=== PATIENT | female | born 1955 | race American Indian/Alaskan Native ===

== ENCOUNTER 2017-07-25 02:46 | Inpatient (IN) | payer MEDICAID, OTHER ==
[2017-07-25] MEDS ORDERED: Albuterol-Ipratrop 3 mg / 0.5 (3 ml) UD IH STA ×2 (03:04→03:20)
--- NOTE | 2017-07-25 03:04 | ED PDOC ---
Arrival/HPI - General Chief Complaint: Shortness Of Breath Time Seen by Provider: 07/25/17 02:49 Historian: Patient - History of Present Illness Narrative History of Present Illness (Text): 07/25/17 03:04 Loren Bruno is a 62 year old female, whose past medical history includes COPD , CHF, and hypertension, who presents to the Emergency department brought in by EMS complaining of shortness of breath for the past couple of days, which has worsened today. Patient states she had nebulizer treatments at home and used her inhaler with no significant relief. Patient denies any fever, chills, chest pain, nausea, vomiting, diarrhea, urinary symptoms, back pain, neck pain, headache, dizziness, or any other complaints. Time/Duration: < week Symptom Onset: Gradual Symptom Course: Unchanged Activities at Onset: Light Context: Home Past Medical History - Provider Review Nursing Documentation Reviewed: Yes - Infectious Disease Hx of Infectious Diseases: None - Tetanus Immunization Tetanus Immunization: Unknown - Cardiac Hx Cardiac Disorders: Yes Hx Congestive Heart Failure: Yes Hx Hypertension: Yes (stopped taking meds insurance problem) - Pulmonary Hx Respiratory Disorders: Yes Hx Asthma: Yes Hx Bronchitis: Yes (1 yr ago) - Neurological Hx Neurological Disorder: No - HEENT Hx HEENT Disorder: No - Renal Hx Renal Disorder: No - Endocrine/Metabolic Hx Endocrine Disorders: No - Hematological/Oncological Hx Blood Disorders: No - Integumentary Hx Dermatological Disorder: No - Musculoskeletal/Rheumatological Hx Musculoskeletal Disorders: No - Gastrointestinal Hx Gastrointestinal Disorders: Yes Hx Pancreatitis: Yes (age 55) - Genitourinary/Gynecological Hx Genitourinary Disorders: No - Psychiatric Hx Psychophysiologic Disorder: No Hx Substance Use: No Family/Social History - Physician Review Nursing Documentation Reviewed: Yes Family/Social History: Unknown Family HX Smoking Status: Light Smoker < 10 Cigarettes Daily Hx Alcohol Use: Yes (social) Hx Substance Use: No Allergies/Home Meds Allergies/Adverse Reactions: Allergies No Known Allergies Allergy (Verified 07/25/17 02:50) Review of Systems - Physician Review All systems were reviewed & negative as marked: Yes - Review of Systems Constitutional: Normal. absent: Fevers Eyes: Normal ENT: Normal Respiratory: SOB. absent: Cough Cardiovascular: Normal. absent: Chest Pain Gastrointestinal: Normal. absent: Abdominal Pain, Diarrhea, Nausea, Vomiting Genitourinary Female: Normal. absent: Dysuria, Frequency, Hematuria, Urine Output Changes Musculoskeletal: Normal. absent: Back Pain, Neck Pain Skin: Normal. absent: Rash Neurological: Normal. absent: Headache, Dizziness Endocrine: Normal Hemo/Lymphatic: Normal Psychiatric: Normal Physical Exam Vital Signs Reviewed: Yes Vital Signs Pulse Resp BP Pulse Ox 07/25/17 06:00 159/91 H 07/25/17 03:10 177/113 H 07/25/17 02:46 119 H 20 177/113 H 96 Temperature: Afebrile Blood Pressure: Normal Pulse: Regular Respiratory Rate: Normal Appearance: Positive for: Well-Appearing, Non-Toxic, Comfortable Pain Distress: None Mental Status: Positive for: Alert and Oriented X 3 - Systems Exam Head: Present: Atraumatic, Normocephalic Pupils: Present: PERRL Extroacular Muscles: Present: EOMI Conjunctiva: Present: Normal Mouth: Present: Moist Mucous Membranes Neck: Present: Normal Range of Motion Respiratory/Chest: Present: Wheezes (Wheezing bilaterally), Rales (Rales at the bases). No: Respiratory Distress, Accessory Muscle Use Cardiovascular: Present: Regular Rate and Rhythm, Normal S1, S2. No: Murmurs Abdomen: No: Tenderness, Distention, Peritoneal Signs Back: Present: Normal Inspection Upper Extremity: Present: Normal Inspection. No: Cyanosis, Edema Lower Extremity: Present: Normal Inspection. No: Edema Neurological: Present: GCS=15, CN II-XII Intact, Speech Normal Skin: Present: Warm, Dry, Normal Color. No: Rashes Psychiatric: Present: Alert, Oriented x 3, Normal Insight, Normal Concentration Medical Decision Making ED Course and Treatment: 07/25/17 03:04 Impression: 62 year old female complaining of worsening shortness of breath. Plan: -- EKG -- Chest X-ray -- Labs, cardiac enzymes, BNP -- Duoneb -- Lasix -- Reassess and disposition Prior Visits: Notes and results from previous visits were reviewed. On 04/05/2016, pt was seen in the Emergency department for shortness of breath, dyspnea on exertion, and wheezing. Pt was admitted to the hospital for further evaluation. Progress Notes: Reviewed EKG, sinus tachycardia at 110 bpm. Non-specific ST/T wave changes. 07/25/17 04:35 Case discussed with medical referral coordinator compo conveyor operator, who is aware and agrees with plan. 07/25/17 04:[address] Fraser, who is aware and agrees with plan. Accepts pt to hospitalist service. Pt will be admitted to Telemetry for COPD exacerbation and CHF. 07/25/17 04:55 Chest X-ray shows: Lungs: There is diffuse pulmonary vascular congestion with perihilar and mid to lower lung zone patchy parenchymal infiltrates representing pulmonary edema. Correlation with patient's hydration status and/or cardiac function versus pneumonia is recommended if clinically suspected. Pleural space: Unremarkable. No pneumothorax. Heart: There is stable enlargement of cardiac silhouette. Mediastinum: Unremarkable. Bones/joints: Unremarkable. Vasculature: Atherosclerotic aorta. IMPRESSION: There is diffuse pulmonary vascular congestion with perihilar and mid to lower lung zone patchy parenchymal infiltrates representing pulmonary edema. Correlation with patient' s hydration status and/or cardiac function versus pneumonia is recommended if clinically suspected. Correlation with internal medicine evaluation and further workup or followup as recommended by patient's clinical data. - Lab Interpretations Lab Results: 07/25/17 03:20 07/25/17 03:20 Lab Results 07/25/17 04:30: Hemoglobin A1c 4.7 07/25/17 03:20: Transferrin 226.65, TSH 3rd Generation 3.92 07/25/17 03:20: Iron 87, TIBC 253 L, % Saturation 34 07/25/17 03:20: Phosphorus 3.2, Magnesium 1.1 L, Ferritin 148.0, Triglycerides 102, Cholesterol 259 H, LDL Cholesterol Direct 110, HDL Cholesterol 141 H, Vitamin B12 275, Folate 10.8 07/25/17 03:20: WBC 9.5 D, RBC 3.50, Hgb 11.2 L, Hct 32.9 L, MCV 94.0, MCH 32.0 , MCHC 34.0, RDW 15.7 H, Plt Count 218, MPV 10.5 07/25/17 03:20: Sodium 143, Potassium 3.0 L, Chloride 104, Carbon Dioxide 25, Anion Gap 16, BUN 8, Creatinine 0.8, Est GFR ( Amer) > 60, Est GFR (Non- Af Amer) > 60, Random Glucose 109, Calcium 8.4, Total Bilirubin 0.7, AST 42 H, ALT 21, Alkaline Phosphatase 85, Lactate Dehydrogenase 653, Total Creatine Kinase 150, Troponin I 0.01 D, NT-Pro-B Natriuret Pep 3590 H, Total Protein 7.7 , Albumin 4.4, Globulin 3.3, Albumin/Globulin Ratio 1.3 07/25/17 03:20: PT 11.0, INR 0.97, APTT 27.1 I have reviewed the lab results: Yes - RAD Interpretation Radiology Orders: 07/25/17 03:05 CHEST PORTABLE [RAD] Stat Booster Pump Oiler: Radiologist - EKG Interpretation Interpreted by ED Physician: Yes Type: 12 lead EKG - Medication Orders Current Medication Orders: Albuterol/Ipratropium (Duoneb 3 Mg/0.5 Mg (3 Ml) Ud) 3 ml IH Q2H PRN PRN Reason: Shortness of Breath Artificial Tears (Refresh Opth Soln) 0.3 ml OU Q4H PRN PRN Reason: Dry eyes Aspirin (Ecotrin) 81 mg PO DAILY [facility] Last Admin: 07/25/17 11:52 Dose: 81 mg Atorvastatin Calcium (Lipitor) 20 mg PO DIN [facility] Last Admin: 07/25/17 18:17 Dose: 20 mg Carvedilol (Coreg) 3.125 mg PO BID [facility] Last Admin: 07/25/17 18:12 Dose: Not Given Non-Admin Reason: BP Parameters Not Met Clonidine HCl (Catapres) 0.2 mg PO TID [facility] Last Admin: 07/25/17 13:03 Dose: 0.2 mg MAR Pulse and Blood Pressure Document 07/25/17 13:03 KE (Rec: 07/25/17 13:03 [id number]) Pulse Pulse Rate (60-90) 97 Blood Pressure Blood Pressure (100/60-150/90) 159/91 Enoxaparin Sodium (Lovenox) 40 mg SC DAILY [facility] PRN Reason: Protocol Last Admin: 07/25/17 09:42 Dose: 40 mg Subcutaneous Administrations Document 07/25/17 09:42 KE (Rec: 07/25/17 09:42 KE [id number]) Charges for Administration # of Subcutaneous Administrations 1 Furosemide (Lasix) 40 mg IVP Q12 [facility] Last Admin: 07/25/17 09:42 Dose: 40 mg MAR Blood Pressure Document 07/25/17 09:42 KE (Rec: 07/25/17 09:42 KE [id number]) Blood Pressure Blood Pressure (100/60-150/90) 159/91 IVP Administration Document 07/25/17 09:42 KE (Rec: 07/25/17 09:42 KE [id number]) Charges for Administration # of IVP Administrations 1 Potassium Chloride/Dextrose (Potassium Chl 20 Meq In D5w) 1,000 mls @ 20 mls/ hr IV .Q24H [facility] Last Admin: 07/25/17 16:57 Dose: 20 mls/hr Comments: given during code eMAR Start Stop Document 07/25/17 16:57 KE (Rec: 07/25/17 16:57 KE [id number]) Intravenous Solution Start Date 07/25/17 Start Time 16:57 Milrinone Lactate/Dextrose (Primacor 20mg/100ml D5w) 100 mls @ 6.185 mls/hr IV .[id number] PRN; Protocol; 0.375 MCG/KG/MIN PRN Reason: TITRATE PER MD ORDER Last Admin: 07/25/17 16:45 Dose: 0.375 mcg/kg/min, 6.185 mls/hr eMAR Start Stop Document 07/25/17 16:45 MG (Rec: 07/25/17 17:51 MG [id number]) Intravenous Solution Start Date 07/25/17 Start Time 16:45 MAR Pulse and Blood Pressure Document 07/25/17 16:45 MG (Rec: 07/25/17 17:51 MG [id number]) Pulse Pulse Rate (60-90) 123 Blood Pressure Blood Pressure (100/60-150/90) 159/90 Titration Intervention Document 07/25/17 16:45 MG (Rec: 07/25/17 17:51 MG [id number]) Titration Intake Waste Amount 0 Container Volume 100 Titration Dosing Titration Dose 0.375 IV Rate 6.185 Intake/Decrease Started Amiodarone HCl/Dextrose (Nexterone 360 Mg In D5w 200 Ml (Premix)) 360 mg in 200 mls @ 33.333 mls/hr IV .Q6H AUNDREA; 1 MG/MIN PRN Reason: Protocol Last Admin: 07/25/17 21:45 Dose: 33.333 mls/hr eMAR Start Stop Document 07/25/17 21:45 JBO (Rec: 07/25/17 23:02 [facility] [id number]) Intravenous Solution Start Date 07/25/17 Start Time 21:45 Propofol (Diprivan) 1,000 mg in 100 mls @ 1.649 mls/hr IV .Q24H PRN; Protocol; 5 MCG/KG/MIN PRN Reason: TITRATE PER MD ORDER Last Titration: 07/26/17 01:01 Dose: 10 mcg/kg/min, 3.299 mls/hr Glez Agitation Sedation Document 07/26/17 01:01 [facility] (Rec: 07/26/17 01:01 [facility] [id number]) Glez Agitation Sedation Scale Glez Agitation Sedation Scale Score -2 Light Sedation: briefly awakens with eye contact to voice (<10 sec) Titration Intervention Document 07/26/17 01:01 [facility] (Rec: 07/26/17 01:01 [facility] [id number]) Titration Intake Titration Intake 7 Cumulative Intake 41 Cumulative Intake (Rx) 141 Waste Amount 0 Container Volume 59 Titration Dosing Titration Dose 10 IV Rate 3.299 Intake/Decrease Decreased Cumulative Dose 1410 NOREPINEPHRINE BIT/0.9 % NACL (Levophed 4 Mg/ 250 Ml Ns Premixed) 4 mg in 250 mls @ 15 mls/hr IV .[id number] PRN; Protocol; 4 MCG/MIN PRN Reason: TITRATE PER MD ORDER Last Titration: 07/25/17 23:30 Dose: 20 mcg/min, 75 mls/hr Titration Intervention Document 07/25/17 23:30 [facility] (Rec: 07/26/17 00:06 [facility] [id number]) Titration Intake Titration Intake 45 Cumulative Intake 70 Cumulative Intake (Rx) 320 Waste Amount 0 Container Volume 180 Titration Dosing Titration Dose 20 IV Rate 75 Intake/Decrease Increased Cumulative Dose 5.12 Sodium Bicarbonate 100 meq/ (Sodium Chloride) 1,100 mls @ 70 mls/hr IV .[id number] [facility]RE[facility] Last Admin: 07/25/17 19:06 Dose: 70 mls/hr eMAR Start Stop Document 07/25/17 19:06 MG (Rec: 07/25/17 19:07 MG [id number]) Intravenous Solution Start Date 07/25/17 Start Time 19:00 Midazolam 100 mg/100ml in NS (Midazolam 100 Mg/100ml In Ns) 100 mg in 100 mls @ 1 mls/hr IV .Q24H PRN; Protocol; 1 MG/HR PRN Reason: Sedation Last Titration: 07/26/17 00:09 Dose: 1 mg/hr, 1 mls/hr Glez Agitation Sedation Document 07/26/17 00:09 [facility] (Rec: 07/26/17 00:09 [facility] [id number]) Glez Agitation Sedation Scale Glez Agitation Sedation Scale Score -2 Light Sedation: briefly awakens with eye contact to voice (<10 sec) Titration Intervention Document 07/26/17 00:09 [facility] (Rec: 07/26/17 00:09 [facility] [id number]) Titration Intake Titration Intake 10 Cumulative Intake 11 Cumulative Intake (Rx) 11 Waste Amount 0 Container Volume 89 Titration Dosing Titration Dose 1 IV Rate 1 Intake/Decrease Decreased Cumulative Dose 11 Insulin Human Regular (Humulin R High) 0 units SC Q2H [facility] PRN Reason: Protocol Last Admin: 07/25/17 23:15 Dose: Not Given Non-Admin Reason: Blood Sugar Parameter MAR Blood Glucose Document 07/25/17 23:15 FATOUO (Rec: 07/25/17 23:26 [facility] [id number]) Blood Glucose Finger Stick Blood Glucose (70-120) 118 Lisinopril (Zestril) 10 mg PO DAILY [facility] Last Admin: 07/25/17 09:43 Dose: 10 mg MAR Pulse and Blood Pressure Document 07/25/17 09:43 KE (Rec: 07/25/17 09:44 KE [id number]) Pulse Pulse Rate (60-90) 97 Blood Pressure Blood Pressure (100/60-150/90) 159/91 Nicotine (Nicoderm Cq) 1 patch TD DAILY [facility] Last Admin: 07/25/17 09:42 Dose: 1 patch MAR Transdermal Patch Site Document 07/25/17 09:42 KE (Rec: 07/25/17 09:42 KE [id number]) Transdermal Patch Site Transdermal Patch Site Left Shoulder Re-Assess: MAR Transdermal Patch Removal Document 07/25/17 21:42 FATOUO (Rec: 07/25/17 23:12 [facility] [id number]) Transdermal Patch Removal Removal of Transdermal Patch done? Yes Ondansetron HCl (Zofran Inj) 4 mg IVP Q4H PRN PRN Reason: Nausea/Vomiting Pantoprazole Sodium (Protonix Inj) 40 mg IVP DAILY [facility] Potassium Chloride (K-Dur 20 Meq Er Tab) 40 meq PO BRK [facility]UN[facility]RE[facility] Thiamine HCl (Vitamin B1 Tab) 100 mg PO DAILY [facility] Last Admin: 07/25/17 09:44 Dose: 100 mg Discontinued Medications Albuterol/Ipratropium (Duoneb 3 Mg/0.5 Mg (3 Ml) Ud) 3 ml IH ONCE STA Stop: 07/25/17 03:05 Last Admin: 07/25/17 03:05 Dose: 3 ml Albuterol/Ipratropium (Duoneb 3 Mg/0.5 Mg (3 Ml) Ud) 3 ml IH ONCE STA Stop: 07/25/17 03:21 Last Admin: 07/25/17 03:20 Dose: 3 ml Dextrose (Dextrose 50% Inj) 50 ml IVP ONCE ONE Stop: 07/25/17 21:21 Last Admin: 07/25/17 21:25 Dose: 50 ml IVP Administration Document 07/25/17 21:25 JBO (Rec: 07/25/17 22:47 JBO [id number]) Charges for Administration # of IVP Administrations 1 Furosemide (Lasix) 40 mg IVP ONCE ONE Stop: 07/25/17 03:05 Last Admin: 07/25/17 03:10 Dose: 40 mg MAR Blood Pressure Document 07/25/17 03:10 JOL (Rec: 07/25/17 03:37 [id number] Blood Pressure Blood Pressure (100/60-150/90) 177/113 IVP Administration Document 07/25/17 03:10 JOL (Rec: 07/25/17 03:37 [id number] Charges for Administration # of IVP Administrations 1 Furosemide (Lasix) 80 mg IVP STAT STA Stop: 07/25/17 05:14 Last Admin: 07/25/17 06:00 Dose: 80 mg MAR Blood Pressure Document 07/25/17 06:00 JOL (Rec: 07/25/17 06:11 [id number] Blood Pressure Blood Pressure (100/60-150/90) 159/91 IVP Administration Document 07/25/17 06:00 JOL (Rec: 07/25/17 06:11 [id number][facility] Charges for Administration # of IVP Administrations 1 Potassium Chloride (Potassium Chloride 20 Meq/100 Ml) 100 mls @ 50 mls/hr IV ONCE ONE Stop: 07/25/17 05:58 Last Admin: 07/25/17 04:31 Dose: Not Given Non-Admin Reason: Patient Refused Magnesium Sulfate/Dextrose (Magnesium Sulfate 1 Gm/100 Ml D5w) 1 gm in 100 mls @ 100 mls/hr IVPB ONCE ONE Stop: 07/25/17 09:20 Last Admin: 07/25/17 09:41 Dose: 100 mls/hr eMAR Start Stop Document 07/25/17 09:41 KE (Rec: 07/25/17 09:41 DUSTIN [id number]) Intravenous Solution Start Date 07/25/17 Start Time 09:41 Potassium Chloride/Dextrose (Potassium Chl 20 Meq In D5w) 1,000 mls @ 20 mls/ hr IV .Q24H [facility]UN[facility]RE[facility] Magnesium Sulfate/Dextrose (Magnesium Sulfate 1 Gm/100 Ml D5w) 1 gm in 100 mls @ 100 mls/hr IVPB ONCE ONE Stop: 07/25/17 16:48 Last Admin: 07/25/17 16:56 Dose: 100 mls/hr Comments: given during code eMAR Start Stop Document 07/25/17 16:56 DUSTIN (Rec: 07/25/17 16:56 DUSTIN [id number]) Intravenous Solution Start Date 07/25/17 Start Time 16:56 Sodium Bicarbonate 100 meq/ (Sodium Chloride) 1,100 mls @ 80 mls/hr IV .[id number] [facility]RE[facility] Sodium Chloride (Sodium Chloride 0.9%) 1,000 mls @ 999 mls/hr IV .Q1H1M STA Stop: 07/25/17 18:53 Last Admin: 07/25/17 17:00 Dose: 999 mls/hr eMAR Start Stop Document 07/25/17 17:00 MG (Rec: 07/25/17 18:12 MG [id number]) Intravenous Solution Start Date 07/25/17 Start Time 17:00 End Date 07/25/17 End time 18:00 Total Infusion Time 60 Sodium Chloride (Sodium Chloride 0.9%) 250 mls @ 500 mls/hr IV .Q30M STA Stop: 07/26/17 00:43 Last Admin: 07/25/17 23:30 Dose: 500 mls/hr eMAR Start Stop Document 07/25/17 23:30 JBO (Rec: 07/26/17 01:11 JBO [id number]) Intravenous Solution Start Date 07/25/17 Start Time 23:30 End Date 07/26/17 End time 00:00 Total Infusion Time 30 Insulin Human Regular (Humulin R) 10 units IV ONCE ONE Stop: 07/25/17 18:22 Last Admin: 07/25/17 19:05 Dose: 10 units eMAR Start Stop Document 07/25/17 19:05 MG (Rec: 07/25/17 19:06 MG [id number]) Intravenous Solution Start Date 07/25/17 Start Time 18:30 End Date 07/25/17 End time 18:35 Total Infusion Time 5 MAR Blood Glucose Document 07/25/17 19:05 MG (Rec: 07/25/17 19:06 MG [id number]) Blood Glucose Finger Stick Blood Glucose (70-120) 447 Methylprednisolone (Solu-Medrol) 125 mg IVP ONCE ONE Stop: 07/25/17 04:56 Last Admin: 07/25/17 06:00 Dose: 125 mg IVP Administration Document 07/25/17 06:00 JOElvia (Rec: 07/25/17 06:10 [facility]-[id number]) Charges for Administration # of IVP Administrations 1 Potassium Chloride (K-Dur 20 Meq Er Tab) 40 meq PO STAT STA Stop: 07/25/17 04:51 Last Admin: 07/25/17 06:00 Dose: 40 meq Potassium Chloride (K-Dur 20 Meq Er Tab) 40 meq PO STAT STA Stop: 07/25/17 05:05 - Scribe Statement The provider has reviewed the documentation as recorded by the Alexus Win Provider Scribe Attestation: All medical record entries made by the Scribe were at my direction and personally dictated by me. I have reviewed the chart and agree that the record accurately reflects my personal performance of the history, physical exam, medical decision making, and the department course for this patient. I have also personally directed, reviewed, and agree with the discharge instructions and disposition. Disposition/Present on Arrival - Present on Arrival Any Indicators Present on Arrival: No History of DVT/PE: No History of Uncontrolled Diabetes: No Urinary Catheter: No History of Decub. Ulcer: No History Surgical Site Infection Following: None - Disposition Have Diagnosis and Disposition been Completed?: Yes Diagnosis: CHF (congestive heart failure), COPD exacerbation Disposition: HOSPITALIZED Disposition Time: 05:40 Patient Problems: Current Active Problems Problem Status Onset CHF (congestive heart failure) Acute COPD exacerbation Acute Condition: STABLE
[2017-07-25 03:56] LABS: HEMOGLOBIN 11.2 g/dL (12.0-16.0); MEAN PLATELET VOLUME 10.5 fl (7.0-11.0); RBC 3.5 10^6/uL (3.5-6.1); RED CELL DISTRIBUTION WIDTH 15.7 % (11.5-14.5); WHITE BLOOD COUNT 9.5 10^3/ul (4.5-11.0)
[2017-07-25 03:58] LABS: ALB/GLOB RATIO 1.3 (1.1-1.8); ALBUMIN 4.4 g/dL (3.0-4.8); ALT/SGPT 21 U/L (7-56); AST/SGOT 42 U/L (14-36); BLOOD UREA NITROGEN 8 mg/dL (7-21); CALCIUM 8.4 mg/dL (8.4-10.5); GFR AFRICAN-AMERICAN > 60; GFR NON-AFRICAN AMERICAN > 60; INR 0.97 (0.93-1.08)
[2017-07-25 03:59] LABS: PARTIAL THROMBOPLASTIN TIME 27.1 Seconds (25.1-36.5)
[2017-07-25] MEDS ORDERED: Potassium Chloride 20 mEq 100 ML IV ONE (03:59)
[2017-07-25 04:09] LABS: B-TYPE NATRIURETIC PEPTIDE 3590 pg/mL (0-450); TROPONIN I 0.01 ng/mL
[2017-07-25] MEDS ORDERED: Potassium Chloride 20 mEq ER Tab PO STA ×2 (04:50→05:04)
[2017-07-25] MEDS ORDERED: Albuterol-Ipratrop 3 mg / 0.5 (3 ml) UD IH PRN (04:52)
--- NOTE | 2017-07-25 04:56 | RAD ---
EXAM: XR Chest, 1 View CLINICAL HISTORY: 62 years old, female; Signs and symptoms; Shortness of breath; Additional info: SOB TECHNIQUE: Frontal view of the chest. COMPARISON: CR - CHEST PORTABLE 2016-04-05 10:25 FINDINGS: Lungs: There is diffuse pulmonary vascular congestion with perihilar and mid to lower lung zone patchy parenchymal infiltrates representing pulmonary edema. Correlation with patient's hydration status and/or cardiac function versus pneumonia is recommended if clinically suspected. Pleural space: Unremarkable. No pneumothorax. Heart: There is stable enlargement of cardiac silhouette. Mediastinum: Unremarkable. Bones/joints: Unremarkable. Vasculature: Atherosclerotic aorta. IMPRESSION: There is diffuse pulmonary vascular congestion with perihilar and mid to lower lung zone patchy parenchymal infiltrates representing pulmonary edema. Correlation with patient's hydration status and/or cardiac function versus pneumonia is recommended if clinically suspected. Correlation with internal medicine evaluation and further workup or followup as recommended by patient's clinical data.
[2017-07-25 05:05] LABS: ARTERIAL BLOOD GAS HCO3 26.5 mmol/L (21-28); ARTERIAL BLOOD GAS HEMOGLOBIN 11.1 g/dL (11.7-17.4); ARTERIAL BLOOD GAS O2 CONTENT 14.7 ML/dl (15-23); ARTERIAL BLOOD GAS O2 SAT 98.3 % (95-98); ARTERIAL BLOOD GAS PCO2 34 mm/Hg (35-45); ARTERIAL BLOOD GAS TCO2 27.5 mmol.L (22-28)
--- NOTE | 2017-07-25 05:57 | CP.PCM.HP ---
<Taiwo Hager - Last Filed: 07/25/17 06:16> History of Present Illness - History of Present Illness History of Present Illness: Ms. Bruno is a 62 year old female with a past medical history significant for CHF (last EF 27%, 04/15), COPD, HTN and tobacco abuse who presents with shortness of breath for the past four days with intermittent cough productive of clear sputum. Patient reports that she awoke from sleep with SOB. She has tried using her PRN albuterol inhaler without any relief. She endorses feeling minimal relief when sitting upright. She normally uses three pillows to sleep at night and denies having to increase this recently. She has been trying to take her medications more frequently but has had difficulty with insurance coverage and has not been taking every medication as prescribed every day. She denies any recent travel, sick contacts, fevers, chills, headaches, changes in her vision, rhinorrhea, sore throat, dysphagia, neck pain/stiffness, chest pain , palpitations, leg swelling, green/yellow sputum production, wheezing, hemoptysis, abdominal pain, N/V/D/C, changes in urine output, skin lesions, or any numbness/tingling/weakness of any extremity. PMH: As stated above PSH: Ex-Lap (30 years ago) Family History: Mother-Uterine/Ovarian Cancer Social History: Current 1/2ppd smoker (20 pack smoking history), social alcohol use and occasional marijuana use; Lives with boyfriend in Allergies: NKDA Home Medications: As per MAR Present on Admission - Present on Admission Any Indicators Present on Admission: No Review of Systems - Review of Systems Review of Systems: As stated in HPI, otherwise negative Past Patient History - Infectious Disease Hx of Infectious Diseases: None - Tetanus Immunizations Tetanus Immunization: Unknown - Past Medical History & Family History Past Medical History?: Yes - Past Social History Smoking Status: Light Smoker < 10 Cigarettes Daily - CARDIAC Hx Cardiac Disorders: Yes Hx Congestive Heart Failure: Yes Hx Hypertension: Yes (stopped taking meds insurance problem) - PULMONARY Hx Respiratory Disorders: Yes Hx Asthma: Yes Hx Bronchitis: Yes (1 yr ago) - NEUROLOGICAL Hx Neurological Disorder: No - HEENT Hx HEENT Problems: No - RENAL Hx Chronic Kidney Disease: No - ENDOCRINE/METABOLIC Hx Endocrine Disorders: No - HEMATOLOGICAL/ONCOLOGICAL Hx Blood Disorders: No - INTEGUMENTARY Hx Dermatological Problems: No - MUSCULOSKELETAL/RHEUMATOLOGICAL Hx Musculoskeletal Disorders: No - GASTROINTESTINAL Hx Gastrointestinal Disorders: Yes Hx Pancreatitis: Yes (age 55) - GENITOURINARY/GYNECOLOGICAL Hx Genitourinary Disorders: No - PSYCHIATRIC Hx Psychophysiologic Disorder: No Hx Substance Use: No - SURGICAL HISTORY Hx Surgeries: No Meds Allergies/Adverse Reactions: Allergies Allergy/AdvReac Type Severity Reaction Status Date / Time No Known Allergies Allergy Verified 07/25/17 02:50 Physical Exam - Constitutional Appears: Non-toxic, No Acute Distress - Head Exam Head Exam: ATRAUMATIC, NORMOCEPHALIC - Eye Exam Eye Exam: EOMI, Normal appearance, PERRL Pupil Exam: NORMAL ACCOMODATION, PERRL - ENT Exam ENT Exam: Mucous Membranes Moist, Normal Exam - Neck Exam Neck exam: Positive for: Full Rom, Normal Inspection. Negative for: Lymphadenopathy, Meningismus, Tenderness, Thyromegaly - Respiratory Exam Respiratory Exam: Accessory Muscle Use, Rhonchi (Bilaterally in lung bases extending to middle lung warren). absent: Chest Wall Tenderness, Decreased Breath Sounds, Clear to Auscultation Bilateral, Prolonged Expiratory Phase, Rales, Wheezes, Respiratory Distress, Stridor, NORMAL BREATHING PATTERN - Cardiovascular Exam Cardiovascular Exam: Tachycardia, REGULAR RHYTHM, +S1, +S2. absent: Bradycardia , Clicks, Diastolic murmur, Gallop, Irregular Rhythm, JVD, RRR, Rubs, +S4, Systolic Murmur - GI/Abdominal Exam GI & Abdominal Exam: Normal Bowel Sounds, Soft. absent: Bruit, Diminished Bowel Sounds, Distended, Firm, Guarding, Hernia, Hyperactive Bowel Sounds, Hypoactive Bowel Sounds, Mass, Organomegaly, Pulsatile Mass, Rebound, Rigid, Tenderness - Extremities Exam Extremities exam: Positive for: full ROM, normal capillary refill, normal inspection, pedal pulses present. Negative for: calf tenderness, joint swelling , pedal edema, tenderness - Back Exam Back exam: NORMAL INSPECTION - Neurological Exam Neurological exam: Alert, Oriented x3 - Psychiatric Exam Psychiatric exam: Normal Affect, Normal Mood - Skin Skin Exam: Dry, Intact, Normal Color, Warm Results - Vital Signs Recent Vital Signs: Last Vital Signs Temp Pulse 119 H 07/25/17 02:46 Resp 20 07/25/17 02:46 BP 177/113 H 07/25/17 03:10 Pulse Ox 96 07/25/17 02:46 - Labs Result Diagrams: 07/25/17 03:20 07/25/17 03:20 Labs: Laboratory Results - last 24 hr 07/25/17 04:59 pCO2 34 L pO2 79.0 L HCO3 26.5 ABG pH 7.50 H ABG Total CO2 27.5 ABG O2 Saturation 98.3 H ABG O2 Content 14.7 L ABG Base Excess 3.4 H ABG Hemoglobin 11.1 L ABG Carboxyhemoglobin 3.1 H POC ABG HHb (Measured) 1.6 ABG Methemoglobin 1.4 ABG O2 Capacity 15.0 L Hgb O2 Saturation 93.9 L FiO2 40.0 - EKG Data EKG shows normal: Sinus rhythm Rate: Tachycardia Assessment & Plan - Assessment and Plan (Free Text) Assessment: 62 year old female with a past medical history significant for CHF (last EF 27% , 04/15), COPD, HTN and tobacco abuse who presents with shortness of breath for the past four days with intermittent cough productive of clear sputum. Patient noted to have elevated BNP and hypokalemia. She is being admitted for acute CHF exacerbation. Plan: 1. Acute Decompensated CHF -Last Echo 03/2016 reviewed with LVEF of 27% -Chest X-Ray showed diffuse PVC with perihilar and mid to lower lung zone pulmonary edema -EKG showed sinus tachycardia with bilateral atrial enlargement and voltage criteria for LVH -BNP elevated to 3590 -Initial troponin negative with two serial Q6 repeats pending -Repeat Echo, TSH, lipid panel, and A1c pending -IV Lasix 40mg Q12 -Continue home ASA, Coreg and Lisinopril -Daily weights and strict I/O's -Cardiology consulted, all recommendations appreciated 2. History of COPD/Asthma -ABG pending -Duonebs Q2 PRN 3. Normocytic Anemia -Iron, TIBC, Transferrin, Ferritin, Folate, Vitamin B12, and peripheral smear pending -Continue to monitor with daily CBC's 4. Hypokalemia -Replenished with 80meq of PO KCl -Magnesium/Phosphorous pending -Monitor with daily CMP's 5. History of HTN -Continue home Lisinopril 6. History of Tobacco Abuse -Nicoderm CQ daily -Cessation recommendations provided GI Prophylaxis: Protonix DVT Prophylaxis: Lovenox Diet: Heart Healthy Patient seen and case discussed with attending, Dr. Fraser. Merrill PGY1 - Date & Time Date: 07/25/17 Time: 06:05 <Candice Fraser - Last Filed: 07/25/17 06:25> Results - Vital Signs Recent Vital Signs: Last Vital Signs Temp Pulse 97 H 07/25/17 06:05 Resp 20 07/25/17 06:05 BP 159/91 H 07/25/17 06:05 Pulse Ox 97 07/25/17 06:05 - Labs Result Diagrams: 07/25/17 03:20 07/25/17 03:20 Labs: Laboratory Results - last 24 hr 07/25/17 04:59 pCO2 34 L pO2 79.0 L HCO3 26.5 ABG pH 7.50 H ABG Total CO2 27.5 ABG O2 Saturation 98.3 H ABG O2 Content 14.7 L ABG Base Excess 3.4 H ABG Hemoglobin 11.1 L ABG Carboxyhemoglobin 3.1 H POC ABG HHb (Measured) 1.6 ABG Methemoglobin 1.4 ABG O2 Capacity 15.0 L Hgb O2 Saturation 93.9 L FiO2 40.0 Attending/Attestation - Attestation I have personally seen and examined this patient.: Yes I have fully participated in the care of the patient.: Yes I have reviewed all pertinent clinical information: Yes Notes (Text): 07/25/17 06:24 Patient was seen when she was in bed # 3 in the ER. Agree with history, physical examination, assessment and plan.
[2017-07-25] MEDS ORDERED: Pantoprazole 40 mg EC Tab PO SCH (06:00)
[2017-07-25 07:18] LABS: IRON 87 ug/dL (45-180)
[2017-07-25 07:28] LABS: % IRON SATURATION 34 % (20-55); TOTAL IRON BINDING CAPACITY 253 ug/dL (265-497)
[2017-07-25] MEDS ORDERED: Albuterol-Ipratrop 3 mg / 0.5 (3 ml) UD IH SCH (07:30)
[2017-07-25] MEDS ORDERED: Magnesium Sulfate 1 gm in D5W 1 GM/100 ML BAG IVPB ONE ×2 (08:21→15:49)
[2017-07-25] MEDS: Enoxaparin 40 mg Syringe SC SCH (09:42)
[2017-07-25 11:00] VITALS: BMI 18.9
[2017-07-25 11:39] LABS: TRANSFERRIN 226.65 mg/dL (206-381)
[2017-07-25 12:42] LABS: BARBITURATES, UR NEGATIVE (NEGATIVE); BENZODIAZEPINES, UR NEGATIVE (NEGATIVE); OPIATES, UR NEGATIVE (NEGATIVE); PHENCYCLIDINE, UR NEGATIVE (NEGATIVE)
[2017-07-25 12:44] LABS: FOLATE 10.8 ng/mL
[2017-07-25 12:50] LABS: BLOOD UREA NITROGEN 8 mg/dL (7-21); CALCIUM 8.5 mg/dL (8.4-10.5); GFR AFRICAN-AMERICAN > 60; GFR NON-AFRICAN AMERICAN > 60
--- NOTE | 2017-07-25 14:00 | CARD ---
APPROVED REPORT EXAM: Two-dimensional and M-mode echocardiogram with Doppler and color Doppler. INDICATION Congestive Heart Failure 2D DIMENSIONS Left Atrium (2D)4.6 (1.6-4.0cm)IVSd1.2 (0.7-1.1cm) LVDd5.8 (3.9-5.9cm)PWd1.4 (0.7-1.1cm) LVDs5.4 (2.5-4.0cm)FS (%) 7.6 % LVEF (%)16.6 (>50%) M-Mode DIMENSIONS Aortic Root3.80 (2.2-3.7cm)Aortic Cusp Exc.1.60 (1.5-2.0cm) Mitral Valve MV E Qoasuhpp72.5cm/sMV A Jcvpnpuv82.9cm/sE/A ratio0.8 TDI E/Lateral E'0.0E/Medial E'0.0 Tricuspid Valve TR Peak [id number]/sRAP [id number] Peak Gr.28mmHg [id number] LEFT VENTRICLE The Left Ventricle is mildly dilated. There is normal left ventricular wall thickness. The systolic function is severely impaired. There is global hypokinesis of the left ventricle. Transmitral Doppler flow pattern is Grade I-abnormal relaxation pattern. No left ventricle thrombus noted on this study. RIGHT VENTRICLE The right ventricle is normal size. There is normal right ventricular wall thickness. The right ventricular systolic function is normal. ATRIA The left atrium is mildly dilated. The right atrium is mildly dilated. AORTIC VALVE The aortic valve is mildly thickened. No aortic regurgitation is present. There is no aortic valvular stenosis. MITRAL VALVE The mitral valve is mildly thickened. Mitral regurgitation is severe. TRICUSPID VALVE There is mild to moderate tricuspid regurgitation. There is mild pulmonary hypertension. GREAT VESSELS The aortic root is mildly enlarged. PERICARDIAL EFFUSION There is a trace loculated anterior pericardial effusion. <Conclusion> The Left Ventricle is mildly dilated. There is normal left ventricular wall thickness. The systolic function is severely impaired. There is global hypokinesis of the left ventricle. Transmitral Doppler flow pattern is Grade I-abnormal relaxation pattern. No left ventricle thrombus noted on this study. Mitral regurgitation is severe. There is mild to moderate tricuspid regurgitation. There is mild pulmonary hypertension.
--- NOTE | 2017-07-25 14:29 | CARD ---
APPROVED REPORT EKG Measurement Heart [id number] <Conclusion> Sinus tachycardia Biatrial enlargement Left ventricular hypertrophy Nonspecific ST and T wave abnormality Abnormal ECG
[2017-07-25] MEDS ORDERED: Potassium Chl 20mEq & D5W 1,000 ML IV SCH (16:00)
[2017-07-25] MEDS ORDERED: Milrinone 20mg/100ml D5W 100 ML IV PRN (16:31)
--- NOTE | 2017-07-25 16:31 | RAD ---
HISTORY: code blue COMPARISON: Earlier same day FINDINGS: LUNGS: Endotracheal tube is in satisfactory position. There is slight improvement in the pattern of pulmonary edema PLEURA: No significant pleural effusion identified, no pneumothorax apparent. CARDIOVASCULAR: Normal. OSSEOUS STRUCTURES: No significant abnormalities. VISUALIZED UPPER ABDOMEN: Normal. OTHER FINDINGS: None. IMPRESSION: Endotracheal tube is in satisfactory position. There is slight improvement in the pattern of pulmonary edema
--- NOTE | 2017-07-25 16:35 | PCM.RRT ---
<Raul Rockwell - Last Filed: 07/25/17 16:46> [facility] Nurse Assessment - Situation [facility] Location:: [address] [place] [address] [facility] Reason for Call: Change in Mental Status [facility] Called By: RN - Respiratory Oxygen Delivery Method: Intubated I.Reason for [facility] - A) Acute Change in Patient: (Select all that apply): Acute change in mental status Subjective: [facility] called at 1539. Patient was found unresponsive by nurse. Vitals were assessed. Patient was found to have no pulse and compressions were immediately started. MAYTE BLUE was called and ACLS protocol was started. Patient was immediately intubated and heart rhythm was assessed. Patient was found to be in V-fib and was subsequently shocked. Patient achieved ROSC at this time. Femoral triple lumen was attempted. During attempt, it was noted patient did not have a pulse again and ACLS was resumed. After several rounds of ACLS, patient achieved ROSC again. - Neurological Status (Select all that apply): absent: Alert, Responsive - Respiratory Oxygen Delivery Method: Intubated - Constitutional Appears: Toxic - Head Head Exam: ATRAUMATIC, NORMAL INSPECTION, NORMOCEPHALIC - Respiratory Exam Respiratory Exam: Decreased Breath Sounds, Rhonchi - Cardiovascular Exam Cardiovascular Exam: Tachycardia, RRR - GI/Abdominal Exam GI & Abdominal Exam: Soft, Normal Bowel Sounds. absent: Tenderness - Neurological Exam Neurological Exam: absent: Alert, Awake - Extremities Exam Extremities Exam: Normal Inspection Plan - Assessment of Findings&Treatment Plan 62 year old female with past medical history of CHF, COPD, HTN, and tobacco use presented with V-fib cardiac arrest in the setting of acute decompensated CHF exacerbation. Family and PMD notified. Plan: Femoral triple lumen placed Potassium and Magensium given CBC, CMP, Troponin, Magnesium, Phosphorus, VBG with lactate, ABG Amiodarone bolus and drip started Propofol started Milrinone started Transferred to ICU <Alba Torrez - Last Filed: 07/26/17 13:25> Attending/Attestation - Attestation I have personally seen and examined this patient.: Yes I have fully participated in the care of the patient.: Yes I have reviewed all pertinent clinical information, including history, physical exam and plan: Yes Notes (Text): 07/26/17 13:19 62 year old female with a past medical history significant for CHF (last EF 27% , 04/15), COPD, HTN ,chronic smoking, alcohol and drug abuse.She also was non compliance with her medications was admitted with acute on chronic systolic CHF exacerbation, responded well to initial IV lasis, however patient into cardiac arrest in the afternoon and CPR was done as per ACLS protocol.Patient was revived and currently she is intubated and is on pressor.Patient is transferred to ICU. Patient condition was discussed with patient daughter over the phone. Case was also discussed with ICU attending and nuclear powerplant mechanic . Prognosis is guarded.
[2017-07-25 16:40] LABS: VENOUS BLOOD GAS BASE EXCESS -13.8 mmol/L (0.0-2.0); VENOUS BLOOD GAS PO2 225 mm/Hg (30-55); VENOUS BLOOD PH 7.25 (7.32-7.43)
--- NOTE | 2017-07-25 16:41 | PCM.PROC ---
Procedures Attestation:: I certify that I have explained the specified Operation(s) or Procedure(s), risks, benefits and reasonable alternatives to the Patient and/or other person responsible. The opportunity was given to ask questions and all questions answered - Central Line Placement Right Femoral Triple Lumen Catheter Aseptic technique was employed throughout the procedure: Hand Hygiene done prior to procedure, Full sterile barriers (mask, hair cover, sterile gown, sterile gloves), Chloraprep Antiseptic: 2 minute prep for Femoral Pt. Placed on Pulse Ox Monitor: No Central Line Prep: Chlorhexidine-Alcohol Combination Ultrasound Used for Placement: No Central Line Lumen Inserted: triple Central Line Length: 20 cm Post Procedure: Sutured in Place, Good Blood Return, All Ports Aspirated, Flushed, Capped, Sterile Dressing Applied Secured by: Suture Post Procedure X-Ray: No Patient Tolerated Procedure: Well Immediate Complications: None
[2017-07-25 16:43] LABS: GRAN # 4.57 (1.4-6.5); GRAN % 67.7 % (50.0-68.0); HEMOGLOBIN 11.2 g/dL (12.0-16.0); LYMPH # 1.9 (1.2-3.4); LYMPH % 27.4 % (22.0-35.0); MEAN CELL VOLUME 96.3 fl (80.0-105.0); MEAN CORPUSCULAR HEMOGLOBIN 31.7 pg (25.0-35.0); MEAN CORPUSCULAR HGB CONC 32.9 g/dl (31.0-37.0); MEAN PLATELET VOLUME 10.3 fl (7.0-11.0); MONO # 0.3 (0.1-0.6); MONO % 4.9 % (1.0-6.0); RBC 3.53 10^6/uL (3.5-6.1); RED CELL DISTRIBUTION WIDTH 15.7 % (11.5-14.5); WHITE BLOOD COUNT 6.8 10^3/ul (4.5-11.0)
[2017-07-25] MEDS: Propofol 10 mg/ml 1,000 MG/100 ML VIAL IV PRN ×2 (16:45→22:53)
[2017-07-25 16:50] LABS: ARTERIAL BLOOD GAS O2 SAT 100.1 % (95-98); ARTERIAL BLOOD GAS PCO2 33 mm/Hg (35-45)
[2017-07-25 16:51] LABS: INR 0.98 (0.93-1.08); PROTHROMBIN TIME 11.2 SECONDS (9.4-12.5)
[2017-07-25 16:54] LABS: ARTERIAL BLOOD GAS PH 7.13 (7.35-7.45)
[2017-07-25 16:56] LABS: ALB/GLOB RATIO 1.5 (1.1-1.8); ALBUMIN 4.5 g/dL (3.0-4.8); CALCIUM 8.7 mg/dL (8.4-10.5)
[2017-07-25] MEDS: Amiodarone 360 mg/D5W 200 ml 360 MG/200 ML BAG IV SCH ×2 (16:57→21:45)
[2017-07-25] MEDS: Potassium Chl 20mEq & D5W 1,000 ML IV SCH (16:57)
[2017-07-25 17:04] LABS: TROPONIN I 0.04 ng/mL
[2017-07-25] MEDS ORDERED: Insulin Lispro 1 UNITS/0.01 ML IVP ONE (17:09)
[2017-07-25] MEDS: NOREPINEPHRINE BIT/0.9 % NACL 4 MG/250 ML BAG IV PRN ×2 (17:12→22:59)
--- NOTE | 2017-07-25 17:33 | PCM.PROC ---
<Ricki Ornelas - Last Filed: 07/25/17 17:30> Procedures Attestation:: I certify that I have explained the specified Operation(s) or Procedure(s), risks, benefits and reasonable alternatives to the Patient and/or other person responsible. The opportunity was given to ask questions and all questions answered - Intubation Time Out Performed: No Sedative: None Laryngoscope: Gilson ET Tube Size: 7.5 ET Tube Secured at Depth: 24 ET Tube Secured Locarion: Lips ET Tube Placement Confirmation: Visualized Passing Through Cords, Breath Sounds Equal Bilaterally, Confirmation w/Capnometry Patient Tolerated Procedure: Well Procedure Immediate Complications: None <Alba Torrez - Last Filed: 07/26/17 13:36> Attending/Attestation - Attestation I have personally seen and examined this patient.: Yes I have fully participated in the care of the patient.: Yes I have reviewed all pertinent clinical information, including history, physical exam and plan: Yes Notes (Text): 07/26/17 13:36 Intubation was done during code, no consent was obtained as it was an emergency procedure.
[2017-07-25] MEDS ORDERED: Insulin Regular 1 UNITS/0.01 ML ML SC ONE (17:34)
[2017-07-25] MEDS ORDERED: Sodium Chloride 0.9% 1,000 ML IV STA (17:53)
[2017-07-25] MEDS ORDERED: Lubricant Eye Drops UD OU PRN (18:07)
[2017-07-25] MEDS ORDERED: Midazolam 100 mg/100ml in NS 100 MG/100 ML SOL IV PRN (18:07)
--- NOTE | 2017-07-25 18:15 | RAD ---
HISTORY: OGT placement COMPARISON: Portable chest 07/25/2017 4:15 p.m.. FINDINGS: LUNGS: Endotracheal tube is unchanged in position with nasogastric tube now placed with the tip terminating in the gastric viscus. The side hole of the NG tube approximates the esophagogastric junction and further advancement of the catheter with radiographic confirmation is advised an additional 5-10 cm into the stomach. No definite interval infiltrates bilaterally. PLEURA: No significant pleural effusion identified, no pneumothorax apparent. CARDIOVASCULAR: Cardiomegaly and increased cephalization identified suggesting worsening active CHF. OSSEOUS STRUCTURES: No significant abnormalities. VISUALIZED UPPER ABDOMEN: Normal. OTHER FINDINGS: None. IMPRESSION: 1. Worsened active CHF suggested. 2. Interval nasogastric tube placed with the tip terminating in the gastric viscus region. The NG tube side hole is at the esophagogastric junction and advancement of the catheter further into the stomach is advised as discussed above with radiographic confirmation to follow.
[2017-07-25] MEDS: Insulin Reg-HIGH-Coverage SC SCH ×4 (18:19→23:15)
[2017-07-25] MEDS ORDERED: Insulin Regular 1 UNITS/0.01 ML ML IV ONE (18:21)
[2017-07-25 18:48] LABS: URINE APPEARANCE CLEAR (CLEAR); URINE BILIRUBIN NEGATIVE (NEGATIVE); URINE BLOOD NEGATIVE (NEGATIVE); URINE COLOR YELLOW (YELLOW); URINE GLUCOSE (UA) NEGATIVE (NEGATIVE); URINE LEUKOCYTE ESTERASE NEGATIVE Leu/uL (NEGATIVE); URINE PROTEIN TRACE mg/dL (<30 mg/dL); URINE UROBILINOGEN 0.2 E.U./dL (<1 E.U./dL)
[2017-07-25 18:51] LABS: URINE RBC NEGATIVE /hpf (0-2); URINE WBC 0 - 2 /hpf (0-6)
[2017-07-25 18:52] LABS: URINE BACTERIA TRACE (NEG); URINE HYALINE CAST 0 - 2 /hpf
--- NOTE | 2017-07-25 18:53 | CP.PCM.PN ---
<Danish Marte - Last Filed: 07/25/17 18:50> Subjective - Date & Time of Evaluation Date of Evaluation: 07/25/17 Time of Evaluation: 07:00 - Subjective Subjective: Patient seen and evaluated bedside. No acute issues overnight. Patient states she is feeling fine now and that her breathing has improved, she said she has made a lot of urine after getting lasix. Patient denies chest pain, shortness of breath, sever, chills, abdominal pain, nausea, vomiting or any other complaints at this time. Objective - Vital Signs/Intake and Output Vital Signs (last 24 hours): Temp Pulse Resp BP Pulse Ox 97.6 F 123 H 22 159/90 H 128 H 07/25/17 12:00 07/25/17 16:45 07/25/17 16:40 07/25/17 16:45 07/25/17 16:40 Intake and Output: 07/25/17 07/25/17 06:59 18:59 Intake Total 52 Balance 52 - Medications Medications: Current Medications Albuterol/Ipratropium (Duoneb 3 Mg/0.5 Mg (3 Ml) Ud) 3 ml IH Q2H PRN PRN Reason: Shortness of Breath Artificial Tears (Refresh Opth Soln) 0.3 ml OU Q4H PRN PRN Reason: Dry eyes Aspirin (Ecotrin) 81 mg PO DAILY [facility] Last Admin: 07/25/17 11:52 Dose: 81 mg Atorvastatin Calcium (Lipitor) 20 mg PO DIN [facility] Last Admin: 07/25/17 18:17 Dose: 20 mg Carvedilol (Coreg) 3.125 mg PO BID [facility] Last Admin: 07/25/17 18:12 Dose: Not Given Clonidine HCl (Catapres) 0.2 mg PO TID [facility] Last Admin: 07/25/17 13:03 Dose: 0.2 mg Enoxaparin Sodium (Lovenox) 40 mg SC DAILY [facility] PRN Reason: Protocol Last Admin: 07/25/17 09:42 Dose: 40 mg Furosemide (Lasix) 40 mg IVP Q12 [facility] Last Admin: 07/25/17 09:42 Dose: 40 mg Potassium Chloride/Dextrose (Potassium Chl 20 Meq In D5w) 1,000 mls @ 20 mls/ hr IV .Q24H [facility] Last Admin: 07/25/17 16:57 Dose: 20 mls/hr Milrinone Lactate/Dextrose (Primacor 20mg/100ml D5w) 100 mls @ 6.185 mls/hr IV .[id number] PRN; Protocol; 0.375 MCG/KG/MIN PRN Reason: TITRATE PER MD ORDER Last Admin: 07/25/17 16:45 Dose: 0.375 mcg/kg/min, 6.185 mls/hr Amiodarone HCl/Dextrose (Nexterone 360 Mg In D5w 200 Ml (Premix)) 360 mg in 200 mls @ 33.333 mls/hr IV .Q6H [facility]; 1 MG/MIN PRN Reason: Protocol Last Admin: 07/25/17 16:57 Dose: 33.333 mls/hr Propofol (Diprivan) 1,000 mg in 100 mls @ 1.649 mls/hr IV .Q24H PRN; Protocol; 5 MCG/KG/MIN PRN Reason: TITRATE PER MD ORDER Last Titration: 07/25/17 17:10 Dose: 30 mcg/kg/min, 9.896 mls/hr NOREPINEPHRINE BIT/0.9 % NACL (Levophed 4 Mg/ 250 Ml Ns Premixed) 4 mg in 250 mls @ 15 mls/hr IV .[id number] PRN; Protocol; 4 MCG/MIN PRN Reason: TITRATE PER MD ORDER Last Titration: 07/25/17 18:10 Dose: 16 mcg/min, 60 mls/hr Sodium Bicarbonate 100 meq/ (Sodium Chloride) 1,100 mls @ 70 mls/hr IV .[id number] [facility] Sodium Chloride (Sodium Chloride 0.9%) 1,000 mls @ 999 mls/hr IV .Q1H1M [facility] Stop: 07/25/17 18:53 Last Admin: 07/25/17 17:00 Dose: 999 mls/hr Midazolam 100 mg/100ml in NS (Midazolam 100 Mg/100ml In Ns) 100 mg in 100 mls @ 1 mls/hr IV .Q24H PRN; Protocol; 1 MG/HR PRN Reason: Sedation Insulin Human Regular (Humulin R High) 0 units SC Q2H [facility] PRN Reason: Protocol Last Admin: 07/25/17 18:19 Dose: 15 units Lisinopril (Zestril) 10 mg PO DAILY [facility] Last Admin: 07/25/17 09:43 Dose: 10 mg Nicotine (Nicoderm Cq) 1 patch TD DAILY [facility] Last Admin: 07/25/17 09:42 Dose: 1 patch Ondansetron HCl (Zofran Inj) 4 mg IVP Q4H PRN PRN Reason: Nausea/Vomiting Pantoprazole Sodium (Protonix Inj) 40 mg IVP DAILY [facility] Potassium Chloride (K-Dur 20 Meq Er Tab) 40 meq PO BRK [facility] Thiamine HCl (Vitamin B1 Tab) 100 mg PO DAILY [facility] Last Admin: 07/25/17 09:44 Dose: 100 mg - Labs Labs: 07/25/17 16:37 07/25/17 16:37 PT 11.2 SECONDS (9.4-12.5) 07/25/17 16:37 INR 0.98 (0.93-1.08) 07/25/17 16:37 APTT 27.0 Seconds (25.1-36.5) 07/25/17 16:37 - Constitutional Appears: Non-toxic, No Acute Distress - Head Exam Head Exam: ATRAUMATIC, NORMAL INSPECTION, NORMOCEPHALIC - Eye Exam Eye Exam: EOMI, Normal appearance - Respiratory Exam Respiratory Exam: Rales, NORMAL BREATHING PATTERN - Cardiovascular Exam Cardiovascular Exam: REGULAR RHYTHM, +S1, +S2 - GI/Abdominal Exam GI & Abdominal Exam: Soft. absent: Tenderness - Extremities Exam Extremities Exam: absent: Calf Tenderness, Pedal Edema, Tenderness - Neurological Exam Neurological Exam: Alert, Awake, Oriented x3 Assessment and Plan - Assessment and Plan (Free Text) Plan: 1. CHF exacerbation secondary to medical non compliance -Last Echo 03/2016 reviewed with LVEF of 27% -Chest X-Ray showed diffuse PVC with perihilar and mid to lower lung zone pulmonary edema -EKG showed sinus tachycardia with bilateral atrial enlargement and voltage criteria for LVH -BNP elevated to 3590 -Initial troponin negative with two serial Q6 repeats pending -Repeat Echo -lasix given in ED -IV Lasix 40mg Q12 -Continue home ASA, Coreg and Lisinopril -Daily weights and strict I/O's -Cardiology consulted, all recommendations appreciated 2. History of COPD/Asthma -ABG showing ph of 7.5, pCO2: 34 p02: 79 -Duonebs Q2 PRN 3. Normocytic Anemia -Irom: 87 TIBC: 253 %aturation: 34 -peripheral smear pending -Continue to monitor with daily CBC's 4. Hypokalemia -initial K 3.0 -Replenished with 80meq of PO KCl -Monitor with daily CMP's 5. History of HTN -Continue home Lisinopril -Chol 259, LDL 110 6. History of Tobacco Abuse -Nicoderm CQ daily -Cessation recommendations provided 7. Hypomagnesia -Mg 1.1 -repleted -monitor GI Prophylaxis: Protonix DVT Prophylaxis: Lovenox Diet: Heart Healthy <Alba Torrez - Last Filed: 07/26/17 13:27> Objective - Vital Signs/Intake and Output Vital Signs (last 24 hours): Temp Pulse Resp BP Pulse Ox 98 F 80 23 114/65 100 07/26/17 06:00 07/26/17 10:00 07/26/17 07:50 07/25/17 20:30 07/26/17 07:50 Intake and Output: 07/26/17 07/26/17 06:59 18:59 Intake Total 834 555 Balance 834 555 - Medications Medications: Current Medications Albuterol/Ipratropium (Duoneb 3 Mg/0.5 Mg (3 Ml) Ud) 3 ml IH Q2H PRN PRN Reason: Shortness of Breath Artificial Tears (Refresh Opth Soln) 0.3 ml OU Q4H PRN PRN Reason: Dry eyes Aspirin (Ecotrin) 81 mg PO DAILY [facility] Last Admin: 07/26/17 10:00 Dose: 81 mg Atorvastatin Calcium (Lipitor) 20 mg PO DIN [facility] Last Admin: 07/25/17 18:17 Dose: 20 mg Enoxaparin Sodium (Lovenox) 40 mg SC DAILY [facility] PRN Reason: Protocol Last Admin: 07/26/17 09:54 Dose: 40 mg Potassium Chloride/Dextrose (Potassium Chl 20 Meq In D5w) 1,000 mls @ 20 mls/ hr IV .Q24H [facility] Last Admin: 07/25/17 16:57 Dose: 20 mls/hr Amiodarone HCl/Dextrose (Nexterone 360 Mg In D5w 200 Ml (Premix)) 360 mg in 200 mls @ 33.333 mls/hr IV .Q6H [facility]; 1 MG/MIN PRN Reason: Protocol Last Admin: 07/26/17 04:50 Dose: 33.333 mls/hr Propofol (Diprivan) 1,000 mg in 100 mls @ 1.649 mls/hr IV .Q24H PRN; Protocol; 5 MCG/KG/MIN PRN Reason: TITRATE PER MD ORDER Last Admin: 07/26/17 12:13 Dose: 25 mcg/kg/min, 8.246 mls/hr NOREPINEPHRINE BIT/0.9 % NACL (Levophed 4 Mg/ 250 Ml Ns Premixed) 4 mg in 250 mls @ 15 mls/hr IV .[id number] PRN; Protocol; 4 MCG/MIN PRN Reason: TITRATE PER MD ORDER Last Admin: 07/26/17 12:14 Dose: 18 mcg/min, 67.5 mls/hr Midazolam 100 mg/100ml in NS (Midazolam 100 Mg/100ml In Ns) 100 mg in 100 mls @ 1 mls/hr IV .Q24H PRN; Protocol; 1 MG/HR PRN Reason: Sedation Last Titration: 07/26/17 00:09 Dose: 1 mg/hr, 1 mls/hr Milrinone Lactate/Dextrose (Primacor 20mg/100ml D5w) 100 mls @ 5.443 mls/hr IV .[id number] PRN; Protocol; 0.33 MCG/KG/MIN PRN Reason: TITRATE PER MD ORDER Potassium Chloride (Potassium Chloride 20 Meq/100 Ml) 20 meq in 100 mls @ 50 mls/hr IVPB Q2H [facility] Stop: 07/26/17 13:59 Last Admin: 07/26/17 11:32 Dose: 50 mls/hr Insulin Human Regular (Humulin R High) 0 units SC Q2H [facility] PRN Reason: Protocol Last Admin: 07/26/17 12:00 Dose: Not Given Ondansetron HCl (Zofran Inj) 4 mg IVP Q4H PRN PRN Reason: Nausea/Vomiting Pantoprazole Sodium (Protonix Inj) 40 mg IVP DAILY [facility] Last Admin: 07/26/17 09:54 Dose: 40 mg Potassium Chloride (K-Dur 20 Meq Er Tab) 40 meq PO BRK [facility] Last Admin: 07/26/17 08:00 Dose: 40 meq Thiamine HCl (Vitamin B1 Tab) 100 mg PO DAILY [facility] Last Admin: 07/26/17 11:33 Dose: 100 mg - Labs Labs: 07/26/17 09:10 07/26/17 09:10 PT 12.5 SECONDS (9.4-12.5) 07/26/17 09:10 INR 1.09 (0.93-1.08) H 07/26/17 09:10 APTT 25.9 Seconds (25.1-36.5) 07/26/17 09:10 Attending/Attestation - Attestation I have personally seen and examined this patient.: Yes I have fully participated in the care of the patient.: Yes I have reviewed all pertinent clinical information, including history, physical exam and plan: Yes Notes (Text): 07/26/17 13:26 62 year old female with a past medical history significant for CHF (last EF 27% , 04/15), COPD, HTN ,chronic smoking, alcohol and drug abuse.She also was non compliance with her medications was admitted with acute on chronic systolic CHF exacerbation, responded well to initial IV lasis, however patient into cardiac arrest in the afternoon and CPR was done as per ACLS protocol.Patient was revived and currently she is intubated and is on pressor.Patient is transferred to ICU. Patient condition was discussed with patient daughter over the phone. 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 Prognosis is guarded.
[2017-07-25 19:22] LABS: BARBITURATES, UR NEGATIVE (NEGATIVE); BENZODIAZEPINES, UR NEGATIVE (NEGATIVE); OPIATES, UR NEGATIVE (NEGATIVE); PHENCYCLIDINE, UR NEGATIVE (NEGATIVE)
--- NOTE | 2017-07-25 20:55 | CON ---
DATE: REASON FOR CONSULTATION: Shortness of breath and congestive heart failure. HISTORY OF PRESENT ILLNESS: The patient is 62-year-old -[place] female who was diagnosed with congestive heart failure on recent admission in 03/2017, however, the patient herself is not aware of this diagnosis and she claims to her being compliant with her medications. The patient is intubated because of shortness of breath as well as leg swelling. The patient denies retrosternal chest pain and is not aware of any history of heart attack in the past. SOCIAL HISTORY: The patient is a smoker, EtOH abuser. MEDICATIONS: Coreg 3.125 mg twice a day, aspirin 81 mg once daily, Lasix 40 mg intravenously twice daily, Lipitor 20 mg once daily, Lovenox 40 mg subcutaneously once a day, Nicoderm patch, Protonix 40 mg p.o. once a day, Zestril 10 mg once a day. REVIEW OF SYSTEMS: No fever or chills. No nausea or vomiting. PHYSICAL EXAMINATION: GENERAL: The patient is a middle-aged female who does not appears to be in acute distress. VITAL SIGNS: Blood pressure 155/100, heart rate 95, temperature 98, respirations 22. HEENT: Exophthalmos is noted. CHEST: Bibasilar rales. HEART: S1 and S2 regular. ABDOMEN: Soft. EXTREMITIES: Trace edema. LABORATORY DATA: SMA-7 is within normal limit except for potassium of 3, Pro-BNP is 3590, total cholesterol 269, HDL cholesterol 141, LDL cholesterol is 110. PT, PTT, INR are within normal limits. This admission EKG is not documented. March EKG reveals sinus rhythm, LVH with evolution changes, biatrial enlargement. Echocardiography study in March of this year revealed ejection fraction, revealed moderately dilated left ventricle with severely depressed systolic function. Ejection fraction is estimated at 27%, insufficiency, [id number] pulmonary hypertension. A PFO is otherwise noted. There was global hypokinesis of the left ventricle. TSH level is within normal limit. ASSESSMENT: 1. Exacerbation of congestive heart failure. Consider hypertensive cardiomyopathy, also cardiomyopathy may have a component in the etiology. 2. Uncontrolled hypertension. 3. Hypokalemia. 4. Ethyl alcohol abuse. 5. Cannabinoid abuse. The patient is positive for cannabinoids. CONDITIONS: Continue Coreg 3.125 mg twice a day, aspirin 81 mg once daily, Lasix 40 mg intravenously twice a day, Lipitor 20 mg once a day, Zestril 10 mg once a day. Start clonidine at 0.2 mg every 8 hours, start K-Dur at 40 mEq orally daily. The patient did receive one dose today. Full anticoagulation will not be justified given the patient's very poor compliance and the fact that she could not comprehend her condition even though she was thoroughly evaluated and was diagnosed in March of this year and the fact that she continues to drink alcohol, at any time thiamine will be started at 100 mg orally daily. Jerome Mtz MD
[2017-07-25] MEDS ORDERED: Dextrose 50% SYRINGE Inj (50 ml) IVP ONE (21:20)
[2017-07-26] MEDS ORDERED: Sodium Chloride 0.9% 250 ML IV STA (00:14)
[2017-07-26 00:43] LABS: BASO # 0.01 K/mm3 (0.0-2.0); BASO % 0.1 % (0.0-3.0); GRAN # 11.24 (1.4-6.5); HEMOGLOBIN 10.5 g/dL (12.0-16.0); LYMPH # 1.2 (1.2-3.4); LYMPH % 9.5 % (22.0-35.0); MEAN CORPUSCULAR HEMOGLOBIN 31.6 pg (25.0-35.0); MEAN CORPUSCULAR HGB CONC 34.2 g/dl (31.0-37.0); MEAN PLATELET VOLUME 9.7 fl (7.0-11.0); MONO # 0.6 (0.1-0.6); MONO % 4.4 % (1.0-6.0); RBC 3.32 10^6/uL (3.5-6.1); RED CELL DISTRIBUTION WIDTH 15.4 % (11.5-14.5); VENOUS BLOOD GAS BASE EXCESS -0.9 mmol/L (0.0-2.0); VENOUS BLOOD GAS PO2 115 mm/Hg (30-55); VENOUS BLOOD PH 7.47 (7.32-7.43)
[2017-07-26 00:45] LABS: MEAN CELL VOLUME 92.5 fl (80.0-105.0); WHITE BLOOD COUNT 13.1 10^3/ul (4.5-11.0)
[2017-07-26] MEDS: Insulin Reg-HIGH-Coverage SC SCH ×11 (01:00→21:53)
[2017-07-26 01:18] LABS: ALB/GLOB RATIO 1.3 (1.1-1.8); ALBUMIN 3.7 g/dL (3.0-4.8); CALCIUM 7.4 mg/dL (8.4-10.5); TROPONIN I 1.32 ng/mL
[2017-07-26 01:20] LABS: ARTERIAL BLOOD GAS HCO3 21.6 mmol/L (21-28); ARTERIAL BLOOD GAS HEMOGLOBIN 10.5 g/dL (11.7-17.4); ARTERIAL BLOOD GAS O2 CAPACITY 14.6 mL/dl (16-24); ARTERIAL BLOOD GAS O2 CONTENT 14.5 ML/dl (15-23); ARTERIAL BLOOD GAS O2 SAT 99.3 % (95-98); ARTERIAL BLOOD GAS PCO2 29 mm/Hg (35-45); ARTERIAL BLOOD GAS PH 7.48 (7.35-7.45); ARTERIAL BLOOD GAS TCO2 22.5 mmol.L (22-28)
[2017-07-26] MEDS: NOREPINEPHRINE BIT/0.9 % NACL 4 MG/250 ML BAG IV PRN ×6 (01:52→21:50)
[2017-07-26] MEDS ORDERED: Dextrose 50% SYRINGE Inj (50 ml) IVP ONE (03:15)
[2017-07-26] MEDS: Amiodarone 360 mg/D5W 200 ml 360 MG/200 ML BAG IV SCH ×2 (04:50→17:41)
[2017-07-26] MEDS ORDERED: Piperacillin/Tazobact 2.25gm 2.25 GM/100 ML BAG IVPB STA (05:29)
[2017-07-26] MEDS ORDERED: Vancomycin 1gm in NS 250ml 1 GM/250 ML BAG IVPB SCH (06:00)
[2017-07-26] MEDS: Milrinone 20mg/100ml D5W 100 ML IV PRN ×2 (07:00→23:07)
[2017-07-26] MEDS: Potassium Chloride 20 mEq ER Tab PO SCH (08:00)
--- NOTE | 2017-07-26 08:39 | CON ---
DATE: 07/25/2017 HISTORY OF PRESENT ILLNESS: This is a 62-year-old lady with history of CHF, COPD, who presented this time with shortness of breath for the past few days accompanied by intermittent cough with clear sputum. The symptoms were predominantly nocturnal. She used some p.r.n. bronchodilators; however, without any relief. She endorses feeling minimal relief when sitting upright. Her shortness of breath and cough were somewhat exaggerated by exertion. She reported that she required more pillows to sleep comfortably at night lately. She also reports that she is not taking the medication regularly. In the hospital patient was treated with bronchodilators, beta-blockers, FABIO inhibitors for afterload reduction, and aspirin. However, earlier today had developed V-tach arrest, and ACLS protocol was initiated. After initial ROSC, she had another PEA arrest, with ACLS protocol started with ROSC. Patient was intubated, started on Levophed and amiodarone drip, and transferred to ICU for further management and monitoring. PAST MEDICAL HISTORY: CHF, COPD, CAD, hypertension. PAST SURGICAL HISTORY: Exploratory laparotomy 30 years ago. FAMILY HISTORY: Noncontributory. SOCIAL HISTORY: Patient is half-a-pack a day smoker. Reports social alcohol use and occasional marijuana use. She lives with her boy friend in [facility], [place]. ALLERGIES: NKDA. CURRENT MEDICATIONS: DuoNeb p.r.n., amiodarone drip, aspirin, Lipitor, Coreg, clonidine is on hold, Lovenox 40 mg subcu daily, Lasix 40 mg IV q.12h, currently on hold, lisinopril 10 mg p.o., nicotine patch currently on hold, Zofran p.r.n., Protonix, potassium supplementation, Fiorinal, propofol drip, thiamine. CURRENT PHYSICAL EXAMINATION: VITAL SIGNS: Blood pressure 196/70, heart rate 134 (patient is on Levophed 20 mcg/minute, milrinone and propofol are to be started soon). Once they started and blood pressure was evaluated, Levophed will be tapered down/off as needed). Patient is on PRBC 400/18/5/60% (FiO2 will be tapered down based on ABG that were just sent). HEENT: Head and neck atraumatic. LUNGS: Few crackles bilaterally. HEART: Regular rate and rhythm. S1, S2, distant. ABDOMEN: Soft, nontender, nondistended. MUSCULOSKELETAL: Trace bilateral pedal and ankle edema. NEUROLOGIC: Patient was not observed moving all extremities spontaneously. SKIN: Moist. PSYCHIATRIC: Patient is not responding to touch, stimuli. LABORATORY DATA: WBC 6.8, hemoglobin 11.2, platelet count 186,000. Sodium 143, potassium 3, (aggressively supplemented), BUN 8, creatinine is 0.7, glucose 135. Troponin x2 negative (repeated potassium to be 5.5), magnesium 3.8 (after supplementation). Chemistry is pending. Chest x-ray showed endotracheal tube is in satisfactory position. There is slight improvement in the pattern of pulmonary edema. Echocardiogram showed the left ventricle is mildly dilated. There is normal left ventricular wall thickness. The systolic function is severely impaired. There is global hypokinesis of the left ventricle. No left ventricle thrombus noted. Severe mitral regurgitation, moderate tricuspid regurgitation, mild pulmonary hypertension. ASSESSMENT AND PLAN: This is a 62-year-old lady who had V-tach cardiac arrest requiring cardioversion during Advanced Cardiac Life Support protocol. She achieved return of spontaneous circulation within about 15 minutes. At the present time, she is in cardiogenic shock requiring ionotropic support and vasopressor support. She is on amiodarone drip and electrolytes are presently being supplemented and will be followed up. Neurological: Patient likely suffered some degree of anoxic brain injury; however, it is too early to prognosticate. We will get Neurology on board and EEG. We will get CAT scan of the head to see if any acute intracranial pathology present or swelling, which would be a sign of anoxic brain injury (that will be done when patient is stable to go for CAT scan). At present time, patient is on propofol, which has antiepileptic properties. Treat fever aggressively Pulmonary: Patient will be on protective lung ventilation including low tidal volume ventilation and maintaining plateau pressures <30 cmH20. We will go with sightly higher PEEP/FiO2 ratio and avoid recruitment maneuvers. We will taper fi02. We will continue with conservative fluid and oxygen management. Head of bed elevated to more than 35 degrees and oral hygiene. Once patient is more stable, daily sedation vacation and daily weaning attempts (if mental status improve) will be undertaken. Cardiovascular: Patient is in cardiogenic shock, currently on milrinone and Levophed. Amiodarone drip started. Electrolytes will be supplemented. Dr. Mtz (Cardiology service) is notified and aware about situation. As per Dr. Mtz, patient is too unstable right now to go for cardiac catheterization, however, degree of mental status recovery and clinical stability will determine when patient will go for PCI or cardiac catheterization. Renal: We will continue with some diuresis, avoiding nephrotoxins, hyperchloremia. Maintain euvolemia, euglycemia and MAP>65. Optimize cardiac status and supplement lites. bicarb drip for severe metabolic (lactic) acidosis to optimize effect of pressors Gastrointestinal: Patient will be n.p.o. and gastrointestinal prophylaxis will be instituted. Infectious Disease: Patient is afebrile, did not have a fever or obvious source of infection. I have low suspicion for sepsis or septic shock. Endocrine: She will maintain blood glucose level within 140-180 range according to sugar trial. ccm time 40 min Farrukh Pack MD MTDRaul
[2017-07-26 09:33] LABS: VENOUS BLOOD GAS BASE EXCESS 0.4 mmol/L (0.0-2.0); VENOUS BLOOD GAS PO2 180 mm/Hg (30-55); VENOUS BLOOD PH 7.48 (7.32-7.43)
[2017-07-26 09:36] LABS: BASO # 0.01 K/mm3 (0.0-2.0); BASO % 0.1 % (0.0-3.0); GRAN # 11.42 (1.4-6.5); GRAN % 84.9 % (50.0-68.0); HEMOGLOBIN 10.1 g/dL (12.0-16.0); LYMPH # 1.5 (1.2-3.4); LYMPH % 11.3 % (22.0-35.0); MEAN CELL VOLUME 92.8 fl (80.0-105.0); MEAN CORPUSCULAR HEMOGLOBIN 31.6 pg (25.0-35.0); MEAN PLATELET VOLUME 10.6 fl (7.0-11.0); MONO # 0.5 (0.1-0.6); MONO % 3.7 % (1.0-6.0); RBC 3.2 10^6/uL (3.5-6.1); RED CELL DISTRIBUTION WIDTH 15.6 % (11.5-14.5); WHITE BLOOD COUNT 13.5 10^3/ul (4.5-11.0)
[2017-07-26 09:43] LABS: INR 1.09 (0.93-1.08); PARTIAL THROMBOPLASTIN TIME 25.9 Seconds (25.1-36.5); PROTHROMBIN TIME 12.5 SECONDS (9.4-12.5)
[2017-07-26 09:45] LABS: ALB/GLOB RATIO 1.2 (1.1-1.8); ALBUMIN 3.4 g/dL (3.0-4.8); CALCIUM 7.1 mg/dL (8.4-10.5)
[2017-07-26] MEDS: Enoxaparin 40 mg Syringe SC SCH (09:54)
[2017-07-26 10:36] LABS: TROPONIN I 0.45 ng/mL
--- NOTE | 2017-07-26 11:29 | CP.PCM.CON ---
History of Present Illness - History of Present Illness History of Present Illness: Neurology Consult note for Dr. Hall Reason for consult: s/p cardiac arrest, posturing, poss anoxic brain injury Please note history as per EMR as patient is intubated and sedated 62yo female PMHx CHF (last EF 27%, 04/15), COPD, HTN and tobacco abuse presented to [facility] ED 07/25 with complaints of shortness of breath. Patient was initially admitted to [facility] for CHF exacerbation. While on the floors patient had an [employer] called on 07/25 for acute change in mental status as patient was found unresponsive. Soon after patient was found to be pulseless and CODE Blue was called and ACLS protocol was initiated until ROSC was achieved. The patient coded for a second time and multiple rounds of ACLS were performed until ROSC was achieved. Patient was intubated placed on vent support, started on propofol gtt, amiodarone gtt, and milrinone gtt and transferred to ICU. Patient seen and examined at bedside intubated and sedated. Patient on vent support (50, 10, 18, 400). ROS unobtainable. PMHx: As stated above PSurgHx: Ex-Lap (30 years ago) FamHx: Mother-Uterine/Ovarian Cancer SocHx: Current 1/2ppd smoker (20 pack smoking history), social alcohol use and occasional marijuana use; Lives with boyfriend in [place]: NKDA Meds: As per [facility] Review of Systems - Review of Systems Systems not reviewed;Unavailable: Intubated Past Patient History - Infectious Disease Hx of Infectious Diseases: None - Tetanus Immunizations Tetanus Immunization: Unknown - Past Medical History & Family History Past Medical History?: Yes - Past Social History Smoking Status: Light Smoker < 10 Cigarettes Daily - CARDIAC Hx Cardiac Disorders: Yes Hx Congestive Heart Failure: Yes Hx Hypertension: Yes (stopped taking meds insurance problem) - PULMONARY Hx Respiratory Disorders: Yes Hx Asthma: Yes Hx Bronchitis: Yes (1 yr ago) - NEUROLOGICAL Hx Neurological Disorder: No - HEENT Hx HEENT Problems: No - RENAL Hx Chronic Kidney Disease: No - ENDOCRINE/METABOLIC Hx Endocrine Disorders: No - HEMATOLOGICAL/ONCOLOGICAL Hx Blood Disorders: No - INTEGUMENTARY Hx Dermatological Problems: No - MUSCULOSKELETAL/RHEUMATOLOGICAL Hx Musculoskeletal Disorders: No - GASTROINTESTINAL Hx Gastrointestinal Disorders: Yes Hx Pancreatitis: Yes (age 55) - GENITOURINARY/GYNECOLOGICAL Hx Genitourinary Disorders: No - PSYCHIATRIC Hx Psychophysiologic Disorder: No Hx Substance Use: No - SURGICAL HISTORY Hx Surgeries: Yes Hx Cardiac Catheterization: No Hx Coronary Stent: No Meds Allergies/Adverse Reactions: Allergies Allergy/AdvReac Type Severity Reaction Status Date / Time No Known Allergies Allergy Verified 07/25/17 02:50 - Medications Medications: Current Medications Albuterol/Ipratropium (Duoneb 3 Mg/0.5 Mg (3 Ml) Ud) 3 ml IH Q2H PRN PRN Reason: Shortness of Breath Artificial Tears (Refresh Opth Soln) 0.3 ml OU Q4H PRN PRN Reason: Dry eyes Aspirin (Ecotrin) 81 mg PO DAILY AUNDREA Last Admin: 07/25/17 11:52 Dose: 81 mg Atorvastatin Calcium (Lipitor) 20 mg PO DIN AUNDREA Last Admin: 07/25/17 18:17 Dose: 20 mg Enoxaparin Sodium (Lovenox) 40 mg SC DAILY AUNDREA PRN Reason: Protocol Last Admin: 07/26/17 09:54 Dose: 40 mg Potassium Chloride/Dextrose (Potassium Chl 20 Meq In D5w) 1,000 mls @ 20 mls/ hr IV .Q24H AUNDREA Last Admin: 07/25/17 16:57 Dose: 20 mls/hr Amiodarone HCl/Dextrose (Nexterone 360 Mg In D5w 200 Ml (Premix)) 360 mg in 200 mls @ 33.333 mls/hr IV .Q6H AUNDREA; 1 MG/MIN PRN Reason: Protocol Last Admin: 07/26/17 04:50 Dose: 33.333 mls/hr Propofol (Diprivan) 1,000 mg in 100 mls @ 1.649 mls/hr IV .Q24H PRN; Protocol; 5 MCG/KG/MIN PRN Reason: TITRATE PER MD ORDER Last Titration: 07/26/17 02:00 Dose: 20 mcg/kg/min, 6.597 mls/hr NOREPINEPHRINE BIT/0.9 % NACL (Levophed 4 Mg/ 250 Ml Ns Premixed) 4 mg in 250 mls @ 15 mls/hr IV .[id number] PRN; Protocol; 4 MCG/MIN PRN Reason: TITRATE PER MD ORDER Last Admin: 07/26/17 08:10 Dose: 20 mcg/min, 75 mls/hr Midazolam 100 mg/100ml in NS (Midazolam 100 Mg/100ml In Ns) 100 mg in 100 mls @ 1 mls/hr IV .Q24H PRN; Protocol; 1 MG/HR PRN Reason: Sedation Last Titration: 07/26/17 00:09 Dose: 1 mg/hr, 1 mls/hr Milrinone Lactate/Dextrose (Primacor 20mg/100ml D5w) 100 mls @ 5.443 mls/hr IV .[id number] PRN; Protocol; 0.33 MCG/KG/MIN PRN Reason: TITRATE PER MD ORDER Potassium Chloride (Potassium Chloride 20 Meq/100 Ml) 20 meq in 100 mls @ 50 mls/hr IVPB Q2H [facility] Stop: 07/26/17 13:59 Insulin Human Regular (Humulin R High) 0 units SC Q2H AUNDREA PRN Reason: Protocol Last Admin: 07/26/17 05:44 Dose: Not Given Ondansetron HCl (Zofran Inj) 4 mg IVP Q4H PRN PRN Reason: Nausea/Vomiting Pantoprazole Sodium (Protonix Inj) 40 mg IVP DAILY [facility] Last Admin: 07/26/17 09:54 Dose: 40 mg Potassium Chloride (K-Dur 20 Meq Er Tab) 40 meq PO BRK [facility] Thiamine HCl (Vitamin B1 Tab) 100 mg PO DAILY [facility] Last Admin: 07/25/17 09:44 Dose: 100 mg Physical Exam - Constitutional Appears: Other (sedated on propofol gtt) - Head Exam Head Exam: ATRAUMATIC, NORMAL INSPECTION, NORMOCEPHALIC - Eye Exam Eye Exam: PERRL. absent: Conjunctival injection, Scleral icterus - ENT Exam ENT Exam: Mucous Membranes Moist - Respiratory Exam Additional comments: intubated on vent support (50, 10, 18, 400) - Cardiovascular Exam Cardiovascular Exam: +S1, +S2 - Extremities Exam Extremities exam: Positive for: normal capillary refill, pedal pulses present - Neurological Exam Additional comments: sedated on propofol and versed gtt pupils reactive to light b/l corneal reflex intact spontaneous movement noted Results - Vital Signs Recent Vital Signs: Last Vital Signs Temp 98 F 07/26/17 06:00 Pulse 78 07/26/17 06:00 Resp 23 07/26/17 07:50 BP 114/65 07/25/17 20:30 Pulse Ox 100 07/26/17 07:50 - Labs Result Diagrams: 07/26/17 09:10 07/26/17 09:10 Labs: Laboratory Results - last 24 hr 07/25/17 07/25/17 07/25/17 10:00 12:06 15:36 WBC RBC Hgb Hct MCV MCH MCHC RDW Plt Count MPV Gran % Lymph % (Auto) [place] % (Auto) Eos % (Auto) Baso % (Auto) Gran # Lymph # (Auto) [place] # (Auto) Eos # (Auto) Baso # (Auto) PT INR APTT pCO2 pO2 HCO3 ABG pH ABG Total CO2 ABG O2 Saturation ABG O2 Content ABG Base Excess ABG Hemoglobin ABG Carboxyhemoglobin POC ABG HHb (Measured) ABG Methemoglobin ABG O2 Capacity ABG Potassium VBG pH VBG pCO2 VBG HCO3 VBG Total CO2 VBG O2 Sat (Calc) VBG Base Excess VBG Potassium Hgb O2 Saturation Glucose Lactate FiO2 Sodium 143 Potassium 3.0 L Chloride 98 Carbon Dioxide 27 Anion Gap 22 H BUN 8 Creatinine 0.7 Est GFR ( Amer) > 60 Est GFR (Non-Af Amer) > 60 POC Glucose (mg/dL) Random Glucose 283 H Calcium 8.5 Phosphorus Magnesium Total Bilirubin AST ALT Alkaline Phosphatase Troponin I 0.02 D Total Protein Albumin Globulin Albumin/Globulin Ratio Arterial Blood Potassium Venous Blood Potassium Urine Color Urine Appearance Urine pH Ur Specific [place] Urine Protein Urine Glucose (UA) Urine Ketones Urine Blood Urine Nitrate Urine Bilirubin Urine Urobilinogen Ur Leukocyte Esterase Urine RBC Urine WBC Ur Epithelial Cells Urine Bacteria Hyaline Casts Urine Opiates Screen Negative Urine Methadone Screen Negative Ur Barbiturates Screen Negative Ur Phencyclidine Scrn Negative Ur Amphetamines Screen Negative U Benzodiazepines Scrn Negative U Oth Cocaine Metabols Negative U Cannabinoids Screen Negative 07/25/17 07/25/17 07/25/17 15:40 16:37 16:37 WBC 6.8 D RBC 3.53 Hgb 11.2 L Hct 34.0 L MCV 96.3 MCH 31.7 MCHC 32.9 RDW 15.7 H Plt Count 186 MPV 10.3 Gran % 67.7 Lymph % (Auto) 27.4 [place] % (Auto) 4.9 Eos % (Auto) 0.0 L Baso % (Auto) 0.0 Gran # 4.57 Lymph # (Auto) 1.9 [place] # (Auto) 0.3 Eos # (Auto) 0.0 Baso # (Auto) 0.00 PT INR APTT pCO2 pO2 HCO3 ABG pH ABG Total CO2 ABG O2 Saturation ABG O2 Content ABG Base Excess ABG Hemoglobin ABG Carboxyhemoglobin POC ABG HHb (Measured) ABG Methemoglobin ABG O2 Capacity ABG Potassium VBG pH VBG pCO2 VBG HCO3 VBG Total CO2 VBG O2 Sat (Calc) VBG Base Excess VBG Potassium Hgb O2 Saturation Glucose Lactate FiO2 Sodium 135 Potassium 5.5 H Chloride 96 L Carbon Dioxide 12 L Anion Gap 32 H BUN 10 Creatinine 1.2 Est GFR ( Amer) 55 Est GFR (Non-Af Amer) 45 POC Glucose (mg/dL) 185 H Random Glucose 517 H* D Calcium 8.7 Phosphorus 7.0 H Magnesium 3.8 H Total Bilirubin 0.9 AST 56 H D ALT 24 Alkaline Phosphatase 88 Troponin I 0.04 D Total Protein 7.4 Albumin 4.5 Globulin 2.9 Albumin/Globulin Ratio 1.5 Arterial Blood Potassium Venous Blood Potassium Urine Color Urine Appearance Urine pH Ur Specific [place] Urine Protein Urine Glucose (UA) Urine Ketones Urine Blood Urine Nitrate Urine Bilirubin Urine Urobilinogen Ur Leukocyte Esterase Urine RBC Urine WBC Ur Epithelial Cells Urine Bacteria Hyaline Casts Urine Opiates Screen Urine Methadone Screen Ur Barbiturates Screen Ur Phencyclidine Scrn Ur Amphetamines Screen U Benzodiazepines Scrn U Oth Cocaine Metabols U Cannabinoids Screen 07/25/17 07/25/17 07/25/17 16:37 16:37 16:40 WBC RBC Hgb Hct MCV MCH MCHC RDW Plt Count MPV Gran % Lymph % (Auto) [place] % (Auto) Eos % (Auto) Baso % (Auto) Gran # Lymph # (Auto) [place] # (Auto) Eos # (Auto) Baso # (Auto) PT 11.2 INR 0.98 APTT 27.0 pCO2 33 L pO2 225 H 159.0 H HCO3 11.0 L ABG pH 7.13 L* ABG Total CO2 12.0 L ABG O2 Saturation 100.1 H ABG O2 Content ABG Base Excess -17.1 L ABG Hemoglobin ABG Carboxyhemoglobin POC ABG HHb (Measured) ABG Methemoglobin ABG O2 Capacity ABG Potassium 5.0 VBG pH 7.25 L VBG pCO2 27.0 L VBG HCO3 11.8 L VBG Total CO2 12.6 L VBG O2 Sat (Calc) 100.0 H VBG Base Excess -13.8 L VBG Potassium 5.5 H Hgb O2 Saturation Glucose 537 H* 573 H* Lactate 14.6 H* 14.6 H* FiO2 21.0 60.0 Sodium 133.0 133.0 Potassium Chloride 95.0 L 96.0 L Carbon Dioxide Anion Gap BUN Creatinine Est GFR ( Amer) Est GFR (Non-Af Amer) POC Glucose (mg/dL) Random Glucose Calcium Phosphorus Magnesium Total Bilirubin AST ALT Alkaline Phosphatase Troponin I Total Protein Albumin Globulin Albumin/Globulin Ratio Arterial Blood Potassium 5.0 Venous Blood Potassium 5.5 H Urine Color Urine Appearance Urine pH Ur Specific [place] Urine Protein Urine Glucose (UA) Urine Ketones Urine Blood Urine Nitrate Urine Bilirubin Urine Urobilinogen Ur Leukocyte Esterase Urine RBC Urine WBC Ur Epithelial Cells Urine Bacteria Hyaline Casts Urine Opiates Screen Urine Methadone Screen Ur Barbiturates Screen Ur Phencyclidine Scrn Ur Amphetamines Screen U Benzodiazepines Scrn U Oth Cocaine Metabols U Cannabinoids Screen 07/25/17 07/25/17 07/25/17 18:05 18:38 18:38 WBC RBC Hgb Hct MCV MCH MCHC RDW Plt Count MPV Gran % Lymph % (Auto) [place] % (Auto) Eos % (Auto) Baso % (Auto) Gran # Lymph # (Auto) [place] # (Auto) Eos # (Auto) Baso # (Auto) PT INR APTT pCO2 pO2 HCO3 ABG pH ABG Total CO2 ABG O2 Saturation ABG O2 Content ABG Base Excess ABG Hemoglobin ABG Carboxyhemoglobin POC ABG HHb (Measured) ABG Methemoglobin ABG O2 Capacity ABG Potassium VBG pH VBG pCO2 VBG HCO3 VBG Total CO2 VBG O2 Sat (Calc) VBG Base Excess VBG Potassium Hgb O2 Saturation Glucose Lactate FiO2 Sodium Potassium Chloride Carbon Dioxide Anion Gap BUN Creatinine Est GFR ( Amer) Est GFR (Non-Af Amer) POC Glucose (mg/dL) 447 H* Random Glucose Calcium Phosphorus Magnesium Total Bilirubin AST ALT Alkaline Phosphatase Troponin I Total Protein Albumin Globulin Albumin/Globulin Ratio Arterial Blood Potassium Venous Blood Potassium Urine Color Yellow Urine Appearance Clear Urine pH 5.0 Ur Specific [place] 1.015 Urine Protein Trace H Urine Glucose (UA) Negative Urine Ketones Trace H Urine Blood Negative Urine Nitrate Negative Urine Bilirubin Negative Urine Urobilinogen 0.2 Ur Leukocyte Esterase Negative Urine RBC Negative Urine WBC 0 - 2 Ur Epithelial Cells 1 - 3 Urine Bacteria Trace Hyaline Casts 0 - 2 Urine Opiates Screen Negative Urine Methadone Screen Negative Ur Barbiturates Screen Negative Ur Phencyclidine Scrn Negative Ur Amphetamines Screen Negative U Benzodiazepines Scrn Negative U Oth Cocaine Metabols Positive H U Cannabinoids Screen Positive H 07/25/17 07/25/17 07/25/17 20:01 21:14 22:09 WBC RBC Hgb Hct MCV MCH MCHC RDW Plt Count MPV Gran % Lymph % (Auto) [place] % (Auto) Eos % (Auto) Baso % (Auto) Gran # Lymph # (Auto) [place] # (Auto) Eos # (Auto) Baso # (Auto) PT INR APTT pCO2 pO2 HCO3 ABG pH ABG Total CO2 ABG O2 Saturation ABG O2 Content ABG Base Excess ABG Hemoglobin ABG Carboxyhemoglobin POC ABG HHb (Measured) ABG Methemoglobin ABG O2 Capacity ABG Potassium VBG pH VBG pCO2 VBG HCO3 VBG Total CO2 VBG O2 Sat (Calc) VBG Base Excess VBG Potassium Hgb O2 Saturation Glucose Lactate FiO2 Sodium Potassium Chloride Carbon Dioxide Anion Gap BUN Creatinine Est GFR ( Amer) Est GFR (Non-Af Amer) POC Glucose (mg/dL) 143 H 63 L 76 Random Glucose Calcium Phosphorus Magnesium Total Bilirubin AST ALT Alkaline Phosphatase Troponin I Total Protein Albumin Globulin Albumin/Globulin Ratio Arterial Blood Potassium Venous Blood Potassium Urine Color Urine Appearance Urine pH Ur Specific [place] Urine Protein Urine Glucose (UA) Urine Ketones Urine Blood Urine Nitrate Urine Bilirubin Urine Urobilinogen Ur Leukocyte Esterase Urine RBC Urine WBC Ur Epithelial Cells Urine Bacteria Hyaline Casts Urine Opiates Screen Urine Methadone Screen Ur Barbiturates Screen Ur Phencyclidine Scrn Ur Amphetamines Screen U Benzodiazepines Scrn U Oth Cocaine Metabols U Cannabinoids Screen 07/25/17 07/26/17 07/26/17 23:14 00:30 00:30 WBC 13.1 H D RBC 3.32 L Hgb 10.5 L Hct 30.7 L MCV 92.5 D MCH 31.6 MCHC 34.2 RDW 15.4 H Plt Count 174 MPV 9.7 Gran % 86.0 H Lymph % (Auto) 9.5 L [place] % (Auto) 4.4 Eos % (Auto) 0.0 L Baso % (Auto) 0.1 Gran # 11.24 H Lymph # (Auto) 1.2 [place] # (Auto) 0.6 Eos # (Auto) 0.0 Baso # (Auto) 0.01 PT INR APTT pCO2 pO2 115 H HCO3 ABG pH ABG Total CO2 ABG O2 Saturation ABG O2 Content ABG Base Excess ABG Hemoglobin ABG Carboxyhemoglobin POC ABG HHb (Measured) ABG Methemoglobin ABG O2 Capacity ABG Potassium VBG pH 7.47 H VBG pCO2 30.0 L VBG HCO3 21.8 VBG Total CO2 22.7 VBG O2 Sat (Calc) 99.5 H VBG Base Excess -0.9 L VBG Potassium 2.7 L Hgb O2 Saturation Glucose 112 H Lactate 2.7 H FiO2 21.0 Sodium 137.0 Potassium Chloride 104.0 Carbon Dioxide Anion Gap BUN Creatinine Est GFR ( Amer) Est GFR (Non-Af Amer) POC Glucose (mg/dL) 118 H Random Glucose Calcium Phosphorus Magnesium Total Bilirubin AST ALT Alkaline Phosphatase Troponin I Total Protein Albumin Globulin Albumin/Globulin Ratio Arterial Blood Potassium Venous Blood Potassium 2.7 L Urine Color Urine Appearance Urine pH Ur Specific [place] Urine Protein Urine Glucose (UA) Urine Ketones Urine Blood Urine Nitrate Urine Bilirubin Urine Urobilinogen Ur Leukocyte Esterase Urine RBC Urine WBC Ur Epithelial Cells Urine Bacteria Hyaline Casts Urine Opiates Screen Urine Methadone Screen Ur Barbiturates Screen Ur Phencyclidine Scrn Ur Amphetamines Screen U Benzodiazepines Scrn U Oth Cocaine Metabols U Cannabinoids Screen 07/26/17 07/26/17 07/26/17 00:30 01:10 03:23 WBC RBC Hgb Hct MCV MCH MCHC RDW Plt Count MPV Gran % Lymph % (Auto) [place] % (Auto) Eos % (Auto) Baso % (Auto) Gran # Lymph # (Auto) [place] # (Auto) Eos # (Auto) Baso # (Auto) PT INR APTT pCO2 29 L pO2 119.0 H HCO3 21.6 ABG pH 7.48 H ABG Total CO2 22.5 ABG O2 Saturation 99.3 H ABG O2 Content 14.5 L ABG Base Excess -1.2 ABG Hemoglobin 10.5 L ABG Carboxyhemoglobin 1.5 POC ABG HHb (Measured) 0.7 ABG Methemoglobin 1.4 ABG O2 Capacity 14.6 L ABG Potassium VBG pH VBG pCO2 VBG HCO3 VBG Total CO2 VBG O2 Sat (Calc) VBG Base Excess VBG Potassium Hgb O2 Saturation 96.5 Glucose Lactate FiO2 50.0 Sodium 139 Potassium 2.8 L* D Chloride 102 Carbon Dioxide 22 Anion Gap 18 BUN 18 Creatinine 1.7 H Est GFR ( Amer) 37 Est GFR (Non-Af Amer) 30 POC Glucose (mg/dL) 69 Random Glucose 112 H Calcium 7.4 L Phosphorus 3.3 Magnesium 2.2 Total Bilirubin 0.6 AST 93 H D ALT 28 Alkaline Phosphatase 122 Troponin I 1.32 H* D Total Protein 6.7 Albumin 3.7 Globulin 2.9 Albumin/Globulin Ratio 1.3 Arterial Blood Potassium Venous Blood Potassium Urine Color Urine Appearance Urine pH Ur Specific [place] Urine Protein Urine Glucose (UA) Urine Ketones Urine Blood Urine Nitrate Urine Bilirubin Urine Urobilinogen Ur Leukocyte Esterase Urine RBC Urine WBC Ur Epithelial Cells Urine Bacteria Hyaline Casts Urine Opiates Screen Urine Methadone Screen Ur Barbiturates Screen Ur Phencyclidine Scrn Ur Amphetamines Screen U Benzodiazepines Scrn U Oth Cocaine Metabols U Cannabinoids Screen 07/26/17 07/26/17 07/26/17 05:02 06:49 07:49 WBC RBC Hgb Hct MCV MCH MCHC RDW Plt Count MPV Gran % Lymph % (Auto) [place] % (Auto) Eos % (Auto) Baso % (Auto) Gran # Lymph # (Auto) [place] # (Auto) Eos # (Auto) Baso # (Auto) PT INR APTT pCO2 pO2 HCO3 ABG pH ABG Total CO2 ABG O2 Saturation ABG O2 Content ABG Base Excess ABG Hemoglobin ABG Carboxyhemoglobin POC ABG HHb (Measured) ABG Methemoglobin ABG O2 Capacity ABG Potassium VBG pH VBG pCO2 VBG HCO3 VBG Total CO2 VBG O2 Sat (Calc) VBG Base Excess VBG Potassium Hgb O2 Saturation Glucose Lactate FiO2 Sodium Potassium Chloride Carbon Dioxide Anion Gap BUN Creatinine Est GFR ( Amer) Est GFR (Non-Af Amer) POC Glucose (mg/dL) 97 95 118 H Random Glucose Calcium Phosphorus Magnesium Total Bilirubin AST ALT Alkaline Phosphatase Troponin I Total Protein Albumin Globulin Albumin/Globulin Ratio Arterial Blood Potassium Venous Blood Potassium Urine Color Urine Appearance Urine pH Ur Specific [place] Urine Protein Urine Glucose (UA) Urine Ketones Urine Blood Urine Nitrate Urine Bilirubin Urine Urobilinogen Ur Leukocyte Esterase Urine RBC Urine WBC Ur Epithelial Cells Urine Bacteria Hyaline Casts Urine Opiates Screen Urine Methadone Screen Ur Barbiturates Screen Ur Phencyclidine Scrn Ur Amphetamines Screen U Benzodiazepines Scrn U Oth Cocaine Metabols U Cannabinoids Screen 07/26/17 07/26/17 07/26/17 09:10 09:10 09:10 WBC 13.5 H RBC 3.20 L Hgb 10.1 L Hct 29.7 L MCV 92.8 MCH 31.6 MCHC 34.0 RDW 15.6 H Plt Count 156 MPV 10.6 Gran % 84.9 H Lymph % (Auto) 11.3 L [place] % (Auto) 3.7 Eos % (Auto) 0.0 L Baso % (Auto) 0.1 Gran # 11.42 H Lymph # (Auto) 1.5 [place] # (Auto) 0.5 Eos # (Auto) 0.0 Baso # (Auto) 0.01 PT 12.5 INR 1.09 H APTT 25.9 pCO2 pO2 HCO3 ABG pH ABG Total CO2 ABG O2 Saturation ABG O2 Content ABG Base Excess ABG Hemoglobin ABG Carboxyhemoglobin POC ABG HHb (Measured) ABG Methemoglobin ABG O2 Capacity ABG Potassium VBG pH VBG pCO2 VBG HCO3 VBG Total CO2 VBG O2 Sat (Calc) VBG Base Excess VBG Potassium Hgb O2 Saturation Glucose Lactate FiO2 Sodium 139 Potassium 3.4 L Chloride 106 Carbon Dioxide 22 Anion Gap 14 BUN 16 Creatinine 1.3 H Est GFR ( Amer) 50 Est GFR (Non-Af Amer) 41 POC Glucose (mg/dL) Random Glucose 121 H Calcium 7.1 L Phosphorus Magnesium Total Bilirubin 0.6 AST 79 H ALT 27 Alkaline Phosphatase 113 Troponin I 0.45 H* D Total Protein 6.3 Albumin 3.4 Globulin 2.8 Albumin/Globulin Ratio 1.2 Arterial Blood Potassium Venous Blood Potassium Urine Color Urine Appearance Urine pH Ur Specific [place] Urine Protein Urine Glucose (UA) Urine Ketones Urine Blood Urine Nitrate Urine Bilirubin Urine Urobilinogen Ur Leukocyte Esterase Urine RBC Urine WBC Ur Epithelial Cells Urine Bacteria Hyaline Casts Urine Opiates Screen Urine Methadone Screen Ur Barbiturates Screen Ur Phencyclidine Scrn Ur Amphetamines Screen U Benzodiazepines Scrn U Oth Cocaine Metabols U Cannabinoids Screen 07/26/17 07/26/17 09:10 10:02 WBC RBC Hgb Hct MCV MCH MCHC RDW Plt Count MPV Gran % Lymph % (Auto) [place] % (Auto) Eos % (Auto) Baso % (Auto) Gran # Lymph # (Auto) [place] # (Auto) Eos # (Auto) Baso # (Auto) PT INR APTT pCO2 pO2 180 H HCO3 ABG pH ABG Total CO2 ABG O2 Saturation ABG O2 Content ABG Base Excess ABG Hemoglobin ABG Carboxyhemoglobin POC ABG HHb (Measured) ABG Methemoglobin ABG O2 Capacity ABG Potassium VBG pH 7.48 H VBG pCO2 31.0 L VBG HCO3 23.1 VBG Total CO2 24.1 VBG O2 Sat (Calc) 100.1 H VBG Base Excess 0.4 VBG Potassium 3.3 L Hgb O2 Saturation Glucose 127 H Lactate 1.1 FiO2 21.0 Sodium 138.0 Potassium Chloride 108.0 H Carbon Dioxide Anion Gap BUN Creatinine Est GFR ( Amer) Est GFR (Non-Af Amer) POC Glucose (mg/dL) 108 Random Glucose Calcium Phosphorus Magnesium Total Bilirubin AST ALT Alkaline Phosphatase Troponin I Total Protein Albumin Globulin Albumin/Globulin Ratio Arterial Blood Potassium Venous Blood Potassium 3.3 L Urine Color Urine Appearance Urine pH Ur Specific [place] Urine Protein Urine Glucose (UA) Urine Ketones Urine Blood Urine Nitrate Urine Bilirubin Urine Urobilinogen Ur Leukocyte Esterase Urine RBC Urine WBC Ur Epithelial Cells Urine Bacteria Hyaline Casts Urine Opiates Screen Urine Methadone Screen Ur Barbiturates Screen Ur Phencyclidine Scrn Ur Amphetamines Screen U Benzodiazepines Scrn U Oth Cocaine Metabols U Cannabinoids Screen Assessment & Plan - Assessment and Plan (Free Text) Assessment: 62yo female PMHx CHF (EF on admission 16%), COPD, HTN and tobacco abuse presented to [facility] ED 07/25 with complaints of SOB originally admitted to TE[facility] for CHF exacerbation later found to have cardiac arrest on TELE and admitted to ICU. Neuro consulted for possible anoxic brain injury s/p cardiac arrest Plan: -CT head: no acute findings -f/u EEG -recommend MRI when patient is stable -HoB above 30 -Aspiration precautions -continue management as per ICU team and primary Discussed with Dr. Isabel Richard PGY2
[2017-07-26] MEDS: Propofol 10 mg/ml 1,000 MG/100 ML VIAL IV PRN ×2 (12:13→19:10)
--- NOTE | 2017-07-26 12:13 | CP.CCUPN ---
<Ignacio Becerra - Last Filed: 07/26/17 12:35> CCU Subjective - Physician Review Subjective (Free Text): 07/26/17 12:35 Patient seen and examined at bedside in ICU. Remains intubated/sedated, unresponsive and no spontaneous movements appreciated. Remains on levophed for pressor support, s/p EEG and Head CT, awaiting official reads. CCU Objective - Vital Signs / Intake & Output Intake and Output (Last 8hrs): Intake & Output 07/25/17 07/26/17 07/26/17 22:59 06:59 14:59 Intake Total 2408 555 250 Output Total 15 Balance 2393 555 250 Intake: IV 1628 555 250 Left Femoral 1000 Left Forearm 100 Left Hand 177 Oral 720 Other 60 Output: Urine 15 Urethral (Sánchez) 15 Urine, Voided 0 Other: # Bowel Movements 0 - Physical Exam Physical Exam Limitations: Positive for: Other (intubated/sedated/unresponsive) Head: Positive for: Atraumatic, Normocephalic Pupils: Positive for: Other (minimally reactive to direct light challenge) Extroacular Muscles: Positive for: Other (no spontaneous movements appreciated, not avoiding direct light challenge) Conjunctiva: Positive for: Normal. Negative for: Injected, Icteric Mouth: Positive for: Moist Mucous Membranes, Other (ETT and OGT in place) Nose (External): Positive for: Atraumatic. Negative for: Abrasion, Laceration Nose (Internal): Positive for: Normal Inspection, No Active Bleeding. Negative for: Epistaxis Neck: Positive for: Normal Range of Motion (passive ROM only, no conscious or intermittent movements appreciated during exam). Negative for: JVD Respiratory/Chest: Positive for: Wheezes (mild-moderate end-expiratory wheezing bilaterally), Rales (mild bibasilar rales). Negative for: Clear to Auscultation , Respiratory Distress, Accessory Muscle Use, Decreased Breath Sounds, Tachypneic Cardiovascular: Positive for: Regular Rate and Rhythm, Normal S1, S2. Negative for: Murmurs, Irregular Rhythm, Tachycardic, Bradycardic Abdomen: Positive for: Normal Bowel Sounds. Negative for: Tenderness, Distention, Peritoneal Signs Upper Extremity: Positive for: Normal Inspection, NORMAL PULSES. Negative for: Cyanosis, Edema, Tenderness, Swelling, Erythema, Deformity Lower Extremity: Positive for: Normal Inspection, NORMAL PULSES. Negative for: Edema, Cyanosis, Tenderness, Swelling, Erythema, Deformity Neurological: Positive for: Other (intubated and sedated, unresponsive, appears to be in partial decerebrate positioning). Negative for: GCS=15 (E1 V1t M2) Skin: Positive for: Warm, Dry, Normal Color. Negative for: Rashes Psychiatric: Positive for: Other (sedated/intubated/unresponsive, unable to assess) - Medications Active Medications: Active Medications Generic Name Dose Route Start Last Admin Trade Name Freq PRN Reason Stop Dose Admin Albuterol/Ipratropium 3 ml 07/25/17 04:52 Duoneb 3 Mg/0.5 Mg (3 Ml) Ud IH Q2H PRN Shortness of Breath Artificial Tears 0.3 ml 07/25/17 18:07 Refresh Opth Soln OU Q4H PRN Dry eyes Aspirin 81 mg 07/25/17 10:00 07/26/17 10:00 Ecotrin PO 81 mg DAILY AUNDREA Administration Atorvastatin Calcium 20 mg 07/25/17 17:00 07/25/17 18:17 Lipitor PO 20 mg DIN AUNDREA Administration Enoxaparin Sodium 40 mg 07/25/17 10:00 07/26/17 09:54 Lovenox SC 40 mg DAILY AUNDREA Administration Protocol Potassium Chloride/Dextrose 1,000 mls @ 20 mls/hr 07/25/17 16:00 07/25/17 16: 57 Potassium Chl 20 Meq In D5w IV 20 mls/hr .Q24H AUNDREA Administration Amiodarone HCl/Dextrose 360 mg in 200 mls @ 33.333 mls/hr 07/25/17 16:45 04:50 Nexterone 360 Mg In D5w 200 Ml (Premix) IV 33.333 mls/hr .Q6H AUNDREA Administration Protocol 1 MG/MIN Propofol 1,000 mg in 100 mls @ 1.649 mls/hr 07/25/17 16:35 07/26/17 02:00 Diprivan IV 20 mcg/kg/min .Q24H PRN 6.597 mls/hr TITRATE PER MD ORDER Titration Protocol 5 MCG/KG/MIN NOREPINEPHRINE BIT/0.9 % NACL 4 mg in 250 mls @ 15 mls/hr 07/25/17 16:11 08:10 Levophed 4 Mg/ 250 Ml Ns Premixed IV 20 mcg/min .[id number] PRN 75 mls/hr TITRATE PER MD ORDER Administration Protocol 4 MCG/MIN Midazolam 100 mg/100ml in NS 100 mg in 100 mls @ 1 mls/hr 07/25/17 18:07 00:09 Midazolam 100 Mg/100ml In Ns IV 1 mg/hr .Q24H PRN 1 mls/hr Sedation Titration Protocol 1 MG/HR Milrinone Lactate/Dextrose 100 mls @ 5.443 mls/hr 07/26/17 08:06 Primacor 20mg/100ml D5w IV .[id number] PRN TITRATE PER MD ORDER Protocol 0.33 MCG/KG/MIN Potassium Chloride 20 meq in 100 mls @ 50 mls/hr 07/26/17 10:00 07/26/17 11: 32 Potassium Chloride 20 Meq/100 Ml IVPB 07/26/17 13:59 50 mls/hr Q2H AUNDREA Administration Insulin Human Regular 0 units 07/25/17 17:15 07/26/17 05:44 Humulin R High SC Not Given Q2H AUNDREA Protocol Ondansetron HCl 4 mg 07/25/17 04:53 Zofran Inj IVP Q4H PRN Nausea/Vomiting Pantoprazole Sodium 40 mg 07/26/17 10:00 07/26/17 09:54 Protonix Inj IVP 40 mg DAILY AUNDREA Administration Potassium Chloride 40 meq 07/26/17 08:00 07/26/17 08:00 K-Dur 20 Meq Er Tab PO 40 meq BRK AUNDREA Administration Thiamine HCl 100 mg 07/25/17 10:00 07/26/17 11:33 Vitamin B1 Tab PO 100 mg DAILY AUNDREA Administration - Patient Studies Lab Studies: Lab Studies 07/26/17 07/26/17 07/26/17 Range/Units 11:44 10:02 09:10 WBC (4.5-11.0) 10^3/ul RBC (3.5-6.1) 10^6/uL Hgb (12.0-16.0) g/dL Hct (36.0-48.0) % MCV (80.0-105.0) fl MCH (25.0-35.0) pg MCHC (31.0-37.0) g/dl RDW (11.5-14.5) % Plt Count (120.0-450.0) 10^3/uL MPV (7.0-11.0) fl Gran % (50.0-68.0) % Lymph % (Auto) (22.0-35.0) % [place] % (Auto) (1.0-6.0) % Eos % (Auto) (1.5-5.0) % Baso % (Auto) (0.0-3.0) % Gran # (1.4-6.5) Lymph # (Auto) (1.2-3.4) [place] # (Auto) (0.1-0.6) Eos # (Auto) (0.0-0.7) Baso # (Auto) (0.0-2.0) K/mm3 PT (9.4-12.5) SECONDS INR (0.93-1.08) APTT (25.1-36.5) Seconds pCO2 (35-45) mm/Hg pO2 180 H (30-55) mm/Hg HCO3 (21-28) mmol/L ABG pH (7.35-7.45) ABG Total CO2 (22-28) mmol.L ABG O2 Saturation (95-98) % ABG O2 Content (15-23) ML/dl ABG Base Excess (-2.0-3.0) mmol/L ABG Hemoglobin (11.7-17.4) g/dL ABG Carboxyhemoglobin (0.5-1.5) % POC ABG HHb (Measured) (0-5) % ABG Methemoglobin (0.0-3.0) % ABG O2 Capacity (16-24) mL/dl ABG Potassium (3.6-5.2) mmol/L VBG pH 7.48 H (7.32-7.43) VBG pCO2 31.0 L (40-60) VBG HCO3 23.1 (21-28) mmol/l VBG Total CO2 24.1 (22-28) mmol.L VBG O2 Sat (Calc) 100.1 H (40-65) % VBG Base Excess 0.4 (0.0-2.0) mmol/L VBG Potassium 3.3 L (3.6-5.2) mmol/L Hgb O2 Saturation (95.0-98.0) % Glucose 127 H (65-105) mg/dl Lactate 1.1 (0.7-2.1) mmol/L FiO2 21.0 % Sodium 138.0 (132-148) mmol/L Potassium (3.6-5.0) mmol/L Chloride 108.0 H (98-107) mmol/L Carbon Dioxide (21-33) mmol/L Anion Gap (10-20) BUN (7-21) mg/dL Creatinine (0.7-1.2) mg/dl Est GFR ( Amer) Est GFR (Non-Af Amer) POC Glucose (mg/dL) 124 H 108 (65-110) mg/dL Random Glucose (70-110) mg/dL Calcium (8.4-10.5) mg/dL Phosphorus (2.5-4.5) mg/dL Magnesium (1.7-2.2) mg/dL Total Bilirubin (0.2-1.3) mg/dL AST (14-36) U/L ALT (7-56) U/L Alkaline Phosphatase (38-126) U/L Troponin I ng/mL Total Protein (5.8-8.3) g/dL Albumin (3.0-4.8) g/dL Globulin gm/dL Albumin/Globulin Ratio (1.1-1.8) Arterial Blood Potassium (3.6-5.2) mmol/L Venous Blood Potassium 3.3 L (3.6-5.2) mmol/L Urine Color (YELLOW) Urine Appearance (CLEAR) Urine pH (4.7-8.0) Ur Specific [place] (1.005-1.035) Urine Protein (<30 mg/dL) mg/dL Urine Glucose (UA) (NEGATIVE) mg/dL Urine Ketones (NEGATIVE) mg/dL Urine Blood (NEGATIVE) Urine Nitrate (NEGATIVE) Urine Bilirubin (NEGATIVE) Urine Urobilinogen (<1 E.U./dL) E.U./dL Ur Leukocyte Esterase (NEGATIVE) Alejandra/uL Urine RBC (0-2) /hpf Urine WBC (0-6) /hpf Ur Epithelial Cells (0-5) /hpf Urine Bacteria (NEG) Hyaline Casts /hpf Urine Opiates Screen (NEGATIVE) Urine Methadone Screen (NEGATIVE) Ur Barbiturates Screen (NEGATIVE) Ur Phencyclidine Scrn (NEGATIVE) Ur Amphetamines Screen (NEGATIVE) U Benzodiazepines Scrn (NEGATIVE) U Oth Cocaine Metabols (NEGATIVE) U Cannabinoids Screen (NEGATIVE) 07/26/17 07/26/17 07/26/17 Range/Units 09:10 09:10 09:10 WBC 13.5 H (4.5-11.0) 10^3/ul RBC 3.20 L (3.5-6.1) 10^6/uL Hgb 10.1 L (12.0-16.0) g/dL Hct 29.7 L (36.0-48.0) % MCV 92.8 (80.0-105.0) fl MCH 31.6 (25.0-35.0) pg MCHC 34.0 (31.0-37.0) g/dl RDW 15.6 H (11.5-14.5) % Plt Count 156 (120.0-450.0) 10^3/uL MPV 10.6 (7.0-11.0) fl Gran % 84.9 H (50.0-68.0) % Lymph % (Auto) 11.3 L (22.0-35.0) % [place] % (Auto) 3.7 (1.0-6.0) % Eos % (Auto) 0.0 L (1.5-5.0) % Baso % (Auto) 0.1 (0.0-3.0) % Gran # 11.42 H (1.4-6.5) Lymph # (Auto) 1.5 (1.2-3.4) [place] # (Auto) 0.5 (0.1-0.6) Eos # (Auto) 0.0 (0.0-0.7) Baso # (Auto) 0.01 (0.0-2.0) K/mm3 PT 12.5 (9.4-12.5) SECONDS INR 1.09 H (0.93-1.08) APTT 25.9 (25.1-36.5) Seconds pCO2 (35-45) mm/Hg pO2 (30-55) mm/Hg HCO3 (21-28) mmol/L ABG pH (7.35-7.45) ABG Total CO2 (22-28) mmol.L ABG O2 Saturation (95-98) % ABG O2 Content (15-23) ML/dl ABG Base Excess (-2.0-3.0) mmol/L ABG Hemoglobin (11.7-17.4) g/dL ABG Carboxyhemoglobin (0.5-1.5) % POC ABG HHb (Measured) (0-5) % ABG Methemoglobin (0.0-3.0) % ABG O2 Capacity (16-24) mL/dl ABG Potassium (3.6-5.2) mmol/L VBG pH (7.32-7.43) VBG pCO2 (40-60) VBG HCO3 (21-28) mmol/l VBG Total CO2 (22-28) mmol.L VBG O2 Sat (Calc) (40-65) % VBG Base Excess (0.0-2.0) mmol/L VBG Potassium (3.6-5.2) mmol/L Hgb O2 Saturation (95.0-98.0) % Glucose (65-105) mg/dl Lactate (0.7-2.1) mmol/L FiO2 % Sodium 139 (132-148) mmol/L Potassium 3.4 L (3.6-5.0) mmol/L Chloride 106 (98-107) mmol/L Carbon Dioxide 22 (21-33) mmol/L Anion Gap 14 (10-20) BUN 16 (7-21) mg/dL Creatinine 1.3 H (0.7-1.2) mg/dl Est GFR ( Amer) 50 Est GFR (Non-Af Amer) 41 POC Glucose (mg/dL) (65-110) mg/dL Random Glucose 121 H (70-110) mg/dL Calcium 7.1 L (8.4-10.5) mg/dL Phosphorus (2.5-4.5) mg/dL Magnesium (1.7-2.2) mg/dL Total Bilirubin 0.6 (0.2-1.3) mg/dL AST 79 H (14-36) U/L ALT 27 (7-56) U/L Alkaline Phosphatase 113 (38-126) U/L Troponin I 0.45 H* D ng/mL Total Protein 6.3 (5.8-8.3) g/dL Albumin 3.4 (3.0-4.8) g/dL Globulin 2.8 gm/dL Albumin/Globulin Ratio 1.2 (1.1-1.8) Arterial Blood Potassium (3.6-5.2) mmol/L Venous Blood Potassium (3.6-5.2) mmol/L Urine Color (YELLOW) Urine Appearance (CLEAR) Urine pH (4.7-8.0) Ur Specific [place] (1.005-1.035) Urine Protein (<30 mg/dL) mg/dL Urine Glucose (UA) (NEGATIVE) mg/dL Urine Ketones (NEGATIVE) mg/dL Urine Blood (NEGATIVE) Urine Nitrate (NEGATIVE) Urine Bilirubin (NEGATIVE) Urine Urobilinogen (<1 E.U./dL) E.U./dL Ur Leukocyte Esterase (NEGATIVE) Alejandra/uL Urine RBC (0-2) /hpf Urine WBC (0-6) /hpf Ur Epithelial Cells (0-5) /hpf Urine Bacteria (NEG) Hyaline Casts /hpf Urine Opiates Screen (NEGATIVE) Urine Methadone Screen (NEGATIVE) Ur Barbiturates Screen (NEGATIVE) Ur Phencyclidine Scrn (NEGATIVE) Ur Amphetamines Screen (NEGATIVE) U Benzodiazepines Scrn (NEGATIVE) U Oth Cocaine Metabols (NEGATIVE) U Cannabinoids Screen (NEGATIVE) 07/26/17 07/26/17 07/26/17 Range/Units 07:49 06:49 05:02 WBC (4.5-11.0) 10^3/ul RBC (3.5-6.1) 10^6/uL Hgb (12.0-16.0) g/dL Hct (36.0-48.0) % MCV (80.0-105.0) fl MCH (25.0-35.0) pg MCHC (31.0-37.0) g/dl RDW (11.5-14.5) % Plt Count (120.0-450.0) 10^3/uL MPV (7.0-11.0) fl Gran % (50.0-68.0) % Lymph % (Auto) (22.0-35.0) % [place] % (Auto) (1.0-6.0) % Eos % (Auto) (1.5-5.0) % Baso % (Auto) (0.0-3.0) % Gran # (1.4-6.5) Lymph # (Auto) (1.2-3.4) [place] # (Auto) (0.1-0.6) Eos # (Auto) (0.0-0.7) Baso # (Auto) (0.0-2.0) K/mm3 PT (9.4-12.5) SECONDS INR (0.93-1.08) APTT (25.1-36.5) Seconds pCO2 (35-45) mm/Hg pO2 (30-55) mm/Hg HCO3 (21-28) mmol/L ABG pH (7.35-7.45) ABG Total CO2 (22-28) mmol.L ABG O2 Saturation (95-98) % ABG O2 Content (15-23) ML/dl ABG Base Excess (-2.0-3.0) mmol/L ABG Hemoglobin (11.7-17.4) g/dL ABG Carboxyhemoglobin (0.5-1.5) % POC ABG HHb (Measured) (0-5) % ABG Methemoglobin (0.0-3.0) % ABG O2 Capacity (16-24) mL/dl ABG Potassium (3.6-5.2) mmol/L VBG pH (7.32-7.43) VBG pCO2 (40-60) VBG HCO3 (21-28) mmol/l VBG Total CO2 (22-28) mmol.L VBG O2 Sat (Calc) (40-65) % VBG Base Excess (0.0-2.0) mmol/L VBG Potassium (3.6-5.2) mmol/L Hgb O2 Saturation (95.0-98.0) % Glucose (65-105) mg/dl Lactate (0.7-2.1) mmol/L FiO2 % Sodium (132-148) mmol/L Potassium (3.6-5.0) mmol/L Chloride (98-107) mmol/L Carbon Dioxide (21-33) mmol/L Anion Gap (10-20) BUN (7-21) mg/dL Creatinine (0.7-1.2) mg/dl Est GFR ( Amer) Est GFR (Non-Af Amer) POC Glucose (mg/dL) 118 H 95 97 (65-110) mg/dL Random Glucose (70-110) mg/dL Calcium (8.4-10.5) mg/dL Phosphorus (2.5-4.5) mg/dL Magnesium (1.7-2.2) mg/dL Total Bilirubin (0.2-1.3) mg/dL AST (14-36) U/L ALT (7-56) U/L Alkaline Phosphatase (38-126) U/L Troponin I ng/mL Total Protein (5.8-8.3) g/dL Albumin (3.0-4.8) g/dL Globulin gm/dL Albumin/Globulin Ratio (1.1-1.8) Arterial Blood Potassium (3.6-5.2) mmol/L Venous Blood Potassium (3.6-5.2) mmol/L Urine Color (YELLOW) Urine Appearance (CLEAR) Urine pH (4.7-8.0) Ur Specific [place] (1.005-1.035) Urine Protein (<30 mg/dL) mg/dL Urine Glucose (UA) (NEGATIVE) mg/dL Urine Ketones (NEGATIVE) mg/dL Urine Blood (NEGATIVE) Urine Nitrate (NEGATIVE) Urine Bilirubin (NEGATIVE) Urine Urobilinogen (<1 E.U./dL) E.U./dL Ur Leukocyte Esterase (NEGATIVE) Alejandra/uL Urine RBC (0-2) /hpf Urine WBC (0-6) /hpf Ur Epithelial Cells (0-5) /hpf Urine Bacteria (NEG) Hyaline Casts /hpf Urine Opiates Screen (NEGATIVE) Urine Methadone Screen (NEGATIVE) Ur Barbiturates Screen (NEGATIVE) Ur Phencyclidine Scrn (NEGATIVE) Ur Amphetamines Screen (NEGATIVE) U Benzodiazepines Scrn (NEGATIVE) U Oth Cocaine Metabols (NEGATIVE) U Cannabinoids Screen (NEGATIVE) 07/26/17 07/26/17 07/26/17 Range/Units 03:23 01:10 00:30 WBC (4.5-11.0) 10^3/ul RBC (3.5-6.1) 10^6/uL Hgb (12.0-16.0) g/dL Hct (36.0-48.0) % MCV (80.0-105.0) fl MCH (25.0-35.0) pg MCHC (31.0-37.0) g/dl RDW (11.5-14.5) % Plt Count (120.0-450.0) 10^3/uL MPV (7.0-11.0) fl Gran % (50.0-68.0) % Lymph % (Auto) (22.0-35.0) % [place] % (Auto) (1.0-6.0) % Eos % (Auto) (1.5-5.0) % Baso % (Auto) (0.0-3.0) % Gran # (1.4-6.5) Lymph # (Auto) (1.2-3.4) [place] # (Auto) (0.1-0.6) Eos # (Auto) (0.0-0.7) Baso # (Auto) (0.0-2.0) K/mm3 PT (9.4-12.5) SECONDS INR (0.93-1.08) APTT (25.1-36.5) Seconds pCO2 29 L (35-45) mm/Hg pO2 119.0 H (30-55) mm/Hg HCO3 21.6 (21-28) mmol/L ABG pH 7.48 H (7.35-7.45) ABG Total CO2 22.5 (22-28) mmol.L ABG O2 Saturation 99.3 H (95-98) % ABG O2 Content 14.5 L (15-23) ML/dl ABG Base Excess -1.2 (-2.0-3.0) mmol/L ABG Hemoglobin 10.5 L (11.7-17.4) g/dL ABG Carboxyhemoglobin 1.5 (0.5-1.5) % POC ABG HHb (Measured) 0.7 (0-5) % ABG Methemoglobin 1.4 (0.0-3.0) % ABG O2 Capacity 14.6 L (16-24) mL/dl ABG Potassium (3.6-5.2) mmol/L VBG pH (7.32-7.43) VBG pCO2 (40-60) VBG HCO3 (21-28) mmol/l VBG Total CO2 (22-28) mmol.L VBG O2 Sat (Calc) (40-65) % VBG Base Excess (0.0-2.0) mmol/L VBG Potassium (3.6-5.2) mmol/L Hgb O2 Saturation 96.5 (95.0-98.0) % Glucose (65-105) mg/dl Lactate (0.7-2.1) mmol/L FiO2 50.0 % Sodium 139 (132-148) mmol/L Potassium 2.8 L* D (3.6-5.0) mmol/L Chloride 102 (98-107) mmol/L Carbon Dioxide 22 (21-33) mmol/L Anion Gap 18 (10-20) BUN 18 (7-21) mg/dL Creatinine 1.7 H (0.7-1.2) mg/dl Est GFR ( Amer) 37 Est GFR (Non-Af Amer) 30 POC Glucose (mg/dL) 69 (65-110) mg/dL Random Glucose 112 H (70-110) mg/dL Calcium 7.4 L (8.4-10.5) mg/dL Phosphorus 3.3 (2.5-4.5) mg/dL Magnesium 2.2 (1.7-2.2) mg/dL Total Bilirubin 0.6 (0.2-1.3) mg/dL AST 93 H D (14-36) U/L ALT 28 (7-56) U/L Alkaline Phosphatase 122 (38-126) U/L Troponin I 1.32 H* D ng/mL Total Protein 6.7 (5.8-8.3) g/dL Albumin 3.7 (3.0-4.8) g/dL Globulin 2.9 gm/dL Albumin/Globulin Ratio 1.3 (1.1-1.8) Arterial Blood Potassium (3.6-5.2) mmol/L Venous Blood Potassium (3.6-5.2) mmol/L Urine Color (YELLOW) Urine Appearance (CLEAR) Urine pH (4.7-8.0) Ur Specific [place] (1.005-1.035) Urine Protein (<30 mg/dL) mg/dL Urine Glucose (UA) (NEGATIVE) mg/dL Urine Ketones (NEGATIVE) mg/dL Urine Blood (NEGATIVE) Urine Nitrate (NEGATIVE) Urine Bilirubin (NEGATIVE) Urine Urobilinogen (<1 E.U./dL) E.U./dL Ur Leukocyte Esterase (NEGATIVE) Alejandra/uL Urine RBC (0-2) /hpf Urine WBC (0-6) /hpf Ur Epithelial Cells (0-5) /hpf Urine Bacteria (NEG) Hyaline Casts /hpf Urine Opiates Screen (NEGATIVE) Urine Methadone Screen (NEGATIVE) Ur Barbiturates Screen (NEGATIVE) Ur Phencyclidine Scrn (NEGATIVE) Ur Amphetamines Screen (NEGATIVE) U Benzodiazepines Scrn (NEGATIVE) U Oth Cocaine Metabols (NEGATIVE) U Cannabinoids Screen (NEGATIVE) 07/26/17 07/26/17 07/25/17 Range/Units 00:30 00:30 23:14 WBC 13.1 H D (4.5-11.0) 10^3/ul RBC 3.32 L (3.5-6.1) 10^6/uL Hgb 10.5 L (12.0-16.0) g/dL Hct 30.7 L (36.0-48.0) % MCV 92.5 D (80.0-105.0) fl MCH 31.6 (25.0-35.0) pg MCHC 34.2 (31.0-37.0) g/dl RDW 15.4 H (11.5-14.5) % Plt Count 174 (120.0-450.0) 10^3/uL MPV 9.7 (7.0-11.0) fl Gran % 86.0 H (50.0-68.0) % Lymph % (Auto) 9.5 L (22.0-35.0) % [place] % (Auto) 4.4 (1.0-6.0) % Eos % (Auto) 0.0 L (1.5-5.0) % Baso % (Auto) 0.1 (0.0-3.0) % Gran # 11.24 H (1.4-6.5) Lymph # (Auto) 1.2 (1.2-3.4) [place] # (Auto) 0.6 (0.1-0.6) Eos # (Auto) 0.0 (0.0-0.7) Baso # (Auto) 0.01 (0.0-2.0) K/mm3 PT (9.4-12.5) SECONDS INR (0.93-1.08) APTT (25.1-36.5) Seconds pCO2 (35-45) mm/Hg pO2 115 H (30-55) mm/Hg HCO3 (21-28) mmol/L ABG pH (7.35-7.45) ABG Total CO2 (22-28) mmol.L ABG O2 Saturation (95-98) % ABG O2 Content (15-23) ML/dl ABG Base Excess (-2.0-3.0) mmol/L ABG Hemoglobin (11.7-17.4) g/dL ABG Carboxyhemoglobin (0.5-1.5) % POC ABG HHb (Measured) (0-5) % ABG Methemoglobin (0.0-3.0) % ABG O2 Capacity (16-24) mL/dl ABG Potassium (3.6-5.2) mmol/L VBG pH 7.47 H (7.32-7.43) VBG pCO2 30.0 L (40-60) VBG HCO3 21.8 (21-28) mmol/l VBG Total CO2 22.7 (22-28) mmol.L VBG O2 Sat (Calc) 99.5 H (40-65) % VBG Base Excess -0.9 L (0.0-2.0) mmol/L VBG Potassium 2.7 L (3.6-5.2) mmol/L Hgb O2 Saturation (95.0-98.0) % Glucose 112 H (65-105) mg/dl Lactate 2.7 H (0.7-2.1) mmol/L FiO2 21.0 % Sodium 137.0 (132-148) mmol/L Potassium (3.6-5.0) mmol/L Chloride 104.0 (98-107) mmol/L Carbon Dioxide (21-33) mmol/L Anion Gap (10-20) BUN (7-21) mg/dL Creatinine (0.7-1.2) mg/dl Est GFR ( Amer) Est GFR (Non-Af Amer) POC Glucose (mg/dL) 118 H (65-110) mg/dL Random Glucose (70-110) mg/dL Calcium (8.4-10.5) mg/dL Phosphorus (2.5-4.5) mg/dL Magnesium (1.7-2.2) mg/dL Total Bilirubin (0.2-1.3) mg/dL AST (14-36) U/L ALT (7-56) U/L Alkaline Phosphatase (38-126) U/L Troponin I ng/mL Total Protein (5.8-8.3) g/dL Albumin (3.0-4.8) g/dL Globulin gm/dL Albumin/Globulin Ratio (1.1-1.8) Arterial Blood Potassium (3.6-5.2) mmol/L Venous Blood Potassium 2.7 L (3.6-5.2) mmol/L Urine Color (YELLOW) Urine Appearance (CLEAR) Urine pH (4.7-8.0) Ur Specific [place] (1.005-1.035) Urine Protein (<30 mg/dL) mg/dL Urine Glucose (UA) (NEGATIVE) mg/dL Urine Ketones (NEGATIVE) mg/dL Urine Blood (NEGATIVE) Urine Nitrate (NEGATIVE) Urine Bilirubin (NEGATIVE) Urine Urobilinogen (<1 E.U./dL) E.U./dL Ur Leukocyte Esterase (NEGATIVE) Alejandra/uL Urine RBC (0-2) /hpf Urine WBC (0-6) /hpf Ur Epithelial Cells (0-5) /hpf Urine Bacteria (NEG) Hyaline Casts /hpf Urine Opiates Screen (NEGATIVE) Urine Methadone Screen (NEGATIVE) Ur Barbiturates Screen (NEGATIVE) Ur Phencyclidine Scrn (NEGATIVE) Ur Amphetamines Screen (NEGATIVE) U Benzodiazepines Scrn (NEGATIVE) U Oth Cocaine Metabols (NEGATIVE) U Cannabinoids Screen (NEGATIVE) 07/25/17 07/25/17 07/25/17 Range/Units 22:09 21:14 20:01 WBC (4.5-11.0) 10^3/ul RBC (3.5-6.1) 10^6/uL Hgb (12.0-16.0) g/dL Hct (36.0-48.0) % MCV (80.0-105.0) fl MCH (25.0-35.0) pg MCHC (31.0-37.0) g/dl RDW (11.5-14.5) % Plt Count (120.0-450.0) 10^3/uL MPV (7.0-11.0) fl Gran % (50.0-68.0) % Lymph % (Auto) (22.0-35.0) % [place] % (Auto) (1.0-6.0) % Eos % (Auto) (1.5-5.0) % Baso % (Auto) (0.0-3.0) % Gran # (1.4-6.5) Lymph # (Auto) (1.2-3.4) [place] # (Auto) (0.1-0.6) Eos # (Auto) (0.0-0.7) Baso # (Auto) (0.0-2.0) K/mm3 PT (9.4-12.5) SECONDS INR (0.93-1.08) APTT (25.1-36.5) Seconds pCO2 (35-45) mm/Hg pO2 (30-55) mm/Hg HCO3 (21-28) mmol/L ABG pH (7.35-7.45) ABG Total CO2 (22-28) mmol.L ABG O2 Saturation (95-98) % ABG O2 Content (15-23) ML/dl ABG Base Excess (-2.0-3.0) mmol/L ABG Hemoglobin (11.7-17.4) g/dL ABG Carboxyhemoglobin (0.5-1.5) % POC ABG HHb (Measured) (0-5) % ABG Methemoglobin (0.0-3.0) % ABG O2 Capacity (16-24) mL/dl ABG Potassium (3.6-5.2) mmol/L VBG pH (7.32-7.43) VBG pCO2 (40-60) VBG HCO3 (21-28) mmol/l VBG Total CO2 (22-28) mmol.L VBG O2 Sat (Calc) (40-65) % VBG Base Excess (0.0-2.0) mmol/L VBG Potassium (3.6-5.2) mmol/L Hgb O2 Saturation (95.0-98.0) % Glucose (65-105) mg/dl Lactate (0.7-2.1) mmol/L FiO2 % Sodium (132-148) mmol/L Potassium (3.6-5.0) mmol/L Chloride (98-107) mmol/L Carbon Dioxide (21-33) mmol/L Anion Gap (10-20) BUN (7-21) mg/dL Creatinine (0.7-1.2) mg/dl Est GFR ( Amer) Est GFR (Non-Af Amer) POC Glucose (mg/dL) 76 63 L 143 H (65-110) mg/dL Random Glucose (70-110) mg/dL Calcium (8.4-10.5) mg/dL Phosphorus (2.5-4.5) mg/dL Magnesium (1.7-2.2) mg/dL Total Bilirubin (0.2-1.3) mg/dL AST (14-36) U/L ALT (7-56) U/L Alkaline Phosphatase (38-126) U/L Troponin I ng/mL Total Protein (5.8-8.3) g/dL Albumin (3.0-4.8) g/dL Globulin gm/dL Albumin/Globulin Ratio (1.1-1.8) Arterial Blood Potassium (3.6-5.2) mmol/L Venous Blood Potassium (3.6-5.2) mmol/L Urine Color (YELLOW) Urine Appearance (CLEAR) Urine pH (4.7-8.0) Ur Specific [place] (1.005-1.035) Urine Protein (<30 mg/dL) mg/dL Urine Glucose (UA) (NEGATIVE) mg/dL Urine Ketones (NEGATIVE) mg/dL Urine Blood (NEGATIVE) Urine Nitrate (NEGATIVE) Urine Bilirubin (NEGATIVE) Urine Urobilinogen (<1 E.U./dL) E.U./dL Ur Leukocyte Esterase (NEGATIVE) Alejandra/uL Urine RBC (0-2) /hpf Urine WBC (0-6) /hpf Ur Epithelial Cells (0-5) /hpf Urine Bacteria (NEG) Hyaline Casts /hpf Urine Opiates Screen (NEGATIVE) Urine Methadone Screen (NEGATIVE) Ur Barbiturates Screen (NEGATIVE) Ur Phencyclidine Scrn (NEGATIVE) Ur Amphetamines Screen (NEGATIVE) U Benzodiazepines Scrn (NEGATIVE) U Oth Cocaine Metabols (NEGATIVE) U Cannabinoids Screen (NEGATIVE) 0507/25/17 07/25/17 Range/Units 18:38 18:38 18:05 WBC (4.5-11.0) 10^3/ul RBC (3.5-6.1) 10^6/uL Hgb (12.0-16.0) g/dL Hct (36.0-48.0) % MCV (80.0-105.0) fl MCH (25.0-35.0) pg MCHC (31.0-37.0) g/dl RDW (11.5-14.5) % Plt Count (120.0-450.0) 10^3/uL MPV (7.0-11.0) fl Gran % (50.0-68.0) % Lymph % (Auto) (22.0-35.0) % [place] % (Auto) (1.0-6.0) % Eos % (Auto) (1.5-5.0) % Baso % (Auto) (0.0-3.0) % Gran # (1.4-6.5) Lymph # (Auto) (1.2-3.4) [place] # (Auto) (0.1-0.6) Eos # (Auto) (0.0-0.7) Baso # (Auto) (0.0-2.0) K/mm3 PT (9.4-12.5) SECONDS INR (0.93-1.08) APTT (25.1-36.5) Seconds pCO2 (35-45) mm/Hg pO2 (30-55) mm/Hg HCO3 (21-28) mmol/L ABG pH (7.35-7.45) ABG Total CO2 (22-28) mmol.L ABG O2 Saturation (95-98) % ABG O2 Content (15-23) ML/dl ABG Base Excess (-2.0-3.0) mmol/L ABG Hemoglobin (11.7-17.4) g/dL ABG Carboxyhemoglobin (0.5-1.5) % POC ABG HHb (Measured) (0-5) % ABG Methemoglobin (0.0-3.0) % ABG O2 Capacity (16-24) mL/dl ABG Potassium (3.6-5.2) mmol/L VBG pH (7.32-7.43) VBG pCO2 (40-60) VBG HCO3 (21-28) mmol/l VBG Total CO2 (22-28) mmol.L VBG O2 Sat (Calc) (40-65) % VBG Base Excess (0.0-2.0) mmol/L VBG Potassium (3.6-5.2) mmol/L Hgb O2 Saturation (95.0-98.0) % Glucose (65-105) mg/dl Lactate (0.7-2.1) mmol/L FiO2 % Sodium (132-148) mmol/L Potassium (3.6-5.0) mmol/L Chloride (98-107) mmol/L Carbon Dioxide (21-33) mmol/L Anion Gap (10-20) BUN (7-21) mg/dL Creatinine (0.7-1.2) mg/dl Est GFR ( Amer) Est GFR (Non-Af Amer) POC Glucose (mg/dL) 447 H* (65-110) mg/dL Random Glucose (70-110) mg/dL Calcium (8.4-10.5) mg/dL Phosphorus (2.5-4.5) mg/dL Magnesium (1.7-2.2) mg/dL Total Bilirubin (0.2-1.3) mg/dL AST (14-36) U/L ALT (7-56) U/L Alkaline Phosphatase (38-126) U/L Troponin I ng/mL Total Protein (5.8-8.3) g/dL Albumin (3.0-4.8) g/dL Globulin gm/dL Albumin/Globulin Ratio (1.1-1.8) Arterial Blood Potassium (3.6-5.2) mmol/L Venous Blood Potassium (3.6-5.2) mmol/L Urine Color Yellow (YELLOW) Urine Appearance Clear (CLEAR) Urine pH 5.0 (4.7-8.0) Ur Specific [place] 1.015 (1.005-1.035) Urine Protein Trace H (<30 mg/dL) mg/dL Urine Glucose (UA) Negative (NEGATIVE) mg/dL Urine Ketones Trace H (NEGATIVE) mg/dL Urine Blood Negative (NEGATIVE) Urine Nitrate Negative (NEGATIVE) Urine Bilirubin Negative (NEGATIVE) Urine Urobilinogen 0.2 (<1 E.U./dL) E.U./dL Ur Leukocyte Esterase Negative (NEGATIVE) Alejandra/uL Urine RBC Negative (0-2) /hpf Urine WBC 0 - 2 (0-6) /hpf Ur Epithelial Cells 1 - 3 (0-5) /hpf Urine Bacteria Trace (NEG) Hyaline Casts 0 - 2 /hpf Urine Opiates Screen Negative (NEGATIVE) Urine Methadone Screen Negative (NEGATIVE) Ur Barbiturates Screen Negative (NEGATIVE) Ur Phencyclidine Scrn Negative (NEGATIVE) Ur Amphetamines Screen Negative (NEGATIVE) U Benzodiazepines Scrn Negative (NEGATIVE) U Oth Cocaine Metabols Positive H (NEGATIVE) U Cannabinoids Screen Positive H (NEGATIVE) 07/25/17 07/25/17 07/25/17 Range/Units 16:40 16:37 16:37 WBC (4.5-11.0) 10^3/ul RBC (3.5-6.1) 10^6/uL Hgb (12.0-16.0) g/dL Hct (36.0-48.0) % MCV (80.0-105.0) fl MCH (25.0-35.0) pg MCHC (31.0-37.0) g/dl RDW (11.5-14.5) % Plt Count (120.0-450.0) 10^3/uL MPV (7.0-11.0) fl Gran % (50.0-68.0) % Lymph % (Auto) (22.0-35.0) % [place] % (Auto) (1.0-6.0) % Eos % (Auto) (1.5-5.0) % Baso % (Auto) (0.0-3.0) % Gran # (1.4-6.5) Lymph # (Auto) (1.2-3.4) [place] # (Auto) (0.1-0.6) Eos # (Auto) (0.0-0.7) Baso # (Auto) (0.0-2.0) K/mm3 PT 11.2 (9.4-12.5) SECONDS INR 0.98 (0.93-1.08) APTT 27.0 (25.1-36.5) Seconds pCO2 33 L (35-45) mm/Hg pO2 159.0 H 225 H (30-55) mm/Hg HCO3 11.0 L (21-28) mmol/L ABG pH 7.13 L* (7.35-7.45) ABG Total CO2 12.0 L (22-28) mmol.L ABG O2 Saturation 100.1 H (95-98) % ABG O2 Content (15-23) ML/dl ABG Base Excess -17.1 L (-2.0-3.0) mmol/L ABG Hemoglobin (11.7-17.4) g/dL ABG Carboxyhemoglobin (0.5-1.5) % POC ABG HHb (Measured) (0-5) % ABG Methemoglobin (0.0-3.0) % ABG O2 Capacity (16-24) mL/dl ABG Potassium 5.0 (3.6-5.2) mmol/L VBG pH 7.25 L (7.32-7.43) VBG pCO2 27.0 L (40-60) VBG HCO3 11.8 L (21-28) mmol/l VBG Total CO2 12.6 L (22-28) mmol.L VBG O2 Sat (Calc) 100.0 H (40-65) % VBG Base Excess -13.8 L (0.0-2.0) mmol/L VBG Potassium 5.5 H (3.6-5.2) mmol/L Hgb O2 Saturation (95.0-98.0) % Glucose 573 H* 537 H* (65-105) mg/dl Lactate 14.6 H* 14.6 H* (0.7-2.1) mmol/L FiO2 60.0 21.0 % Sodium 133.0 133.0 (132-148) mmol/L Potassium (3.6-5.0) mmol/L Chloride 96.0 L 95.0 L (98-107) mmol/L Carbon Dioxide (21-33) mmol/L Anion Gap (10-20) BUN (7-21) mg/dL Creatinine (0.7-1.2) mg/dl Est GFR ( Amer) Est GFR (Non-Af Amer) POC Glucose (mg/dL) (65-110) mg/dL Random Glucose (70-110) mg/dL Calcium (8.4-10.5) mg/dL Phosphorus (2.5-4.5) mg/dL Magnesium (1.7-2.2) mg/dL Total Bilirubin (0.2-1.3) mg/dL AST (14-36) U/L ALT (7-56) U/L Alkaline Phosphatase (38-126) U/L Troponin I ng/mL Total Protein (5.8-8.3) g/dL Albumin (3.0-4.8) g/dL Globulin gm/dL Albumin/Globulin Ratio (1.1-1.8) Arterial Blood Potassium 5.0 (3.6-5.2) mmol/L Venous Blood Potassium 5.5 H (3.6-5.2) mmol/L Urine Color (YELLOW) Urine Appearance (CLEAR) Urine pH (4.7-8.0) Ur Specific [place] (1.005-1.035) Urine Protein (<30 mg/dL) mg/dL Urine Glucose (UA) (NEGATIVE) mg/dL Urine Ketones (NEGATIVE) mg/dL Urine Blood (NEGATIVE) Urine Nitrate (NEGATIVE) Urine Bilirubin (NEGATIVE) Urine Urobilinogen (<1 E.U./dL) E.U./dL Ur Leukocyte Esterase (NEGATIVE) Alejandra/uL Urine RBC (0-2) /hpf Urine WBC (0-6) /hpf Ur Epithelial Cells (0-5) /hpf Urine Bacteria (NEG) Hyaline Casts /hpf Urine Opiates Screen (NEGATIVE) Urine Methadone Screen (NEGATIVE) Ur Barbiturates Screen (NEGATIVE) Ur Phencyclidine Scrn (NEGATIVE) Ur Amphetamines Screen (NEGATIVE) U Benzodiazepines Scrn (NEGATIVE) U Oth Cocaine Metabols (NEGATIVE) U Cannabinoids Screen (NEGATIVE) 07/25/17 07/25/17 07/25/17 Range/Units 16:37 16:37 15:40 WBC 6.8 D (4.5-11.0) 10^3/ul RBC 3.53 (3.5-6.1) 10^6/uL Hgb 11.2 L (12.0-16.0) g/dL Hct 34.0 L (36.0-48.0) % MCV 96.3 (80.0-105.0) fl MCH 31.7 (25.0-35.0) pg MCHC 32.9 (31.0-37.0) g/dl RDW 15.7 H (11.5-14.5) % Plt Count 186 (120.0-450.0) 10^3/uL MPV 10.3 (7.0-11.0) fl Gran % 67.7 (50.0-68.0) % Lymph % (Auto) 27.4 (22.0-35.0) % [place] % (Auto) 4.9 (1.0-6.0) % Eos % (Auto) 0.0 L (1.5-5.0) % Baso % (Auto) 0.0 (0.0-3.0) % Gran # 4.57 (1.4-6.5) Lymph # (Auto) 1.9 (1.2-3.4) [place] # (Auto) 0.3 (0.1-0.6) Eos # (Auto) 0.0 (0.0-0.7) Baso # (Auto) 0.00 (0.0-2.0) K/mm3 PT (9.4-12.5) SECONDS INR (0.93-1.08) APTT (25.1-36.5) Seconds pCO2 (35-45) mm/Hg pO2 (30-55) mm/Hg HCO3 (21-28) mmol/L ABG pH (7.35-7.45) ABG Total CO2 (22-28) mmol.L ABG O2 Saturation (95-98) % ABG O2 Content (15-23) ML/dl ABG Base Excess (-2.0-3.0) mmol/L ABG Hemoglobin (11.7-17.4) g/dL ABG Carboxyhemoglobin (0.5-1.5) % POC ABG HHb (Measured) (0-5) % ABG Methemoglobin (0.0-3.0) % ABG O2 Capacity (16-24) mL/dl ABG Potassium (3.6-5.2) mmol/L VBG pH (7.32-7.43) VBG pCO2 (40-60) VBG HCO3 (21-28) mmol/l VBG Total CO2 (22-28) mmol.L VBG O2 Sat (Calc) (40-65) % VBG Base Excess (0.0-2.0) mmol/L VBG Potassium (3.6-5.2) mmol/L Hgb O2 Saturation (95.0-98.0) % Glucose (65-105) mg/dl Lactate (0.7-2.1) mmol/L FiO2 % Sodium 135 (132-148) mmol/L Potassium 5.5 H (3.6-5.0) mmol/L Chloride 96 L (98-107) mmol/L Carbon Dioxide 12 L (21-33) mmol/L Anion Gap 32 H (10-20) BUN 10 (7-21) mg/dL Creatinine 1.2 (0.7-1.2) mg/dl Est GFR ( Amer) 55 Est GFR (Non-Af Amer) 45 POC Glucose (mg/dL) 185 H (65-110) mg/dL Random Glucose 517 H* D (70-110) mg/dL Calcium 8.7 (8.4-10.5) mg/dL Phosphorus 7.0 H (2.5-4.5) mg/dL Magnesium 3.8 H (1.7-2.2) mg/dL Total Bilirubin 0.9 (0.2-1.3) mg/dL AST 56 H D (14-36) U/L ALT 24 (7-56) U/L Alkaline Phosphatase 88 (38-126) U/L Troponin I 0.04 D ng/mL Total Protein 7.4 (5.8-8.3) g/dL Albumin 4.5 (3.0-4.8) g/dL Globulin 2.9 gm/dL Albumin/Globulin Ratio 1.5 (1.1-1.8) Arterial Blood Potassium (3.6-5.2) mmol/L Venous Blood Potassium (3.6-5.2) mmol/L Urine Color (YELLOW) Urine Appearance (CLEAR) Urine pH (4.7-8.0) Ur Specific [place] (1.005-1.035) Urine Protein (<30 mg/dL) mg/dL Urine Glucose (UA) (NEGATIVE) mg/dL Urine Ketones (NEGATIVE) mg/dL Urine Blood (NEGATIVE) Urine Nitrate (NEGATIVE) Urine Bilirubin (NEGATIVE) Urine Urobilinogen (<1 E.U./dL) E.U./dL Ur Leukocyte Esterase (NEGATIVE) Alejandra/uL Urine RBC (0-2) /hpf Urine WBC (0-6) /hpf Ur Epithelial Cells (0-5) /hpf Urine Bacteria (NEG) Hyaline Casts /hpf Urine Opiates Screen (NEGATIVE) Urine Methadone Screen (NEGATIVE) Ur Barbiturates Screen (NEGATIVE) Ur Phencyclidine Scrn (NEGATIVE) Ur Amphetamines Screen (NEGATIVE) U Benzodiazepines Scrn (NEGATIVE) U Oth Cocaine Metabols (NEGATIVE) U Cannabinoids Screen (NEGATIVE) 07/25/17 07/25/17 07/25/17 Range/Units 15:36 12:06 10:00 WBC (4.5-11.0) 10^3/ul RBC (3.5-6.1) 10^6/uL Hgb (12.0-16.0) g/dL Hct (36.0-48.0) % MCV (80.0-105.0) fl MCH (25.0-35.0) pg MCHC (31.0-37.0) g/dl RDW (11.5-14.5) % Plt Count (120.0-450.0) 10^3/uL MPV (7.0-11.0) fl Gran % (50.0-68.0) % Lymph % (Auto) (22.0-35.0) % [place] % (Auto) (1.0-6.0) % Eos % (Auto) (1.5-5.0) % Baso % (Auto) (0.0-3.0) % Gran # (1.4-6.5) Lymph # (Auto) (1.2-3.4) [place] # (Auto) (0.1-0.6) Eos # (Auto) (0.0-0.7) Baso # (Auto) (0.0-2.0) K/mm3 PT (9.4-12.5) SECONDS INR (0.93-1.08) APTT (25.1-36.5) Seconds pCO2 (35-45) mm/Hg pO2 (30-55) mm/Hg HCO3 (21-28) mmol/L ABG pH (7.35-7.45) ABG Total CO2 (22-28) mmol.L ABG O2 Saturation (95-98) % ABG O2 Content (15-23) ML/dl ABG Base Excess (-2.0-3.0) mmol/L ABG Hemoglobin (11.7-17.4) g/dL ABG Carboxyhemoglobin (0.5-1.5) % POC ABG HHb (Measured) (0-5) % ABG Methemoglobin (0.0-3.0) % ABG O2 Capacity (16-24) mL/dl ABG Potassium (3.6-5.2) mmol/L VBG pH (7.32-7.43) VBG pCO2 (40-60) VBG HCO3 (21-28) mmol/l VBG Total CO2 (22-28) mmol.L VBG O2 Sat (Calc) (40-65) % VBG Base Excess (0.0-2.0) mmol/L VBG Potassium (3.6-5.2) mmol/L Hgb O2 Saturation (95.0-98.0) % Glucose (65-105) mg/dl Lactate (0.7-2.1) mmol/L FiO2 % Sodium 143 (132-148) mmol/L Potassium 3.0 L (3.6-5.0) mmol/L Chloride 98 (98-107) mmol/L Carbon Dioxide 27 (21-33) mmol/L Anion Gap 22 H (10-20) BUN 8 (7-21) mg/dL Creatinine 0.7 (0.7-1.2) mg/dl Est GFR ( Amer) > 60 Est GFR (Non-Af Amer) > 60 POC Glucose (mg/dL) (65-110) mg/dL Random Glucose 283 H (70-110) mg/dL Calcium 8.5 (8.4-10.5) mg/dL Phosphorus (2.5-4.5) mg/dL Magnesium (1.7-2.2) mg/dL Total Bilirubin (0.2-1.3) mg/dL AST (14-36) U/L ALT (7-56) U/L Alkaline Phosphatase (38-126) U/L Troponin I 0.02 D ng/mL Total Protein (5.8-8.3) g/dL Albumin (3.0-4.8) g/dL Globulin gm/dL Albumin/Globulin Ratio (1.1-1.8) Arterial Blood Potassium (3.6-5.2) mmol/L Venous Blood Potassium (3.6-5.2) mmol/L Urine Color (YELLOW) Urine Appearance (CLEAR) Urine pH (4.7-8.0) Ur Specific [place] (1.005-1.035) Urine Protein (<30 mg/dL) mg/dL Urine Glucose (UA) (NEGATIVE) mg/dL Urine Ketones (NEGATIVE) mg/dL Urine Blood (NEGATIVE) Urine Nitrate (NEGATIVE) Urine Bilirubin (NEGATIVE) Urine Urobilinogen (<1 E.U./dL) E.U./dL Ur Leukocyte Esterase (NEGATIVE) Alejandra/uL Urine RBC (0-2) /hpf Urine WBC (0-6) /hpf Ur Epithelial Cells (0-5) /hpf Urine Bacteria (NEG) Hyaline Casts /hpf Urine Opiates Screen Negative (NEGATIVE) Urine Methadone Screen Negative (NEGATIVE) Ur Barbiturates Screen Negative (NEGATIVE) Ur Phencyclidine Scrn Negative (NEGATIVE) Ur Amphetamines Screen Negative (NEGATIVE) U Benzodiazepines Scrn Negative (NEGATIVE) U Oth Cocaine Metabols Negative (NEGATIVE) U Cannabinoids Screen Negative (NEGATIVE) Laboratory Results - last 24 hr 07/25/17 07/25/17 07/25/17 10:00 12:06 15:36 WBC RBC Hgb Hct MCV MCH MCHC RDW Plt Count MPV Gran % Lymph % (Auto) [place] % (Auto) Eos % (Auto) Baso % (Auto) Gran # Lymph # (Auto) [place] # (Auto) Eos # (Auto) Baso # (Auto) PT INR APTT pCO2 pO2 HCO3 ABG pH ABG Total CO2 ABG O2 Saturation ABG O2 Content ABG Base Excess ABG Hemoglobin ABG Carboxyhemoglobin POC ABG HHb (Measured) ABG Methemoglobin ABG O2 Capacity ABG Potassium VBG pH VBG pCO2 VBG HCO3 VBG Total CO2 VBG O2 Sat (Calc) VBG Base Excess VBG Potassium Hgb O2 Saturation Glucose Lactate FiO2 Sodium 143 Potassium 3.0 L Chloride 98 Carbon Dioxide 27 Anion Gap 22 H BUN 8 Creatinine 0.7 Est GFR ( Amer) > 60 Est GFR (Non-Af Amer) > 60 POC Glucose (mg/dL) Random Glucose 283 H Calcium 8.5 Phosphorus Magnesium Total Bilirubin AST ALT Alkaline Phosphatase Troponin I 0.02 D Total Protein Albumin Globulin Albumin/Globulin Ratio Arterial Blood Potassium Venous Blood Potassium Urine Color Urine Appearance Urine pH Ur Specific [place] Urine Protein Urine Glucose (UA) Urine Ketones Urine Blood Urine Nitrate Urine Bilirubin Urine Urobilinogen Ur Leukocyte Esterase Urine RBC Urine WBC Ur Epithelial Cells Urine Bacteria Hyaline Casts Urine Opiates Screen Negative Urine Methadone Screen Negative Ur Barbiturates Screen Negative Ur Phencyclidine Scrn Negative Ur Amphetamines Screen Negative U Benzodiazepines Scrn Negative U Oth Cocaine Metabols Negative U Cannabinoids Screen Negative 07/25/17 07/25/17 07/25/17 15:40 16:37 16:37 WBC 6.8 D RBC 3.53 Hgb 11.2 L Hct 34.0 L MCV 96.3 MCH 31.7 MCHC 32.9 RDW 15.7 H Plt Count 186 MPV 10.3 Gran % 67.7 Lymph % (Auto) 27.4 [place] % (Auto) 4.9 Eos % (Auto) 0.0 L Baso % (Auto) 0.0 Gran # 4.57 Lymph # (Auto) 1.9 [place] # (Auto) 0.3 Eos # (Auto) 0.0 Baso # (Auto) 0.00 PT INR APTT pCO2 pO2 HCO3 ABG pH ABG Total CO2 ABG O2 Saturation ABG O2 Content ABG Base Excess ABG Hemoglobin ABG Carboxyhemoglobin POC ABG HHb (Measured) ABG Methemoglobin ABG O2 Capacity ABG Potassium VBG pH VBG pCO2 VBG HCO3 VBG Total CO2 VBG O2 Sat (Calc) VBG Base Excess VBG Potassium Hgb O2 Saturation Glucose Lactate FiO2 Sodium 135 Potassium 5.5 H Chloride 96 L Carbon Dioxide 12 L Anion Gap 32 H BUN 10 Creatinine 1.2 Est GFR ( Amer) 55 Est GFR (Non-Af Amer) 45 POC Glucose (mg/dL) 185 H Random Glucose 517 H* D Calcium 8.7 Phosphorus 7.0 H Magnesium 3.8 H Total Bilirubin 0.9 AST 56 H D ALT 24 Alkaline Phosphatase 88 Troponin I 0.04 D Total Protein 7.4 Albumin 4.5 Globulin 2.9 Albumin/Globulin Ratio 1.5 Arterial Blood Potassium Venous Blood Potassium Urine Color Urine Appearance Urine pH Ur Specific [place] Urine Protein Urine Glucose (UA) Urine Ketones Urine Blood Urine Nitrate Urine Bilirubin Urine Urobilinogen Ur Leukocyte Esterase Urine RBC Urine WBC Ur Epithelial Cells Urine Bacteria Hyaline Casts Urine Opiates Screen Urine Methadone Screen Ur Barbiturates Screen Ur Phencyclidine Scrn Ur Amphetamines Screen U Benzodiazepines Scrn U Oth Cocaine Metabols U Cannabinoids Screen 07/25/17 07/25/17 07/25/17 16:37 16:37 16:40 WBC RBC Hgb Hct MCV MCH MCHC RDW Plt Count MPV Gran % Lymph % (Auto) [place] % (Auto) Eos % (Auto) Baso % (Auto) Gran # Lymph # (Auto) [place] # (Auto) Eos # (Auto) Baso # (Auto) PT 11.2 INR 0.98 APTT 27.0 pCO2 33 L pO2 225 H 159.0 H HCO3 11.0 L ABG pH 7.13 L* ABG Total CO2 12.0 L ABG O2 Saturation 100.1 H ABG O2 Content ABG Base Excess -17.1 L ABG Hemoglobin ABG Carboxyhemoglobin POC ABG HHb (Measured) ABG Methemoglobin ABG O2 Capacity ABG Potassium 5.0 VBG pH 7.25 L VBG pCO2 27.0 L VBG HCO3 11.8 L VBG Total CO2 12.6 L VBG O2 Sat (Calc) 100.0 H VBG Base Excess -13.8 L VBG Potassium 5.5 H Hgb O2 Saturation Glucose 537 H* 573 H* Lactate 14.6 H* 14.6 H* FiO2 21.0 60.0 Sodium 133.0 133.0 Potassium Chloride 95.0 L 96.0 L Carbon Dioxide Anion Gap BUN Creatinine Est GFR ( Amer) Est GFR (Non-Af Amer) POC Glucose (mg/dL) Random Glucose Calcium Phosphorus Magnesium Total Bilirubin AST ALT Alkaline Phosphatase Troponin I Total Protein Albumin Globulin Albumin/Globulin Ratio Arterial Blood Potassium 5.0 Venous Blood Potassium 5.5 H Urine Color Urine Appearance Urine pH Ur Specific [place] Urine Protein Urine Glucose (UA) Urine Ketones Urine Blood Urine Nitrate Urine Bilirubin Urine Urobilinogen Ur Leukocyte Esterase Urine RBC Urine WBC Ur Epithelial Cells Urine Bacteria Hyaline Casts Urine Opiates Screen Urine Methadone Screen Ur Barbiturates Screen Ur Phencyclidine Scrn Ur Amphetamines Screen U Benzodiazepines Scrn U Oth Cocaine Metabols U Cannabinoids Screen 07/25/17 07/25/1707/25/18 18:05 18:38 18:38 WBC RBC Hgb Hct MCV MCH MCHC RDW Plt Count MPV Gran % Lymph % (Auto) [place] % (Auto) Eos % (Auto) Baso % (Auto) Gran # Lymph # (Auto) [place] # (Auto) Eos # (Auto) Baso # (Auto) PT INR APTT pCO2 pO2 HCO3 ABG pH ABG Total CO2 ABG O2 Saturation ABG O2 Content ABG Base Excess ABG Hemoglobin ABG Carboxyhemoglobin POC ABG HHb (Measured) ABG Methemoglobin ABG O2 Capacity ABG Potassium VBG pH VBG pCO2 VBG HCO3 VBG Total CO2 VBG O2 Sat (Calc) VBG Base Excess VBG Potassium Hgb O2 Saturation Glucose Lactate FiO2 Sodium Potassium Chloride Carbon Dioxide Anion Gap BUN Creatinine Est GFR ( Amer) Est GFR (Non-Af Amer) POC Glucose (mg/dL) 447 H* Random Glucose Calcium Phosphorus Magnesium Total Bilirubin AST ALT Alkaline Phosphatase Troponin I Total Protein Albumin Globulin Albumin/Globulin Ratio Arterial Blood Potassium Venous Blood Potassium Urine Color Yellow Urine Appearance Clear Urine pH 5.0 Ur Specific [place] 1.015 Urine Protein Trace H Urine Glucose (UA) Negative Urine Ketones Trace H Urine Blood Negative Urine Nitrate Negative Urine Bilirubin Negative Urine Urobilinogen 0.2 Ur Leukocyte Esterase Negative Urine RBC Negative Urine WBC 0 - 2 Ur Epithelial Cells 1 - 3 Urine Bacteria Trace Hyaline Casts 0 - 2 Urine Opiates Screen Negative Urine Methadone Screen Negative Ur Barbiturates Screen Negative Ur Phencyclidine Scrn Negative Ur Amphetamines Screen Negative U Benzodiazepines Scrn Negative U Oth Cocaine Metabols Positive H U Cannabinoids Screen Positive H 07/25/17 07/25/17 07/25/17 20:01 21:14 22:09 WBC RBC Hgb Hct MCV MCH MCHC RDW Plt Count MPV Gran % Lymph % (Auto) [place] % (Auto) Eos % (Auto) Baso % (Auto) Gran # Lymph # (Auto) [place] # (Auto) Eos # (Auto) Baso # (Auto) PT INR APTT pCO2 pO2 HCO3 ABG pH ABG Total CO2 ABG O2 Saturation ABG O2 Content ABG Base Excess ABG Hemoglobin ABG Carboxyhemoglobin POC ABG HHb (Measured) ABG Methemoglobin ABG O2 Capacity ABG Potassium VBG pH VBG pCO2 VBG HCO3 VBG Total CO2 VBG O2 Sat (Calc) VBG Base Excess VBG Potassium Hgb O2 Saturation Glucose Lactate FiO2 Sodium Potassium Chloride Carbon Dioxide Anion Gap BUN Creatinine Est GFR ( Amer) Est GFR (Non-Af Amer) POC Glucose (mg/dL) 143 H 63 L 76 Random Glucose Calcium Phosphorus Magnesium Total Bilirubin AST ALT Alkaline Phosphatase Troponin I Total Protein Albumin Globulin Albumin/Globulin Ratio Arterial Blood Potassium Venous Blood Potassium Urine Color Urine Appearance Urine pH Ur Specific [place] Urine Protein Urine Glucose (UA) Urine Ketones Urine Blood Urine Nitrate Urine Bilirubin Urine Urobilinogen Ur Leukocyte Esterase Urine RBC Urine WBC Ur Epithelial Cells Urine Bacteria Hyaline Casts Urine Opiates Screen Urine Methadone Screen Ur Barbiturates Screen Ur Phencyclidine Scrn Ur Amphetamines Screen U Benzodiazepines Scrn U Oth Cocaine Metabols U Cannabinoids Screen 07/25/17 07/26/17 07/26/17 23:14 00:30 00:30 WBC 13.1 H D RBC 3.32 L Hgb 10.5 L Hct 30.7 L MCV 92.5 D MCH 31.6 MCHC 34.2 RDW 15.4 H Plt Count 174 MPV 9.7 Gran % 86.0 H Lymph % (Auto) 9.5 L [place] % (Auto) 4.4 Eos % (Auto) 0.0 L Baso % (Auto) 0.1 Gran # 11.24 H Lymph # (Auto) 1.2 [place] # (Auto) 0.6 Eos # (Auto) 0.0 Baso # (Auto) 0.01 PT INR APTT pCO2 pO2 115 H HCO3 ABG pH ABG Total CO2 ABG O2 Saturation ABG O2 Content ABG Base Excess ABG Hemoglobin ABG Carboxyhemoglobin POC ABG HHb (Measured) ABG Methemoglobin ABG O2 Capacity ABG Potassium VBG pH 7.47 H VBG pCO2 30.0 L VBG HCO3 21.8 VBG Total CO2 22.7 VBG O2 Sat (Calc) 99.5 H VBG Base Excess -0.9 L VBG Potassium 2.7 L Hgb O2 Saturation Glucose 112 H Lactate 2.7 H FiO2 21.0 Sodium 137.0 Potassium Chloride 104.0 Carbon Dioxide Anion Gap BUN Creatinine Est GFR ( Amer) Est GFR (Non-Af Amer) POC Glucose (mg/dL) 118 H Random Glucose Calcium Phosphorus Magnesium Total Bilirubin AST ALT Alkaline Phosphatase Troponin I Total Protein Albumin Globulin Albumin/Globulin Ratio Arterial Blood Potassium Venous Blood Potassium 2.7 L Urine Color Urine Appearance Urine pH Ur Specific [place] Urine Protein Urine Glucose (UA) Urine Ketones Urine Blood Urine Nitrate Urine Bilirubin Urine Urobilinogen Ur Leukocyte Esterase Urine RBC Urine WBC Ur Epithelial Cells Urine Bacteria Hyaline Casts Urine Opiates Screen Urine Methadone Screen Ur Barbiturates Screen Ur Phencyclidine Scrn Ur Amphetamines Screen U Benzodiazepines Scrn U Oth Cocaine Metabols U Cannabinoids Screen 07/26/17 07/26/17 07/26/17 00:30 01:10 03:23 WBC RBC Hgb Hct MCV MCH MCHC RDW Plt Count MPV Gran % Lymph % (Auto) [place] % (Auto) Eos % (Auto) Baso % (Auto) Gran # Lymph # (Auto) [place] # (Auto) Eos # (Auto) Baso # (Auto) PT INR APTT pCO2 29 L pO2 119.0 H HCO3 21.6 ABG pH 7.48 H ABG Total CO2 22.5 ABG O2 Saturation 99.3 H ABG O2 Content 14.5 L ABG Base Excess -1.2 ABG Hemoglobin 10.5 L ABG Carboxyhemoglobin 1.5 POC ABG HHb (Measured) 0.7 ABG Methemoglobin 1.4 ABG O2 Capacity 14.6 L ABG Potassium VBG pH VBG pCO2 VBG HCO3 VBG Total CO2 VBG O2 Sat (Calc) VBG Base Excess VBG Potassium Hgb O2 Saturation 96.5 Glucose Lactate FiO2 50.0 Sodium 139 Potassium 2.8 L* D Chloride 102 Carbon Dioxide 22 Anion Gap 18 BUN 18 Creatinine 1.7 H Est GFR ( Amer) 37 Est GFR (Non-Af Amer) 30 POC Glucose (mg/dL) 69 Random Glucose 112 H Calcium 7.4 L Phosphorus 3.3 Magnesium 2.2 Total Bilirubin 0.6 AST 93 H D ALT 28 Alkaline Phosphatase 122 Troponin I 1.32 H* D Total Protein 6.7 Albumin 3.7 Globulin 2.9 Albumin/Globulin Ratio 1.3 Arterial Blood Potassium Venous Blood Potassium Urine Color Urine Appearance Urine pH Ur Specific [place] Urine Protein Urine Glucose (UA) Urine Ketones Urine Blood Urine Nitrate Urine Bilirubin Urine Urobilinogen Ur Leukocyte Esterase Urine RBC Urine WBC Ur Epithelial Cells Urine Bacteria Hyaline Casts Urine Opiates Screen Urine Methadone Screen Ur Barbiturates Screen Ur Phencyclidine Scrn Ur Amphetamines Screen U Benzodiazepines Scrn U Oth Cocaine Metabols U Cannabinoids Screen 07/26/17 07/26/17 07/26/17 05:02 06:49 07:49 WBC RBC Hgb Hct MCV MCH MCHC RDW Plt Count MPV Gran % Lymph % (Auto) [place] % (Auto) Eos % (Auto) Baso % (Auto) Gran # Lymph # (Auto) [place] # (Auto) Eos # (Auto) Baso # (Auto) PT INR APTT pCO2 pO2 HCO3 ABG pH ABG Total CO2 ABG O2 Saturation ABG O2 Content ABG Base Excess ABG Hemoglobin ABG Carboxyhemoglobin POC ABG HHb (Measured) ABG Methemoglobin ABG O2 Capacity ABG Potassium VBG pH VBG pCO2 VBG HCO3 VBG Total CO2 VBG O2 Sat (Calc) VBG Base Excess VBG Potassium Hgb O2 Saturation Glucose Lactate FiO2 Sodium Potassium Chloride Carbon Dioxide Anion Gap BUN Creatinine Est GFR ( Amer) Est GFR (Non-Af Amer) POC Glucose (mg/dL) 97 95 118 H Random Glucose Calcium Phosphorus Magnesium Total Bilirubin AST ALT Alkaline Phosphatase Troponin I Total Protein Albumin Globulin Albumin/Globulin Ratio Arterial Blood Potassium Venous Blood Potassium Urine Color Urine Appearance Urine pH Ur Specific [place] Urine Protein Urine Glucose (UA) Urine Ketones Urine Blood Urine Nitrate Urine Bilirubin Urine Urobilinogen Ur Leukocyte Esterase Urine RBC Urine WBC Ur Epithelial Cells Urine Bacteria Hyaline Casts Urine Opiates Screen Urine Methadone Screen Ur Barbiturates Screen Ur Phencyclidine Scrn Ur Amphetamines Screen U Benzodiazepines Scrn U Oth Cocaine Metabols U Cannabinoids Screen 07/26/17 07/26/17 07/26/17 09:10 09:10 09:10 WBC 13.5 H RBC 3.20 L Hgb 10.1 L Hct 29.7 L MCV 92.8 MCH 31.6 MCHC 34.0 RDW 15.6 H Plt Count 156 MPV 10.6 Gran % 84.9 H Lymph % (Auto) 11.3 L [place] % (Auto) 3.7 Eos % (Auto) 0.0 L Baso % (Auto) 0.1 Gran # 11.42 H Lymph # (Auto) 1.5 [place] # (Auto) 0.5 Eos # (Auto) 0.0 Baso # (Auto) 0.01 PT 12.5 INR 1.09 H APTT 25.9 pCO2 pO2 HCO3 ABG pH ABG Total CO2 ABG O2 Saturation ABG O2 Content ABG Base Excess ABG Hemoglobin ABG Carboxyhemoglobin POC ABG HHb (Measured) ABG Methemoglobin ABG O2 Capacity ABG Potassium VBG pH VBG pCO2 VBG HCO3 VBG Total CO2 VBG O2 Sat (Calc) VBG Base Excess VBG Potassium Hgb O2 Saturation Glucose Lactate FiO2 Sodium 139 Potassium 3.4 L Chloride 106 Carbon Dioxide 22 Anion Gap 14 BUN 16 Creatinine 1.3 H Est GFR ( Amer) 50 Est GFR (Non-Af Amer) 41 POC Glucose (mg/dL) Random Glucose 121 H Calcium 7.1 L Phosphorus Magnesium Total Bilirubin 0.6 AST 79 H ALT 27 Alkaline Phosphatase 113 Troponin I 0.45 H* D Total Protein 6.3 Albumin 3.4 Globulin 2.8 Albumin/Globulin Ratio 1.2 Arterial Blood Potassium Venous Blood Potassium Urine Color Urine Appearance Urine pH Ur Specific [place] Urine Protein Urine Glucose (UA) Urine Ketones Urine Blood Urine Nitrate Urine Bilirubin Urine Urobilinogen Ur Leukocyte Esterase Urine RBC Urine WBC Ur Epithelial Cells Urine Bacteria Hyaline Casts Urine Opiates Screen Urine Methadone Screen Ur Barbiturates Screen Ur Phencyclidine Scrn Ur Amphetamines Screen U Benzodiazepines Scrn U Oth Cocaine Metabols U Cannabinoids Screen 07/26/17 07/26/17 07/26/17 09:10 10:02 11:44 WBC RBC Hgb Hct MCV MCH MCHC RDW Plt Count MPV Gran % Lymph % (Auto) [place] % (Auto) Eos % (Auto) Baso % (Auto) Gran # Lymph # (Auto) [place] # (Auto) Eos # (Auto) Baso # (Auto) PT INR APTT pCO2 pO2 180 H HCO3 ABG pH ABG Total CO2 ABG O2 Saturation ABG O2 Content ABG Base Excess ABG Hemoglobin ABG Carboxyhemoglobin POC ABG HHb (Measured) ABG Methemoglobin ABG O2 Capacity ABG Potassium VBG pH 7.48 H VBG pCO2 31.0 L VBG HCO3 23.1 VBG Total CO2 24.1 VBG O2 Sat (Calc) 100.1 H VBG Base Excess 0.4 VBG Potassium 3.3 L Hgb O2 Saturation Glucose 127 H Lactate 1.1 FiO2 21.0 Sodium 138.0 Potassium Chloride 108.0 H Carbon Dioxide Anion Gap BUN Creatinine Est GFR ( Amer) Est GFR (Non-Af Amer) POC Glucose (mg/dL) 108 124 H Random Glucose Calcium Phosphorus Magnesium Total Bilirubin AST ALT Alkaline Phosphatase Troponin I Total Protein Albumin Globulin Albumin/Globulin Ratio Arterial Blood Potassium Venous Blood Potassium 3.3 L Urine Color Urine Appearance Urine pH Ur Specific [place] Urine Protein Urine Glucose (UA) Urine Ketones Urine Blood Urine Nitrate Urine Bilirubin Urine Urobilinogen Ur Leukocyte Esterase Urine RBC Urine WBC Ur Epithelial Cells Urine Bacteria Hyaline Casts Urine Opiates Screen Urine Methadone Screen Ur Barbiturates Screen Ur Phencyclidine Scrn Ur Amphetamines Screen U Benzodiazepines Scrn U Oth Cocaine Metabols U Cannabinoids Screen EKG/Cardiology Studies: Cardiology / EKG Studies 07/26/17 01:53 EKG [ELECTROCARDIOGRAM] Stat Comment: Reason For Exam: Elevated troponin, Hypotension. Fingerstick Blood Sugar Results: 95 Review of Systems - Review of Systems Systems not reviewed;Unavailable: Intubated Assessment/Plan - Assessment and Plan (Free Text) Assessment: This is a 62 yo AA F with PMH of CHF (EF on admission 16%), COPD, HTN, tobacco & substance abuse, and chronic non-compliance with medications/follow-up who presented originally to [facility] [place] with worsening shortness of breath, and came to the ICU s/p cardiac arrest, intubated/sedation on mechanical ventilation, and with decerebrate posturing. Plan: Neuro: -sedated/intubated s/p cardiac arrest yesterday on tele floor -appeared to be decerebrate posturing post-code, continues today -afebrile overnight -CT head obtained, negative for acute findings -Neuro consulted, appreciate their recs Cardio: -Hx CHF with EF < 30% noncompliant with meds/follow-up -Echo (pre-cardiac arrest) this admission notable for EF 16%, mild dilated LV with global hypokinesia, severe MR, mild-moderate TR, mild pulm HTN -Vfib initially during code, s/p 1x defibrilator shock, PEA for remainder of code until ROCS -UDS obtained post-code concerning for positive for canabinoid and cocaine ( neither present on admission), concerning for possible cocaine-induced cardiac arrest -continue milrinone, levophed, and amiodarone; goal is MAP > 65 -continue daily ASA, Lipitor -holding Coreg due to cocaine exposure, want to avoid unopposed alpha stimulation -holding home Lisinopril due to hypotension on pressor support -EP was consulted for possible pacer given low EF, but given current situation, no acute intervention planned at this time -Cardio and EP following, appreciate all recs Pulm: -intubated and mechanically ventilated, sedated on propofol/versed -maintain SaO2 > 88% (COPD pt) and paO2 > 60 -Aspiration precautions, VAP bundle -AM ABG and CXR reviewed, improved ABG and no congestion appreciated on CXR GI: -NPO, OGT in place -Protonix for ppx -AST elevations likely 2/2 cardiac arrest, less likely shock liver in setting of normal ALT/Alk Phos levels Renal: -monitor and replete electrolytes as needed -strict I's and O's, monitor urine output -Cr elevated from presentation (0.7), but improved from 1.7 to 1.3 this AM; likely CRISTÓBAL 2/2 ischemic insult from shock/cardiac arrest -was on bicarb drip for bicarb 12, resolved, drip discontinued overnight ID: -pending procal -empiric coverage overnight with Zosyn and Vanco x1, will hold off on further dosing at this time pending procal -ID following, appreciate all recs Heme: -hgb 10.1 (was 10.5) -Lovenox for DVT ppx Dispo: ICU, intubated/sedation on ventilator s/p cardiac arrest, possibly cocaine-induced given pre-existing cardiac disease and repeat UDS findings post- code, pending Neuro eval and recs FEN: NPO Access: Peripheral IVs, ETT, OGT Consults: Neuro, Cardio, EP, ID Ppx: Protonix for GI, Lovenox for DVT Patient seen, reviewed, and discussed with attending, Dr. Triplett <Jeremy Triplett - Last Filed: 07/26/17 13:23> CCU Objective - Vital Signs / Intake & Output Vital Signs (Last 4 hours): Vital Signs Pulse 07/26/17 10:00 80 Intake and Output (Last 8hrs): Intake & Output 07/25/17 07/26/17 07/26/17 22:59 06:59 14:59 Intake Total 4068 555 555 Output Total 15 Balance 2437 555 555 Intake: IV 1628 555 555 Left Femoral 1000 Left Forearm 100 Left Hand 177 Oral 720 Other 60 Output: Urine 15 Urethral (Sánchez) 15 Urine, Voided 0 Other: # Bowel Movements 0 - Medications Active Medications: Active Medications Generic Name Dose Route Start Last Admin Trade Name Freq PRN Reason Stop Dose Admin Albuterol/Ipratropium 3 ml 07/25/17 04:52 Duoneb 3 Mg/0.5 Mg (3 Ml) Ud IH Q2H PRN Shortness of Breath Artificial Tears 0.3 ml 07/25/17 18:07 Refresh Opth Soln OU Q4H PRN Dry eyes Aspirin 81 mg 07/25/17 10:00 07/26/17 10:00 Ecotrin PO 81 mg DAILY AUNDREA Administration Atorvastatin Calcium 20 mg 07/25/17 17:00 07/25/17 18:17 Lipitor PO 20 mg DIN AUNDREA Administration Enoxaparin Sodium 40 mg 07/25/17 10:00 07/26/17 09:54 Lovenox SC 40 mg DAILY AUNDREA Administration Protocol Potassium Chloride/Dextrose 1,000 mls @ 20 mls/hr 07/25/17 16:00 07/25/17 16: 57 Potassium Chl 20 Meq In D5w IV 20 mls/hr .Q24H AUNDREA Administration Amiodarone HCl/Dextrose 360 mg in 200 mls @ 33.333 mls/hr 07/25/17 16:45 04:50 Nexterone 360 Mg In D5w 200 Ml (Premix) IV 33.333 mls/hr .Q6H AUNDREA Administration Protocol 1 MG/MIN Propofol 1,000 mg in 100 mls @ 1.649 mls/hr 07/25/17 16:35 07/26/17 12:13 Diprivan IV 25 mcg/kg/min .Q24H PRN 8.246 mls/hr TITRATE PER MD ORDER Administration Protocol 5 MCG/KG/MIN NOREPINEPHRINE BIT/0.9 % NACL 4 mg in 250 mls @ 15 mls/hr 07/25/17 16:11 12:14 Levophed 4 Mg/ 250 Ml Ns Premixed IV 18 mcg/min .[id number] PRN 67.5 mls/hr TITRATE PER MD ORDER Administration Protocol 4 MCG/MIN Midazolam 100 mg/100ml in NS 100 mg in 100 mls @ 1 mls/hr 07/25/17 18:07 00:09 Midazolam 100 Mg/100ml In Ns IV 1 mg/hr .Q24H PRN 1 mls/hr Sedation Titration Protocol 1 MG/HR Milrinone Lactate/Dextrose 100 mls @ 5.443 mls/hr 07/26/17 08:06 Primacor 20mg/100ml D5w IV .[id number] PRN TITRATE PER MD ORDER Protocol 0.33 MCG/KG/MIN Potassium Chloride 20 meq in 100 mls @ 50 mls/hr 07/26/17 10:00 07/26/17 11: 32 Potassium Chloride 20 Meq/100 Ml IVPB 07/26/17 13:59 50 mls/hr Q2H AUNDREA Administration Insulin Human Regular 0 units 07/25/17 17:15 07/26/17 12:00 Humulin R High SC Not Given Q2H AUNDREA Protocol Ondansetron HCl 4 mg 07/25/17 04:53 Zofran Inj IVP Q4H PRN Nausea/Vomiting Pantoprazole Sodium 40 mg 07/26/17 10:00 07/26/17 09:54 Protonix Inj IVP 40 mg DAILY AUNDREA Administration Potassium Chloride 40 meq 07/26/17 08:00 07/26/17 08:00 K-Dur 20 Meq Er Tab PO 40 meq BRK AUNDREA Administration Thiamine HCl 100 mg 07/25/17 10:00 07/26/17 11:33 Vitamin B1 Tab PO 100 mg DAILY AUNDREA Administration - Patient Studies Lab Studies: Lab Studies 07/26/17 07/26/17 07/26/17 Range/Units 11:44 10:02 09:10 WBC (4.5-11.0) 10^3/ul RBC (3.5-6.1) 10^6/uL Hgb (12.0-16.0) g/dL Hct (36.0-48.0) % MCV (80.0-105.0) fl MCH (25.0-35.0) pg MCHC (31.0-37.0) g/dl RDW (11.5-14.5) % Plt Count (120.0-450.0) 10^3/uL MPV (7.0-11.0) fl Gran % (50.0-68.0) % Lymph % (Auto) (22.0-35.0) % [place] % (Auto) (1.0-6.0) % Eos % (Auto) (1.5-5.0) % Baso % (Auto) (0.0-3.0) % Gran # (1.4-6.5) Lymph # (Auto) (1.2-3.4) [place] # (Auto) (0.1-0.6) Eos # (Auto) (0.0-0.7) Baso # (Auto) (0.0-2.0) K/mm3 PT (9.4-12.5) SECONDS INR (0.93-1.08) APTT (25.1-36.5) Seconds pCO2 (35-45) mm/Hg pO2 180 H (30-55) mm/Hg HCO3 (21-28) mmol/L ABG pH (7.35-7.45) ABG Total CO2 (22-28) mmol.L ABG O2 Saturation (95-98) % ABG O2 Content (15-23) ML/dl ABG Base Excess (-2.0-3.0) mmol/L ABG Hemoglobin (11.7-17.4) g/dL ABG Carboxyhemoglobin (0.5-1.5) % POC ABG HHb (Measured) (0-5) % ABG Methemoglobin (0.0-3.0) % ABG O2 Capacity (16-24) mL/dl ABG Potassium (3.6-5.2) mmol/L VBG pH 7.48 H (7.32-7.43) VBG pCO2 31.0 L (40-60) VBG HCO3 23.1 (21-28) mmol/l VBG Total CO2 24.1 (22-28) mmol.L VBG O2 Sat (Calc) 100.1 H (40-65) % VBG Base Excess 0.4 (0.0-2.0) mmol/L VBG Potassium 3.3 L (3.6-5.2) mmol/L Hgb O2 Saturation (95.0-98.0) % Sodium 138.0 (132-148) mmol/L Chloride 108.0 H (98-107) mmol/L Glucose 127 H (65-105) mg/dl Lactate 1.1 (0.7-2.1) mmol/L FiO2 21.0 % Potassium (3.6-5.0) mmol/L Carbon Dioxide (21-33) mmol/L Anion Gap (10-20) BUN (7-21) mg/dL Creatinine (0.7-1.2) mg/dl Est GFR ( Amer) Est GFR (Non-Af Amer) POC Glucose (mg/dL) 124 H 108 (65-110) mg/dL Random Glucose (70-110) mg/dL Calcium (8.4-10.5) mg/dL Phosphorus (2.5-4.5) mg/dL Magnesium (1.7-2.2) mg/dL Total Bilirubin (0.2-1.3) mg/dL AST (14-36) U/L ALT (7-56) U/L Alkaline Phosphatase (38-126) U/L Troponin I ng/mL Total Protein (5.8-8.3) g/dL Albumin (3.0-4.8) g/dL Globulin gm/dL Albumin/Globulin Ratio (1.1-1.8) Arterial Blood Potassium (3.6-5.2) mmol/L Venous Blood Potassium 3.3 L (3.6-5.2) mmol/L Urine Color (YELLOW) Urine Appearance (CLEAR) Urine pH (4.7-8.0) Ur Specific [place] (1.005-1.035) Urine Protein (<30 mg/dL) mg/dL Urine Glucose (UA) (NEGATIVE) mg/dL Urine Ketones (NEGATIVE) mg/dL Urine Blood (NEGATIVE) Urine Nitrate (NEGATIVE) Urine Bilirubin (NEGATIVE) Urine Urobilinogen (<1 E.U./dL) E.U./dL Ur Leukocyte Esterase (NEGATIVE) Alejandra/uL Urine RBC (0-2) /hpf Urine WBC (0-6) /hpf Ur Epithelial Cells (0-5) /hpf Urine Bacteria (NEG) Hyaline Casts /hpf Urine Opiates Screen (NEGATIVE) Urine Methadone Screen (NEGATIVE) Ur Barbiturates Screen (NEGATIVE) Ur Phencyclidine Scrn (NEGATIVE) Ur Amphetamines Screen (NEGATIVE) U Benzodiazepines Scrn (NEGATIVE) U Oth Cocaine Metabols (NEGATIVE) U Cannabinoids Screen (NEGATIVE) 07/26/17 07/26/17 07/26/17 Range/Units 09:10 09:10 09:10 WBC 13.5 H (4.5-11.0) 10^3/ul RBC 3.20 L (3.5-6.1) 10^6/uL Hgb 10.1 L (12.0-16.0) g/dL Hct 29.7 L (36.0-48.0) % MCV 92.8 (80.0-105.0) fl MCH 31.6 (25.0-35.0) pg MCHC 34.0 (31.0-37.0) g/dl RDW 15.6 H (11.5-14.5) % Plt Count 156 (120.0-450.0) 10^3/uL MPV 10.6 (7.0-11.0) fl Gran % 84.9 H (50.0-68.0) % Lymph % (Auto) 11.3 L (22.0-35.0) % [place] % (Auto) 3.7 (1.0-6.0) % Eos % (Auto) 0.0 L (1.5-5.0) % Baso % (Auto) 0.1 (0.0-3.0) % Gran # 11.42 H (1.4-6.5) Lymph # (Auto) 1.5 (1.2-3.4) [place] # (Auto) 0.5 (0.1-0.6) Eos # (Auto) 0.0 (0.0-0.7) Baso # (Auto) 0.01 (0.0-2.0) K/mm3 PT 12.5 (9.4-12.5) SECONDS INR 1.09 H (0.93-1.08) APTT 25.9 (25.1-36.5) Seconds pCO2 (35-45) mm/Hg pO2 (30-55) mm/Hg HCO3 (21-28) mmol/L ABG pH (7.35-7.45) ABG Total CO2 (22-28) mmol.L ABG O2 Saturation (95-98) % ABG O2 Content (15-23) ML/dl ABG Base Excess (-2.0-3.0) mmol/L ABG Hemoglobin (11.7-17.4) g/dL ABG Carboxyhemoglobin (0.5-1.5) % POC ABG HHb (Measured) (0-5) % ABG Methemoglobin (0.0-3.0) % ABG O2 Capacity (16-24) mL/dl ABG Potassium (3.6-5.2) mmol/L VBG pH (7.32-7.43) VBG pCO2 (40-60) VBG HCO3 (21-28) mmol/l VBG Total CO2 (22-28) mmol.L VBG O2 Sat (Calc) (40-65) % VBG Base Excess (0.0-2.0) mmol/L VBG Potassium (3.6-5.2) mmol/L Hgb O2 Saturation (95.0-98.0) % Sodium 139 (132-148) mmol/L Chloride 106 (98-107) mmol/L Glucose (65-105) mg/dl Lactate (0.7-2.1) mmol/L FiO2 % Potassium 3.4 L (3.6-5.0) mmol/L Carbon Dioxide 22 (21-33) mmol/L Anion Gap 14 (10-20) BUN 16 (7-21) mg/dL Creatinine 1.3 H (0.7-1.2) mg/dl Est GFR ( Amer) 50 Est GFR (Non-Af Amer) 41 POC Glucose (mg/dL) (65-110) mg/dL Random Glucose 121 H (70-110) mg/dL Calcium 7.1 L (8.4-10.5) mg/dL Phosphorus (2.5-4.5) mg/dL Magnesium (1.7-2.2) mg/dL Total Bilirubin 0.6 (0.2-1.3) mg/dL AST 79 H (14-36) U/L ALT 27 (7-56) U/L Alkaline Phosphatase 113 (38-126) U/L Troponin I 0.45 H* D ng/mL Total Protein 6.3 (5.8-8.3) g/dL Albumin 3.4 (3.0-4.8) g/dL Globulin 2.8 gm/dL Albumin/Globulin Ratio 1.2 (1.1-1.8) Arterial Blood Potassium (3.6-5.2) mmol/L Venous Blood Potassium (3.6-5.2) mmol/L Urine Color (YELLOW) Urine Appearance (CLEAR) Urine pH (4.7-8.0) Ur Specific [place] (1.005-1.035) Urine Protein (<30 mg/dL) mg/dL Urine Glucose (UA) (NEGATIVE) mg/dL Urine Ketones (NEGATIVE) mg/dL Urine Blood (NEGATIVE) Urine Nitrate (NEGATIVE) Urine Bilirubin (NEGATIVE) Urine Urobilinogen (<1 E.U./dL) E.U./dL Ur Leukocyte Esterase (NEGATIVE) Alejandra/uL Urine RBC (0-2) /hpf Urine WBC (0-6) /hpf Ur Epithelial Cells (0-5) /hpf Urine Bacteria (NEG) Hyaline Casts /hpf Urine Opiates Screen (NEGATIVE) Urine Methadone Screen (NEGATIVE) Ur Barbiturates Screen (NEGATIVE) Ur Phencyclidine Scrn (NEGATIVE) Ur Amphetamines Screen (NEGATIVE) U Benzodiazepines Scrn (NEGATIVE) U Oth Cocaine Metabols (NEGATIVE) U Cannabinoids Screen (NEGATIVE) 07/26/17 07/26/17 07/26/17 Range/Units 07:49 06:49 05:02 WBC (4.5-11.0) 10^3/ul RBC (3.5-6.1) 10^6/uL Hgb (12.0-16.0) g/dL Hct (36.0-48.0) % MCV (80.0-105.0) fl MCH (25.0-35.0) pg MCHC (31.0-37.0) g/dl RDW (11.5-14.5) % Plt Count (120.0-450.0) 10^3/uL MPV (7.0-11.0) fl Gran % (50.0-68.0) % Lymph % (Auto) (22.0-35.0) % [place] % (Auto) (1.0-6.0) % Eos % (Auto) (1.5-5.0) % Baso % (Auto) (0.0-3.0) % Gran # (1.4-6.5) Lymph # (Auto) (1.2-3.4) [place] # (Auto) (0.1-0.6) Eos # (Auto) (0.0-0.7) Baso # (Auto) (0.0-2.0) K/mm3 PT (9.4-12.5) SECONDS INR (0.93-1.08) APTT (25.1-36.5) Seconds pCO2 (35-45) mm/Hg pO2 (30-55) mm/Hg HCO3 (21-28) mmol/L ABG pH (7.35-7.45) ABG Total CO2 (22-28) mmol.L ABG O2 Saturation (95-98) % ABG O2 Content (15-23) ML/dl ABG Base Excess (-2.0-3.0) mmol/L ABG Hemoglobin (11.7-17.4) g/dL ABG Carboxyhemoglobin (0.5-1.5) % POC ABG HHb (Measured) (0-5) % ABG Methemoglobin (0.0-3.0) % ABG O2 Capacity (16-24) mL/dl ABG Potassium (3.6-5.2) mmol/L VBG pH (7.32-7.43) VBG pCO2 (40-60) VBG HCO3 (21-28) mmol/l VBG Total CO2 (22-28) mmol.L VBG O2 Sat (Calc) (40-65) % VBG Base Excess (0.0-2.0) mmol/L VBG Potassium (3.6-5.2) mmol/L Hgb O2 Saturation (95.0-98.0) % Sodium (132-148) mmol/L Chloride (98-107) mmol/L Glucose (65-105) mg/dl Lactate (0.7-2.1) mmol/L FiO2 % Potassium (3.6-5.0) mmol/L Carbon Dioxide (21-33) mmol/L Anion Gap (10-20) BUN (7-21) mg/dL Creatinine (0.7-1.2) mg/dl Est GFR ( Amer) Est GFR (Non-Af Amer) POC Glucose (mg/dL) 118 H 95 97 (65-110) mg/dL Random Glucose (70-110) mg/dL Calcium (8.4-10.5) mg/dL Phosphorus (2.5-4.5) mg/dL Magnesium (1.7-2.2) mg/dL Total Bilirubin (0.2-1.3) mg/dL AST (14-36) U/L ALT (7-56) U/L Alkaline Phosphatase (38-126) U/L Troponin I ng/mL Total Protein (5.8-8.3) g/dL Albumin (3.0-4.8) g/dL Globulin gm/dL Albumin/Globulin Ratio (1.1-1.8) Arterial Blood Potassium (3.6-5.2) mmol/L Venous Blood Potassium (3.6-5.2) mmol/L Urine Color (YELLOW) Urine Appearance (CLEAR) Urine pH (4.7-8.0) Ur Specific [place] (1.005-1.035) Urine Protein (<30 mg/dL) mg/dL Urine Glucose (UA) (NEGATIVE) mg/dL Urine Ketones (NEGATIVE) mg/dL Urine Blood (NEGATIVE) Urine Nitrate (NEGATIVE) Urine Bilirubin (NEGATIVE) Urine Urobilinogen (<1 E.U./dL) E.U./dL Ur Leukocyte Esterase (NEGATIVE) Alejandra/uL Urine RBC (0-2) /hpf Urine WBC (0-6) /hpf Ur Epithelial Cells (0-5) /hpf Urine Bacteria (NEG) Hyaline Casts /hpf Urine Opiates Screen (NEGATIVE) Urine Methadone Screen (NEGATIVE) Ur Barbiturates Screen (NEGATIVE) Ur Phencyclidine Scrn (NEGATIVE) Ur Amphetamines Screen (NEGATIVE) U Benzodiazepines Scrn (NEGATIVE) U Oth Cocaine Metabols (NEGATIVE) U Cannabinoids Screen (NEGATIVE) 07/26/17 07/26/17 07/26/17 Range/Units 03:23 01:10 00:30 WBC (4.5-11.0) 10^3/ul RBC (3.5-6.1) 10^6/uL Hgb (12.0-16.0) g/dL Hct (36.0-48.0) % MCV (80.0-105.0) fl MCH (25.0-35.0) pg MCHC (31.0-37.0) g/dl RDW (11.5-14.5) % Plt Count (120.0-450.0) 10^3/uL MPV (7.0-11.0) fl Gran % (50.0-68.0) % Lymph % (Auto) (22.0-35.0) % [place] % (Auto) (1.0-6.0) % Eos % (Auto) (1.5-5.0) % Baso % (Auto) (0.0-3.0) % Gran # (1.4-6.5) Lymph # (Auto) (1.2-3.4) [place] # (Auto) (0.1-0.6) Eos # (Auto) (0.0-0.7) Baso # (Auto) (0.0-2.0) K/mm3 PT (9.4-12.5) SECONDS INR (0.93-1.08) APTT (25.1-36.5) Seconds pCO2 29 L (35-45) mm/Hg pO2 119.0 H (30-55) mm/Hg HCO3 21.6 (21-28) mmol/L ABG pH 7.48 H (7.35-7.45) ABG Total CO2 22.5 (22-28) mmol.L ABG O2 Saturation 99.3 H (95-98) % ABG O2 Content 14.5 L (15-23) ML/dl ABG Base Excess -1.2 (-2.0-3.0) mmol/L ABG Hemoglobin 10.5 L (11.7-17.4) g/dL ABG Carboxyhemoglobin 1.5 (0.5-1.5) % POC ABG HHb (Measured) 0.7 (0-5) % ABG Methemoglobin 1.4 (0.0-3.0) % ABG O2 Capacity 14.6 L (16-24) mL/dl ABG Potassium (3.6-5.2) mmol/L VBG pH (7.32-7.43) VBG pCO2 (40-60) VBG HCO3 (21-28) mmol/l VBG Total CO2 (22-28) mmol.L VBG O2 Sat (Calc) (40-65) % VBG Base Excess (0.0-2.0) mmol/L VBG Potassium (3.6-5.2) mmol/L Hgb O2 Saturation 96.5 (95.0-98.0) % Sodium 139 (132-148) mmol/L Chloride 102 (98-107) mmol/L Glucose (65-105) mg/dl Lactate (0.7-2.1) mmol/L FiO2 50.0 % Potassium 2.8 L* D (3.6-5.0) mmol/L Carbon Dioxide 22 (21-33) mmol/L Anion Gap 18 (10-20) BUN 18 (7-21) mg/dL Creatinine 1.7 H (0.7-1.2) mg/dl Est GFR ( Amer) 37 Est GFR (Non-Af Amer) 30 POC Glucose (mg/dL) 69 (65-110) mg/dL Random Glucose 112 H (70-110) mg/dL Calcium 7.4 L (8.4-10.5) mg/dL Phosphorus 3.3 (2.5-4.5) mg/dL Magnesium 2.2 (1.7-2.2) mg/dL Total Bilirubin 0.6 (0.2-1.3) mg/dL AST 93 H D (14-36) U/L ALT 28 (7-56) U/L Alkaline Phosphatase 122 (38-126) U/L Troponin I 1.32 H* D ng/mL Total Protein 6.7 (5.8-8.3) g/dL Albumin 3.7 (3.0-4.8) g/dL Globulin 2.9 gm/dL Albumin/Globulin Ratio 1.3 (1.1-1.8) Arterial Blood Potassium (3.6-5.2) mmol/L Venous Blood Potassium (3.6-5.2) mmol/L Urine Color (YELLOW) Urine Appearance (CLEAR) Urine pH (4.7-8.0) Ur Specific [place] (1.005-1.035) Urine Protein (<30 mg/dL) mg/dL Urine Glucose (UA) (NEGATIVE) mg/dL Urine Ketones (NEGATIVE) mg/dL Urine Blood (NEGATIVE) Urine Nitrate (NEGATIVE) Urine Bilirubin (NEGATIVE) Urine Urobilinogen (<1 E.U./dL) E.U./dL Ur Leukocyte Esterase (NEGATIVE) Alejandra/uL Urine RBC (0-2) /hpf Urine WBC (0-6) /hpf Ur Epithelial Cells (0-5) /hpf Urine Bacteria (NEG) Hyaline Casts /hpf Urine Opiates Screen (NEGATIVE) Urine Methadone Screen (NEGATIVE) Ur Barbiturates Screen (NEGATIVE) Ur Phencyclidine Scrn (NEGATIVE) Ur Amphetamines Screen (NEGATIVE) U Benzodiazepines Scrn (NEGATIVE) U Oth Cocaine Metabols (NEGATIVE) U Cannabinoids Screen (NEGATIVE) 07/26/17 07/26/17 07/25/17 Range/Units 00:30 00:30 23:14 WBC 13.1 H D (4.5-11.0) 10^3/ul RBC 3.32 L (3.5-6.1) 10^6/uL Hgb 10.5 L (12.0-16.0) g/dL Hct 30.7 L (36.0-48.0) % MCV 92.5 D (80.0-105.0) fl MCH 31.6 (25.0-35.0) pg MCHC 34.2 (31.0-37.0) g/dl RDW 15.4 H (11.5-14.5) % Plt Count 174 (120.0-450.0) 10^3/uL MPV 9.7 (7.0-11.0) fl Gran % 86.0 H (50.0-68.0) % Lymph % (Auto) 9.5 L (22.0-35.0) % [place] % (Auto) 4.4 (1.0-6.0) % Eos % (Auto) 0.0 L (1.5-5.0) % Baso % (Auto) 0.1 (0.0-3.0) % Gran # 11.24 H (1.4-6.5) Lymph # (Auto) 1.2 (1.2-3.4) [place] # (Auto) 0.6 (0.1-0.6) Eos # (Auto) 0.0 (0.0-0.7) Baso # (Auto) 0.01 (0.0-2.0) K/mm3 PT (9.4-12.5) SECONDS INR (0.93-1.08) APTT (25.1-36.5) Seconds pCO2 (35-45) mm/Hg pO2 115 H (30-55) mm/Hg HCO3 (21-28) mmol/L ABG pH (7.35-7.45) ABG Total CO2 (22-28) mmol.L ABG O2 Saturation (95-98) % ABG O2 Content (15-23) ML/dl ABG Base Excess (-2.0-3.0) mmol/L ABG Hemoglobin (11.7-17.4) g/dL ABG Carboxyhemoglobin (0.5-1.5) % POC ABG HHb (Measured) (0-5) % ABG Methemoglobin (0.0-3.0) % ABG O2 Capacity (16-24) mL/dl ABG Potassium (3.6-5.2) mmol/L VBG pH 7.47 H (7.32-7.43) VBG pCO2 30.0 L (40-60) VBG HCO3 21.8 (21-28) mmol/l VBG Total CO2 22.7 (22-28) mmol.L VBG O2 Sat (Calc) 99.5 H (40-65) % VBG Base Excess -0.9 L (0.0-2.0) mmol/L VBG Potassium 2.7 L (3.6-5.2) mmol/L Hgb O2 Saturation (95.0-98.0) % Sodium 137.0 (132-148) mmol/L Chloride 104.0 (98-107) mmol/L Glucose 112 H (65-105) mg/dl Lactate 2.7 H (0.7-2.1) mmol/L FiO2 21.0 % Potassium (3.6-5.0) mmol/L Carbon Dioxide (21-33) mmol/L Anion Gap (10-20) BUN (7-21) mg/dL Creatinine (0.7-1.2) mg/dl Est GFR ( Amer) Est GFR (Non-Af Amer) POC Glucose (mg/dL) 118 H (65-110) mg/dL Random Glucose (70-110) mg/dL Calcium (8.4-10.5) mg/dL Phosphorus (2.5-4.5) mg/dL Magnesium (1.7-2.2) mg/dL Total Bilirubin (0.2-1.3) mg/dL AST (14-36) U/L ALT (7-56) U/L Alkaline Phosphatase (38-126) U/L Troponin I ng/mL Total Protein (5.8-8.3) g/dL Albumin (3.0-4.8) g/dL Globulin gm/dL Albumin/Globulin Ratio (1.1-1.8) Arterial Blood Potassium (3.6-5.2) mmol/L Venous Blood Potassium 2.7 L (3.6-5.2) mmol/L Urine Color (YELLOW) Urine Appearance (CLEAR) Urine pH (4.7-8.0) Ur Specific [place] (1.005-1.035) Urine Protein (<30 mg/dL) mg/dL Urine Glucose (UA) (NEGATIVE) mg/dL Urine Ketones (NEGATIVE) mg/dL Urine Blood (NEGATIVE) Urine Nitrate (NEGATIVE) Urine Bilirubin (NEGATIVE) Urine Urobilinogen (<1 E.U./dL) E.U./dL Ur Leukocyte Esterase (NEGATIVE) Alejandra/uL Urine RBC (0-2) /hpf Urine WBC (0-6) /hpf Ur Epithelial Cells (0-5) /hpf Urine Bacteria (NEG) Hyaline Casts /hpf Urine Opiates Screen (NEGATIVE) Urine Methadone Screen (NEGATIVE) Ur Barbiturates Screen (NEGATIVE) Ur Phencyclidine Scrn (NEGATIVE) Ur Amphetamines Screen (NEGATIVE) U Benzodiazepines Scrn (NEGATIVE) U Oth Cocaine Metabols (NEGATIVE) U Cannabinoids Screen (NEGATIVE) 07/25/17 07/25/17 07/25/17 Range/Units 22:09 21:14 20:01 WBC (4.5-11.0) 10^3/ul RBC (3.5-6.1) 10^6/uL Hgb (12.0-16.0) g/dL Hct (36.0-48.0) % MCV (80.0-105.0) fl MCH (25.0-35.0) pg MCHC (31.0-37.0) g/dl RDW (11.5-14.5) % Plt Count (120.0-450.0) 10^3/uL MPV (7.0-11.0) fl Gran % (50.0-68.0) % Lymph % (Auto) (22.0-35.0) % [place] % (Auto) (1.0-6.0) % Eos % (Auto) (1.5-5.0) % Baso % (Auto) (0.0-3.0) % Gran # (1.4-6.5) Lymph # (Auto) (1.2-3.4) [place] # (Auto) (0.1-0.6) Eos # (Auto) (0.0-0.7) Baso # (Auto) (0.0-2.0) K/mm3 PT (9.4-12.5) SECONDS INR (0.93-1.08) APTT (25.1-36.5) Seconds pCO2 (35-45) mm/Hg pO2 (30-55) mm/Hg HCO3 (21-28) mmol/L ABG pH (7.35-7.45) ABG Total CO2 (22-28) mmol.L ABG O2 Saturation (95-98) % ABG O2 Content (15-23) ML/dl ABG Base Excess (-2.0-3.0) mmol/L ABG Hemoglobin (11.7-17.4) g/dL ABG Carboxyhemoglobin (0.5-1.5) % POC ABG HHb (Measured) (0-5) % ABG Methemoglobin (0.0-3.0) % ABG O2 Capacity (16-24) mL/dl ABG Potassium (3.6-5.2) mmol/L VBG pH (7.32-7.43) VBG pCO2 (40-60) VBG HCO3 (21-28) mmol/l VBG Total CO2 (22-28) mmol.L VBG O2 Sat (Calc) (40-65) % VBG Base Excess (0.0-2.0) mmol/L VBG Potassium (3.6-5.2) mmol/L Hgb O2 Saturation (95.0-98.0) % Sodium (132-148) mmol/L Chloride (98-107) mmol/L Glucose (65-105) mg/dl Lactate (0.7-2.1) mmol/L FiO2 % Potassium (3.6-5.0) mmol/L Carbon Dioxide (21-33) mmol/L Anion Gap (10-20) BUN (7-21) mg/dL Creatinine (0.7-1.2) mg/dl Est GFR ( Amer) Est GFR (Non-Af Amer) POC Glucose (mg/dL) 76 63 L 143 H (65-110) mg/dL Random Glucose (70-110) mg/dL Calcium (8.4-10.5) mg/dL Phosphorus (2.5-4.5) mg/dL Magnesium (1.7-2.2) mg/dL Total Bilirubin (0.2-1.3) mg/dL AST (14-36) U/L ALT (7-56) U/L Alkaline Phosphatase (38-126) U/L Troponin I ng/mL Total Protein (5.8-8.3) g/dL Albumin (3.0-4.8) g/dL Globulin gm/dL Albumin/Globulin Ratio (1.1-1.8) Arterial Blood Potassium (3.6-5.2) mmol/L Venous Blood Potassium (3.6-5.2) mmol/L Urine Color (YELLOW) Urine Appearance (CLEAR) Urine pH (4.7-8.0) Ur Specific [place] (1.005-1.035) Urine Protein (<30 mg/dL) mg/dL Urine Glucose (UA) (NEGATIVE) mg/dL Urine Ketones (NEGATIVE) mg/dL Urine Blood (NEGATIVE) Urine Nitrate (NEGATIVE) Urine Bilirubin (NEGATIVE) Urine Urobilinogen (<1 E.U./dL) E.U./dL Ur Leukocyte Esterase (NEGATIVE) Alejandra/uL Urine RBC (0-2) /hpf Urine WBC (0-6) /hpf Ur Epithelial Cells (0-5) /hpf Urine Bacteria (NEG) Hyaline Casts /hpf Urine Opiates Screen (NEGATIVE) Urine Methadone Screen (NEGATIVE) Ur Barbiturates Screen (NEGATIVE) Ur Phencyclidine Scrn (NEGATIVE) Ur Amphetamines Screen (NEGATIVE) U Benzodiazepines Scrn (NEGATIVE) U Oth Cocaine Metabols (NEGATIVE) U Cannabinoids Screen (NEGATIVE) 07/25/17 07/25/17 07/25/17 Range/Units 18:38 18:38 18:05 WBC (4.5-11.0) 10^3/ul RBC (3.5-6.1) 10^6/uL Hgb (12.0-16.0) g/dL Hct (36.0-48.0) % MCV (80.0-105.0) fl MCH (25.0-35.0) pg MCHC (31.0-37.0) g/dl RDW (11.5-14.5) % Plt Count (120.0-450.0) 10^3/uL MPV (7.0-11.0) fl Gran % (50.0-68.0) % Lymph % (Auto) (22.0-35.0) % [place] % (Auto) (1.0-6.0) % Eos % (Auto) (1.5-5.0) % Baso % (Auto) (0.0-3.0) % Gran # (1.4-6.5) Lymph # (Auto) (1.2-3.4) [place] # (Auto) (0.1-0.6) Eos # (Auto) (0.0-0.7) Baso # (Auto) (0.0-2.0) K/mm3 PT (9.4-12.5) SECONDS INR (0.93-1.08) APTT (25.1-36.5) Seconds pCO2 (35-45) mm/Hg pO2 (30-55) mm/Hg HCO3 (21-28) mmol/L ABG pH (7.35-7.45) ABG Total CO2 (22-28) mmol.L ABG O2 Saturation (95-98) % ABG O2 Content (15-23) ML/dl ABG Base Excess (-2.0-3.0) mmol/L ABG Hemoglobin (11.7-17.4) g/dL ABG Carboxyhemoglobin (0.5-1.5) % POC ABG HHb (Measured) (0-5) % ABG Methemoglobin (0.0-3.0) % ABG O2 Capacity (16-24) mL/dl ABG Potassium (3.6-5.2) mmol/L VBG pH (7.32-7.43) VBG pCO2 (40-60) VBG HCO3 (21-28) mmol/l VBG Total CO2 (22-28) mmol.L VBG O2 Sat (Calc) (40-65) % VBG Base Excess (0.0-2.0) mmol/L VBG Potassium (3.6-5.2) mmol/L Hgb O2 Saturation (95.0-98.0) % Sodium (132-148) mmol/L Chloride (98-107) mmol/L Glucose (65-105) mg/dl Lactate (0.7-2.1) mmol/L FiO2 % Potassium (3.6-5.0) mmol/L Carbon Dioxide (21-33) mmol/L Anion Gap (10-20) BUN (7-21) mg/dL Creatinine (0.7-1.2) mg/dl Est GFR ( Amer) Est GFR (Non-Af Amer) POC Glucose (mg/dL) 447 H* (65-110) mg/dL Random Glucose (70-110) mg/dL Calcium (8.4-10.5) mg/dL Phosphorus (2.5-4.5) mg/dL Magnesium (1.7-2.2) mg/dL Total Bilirubin (0.2-1.3) mg/dL AST (14-36) U/L ALT (7-56) U/L Alkaline Phosphatase (38-126) U/L Troponin I ng/mL Total Protein (5.8-8.3) g/dL Albumin (3.0-4.8) g/dL Globulin gm/dL Albumin/Globulin Ratio (1.1-1.8) Arterial Blood Potassium (3.6-5.2) mmol/L Venous Blood Potassium (3.6-5.2) mmol/L Urine Color Yellow (YELLOW) Urine Appearance Clear (CLEAR) Urine pH 5.0 (4.7-8.0) Ur Specific [place] 1.015 (1.005-1.035) Urine Protein Trace H (<30 mg/dL) mg/dL Urine Glucose (UA) Negative (NEGATIVE) mg/dL Urine Ketones Trace H (NEGATIVE) mg/dL Urine Blood Negative (NEGATIVE) Urine Nitrate Negative (NEGATIVE) Urine Bilirubin Negative (NEGATIVE) Urine Urobilinogen 0.2 (<1 E.U./dL) E.U./dL Ur Leukocyte Esterase Negative (NEGATIVE) Alejandra/uL Urine RBC Negative (0-2) /hpf Urine WBC 0 - 2 (0-6) /hpf Ur Epithelial Cells 1 - 3 (0-5) /hpf Urine Bacteria Trace (NEG) Hyaline Casts 0 - 2 /hpf Urine Opiates Screen Negative (NEGATIVE) Urine Methadone Screen Negative (NEGATIVE) Ur Barbiturates Screen Negative (NEGATIVE) Ur Phencyclidine Scrn Negative (NEGATIVE) Ur Amphetamines Screen Negative (NEGATIVE) U Benzodiazepines Scrn Negative (NEGATIVE) U Oth Cocaine Metabols Positive H (NEGATIVE) U Cannabinoids Screen Positive H (NEGATIVE) 07/25/17 07/25/17 07/25/17 Range/Units 16:40 16:37 16:37 WBC (4.5-11.0) 10^3/ul RBC (3.5-6.1) 10^6/uL Hgb (12.0-16.0) g/dL Hct (36.0-48.0) % MCV (80.0-105.0) fl MCH (25.0-35.0) pg MCHC (31.0-37.0) g/dl RDW (11.5-14.5) % Plt Count (120.0-450.0) 10^3/uL MPV (7.0-11.0) fl Gran % (50.0-68.0) % Lymph % (Auto) (22.0-35.0) % [place] % (Auto) (1.0-6.0) % Eos % (Auto) (1.5-5.0) % Baso % (Auto) (0.0-3.0) % Gran # (1.4-6.5) Lymph # (Auto) (1.2-3.4) [place] # (Auto) (0.1-0.6) Eos # (Auto) (0.0-0.7) Baso # (Auto) (0.0-2.0) K/mm3 PT 11.2 (9.4-12.5) SECONDS INR 0.98 (0.93-1.08) APTT 27.0 (25.1-36.5) Seconds pCO2 33 L (35-45) mm/Hg pO2 159.0 H 225 H (30-55) mm/Hg HCO3 11.0 L (21-28) mmol/L ABG pH 7.13 L* (7.35-7.45) ABG Total CO2 12.0 L (22-28) mmol.L ABG O2 Saturation 100.1 H (95-98) % ABG O2 Content (15-23) ML/dl ABG Base Excess -17.1 L (-2.0-3.0) mmol/L ABG Hemoglobin (11.7-17.4) g/dL ABG Carboxyhemoglobin (0.5-1.5) % POC ABG HHb (Measured) (0-5) % ABG Methemoglobin (0.0-3.0) % ABG O2 Capacity (16-24) mL/dl ABG Potassium 5.0 (3.6-5.2) mmol/L VBG pH 7.25 L (7.32-7.43) VBG pCO2 27.0 L (40-60) VBG HCO3 11.8 L (21-28) mmol/l VBG Total CO2 12.6 L (22-28) mmol.L VBG O2 Sat (Calc) 100.0 H (40-65) % VBG Base Excess -13.8 L (0.0-2.0) mmol/L VBG Potassium 5.5 H (3.6-5.2) mmol/L Hgb O2 Saturation (95.0-98.0) % Sodium 133.0 133.0 (132-148) mmol/L Chloride 96.0 L 95.0 L (98-107) mmol/L Glucose 573 H* 537 H* (65-105) mg/dl Lactate 14.6 H* 14.6 H* (0.7-2.1) mmol/L FiO2 60.0 21.0 % Potassium (3.6-5.0) mmol/L Carbon Dioxide (21-33) mmol/L Anion Gap (10-20) BUN (7-21) mg/dL Creatinine (0.7-1.2) mg/dl Est GFR ( Amer) Est GFR (Non-Af Amer) POC Glucose (mg/dL) (65-110) mg/dL Random Glucose (70-110) mg/dL Calcium (8.4-10.5) mg/dL Phosphorus (2.5-4.5) mg/dL Magnesium (1.7-2.2) mg/dL Total Bilirubin (0.2-1.3) mg/dL AST (14-36) U/L ALT (7-56) U/L Alkaline Phosphatase (38-126) U/L Troponin I ng/mL Total Protein (5.8-8.3) g/dL Albumin (3.0-4.8) g/dL Globulin gm/dL Albumin/Globulin Ratio (1.1-1.8) Arterial Blood Potassium 5.0 (3.6-5.2) mmol/L Venous Blood Potassium 5.5 H (3.6-5.2) mmol/L Urine Color (YELLOW) Urine Appearance (CLEAR) Urine pH (4.7-8.0) Ur Specific [place] (1.005-1.035) Urine Protein (<30 mg/dL) mg/dL Urine Glucose (UA) (NEGATIVE) mg/dL Urine Ketones (NEGATIVE) mg/dL Urine Blood (NEGATIVE) Urine Nitrate (NEGATIVE) Urine Bilirubin (NEGATIVE) Urine Urobilinogen (<1 E.U./dL) E.U./dL Ur Leukocyte Esterase (NEGATIVE) Alejandra/uL Urine RBC (0-2) /hpf Urine WBC (0-6) /hpf Ur Epithelial Cells (0-5) /hpf Urine Bacteria (NEG) Hyaline Casts /hpf Urine Opiates Screen (NEGATIVE) Urine Methadone Screen (NEGATIVE) Ur Barbiturates Screen (NEGATIVE) Ur Phencyclidine Scrn (NEGATIVE) Ur Amphetamines Screen (NEGATIVE) U Benzodiazepines Scrn (NEGATIVE) U Oth Cocaine Metabols (NEGATIVE) U Cannabinoids Screen (NEGATIVE) 07/25/17 07/25/17 07/25/17 Range/Units 16:37 16:37 15:40 WBC 6.8 D (4.5-11.0) 10^3/ul RBC 3.53 (3.5-6.1) 10^6/uL Hgb 11.2 L (12.0-16.0) g/dL Hct 34.0 L (36.0-48.0) % MCV 96.3 (80.0-105.0) fl MCH 31.7 (25.0-35.0) pg MCHC 32.9 (31.0-37.0) g/dl RDW 15.7 H (11.5-14.5) % Plt Count 186 (120.0-450.0) 10^3/uL MPV 10.3 (7.0-11.0) fl Gran % 67.7 (50.0-68.0) % Lymph % (Auto) 27.4 (22.0-35.0) % [place] % (Auto) 4.9 (1.0-6.0) % Eos % (Auto) 0.0 L (1.5-5.0) % Baso % (Auto) 0.0 (0.0-3.0) % Gran # 4.57 (1.4-6.5) Lymph # (Auto) 1.9 (1.2-3.4) [place] # (Auto) 0.3 (0.1-0.6) Eos # (Auto) 0.0 (0.0-0.7) Baso # (Auto) 0.00 (0.0-2.0) K/mm3 PT (9.4-12.5) SECONDS INR (0.93-1.08) APTT (25.1-36.5) Seconds pCO2 (35-45) mm/Hg pO2 (30-55) mm/Hg HCO3 (21-28) mmol/L ABG pH (7.35-7.45) ABG Total CO2 (22-28) mmol.L ABG O2 Saturation (95-98) % ABG O2 Content (15-23) ML/dl ABG Base Excess (-2.0-3.0) mmol/L ABG Hemoglobin (11.7-17.4) g/dL ABG Carboxyhemoglobin (0.5-1.5) % POC ABG HHb (Measured) (0-5) % ABG Methemoglobin (0.0-3.0) % ABG O2 Capacity (16-24) mL/dl ABG Potassium (3.6-5.2) mmol/L VBG pH (7.32-7.43) VBG pCO2 (40-60) VBG HCO3 (21-28) mmol/l VBG Total CO2 (22-28) mmol.L VBG O2 Sat (Calc) (40-65) % VBG Base Excess (0.0-2.0) mmol/L VBG Potassium (3.6-5.2) mmol/L Hgb O2 Saturation (95.0-98.0) % Sodium 135 (132-148) mmol/L Chloride 96 L (98-107) mmol/L Glucose (65-105) mg/dl Lactate (0.7-2.1) mmol/L FiO2 % Potassium 5.5 H (3.6-5.0) mmol/L Carbon Dioxide 12 L (21-33) mmol/L Anion Gap 32 H (10-20) BUN 10 (7-21) mg/dL Creatinine 1.2 (0.7-1.2) mg/dl Est GFR ( Amer) 55 Est GFR (Non-Af Amer) 45 POC Glucose (mg/dL) 185 H (65-110) mg/dL Random Glucose 517 H* D (70-110) mg/dL Calcium 8.7 (8.4-10.5) mg/dL Phosphorus 7.0 H (2.5-4.5) mg/dL Magnesium 3.8 H (1.7-2.2) mg/dL Total Bilirubin 0.9 (0.2-1.3) mg/dL AST 56 H D (14-36) U/L ALT 24 (7-56) U/L Alkaline Phosphatase 88 (38-126) U/L Troponin I 0.04 D ng/mL Total Protein 7.4 (5.8-8.3) g/dL Albumin 4.5 (3.0-4.8) g/dL Globulin 2.9 gm/dL Albumin/Globulin Ratio 1.5 (1.1-1.8) Arterial Blood Potassium (3.6-5.2) mmol/L Venous Blood Potassium (3.6-5.2) mmol/L Urine Color (YELLOW) Urine Appearance (CLEAR) Urine pH (4.7-8.0) Ur Specific [place] (1.005-1.035) Urine Protein (<30 mg/dL) mg/dL Urine Glucose (UA) (NEGATIVE) mg/dL Urine Ketones (NEGATIVE) mg/dL Urine Blood (NEGATIVE) Urine Nitrate (NEGATIVE) Urine Bilirubin (NEGATIVE) Urine Urobilinogen (<1 E.U./dL) E.U./dL Ur Leukocyte Esterase (NEGATIVE) Alejandra/uL Urine RBC (0-2) /hpf Urine WBC (0-6) /hpf Ur Epithelial Cells (0-5) /hpf Urine Bacteria (NEG) Hyaline Casts /hpf Urine Opiates Screen (NEGATIVE) Urine Methadone Screen (NEGATIVE) Ur Barbiturates Screen (NEGATIVE) Ur Phencyclidine Scrn (NEGATIVE) Ur Amphetamines Screen (NEGATIVE) U Benzodiazepines Scrn (NEGATIVE) U Oth Cocaine Metabols (NEGATIVE) U Cannabinoids Screen (NEGATIVE) 07/25/17 Range/Units 15:36 WBC (4.5-11.0) 10^3/ul RBC (3.5-6.1) 10^6/uL Hgb (12.0-16.0) g/dL Hct (36.0-48.0) % MCV (80.0-105.0) fl MCH (25.0-35.0) pg MCHC (31.0-37.0) g/dl RDW (11.5-14.5) % Plt Count (120.0-450.0) 10^3/uL MPV (7.0-11.0) fl Gran % (50.0-68.0) % Lymph % (Auto) (22.0-35.0) % [place] % (Auto) (1.0-6.0) % Eos % (Auto) (1.5-5.0) % Baso % (Auto) (0.0-3.0) % Gran # (1.4-6.5) Lymph # (Auto) (1.2-3.4) [place] # (Auto) (0.1-0.6) Eos # (Auto) (0.0-0.7) Baso # (Auto) (0.0-2.0) K/mm3 PT (9.4-12.5) SECONDS INR (0.93-1.08) APTT (25.1-36.5) Seconds pCO2 (35-45) mm/Hg pO2 (30-55) mm/Hg HCO3 (21-28) mmol/L ABG pH (7.35-7.45) ABG Total CO2 (22-28) mmol.L ABG O2 Saturation (95-98) % ABG O2 Content (15-23) ML/dl ABG Base Excess (-2.0-3.0) mmol/L ABG Hemoglobin (11.7-17.4) g/dL ABG Carboxyhemoglobin (0.5-1.5) % POC ABG HHb (Measured) (0-5) % ABG Methemoglobin (0.0-3.0) % ABG O2 Capacity (16-24) mL/dl ABG Potassium (3.6-5.2) mmol/L VBG pH (7.32-7.43) VBG pCO2 (40-60) VBG HCO3 (21-28) mmol/l VBG Total CO2 (22-28) mmol.L VBG O2 Sat (Calc) (40-65) % VBG Base Excess (0.0-2.0) mmol/L VBG Potassium (3.6-5.2) mmol/L Hgb O2 Saturation (95.0-98.0) % Sodium (132-148) mmol/L Chloride (98-107) mmol/L Glucose (65-105) mg/dl Lactate (0.7-2.1) mmol/L FiO2 % Potassium (3.6-5.0) mmol/L Carbon Dioxide (21-33) mmol/L Anion Gap (10-20) BUN (7-21) mg/dL Creatinine (0.7-1.2) mg/dl Est GFR ( Amer) Est GFR (Non-Af Amer) POC Glucose (mg/dL) (65-110) mg/dL Random Glucose (70-110) mg/dL Calcium (8.4-10.5) mg/dL Phosphorus (2.5-4.5) mg/dL Magnesium (1.7-2.2) mg/dL Total Bilirubin (0.2-1.3) mg/dL AST (14-36) U/L ALT (7-56) U/L Alkaline Phosphatase (38-126) U/L Troponin I 0.02 D ng/mL Total Protein (5.8-8.3) g/dL Albumin (3.0-4.8) g/dL Globulin gm/dL Albumin/Globulin Ratio (1.1-1.8) Arterial Blood Potassium (3.6-5.2) mmol/L Venous Blood Potassium (3.6-5.2) mmol/L Urine Color (YELLOW) Urine Appearance (CLEAR) Urine pH (4.7-8.0) Ur Specific [place] (1.005-1.035) Urine Protein (<30 mg/dL) mg/dL Urine Glucose (UA) (NEGATIVE) mg/dL Urine Ketones (NEGATIVE) mg/dL Urine Blood (NEGATIVE) Urine Nitrate (NEGATIVE) Urine Bilirubin (NEGATIVE) Urine Urobilinogen (<1 E.U./dL) E.U./dL Ur Leukocyte Esterase (NEGATIVE) Alejandra/uL Urine RBC (0-2) /hpf Urine WBC (0-6) /hpf Ur Epithelial Cells (0-5) /hpf Urine Bacteria (NEG) Hyaline Casts /hpf Urine Opiates Screen (NEGATIVE) Urine Methadone Screen (NEGATIVE) Ur Barbiturates Screen (NEGATIVE) Ur Phencyclidine Scrn (NEGATIVE) Ur Amphetamines Screen (NEGATIVE) U Benzodiazepines Scrn (NEGATIVE) U Oth Cocaine Metabols (NEGATIVE) U Cannabinoids Screen (NEGATIVE) Laboratory Results - last 24 hr 07/25/17 07/25/17 07/25/17 15:36 15:40 16:37 WBC RBC Hgb Hct MCV MCH MCHC RDW Plt Count MPV Gran % Lymph % (Auto) [place] % (Auto) Eos % (Auto) Baso % (Auto) Gran # Lymph # (Auto) [place] # (Auto) Eos # (Auto) Baso # (Auto) PT INR APTT pCO2 pO2 HCO3 ABG pH ABG Total CO2 ABG O2 Saturation ABG O2 Content ABG Base Excess ABG Hemoglobin ABG Carboxyhemoglobin POC ABG HHb (Measured) ABG Methemoglobin ABG O2 Capacity ABG Potassium VBG pH VBG pCO2 VBG HCO3 VBG Total CO2 VBG O2 Sat (Calc) VBG Base Excess VBG Potassium Hgb O2 Saturation Sodium 135 Chloride 96 L Glucose Lactate FiO2 Potassium 5.5 H Carbon Dioxide 12 L Anion Gap 32 H BUN 10 Creatinine 1.2 Est GFR ( Amer) 55 Est GFR (Non-Af Amer) 45 POC Glucose (mg/dL) 185 H Random Glucose 517 H* D Calcium 8.7 Phosphorus 7.0 H Magnesium 3.8 H Total Bilirubin 0.9 AST 56 H D ALT 24 Alkaline Phosphatase 88 Troponin I 0.02 D 0.04 D Total Protein 7.4 Albumin 4.5 Globulin 2.9 Albumin/Globulin Ratio 1.5 Arterial Blood Potassium Venous Blood Potassium Urine Color Urine Appearance Urine pH Ur Specific [place] Urine Protein Urine Glucose (UA) Urine Ketones Urine Blood Urine Nitrate Urine Bilirubin Urine Urobilinogen Ur Leukocyte Esterase Urine RBC Urine WBC Ur Epithelial Cells Urine Bacteria Hyaline Casts Urine Opiates Screen Urine Methadone Screen Ur Barbiturates Screen Ur Phencyclidine Scrn Ur Amphetamines Screen U Benzodiazepines Scrn U Oth Cocaine Metabols U Cannabinoids Screen 07/25/17 07/25/17 07/25/17 16:37 16:37 16:37 WBC 6.8 D RBC 3.53 Hgb 11.2 L Hct 34.0 L MCV 96.3 MCH 31.7 MCHC 32.9 RDW 15.7 H Plt Count 186 MPV 10.3 Gran % 67.7 Lymph % (Auto) 27.4 [place] % (Auto) 4.9 Eos % (Auto) 0.0 L Baso % (Auto) 0.0 Gran # 4.57 Lymph # (Auto) 1.9 [place] # (Auto) 0.3 Eos # (Auto) 0.0 Baso # (Auto) 0.00 PT 11.2 INR 0.98 APTT 27.0 pCO2 pO2 225 H HCO3 ABG pH ABG Total CO2 ABG O2 Saturation ABG O2 Content ABG Base Excess ABG Hemoglobin ABG Carboxyhemoglobin POC ABG HHb (Measured) ABG Methemoglobin ABG O2 Capacity ABG Potassium VBG pH 7.25 L VBG pCO2 27.0 L VBG HCO3 11.8 L VBG Total CO2 12.6 L VBG O2 Sat (Calc) 100.0 H VBG Base Excess -13.8 L VBG Potassium 5.5 H Hgb O2 Saturation Sodium 133.0 Chloride 95.0 L Glucose 537 H* Lactate 14.6 H* FiO2 21.0 Potassium Carbon Dioxide Anion Gap BUN Creatinine Est GFR ( Amer) Est GFR (Non-Af Amer) POC Glucose (mg/dL) Random Glucose Calcium Phosphorus Magnesium Total Bilirubin AST ALT Alkaline Phosphatase Troponin I Total Protein Albumin Globulin Albumin/Globulin Ratio Arterial Blood Potassium Venous Blood Potassium 5.5 H Urine Color Urine Appearance Urine pH Ur Specific [place] Urine Protein Urine Glucose (UA) Urine Ketones Urine Blood Urine Nitrate Urine Bilirubin Urine Urobilinogen Ur Leukocyte Esterase Urine RBC Urine WBC Ur Epithelial Cells Urine Bacteria Hyaline Casts Urine Opiates Screen Urine Methadone Screen Ur Barbiturates Screen Ur Phencyclidine Scrn Ur Amphetamines Screen U Benzodiazepines Scrn U Oth Cocaine Metabols U Cannabinoids Screen 05/07/25/17 07/25/17 16:40 18:05 18:38 WBC RBC Hgb Hct MCV MCH MCHC RDW Plt Count MPV Gran % Lymph % (Auto) [place] % (Auto) Eos % (Auto) Baso % (Auto) Gran # Lymph # (Auto) [place] # (Auto) Eos # (Auto) Baso # (Auto) PT INR APTT pCO2 33 L pO2 159.0 H HCO3 11.0 L ABG pH 7.13 L* ABG Total CO2 12.0 L ABG O2 Saturation 100.1 H ABG O2 Content ABG Base Excess -17.1 L ABG Hemoglobin ABG Carboxyhemoglobin POC ABG HHb (Measured) ABG Methemoglobin ABG O2 Capacity ABG Potassium 5.0 VBG pH VBG pCO2 VBG HCO3 VBG Total CO2 VBG O2 Sat (Calc) VBG Base Excess VBG Potassium Hgb O2 Saturation Sodium 133.0 Chloride 96.0 L Glucose 573 H* Lactate 14.6 H* FiO2 60.0 Potassium Carbon Dioxide Anion Gap BUN Creatinine Est GFR ( Amer) Est GFR (Non-Af Amer) POC Glucose (mg/dL) 447 H* Random Glucose Calcium Phosphorus Magnesium Total Bilirubin AST ALT Alkaline Phosphatase Troponin I Total Protein Albumin Globulin Albumin/Globulin Ratio Arterial Blood Potassium 5.0 Venous Blood Potassium Urine Color Urine Appearance Urine pH Ur Specific [place] Urine Protein Urine Glucose (UA) Urine Ketones Urine Blood Urine Nitrate Urine Bilirubin Urine Urobilinogen Ur Leukocyte Esterase Urine RBC Urine WBC Ur Epithelial Cells Urine Bacteria Hyaline Casts Urine Opiates Screen Negative Urine Methadone Screen Negative Ur Barbiturates Screen Negative Ur Phencyclidine Scrn Negative Ur Amphetamines Screen Negative U Benzodiazepines Scrn Negative U Oth Cocaine Metabols Positive H U Cannabinoids Screen Positive H 07/25/17 07/25/17 07/25/17 18:38 20:01 21:14 WBC RBC Hgb Hct MCV MCH MCHC RDW Plt Count MPV Gran % Lymph % (Auto) [place] % (Auto) Eos % (Auto) Baso % (Auto) Gran # Lymph # (Auto) [place] # (Auto) Eos # (Auto) Baso # (Auto) PT INR APTT pCO2 pO2 HCO3 ABG pH ABG Total CO2 ABG O2 Saturation ABG O2 Content ABG Base Excess ABG Hemoglobin ABG Carboxyhemoglobin POC ABG HHb (Measured) ABG Methemoglobin ABG O2 Capacity ABG Potassium VBG pH VBG pCO2 VBG HCO3 VBG Total CO2 VBG O2 Sat (Calc) VBG Base Excess VBG Potassium Hgb O2 Saturation Sodium Chloride Glucose Lactate FiO2 Potassium Carbon Dioxide Anion Gap BUN Creatinine Est GFR ( Amer) Est GFR (Non-Af Amer) POC Glucose (mg/dL) 143 H 63 L Random Glucose Calcium Phosphorus Magnesium Total Bilirubin AST ALT Alkaline Phosphatase Troponin I Total Protein Albumin Globulin Albumin/Globulin Ratio Arterial Blood Potassium Venous Blood Potassium Urine Color Yellow Urine Appearance Clear Urine pH 5.0 Ur Specific [place] 1.015 Urine Protein Trace H Urine Glucose (UA) Negative Urine Ketones Trace H Urine Blood Negative Urine Nitrate Negative Urine Bilirubin Negative Urine Urobilinogen 0.2 Ur Leukocyte Esterase Negative Urine RBC Negative Urine WBC 0 - 2 Ur Epithelial Cells 1 - 3 Urine Bacteria Trace Hyaline Casts 0 - 2 Urine Opiates Screen Urine Methadone Screen Ur Barbiturates Screen Ur Phencyclidine Scrn Ur Amphetamines Screen U Benzodiazepines Scrn U Oth Cocaine Metabols U Cannabinoids Screen 07/25/17 07/25/17 07/26/17 22:09 23:14 00:30 WBC RBC Hgb Hct MCV MCH MCHC RDW Plt Count MPV Gran % Lymph % (Auto) [place] % (Auto) Eos % (Auto) Baso % (Auto) Gran # Lymph # (Auto) [place] # (Auto) Eos # (Auto) Baso # (Auto) PT INR APTT pCO2 pO2 115 H HCO3 ABG pH ABG Total CO2 ABG O2 Saturation ABG O2 Content ABG Base Excess ABG Hemoglobin ABG Carboxyhemoglobin POC ABG HHb (Measured) ABG Methemoglobin ABG O2 Capacity ABG Potassium VBG pH 7.47 H VBG pCO2 30.0 L VBG HCO3 21.8 VBG Total CO2 22.7 VBG O2 Sat (Calc) 99.5 H VBG Base Excess -0.9 L VBG Potassium 2.7 L Hgb O2 Saturation Sodium 137.0 Chloride 104.0 Glucose 112 H Lactate 2.7 H FiO2 21.0 Potassium Carbon Dioxide Anion Gap BUN Creatinine Est GFR ( Amer) Est GFR (Non-Af Amer) POC Glucose (mg/dL) 76 118 H Random Glucose Calcium Phosphorus Magnesium Total Bilirubin AST ALT Alkaline Phosphatase Troponin I Total Protein Albumin Globulin Albumin/Globulin Ratio Arterial Blood Potassium Venous Blood Potassium 2.7 L Urine Color Urine Appearance Urine pH Ur Specific [place] Urine Protein Urine Glucose (UA) Urine Ketones Urine Blood Urine Nitrate Urine Bilirubin Urine Urobilinogen Ur Leukocyte Esterase Urine RBC Urine WBC Ur Epithelial Cells Urine Bacteria Hyaline Casts Urine Opiates Screen Urine Methadone Screen Ur Barbiturates Screen Ur Phencyclidine Scrn Ur Amphetamines Screen U Benzodiazepines Scrn U Oth Cocaine Metabols U Cannabinoids Screen 07/26/17 07/26/17 07/26/17 00:30 00:30 01:10 WBC 13.1 H D RBC 3.32 L Hgb 10.5 L Hct 30.7 L MCV 92.5 D MCH 31.6 MCHC 34.2 RDW 15.4 H Plt Count 174 MPV 9.7 Gran % 86.0 H Lymph % (Auto) 9.5 L [place] % (Auto) 4.4 Eos % (Auto) 0.0 L Baso % (Auto) 0.1 Gran # 11.24 H Lymph # (Auto) 1.2 [place] # (Auto) 0.6 Eos # (Auto) 0.0 Baso # (Auto) 0.01 PT INR APTT pCO2 29 L pO2 119.0 H HCO3 21.6 ABG pH 7.48 H ABG Total CO2 22.5 ABG O2 Saturation 99.3 H ABG O2 Content 14.5 L ABG Base Excess -1.2 ABG Hemoglobin 10.5 L ABG Carboxyhemoglobin 1.5 POC ABG HHb (Measured) 0.7 ABG Methemoglobin 1.4 ABG O2 Capacity 14.6 L ABG Potassium VBG pH VBG pCO2 VBG HCO3 VBG Total CO2 VBG O2 Sat (Calc) VBG Base Excess VBG Potassium Hgb O2 Saturation 96.5 Sodium 139 Chloride 102 Glucose Lactate FiO2 50.0 Potassium 2.8 L* D Carbon Dioxide 22 Anion Gap 18 BUN 18 Creatinine 1.7 H Est GFR ( Amer) 37 Est GFR (Non-Af Amer) 30 POC Glucose (mg/dL) Random Glucose 112 H Calcium 7.4 L Phosphorus 3.3 Magnesium 2.2 Total Bilirubin 0.6 AST 93 H D ALT 28 Alkaline Phosphatase 122 Troponin I 1.32 H* D Total Protein 6.7 Albumin 3.7 Globulin 2.9 Albumin/Globulin Ratio 1.3 Arterial Blood Potassium Venous Blood Potassium Urine Color Urine Appearance Urine pH Ur Specific [place] Urine Protein Urine Glucose (UA) Urine Ketones Urine Blood Urine Nitrate Urine Bilirubin Urine Urobilinogen Ur Leukocyte Esterase Urine RBC Urine WBC Ur Epithelial Cells Urine Bacteria Hyaline Casts Urine Opiates Screen Urine Methadone Screen Ur Barbiturates Screen Ur Phencyclidine Scrn Ur Amphetamines Screen U Benzodiazepines Scrn U Oth Cocaine Metabols U Cannabinoids Screen 07/26/17 07/26/17 07/26/17 03:23 05:02 06:49 WBC RBC Hgb Hct MCV MCH MCHC RDW Plt Count MPV Gran % Lymph % (Auto) [place] % (Auto) Eos % (Auto) Baso % (Auto) Gran # Lymph # (Auto) [place] # (Auto) Eos # (Auto) Baso # (Auto) PT INR APTT pCO2 pO2 HCO3 ABG pH ABG Total CO2 ABG O2 Saturation ABG O2 Content ABG Base Excess ABG Hemoglobin ABG Carboxyhemoglobin POC ABG HHb (Measured) ABG Methemoglobin ABG O2 Capacity ABG Potassium VBG pH VBG pCO2 VBG HCO3 VBG Total CO2 VBG O2 Sat (Calc) VBG Base Excess VBG Potassium Hgb O2 Saturation Sodium Chloride Glucose Lactate FiO2 Potassium Carbon Dioxide Anion Gap BUN Creatinine Est GFR ( Amer) Est GFR (Non-Af Amer) POC Glucose (mg/dL) 69 97 95 Random Glucose Calcium Phosphorus Magnesium Total Bilirubin AST ALT Alkaline Phosphatase Troponin I Total Protein Albumin Globulin Albumin/Globulin Ratio Arterial Blood Potassium Venous Blood Potassium Urine Color Urine Appearance Urine pH Ur Specific [place] Urine Protein Urine Glucose (UA) Urine Ketones Urine Blood Urine Nitrate Urine Bilirubin Urine Urobilinogen Ur Leukocyte Esterase Urine RBC Urine WBC Ur Epithelial Cells Urine Bacteria Hyaline Casts Urine Opiates Screen Urine Methadone Screen Ur Barbiturates Screen Ur Phencyclidine Scrn Ur Amphetamines Screen U Benzodiazepines Scrn U Oth Cocaine Metabols U Cannabinoids Screen 07/26/17 07/26/17 07/26/17 07:49 09:10 09:10 WBC 13.5 H RBC 3.20 L Hgb 10.1 L Hct 29.7 L MCV 92.8 MCH 31.6 MCHC 34.0 RDW 15.6 H Plt Count 156 MPV 10.6 Gran % 84.9 H Lymph % (Auto) 11.3 L [place] % (Auto) 3.7 Eos % (Auto) 0.0 L Baso % (Auto) 0.1 Gran # 11.42 H Lymph # (Auto) 1.5 [place] # (Auto) 0.5 Eos # (Auto) 0.0 Baso # (Auto) 0.01 PT INR APTT pCO2 pO2 HCO3 ABG pH ABG Total CO2 ABG O2 Saturation ABG O2 Content ABG Base Excess ABG Hemoglobin ABG Carboxyhemoglobin POC ABG HHb (Measured) ABG Methemoglobin ABG O2 Capacity ABG Potassium VBG pH VBG pCO2 VBG HCO3 VBG Total CO2 VBG O2 Sat (Calc) VBG Base Excess VBG Potassium Hgb O2 Saturation Sodium 139 Chloride 106 Glucose Lactate FiO2 Potassium 3.4 L Carbon Dioxide 22 Anion Gap 14 BUN 16 Creatinine 1.3 H Est GFR ( Amer) 50 Est GFR (Non-Af Amer) 41 POC Glucose (mg/dL) 118 H Random Glucose 121 H Calcium 7.1 L Phosphorus Magnesium Total Bilirubin 0.6 AST 79 H ALT 27 Alkaline Phosphatase 113 Troponin I 0.45 H* D Total Protein 6.3 Albumin 3.4 Globulin 2.8 Albumin/Globulin Ratio 1.2 Arterial Blood Potassium Venous Blood Potassium Urine Color Urine Appearance Urine pH Ur Specific [place] Urine Protein Urine Glucose (UA) Urine Ketones Urine Blood Urine Nitrate Urine Bilirubin Urine Urobilinogen Ur Leukocyte Esterase Urine RBC Urine WBC Ur Epithelial Cells Urine Bacteria Hyaline Casts Urine Opiates Screen Urine Methadone Screen Ur Barbiturates Screen Ur Phencyclidine Scrn Ur Amphetamines Screen U Benzodiazepines Scrn U Oth Cocaine Metabols U Cannabinoids Screen 07/26/17 07/26/17 07/26/17 09:10 09:10 10:02 WBC RBC Hgb Hct MCV MCH MCHC RDW Plt Count MPV Gran % Lymph % (Auto) [place] % (Auto) Eos % (Auto) Baso % (Auto) Gran # Lymph # (Auto) [place] # (Auto) Eos # (Auto) Baso # (Auto) PT 12.5 INR 1.09 H APTT 25.9 pCO2 pO2 180 H HCO3 ABG pH ABG Total CO2 ABG O2 Saturation ABG O2 Content ABG Base Excess ABG Hemoglobin ABG Carboxyhemoglobin POC ABG HHb (Measured) ABG Methemoglobin ABG O2 Capacity ABG Potassium VBG pH 7.48 H VBG pCO2 31.0 L VBG HCO3 23.1 VBG Total CO2 24.1 VBG O2 Sat (Calc) 100.1 H VBG Base Excess 0.4 VBG Potassium 3.3 L Hgb O2 Saturation Sodium 138.0 Chloride 108.0 H Glucose 127 H Lactate 1.1 FiO2 21.0 Potassium Carbon Dioxide Anion Gap BUN Creatinine Est GFR ( Amer) Est GFR (Non-Af Amer) POC Glucose (mg/dL) 108 Random Glucose Calcium Phosphorus Magnesium Total Bilirubin AST ALT Alkaline Phosphatase Troponin I Total Protein Albumin Globulin Albumin/Globulin Ratio Arterial Blood Potassium Venous Blood Potassium 3.3 L Urine Color Urine Appearance Urine pH Ur Specific [place] Urine Protein Urine Glucose (UA) Urine Ketones Urine Blood Urine Nitrate Urine Bilirubin Urine Urobilinogen Ur Leukocyte Esterase Urine RBC Urine WBC Ur Epithelial Cells Urine Bacteria Hyaline Casts Urine Opiates Screen Urine Methadone Screen Ur Barbiturates Screen Ur Phencyclidine Scrn Ur Amphetamines Screen U Benzodiazepines Scrn U Oth Cocaine Metabols U Cannabinoids Screen 07/26/17 11:44 WBC RBC Hgb Hct MCV MCH MCHC RDW Plt Count MPV Gran % Lymph % (Auto) [place] % (Auto) Eos % (Auto) Baso % (Auto) Gran # Lymph # (Auto) [place] # (Auto) Eos # (Auto) Baso # (Auto) PT INR APTT pCO2 pO2 HCO3 ABG pH ABG Total CO2 ABG O2 Saturation ABG O2 Content ABG Base Excess ABG Hemoglobin ABG Carboxyhemoglobin POC ABG HHb (Measured) ABG Methemoglobin ABG O2 Capacity ABG Potassium VBG pH VBG pCO2 VBG HCO3 VBG Total CO2 VBG O2 Sat (Calc) VBG Base Excess VBG Potassium Hgb O2 Saturation Sodium Chloride Glucose Lactate FiO2 Potassium Carbon Dioxide Anion Gap BUN Creatinine Est GFR ( Amer) Est GFR (Non-Af Amer) POC Glucose (mg/dL) 124 H Random Glucose Calcium Phosphorus Magnesium Total Bilirubin AST ALT Alkaline Phosphatase Troponin I Total Protein Albumin Globulin Albumin/Globulin Ratio Arterial Blood Potassium Venous Blood Potassium Urine Color Urine Appearance Urine pH Ur Specific [place] Urine Protein Urine Glucose (UA) Urine Ketones Urine Blood Urine Nitrate Urine Bilirubin Urine Urobilinogen Ur Leukocyte Esterase Urine RBC Urine WBC Ur Epithelial Cells Urine Bacteria Hyaline Casts Urine Opiates Screen Urine Methadone Screen Ur Barbiturates Screen Ur Phencyclidine Scrn Ur Amphetamines Screen U Benzodiazepines Scrn U Oth Cocaine Metabols U Cannabinoids Screen EKG/Cardiology Studies: Cardiology / EKG Studies 07/26/17 01:53 EKG [ELECTROCARDIOGRAM] Stat Comment: Reason For Exam: Elevated troponin, Hypotension. Assessment/Plan - Assessment and Plan (Free Text) Plan: Patient seen and examined on rounds with resident, agree with note with following additions/exceptions: Patient is 62yo female with PMhx CHF (EF on admission 16%), COPD, HTN, tobacco & polysubstance abuse, and chronic non-compliance with medications/follow-up who [place] [facility] [place]ness of breath, had cardiac arrest on the telemetry, VFIB arrest, admitted to ICU Currently afebrile, on Levophed Milrinone ECHO done noted CT head done results noted. Neurology consulted, EEG completed. Patients Utox positive for cocaine CHF CAD HTN COPD Polysubstance abuse s/p Vfib cardiac arrest Recommend: - cont with vent support, low tidal vol ventilaiton, daily sedation vacations - duonebs PRN - panculture UCx, BCx Procal - monitor off Antibiotics - Milrinone, Levophed - monitor electrolytes, replete K, Magnesium - follow up cardiology - follow up Neuro - EEG read - monitor - FS control - GI ppx - DVT ppx - Monitor in MICU Overall prognosis poor Critical care time 35 minutes
--- NOTE | 2017-07-26 12:31 | CT ---
PROCEDURE: CT HEAD WITHOUT CONTRAST. HISTORY: s/p cardiac arrest, assess for anoxic injury COMPARISON: None available. TECHNIQUE: Axial computed tomography images were obtained through the head/brain without intravenous contrast. Radiation dose: Total exam DLP = 906 mGy-cm. This CT exam was performed using one or more of the following dose reduction techniques: Automated exposure control, adjustment of the mA and/or kV according to patient size, and/or use of iterative reconstruction technique. FINDINGS: HEMORRHAGE: No intracranial hemorrhage. BRAIN: No mass effect or edema. No atrophy or chronic microvascular ischemic changes. VENTRICLES: Unremarkable. No hydrocephalus. CALVARIUM: Unremarkable. PARANASAL SINUSES: Unremarkable as visualized. No significant inflammatory changes. MASTOID AIR CELLS: Unremarkable as visualized. No inflammatory changes. OTHER FINDINGS: None. IMPRESSION: No acute findings
--- NOTE | 2017-07-26 12:45 | CP.PCM.PN ---
<Danish Marte - Last Filed: 07/26/17 12:47> Subjective - Date & Time of Evaluation Date of Evaluation: 07/26/17 Time of Evaluation: 06:00 - Subjective Subjective: Patient seen and examined at bedside in ICU. Patient is intubated and sedated. Currently patient is unresponsive without any purposeful or spontaneous movements. Unable to obtain full ROS. Objective - Vital Signs/Intake and Output Vital Signs (last 24 hours): Temp Pulse Resp BP Pulse Ox 98 F 78 23 114/65 100 07/26/17 06:00 07/26/17 06:00 07/26/17 07:50 07/25/17 20:30 07/26/17 07:50 Intake and Output: 07/26/17 07/26/17 06:59 18:59 Intake Total 834 555 Balance 834 555 - Medications Medications: Current Medications Albuterol/Ipratropium (Duoneb 3 Mg/0.5 Mg (3 Ml) Ud) 3 ml IH Q2H PRN PRN Reason: Shortness of Breath Artificial Tears (Refresh Opth Soln) 0.3 ml OU Q4H PRN PRN Reason: Dry eyes Aspirin (Ecotrin) 81 mg PO DAILY [facility] Last Admin: 07/26/17 10:00 Dose: 81 mg Atorvastatin Calcium (Lipitor) 20 mg PO DIN [facility] Last Admin: 07/25/17 18:17 Dose: 20 mg Enoxaparin Sodium (Lovenox) 40 mg SC DAILY [facility] PRN Reason: Protocol Last Admin: 07/26/17 09:54 Dose: 40 mg Potassium Chloride/Dextrose (Potassium Chl 20 Meq In D5w) 1,000 mls @ 20 mls/ hr IV .Q24H [facility] Last Admin: 07/25/17 16:57 Dose: 20 mls/hr Amiodarone HCl/Dextrose (Nexterone 360 Mg In D5w 200 Ml (Premix)) 360 mg in 200 mls @ 33.333 mls/hr IV .Q6H [facility]DRE[facility]; 1 MG/MIN PRN Reason: Protocol Last Admin: 07/26/17 04:50 Dose: 33.333 mls/hr Propofol (Diprivan) 1,000 mg in 100 mls @ 1.649 mls/hr IV .Q24H PRN; Protocol; 5 MCG/KG/MIN PRN Reason: TITRATE PER MD ORDER Last Admin: 07/26/17 12:13 Dose: 25 mcg/kg/min, 8.246 mls/hr NOREPINEPHRINE BIT/0.9 % NACL (Levophed 4 Mg/ 250 Ml Ns Premixed) 4 mg in 250 mls @ 15 mls/hr IV .[id number] PRN; Protocol; 4 MCG/MIN PRN Reason: TITRATE PER MD ORDER Last Admin: 07/26/17 12:14 Dose: 18 mcg/min, 67.5 mls/hr Midazolam 100 mg/100ml in NS (Midazolam 100 Mg/100ml In Ns) 100 mg in 100 mls @ 1 mls/hr IV .Q24H PRN; Protocol; 1 MG/HR PRN Reason: Sedation Last Titration: 07/26/17 00:09 Dose: 1 mg/hr, 1 mls/hr Milrinone Lactate/Dextrose (Primacor 20mg/100ml D5w) 100 mls @ 5.443 mls/hr IV .[id number] PRN; Protocol; 0.33 MCG/KG/MIN PRN Reason: TITRATE PER MD ORDER Potassium Chloride (Potassium Chloride 20 Meq/100 Ml) 20 meq in 100 mls @ 50 mls/hr IVPB Q2H [facility] Stop: 07/26/17 13:59 Last Admin: 07/26/17 11:32 Dose: 50 mls/hr Insulin Human Regular (Humulin R High) 0 units SC Q2H [facility] PRN Reason: Protocol Last Admin: 07/26/17 05:44 Dose: Not Given Ondansetron HCl (Zofran Inj) 4 mg IVP Q4H PRN PRN Reason: Nausea/Vomiting Pantoprazole Sodium (Protonix Inj) 40 mg IVP DAILY [facility] Last Admin: 07/26/17 09:54 Dose: 40 mg Potassium Chloride (K-Dur 20 Meq Er Tab) 40 meq PO BRK [facility] Last Admin: 07/26/17 08:00 Dose: 40 meq Thiamine HCl (Vitamin B1 Tab) 100 mg PO DAILY [facility] Last Admin: 07/26/17 11:33 Dose: 100 mg - Labs Labs: 07/26/17 09:10 07/26/17 09:10 PT 12.5 SECONDS (9.4-12.5) 07/26/17 09:10 INR 1.09 (0.93-1.08) H 07/26/17 09:10 APTT 25.9 Seconds (25.1-36.5) 07/26/17 09:10 - Constitutional Appears: No Acute Distress - Eye Exam Eye Exam: PERRL - Respiratory Exam Respiratory Exam: Clear to Ausculation Bilateral Additional comments: on VENT - Cardiovascular Exam Cardiovascular Exam: +S1, +S2 - GI/Abdominal Exam GI & Abdominal Exam: Soft - Extremities Exam Extremities Exam: absent: Pedal Edema, Tenderness - Neurological Exam Neurological Exam: absent: Alert, Awake, Oriented x3 Assessment and Plan - Assessment and Plan (Free Text) Assessment: 62 year old female with a past medical history significant for CHF (last EF 27% , 04/15), COPD, HTN and tobacco abuse who presented with shortness of breath for the past four days with intermittent cough productive of clear sputum. Patient noted to have elevated BNP and hypokalemia. She was being treated for CHF exacerbation when she went into cardiac arrest, mariela garcia was called, patient had ROSC and is now in the ICU intubated. Plan: 1. Cardiac Arrest s/p shock and ROSC -patient intubated, vented -sedation on propofol -milrinone drip -levophed drip -midazolaam drip -amiodarone drip -daily chest xray -cardio consulted, follow recs -Neuro consulted follow recs -EEG pending read 2. CHF exacerbation secondary to medical non compliance -Last Echo 03/2016 reviewed with LVEF of 27% -initial Chest X-Ray showed diffuse PVC with perihilar and mid to lower lung zone pulmonary edema -Tropnin .45, likely elevated from CPR and cardiac arrest -Continue home ASA -Cardiology consulted, all recommendations appreciated 3. History of COPD/Asthma -ABG showing ph of 7.48, pCO2: 29 p02: 119 -on vent currently 4. Normocytic Anemia -Irom: 87 TIBC: 253 %saturation: 34 -peripheral smear pending -Continue to monitor with daily CBC's 5. Hypokalemia -K 3.4 -Replenished -Monitor with daily CMP's 6. History of HTN -Continue home Lisinopril -Chol 259, LDL 110 7. CRISTÓBAL -secondary from cardiac arrest -Cr 1.3 GI Prophylaxis: Protonix DVT Prophylaxis: Lovenox NG tube in place <Alba Torrez - Last Filed: 07/26/17 13:32> Objective - Vital Signs/Intake and Output Vital Signs (last 24 hours): Temp Pulse Resp BP Pulse Ox 97 F L 80 23 114/65 100 07/26/17 12:00 07/26/17 10:00 07/26/17 07:50 07/25/17 20:30 07/26/17 07:50 Intake and Output: 07/26/17 07/26/17 06:59 18:59 Intake Total 834 555 Balance 834 555 - Medications Medications: Current Medications Albuterol/Ipratropium (Duoneb 3 Mg/0.5 Mg (3 Ml) Ud) 3 ml IH Q2H PRN PRN Reason: Shortness of Breath Artificial Tears (Refresh Opth Soln) 0.3 ml OU Q4H PRN PRN Reason: Dry eyes Aspirin (Ecotrin) 81 mg PO DAILY [facility] Last Admin: 07/26/17 10:00 Dose: 81 mg Atorvastatin Calcium (Lipitor) 20 mg PO DIN [facility] Last Admin: 07/25/17 18:17 Dose: 20 mg Enoxaparin Sodium (Lovenox) 40 mg SC DAILY [facility] PRN Reason: Protocol Last Admin: 07/26/17 09:54 Dose: 40 mg Potassium Chloride/Dextrose (Potassium Chl 20 Meq In D5w) 1,000 mls @ 20 mls/ hr IV .Q24H [facility] Last Admin: 07/25/17 16:57 Dose: 20 mls/hr Amiodarone HCl/Dextrose (Nexterone 360 Mg In D5w 200 Ml (Premix)) 360 mg in 200 mls @ 33.333 mls/hr IV .Q6H [facility]; 1 MG/MIN PRN Reason: Protocol Last Admin: 07/26/17 04:50 Dose: 33.333 mls/hr Propofol (Diprivan) 1,000 mg in 100 mls @ 1.649 mls/hr IV .Q24H PRN; Protocol; 5 MCG/KG/MIN PRN Reason: TITRATE PER MD ORDER Last Admin: 07/26/17 12:13 Dose: 25 mcg/kg/min, 8.246 mls/hr NOREPINEPHRINE BIT/0.9 % NACL (Levophed 4 Mg/ 250 Ml Ns Premixed) 4 mg in 250 mls @ 15 mls/hr IV .[id number] PRN; Protocol; 4 MCG/MIN PRN Reason: TITRATE PER MD ORDER Last Admin: 07/26/17 12:14 Dose: 18 mcg/min, 67.5 mls/hr Midazolam 100 mg/100ml in NS (Midazolam 100 Mg/100ml In Ns) 100 mg in 100 mls @ 1 mls/hr IV .Q24H PRN; Protocol; 1 MG/HR PRN Reason: Sedation Last Titration: 07/26/17 00:09 Dose: 1 mg/hr, 1 mls/hr Milrinone Lactate/Dextrose (Primacor 20mg/100ml D5w) 100 mls @ 5.443 mls/hr IV .[id number] PRN; Protocol; 0.33 MCG/KG/MIN PRN Reason: TITRATE PER MD ORDER Potassium Chloride (Potassium Chloride 20 Meq/100 Ml) 20 meq in 100 mls @ 50 mls/hr IVPB Q2H [facility] Stop: 07/26/17 13:59 Last Admin: 07/26/17 11:32 Dose: 50 mls/hr Insulin Human Regular (Humulin R High) 0 units SC Q2H [facility] PRN Reason: Protocol Last Admin: 07/26/17 12:00 Dose: Not Given Ondansetron HCl (Zofran Inj) 4 mg IVP Q4H PRN PRN Reason: Nausea/Vomiting Pantoprazole Sodium (Protonix Inj) 40 mg IVP DAILY [facility] Last Admin: 07/26/17 09:54 Dose: 40 mg Potassium Chloride (K-Dur 20 Meq Er Tab) 40 meq PO BRK [facility] Last Admin: 07/26/17 08:00 Dose: 40 meq Thiamine HCl (Vitamin B1 Tab) 100 mg PO DAILY [facility] Last Admin: 07/26/17 11:33 Dose: 100 mg - Labs Labs: 07/26/17 09:10 07/26/17 09:10 PT 12.5 SECONDS (9.4-12.5) 07/26/17 09:10 INR 1.09 (0.93-1.08) H 07/26/17 09:10 APTT 25.9 Seconds (25.1-36.5) 07/26/17 09:10 Attending/Attestation - Attestation I have personally seen and examined this patient.: Yes I have fully participated in the care of the patient.: Yes I have reviewed all pertinent clinical information, including history, physical exam and plan: Yes Notes (Text): 07/26/17 13:29 Medical record note made by the resident after discussion with my direction and input after the patient was personally seen and examined by me. I have reviewed the chart and agree that the record accurately reflects by personal performance of the history, physical exam, data review, and medical decision-making, in the course for the patient. I have also personally directed the plan of care. 62yo female with PMhx CHF (EF on admission 16%), COPD, HTN, tobacco & polysubstance abuse, and chronic non-compliance with medications/follow-up who presented originally to [facility] [place] with worsening shortness of breath, responded well to IV lasix initially, had cardiac arrest on the telemetry, VFIB arrest, , now intubated and is on pressor.Creatinin has increased to 1.7.Repeat urine toxicology is positive for cocain and Marijuanna. CT head today is negative for any stroke.Patient is not responsive. Prognosis is guarded. 07/26/17 13:32
--- NOTE | 2017-07-26 13:02 | RAD ---
HISTORY: follow up COMPARISON: 07/25/2017 FINDINGS: LUNGS: No active pulmonary disease. PLEURA: No significant pleural effusion identified, no pneumothorax apparent. CARDIOVASCULAR: Normal. OSSEOUS STRUCTURES: No significant abnormalities. VISUALIZED UPPER ABDOMEN: Normal. OTHER FINDINGS: Endotracheal tube and nasogastric tube are in satisfactory position IMPRESSION: Improved CHF
--- NOTE | 2017-07-26 14:29 | PN ---
DATE: 07/26/2017 SUBJECTIVE: After evaluated the patient yesterday morning probably 4 hours later, the patient developed ventricular fibrillation, required defibrillation. She was resuscitated one more time when she was on pulseless electrical activity and was transferred to the ICU, on amiodarone drip at this time, on a ventilator, started to have some spontaneous movement. There was no monomorphic or polymorphic V tach documented. The patient's initial drug screen was negative on admission yesterday, but following the cardiac arrest, the drug screen was positive for both cocaine and cannabinoids and it seems that the patient received those drugs in the hospital by a friend or a family member. PHYSICAL EXAMINATION: VITAL SIGNS: Blood pressure 123/75, heart rate 104, temperature 98. HEENT: Pale conjunctivae. CHEST: Bilateral rhonchi. HEART: S1 and S2 regular and distant. EXTREMITIES: No edema. LABORATORY DATA: Hemoglobin and hematocrit 10.1 and 29.7, white count 15.5, platelet count 156,000. SMA-7: Sodium 139, potassium 3.4, chloride 106, CO2 22, glucose 121, BUN 16, creatinine 1.3. Troponin 0.45. INR of 1.09. Head CT scan without contrast was done, but the report is still pending. Today's EKG revealed sinus rhythm, LVH by voltage, anterior T-wave inversion, ischemia, prolonged QT interval. ASSESSMENT: 1. Status post cardiac arrest and ventricular fibrillation. 2. Hypokalemia. 3. Recent in-hospital cocaine abuse. 4. Borderline troponin elevation. 5. Dilated cardiomyopathy. CONDITIONS: Continue current aspirin 81 mg once a day, K-Dur 40 mEq daily by nasogastric tube, amiodarone infusion, Primacor infusion, thiamine 100 mg daily by nasogastric tube. I will follow head CT scan results and if there is no contraindication, a therapeutic regimen of subcutaneous Lovenox will be initiated instead of DVT prophylaxis dose. Jerome Mtz MD
--- NOTE | 2017-07-26 16:50 | CARD ---
APPROVED REPORT EKG Measurement Heart [id number] <Conclusion> Normal sinus rhythm Voltage criteria for left ventricular hypertrophy ST & T wave abnormality, consider anterior ischemia Prolonged QT Abnormal ECG
[2017-07-26] MEDS: Potassium Chl 20mEq & D5W 1,000 ML IV SCH (17:29)
--- NOTE | 2017-07-26 21:35 | CP.PCM.CON ---
History of Present Illness - History of Present Illness History of Present Illness: Infectious Disease Consultation: July 26, 2017 62yo female PMHx CHF (last EF 27%, 04/15), COPD, HTN and tobacco abuse presented to [facility] ED 07/25 with complaints of shortness of breath. Patient was initially admitted to [facility] for CHF exacerbation. While on the floors patient had an BUSINESS INFORMATION CONSULTANT called on 07/25 for acute change in mental status as patient was found unresponsive. Soon after patient was found to be pulseless and CODE Blue was called and ACLS protocol was initiated until ROSC was achieved. The patient coded for a second time and multiple rounds of ACLS were performed until ROSC was achieved. Patient was intubated placed on vent support, started on propofol gtt, amiodarone gtt, and milrinone gtt and transferred to ICU. Patient seen and examined at bedside intubated and sedated. Patient on vent support (50, 10, 18, 400). ROS unobtainable. Patient is poorly responsive. Increasing leukocytosis although this could be from the resuscitation efforts on the patient. Extremely poor prognosis on this patient. PMHx: CHF, COPD, HTN, tobacco abuse PSHx: Ex-lap 30 years ago Allergies: NKDA Social Hx: 1/2 ppd tobacco use - 20 pack year history Social EtOH Social Marijuana use Active Medications Albuterol/Ipratropium (Duoneb 3 Mg/0.5 Mg (3 Ml) Ud) 3 ml IH Q2H PRN PRN Reason: Shortness of Breath Artificial Tears (Refresh Opth Soln) 0.3 ml OU Q4H PRN PRN Reason: Dry eyes Aspirin (Ecotrin) 81 mg PO DAILY ON LICENSE OF [facility] Last Admin: 07/26/17 10:00 Dose: 81 mg Atorvastatin Calcium (Lipitor) 20 mg PO DIN ON LICENSE OF [facility] Last Admin: 07/26/17 16:35 Dose: 20 mg Enoxaparin Sodium (Lovenox) 40 mg SC DAILY AUNDREA PRN Reason: Protocol Last Admin: 07/26/17 09:54 Dose: 40 mg Potassium Chloride/Dextrose (Potassium Chl 20 Meq In D5w) 1,000 mls @ 20 mls/ hr IV .Q24H ON LICENSE OF [facility] Last Admin: 07/26/17 17:29 Dose: 20 mls/hr Amiodarone HCl/Dextrose (Nexterone 360 Mg In D5w 200 Ml (Premix)) 360 mg in 200 mls @ 33.333 mls/hr IV .Q6H AUNDREA; 1 MG/MIN PRN Reason: Protocol Last Admin: 07/26/17 17:41 Dose: 33.333 mls/hr Propofol (Diprivan) 1,000 mg in 100 mls @ 1.649 mls/hr IV .Q24H PRN; Protocol; 5 MCG/KG/MIN PRN Reason: TITRATE PER MD ORDER Last Admin: 07/26/17 19:10 Dose: 30 mcg/kg/min, 9.896 mls/hr NOREPINEPHRINE BIT/0.9 % NACL (Levophed 4 Mg/ 250 Ml Ns Premixed) 4 mg in 250 mls @ 15 mls/hr IV .[id number] PRN; Protocol; 4 MCG/MIN PRN Reason: TITRATE PER MD ORDER Last Titration: 07/26/17 18:00 Dose: 10 mcg/min, 37.5 mls/hr Midazolam 100 mg/100ml in NS (Midazolam 100 Mg/100ml In Ns) 100 mg in 100 mls @ 1 mls/hr IV .Q24H PRN; Protocol; 1 MG/HR PRN Reason: Sedation Last Titration: 07/26/17 07:30 Dose: 2 mg/hr, 2 mls/hr Milrinone Lactate/Dextrose (Primacor 20mg/100ml D5w) 100 mls @ 5.443 mls/hr IV .[id number] PRN; Protocol; 0.33 MCG/KG/MIN PRN Reason: TITRATE PER MD ORDER Last Admin: 07/26/17 07:00 Dose: 0.33 mcg/kg/min, 5.443 mls/hr Insulin Human Regular (Humulin R High) 0 units SC Q2H AUNDREA PRN Reason: Protocol Last Admin: 07/26/17 19:58 Dose: Not Given Ondansetron HCl (Zofran Inj) 4 mg IVP Q4H PRN PRN Reason: Nausea/Vomiting Pantoprazole Sodium (Protonix Inj) 40 mg IVP DAILY ON LICENSE OF [facility] Last Admin: 07/26/17 09:54 Dose: 40 mg Potassium Chloride (K-Dur 20 Meq Er Tab) 40 meq PO BRK AUNDREA Last Admin: 07/26/17 08:00 Dose: 40 meq Thiamine HCl (Vitamin B1 Tab) 100 mg PO DAILY ON LICENSE OF [facility] Last Admin: 07/26/17 11:33 Dose: 100 mg Family Hx: Ovarian Cancer - mother ROS: Unable to obtain Past Patient History - Infectious Disease Hx of Infectious Diseases: None - Tetanus Immunizations Tetanus Immunization: Unknown - Past Medical History & Family History Past Medical History?: Yes - Past Social History Smoking Status: Light Smoker < 10 Cigarettes Daily - CARDIAC Hx Cardiac Disorders: Yes Hx Congestive Heart Failure: Yes Hx Hypertension: Yes (stopped taking meds insurance problem) - PULMONARY Hx Respiratory Disorders: Yes Hx Asthma: Yes Hx Bronchitis: Yes (1 yr ago) - NEUROLOGICAL Hx Neurological Disorder: No - HEENT Hx HEENT Problems: No - RENAL Hx Chronic Kidney Disease: No - ENDOCRINE/METABOLIC Hx Endocrine Disorders: No - HEMATOLOGICAL/ONCOLOGICAL Hx Blood Disorders: No - INTEGUMENTARY Hx Dermatological Problems: No - MUSCULOSKELETAL/RHEUMATOLOGICAL Hx Musculoskeletal Disorders: No - GASTROINTESTINAL Hx Gastrointestinal Disorders: Yes Hx Pancreatitis: Yes (age 55) - GENITOURINARY/GYNECOLOGICAL Hx Genitourinary Disorders: No - PSYCHIATRIC Hx Psychophysiologic Disorder: No Hx Substance Use: No - SURGICAL HISTORY Hx Surgeries: Yes Hx Cardiac Catheterization: No Hx Coronary Stent: No Meds Allergies/Adverse Reactions: Allergies Allergy/AdvReac Type Severity Reaction Status Date / Time No Known Allergies Allergy Verified 07/25/17 02:50 - Medications Medications: Current Medications Albuterol/Ipratropium (Duoneb 3 Mg/0.5 Mg (3 Ml) Ud) 3 ml IH Q2H PRN PRN Reason: Shortness of Breath Artificial Tears (Refresh Opth Soln) 0.3 ml OU Q4H PRN PRN Reason: Dry eyes Aspirin (Ecotrin) 81 mg PO DAILY ON LICENSE OF [facility] Last Admin: 07/26/17 10:00 Dose: 81 mg Atorvastatin Calcium (Lipitor) 20 mg PO DIN ON LICENSE OF [facility] Last Admin: 07/26/17 16:35 Dose: 20 mg Enoxaparin Sodium (Lovenox) 40 mg SC DAILY ON LICENSE OF [facility] PRN Reason: Protocol Last Admin: 07/26/17 09:54 Dose: 40 mg Potassium Chloride/Dextrose (Potassium Chl 20 Meq In D5w) 1,000 mls @ 20 mls/ hr IV .Q24H ON LICENSE OF [facility] Last Admin: 07/26/17 17:29 Dose: 20 mls/hr Amiodarone HCl/Dextrose (Nexterone 360 Mg In D5w 200 Ml (Premix)) 360 mg in 200 mls @ 33.333 mls/hr IV .Q6H AUNDREA; 1 MG/MIN PRN Reason: Protocol Last Admin: 07/26/17 17:41 Dose: 33.333 mls/hr Propofol (Diprivan) 1,000 mg in 100 mls @ 1.649 mls/hr IV .Q24H PRN; Protocol; 5 MCG/KG/MIN PRN Reason: TITRATE PER MD ORDER Last Admin: 07/26/17 19:10 Dose: 30 mcg/kg/min, 9.896 mls/hr NOREPINEPHRINE BIT/0.9 % NACL (Levophed 4 Mg/ 250 Ml Ns Premixed) 4 mg in 250 mls @ 15 mls/hr IV .[id number] PRN; Protocol; 4 MCG/MIN PRN Reason: TITRATE PER MD ORDER Last Titration: 07/26/17 18:00 Dose: 10 mcg/min, 37.5 mls/hr Midazolam 100 mg/100ml in NS (Midazolam 100 Mg/100ml In Ns) 100 mg in 100 mls @ 1 mls/hr IV .Q24H PRN; Protocol; 1 MG/HR PRN Reason: Sedation Last Titration: 07/26/17 07:30 Dose: 2 mg/hr, 2 mls/hr Milrinone Lactate/Dextrose (Primacor 20mg/100ml D5w) 100 mls @ 5.443 mls/hr IV .[id number] PRN; Protocol; 0.33 MCG/KG/MIN PRN Reason: TITRATE PER MD ORDER Last Admin: 07/26/17 07:00 Dose: 0.33 mcg/kg/min, 5.443 mls/hr Insulin Human Regular (Humulin R High) 0 units SC Q2H AUNDREA PRN Reason: Protocol Last Admin: 07/26/17 19:58 Dose: Not Given Ondansetron HCl (Zofran Inj) 4 mg IVP Q4H PRN PRN Reason: Nausea/Vomiting Pantoprazole Sodium (Protonix Inj) 40 mg IVP DAILY AUNDREA Last Admin: 07/26/17 09:54 Dose: 40 mg Potassium Chloride (K-Dur 20 Meq Er Tab) 40 meq PO BRK AUNDREA Last Admin: 07/26/17 08:00 Dose: 40 meq Thiamine HCl (Vitamin B1 Tab) 100 mg PO DAILY AUNDREA Last Admin: 07/26/17 11:33 Dose: 100 mg Physical Exam - Constitutional Appears: In Acute Distress, Chronically Ill - Head Exam Additional comments: Intubated and Ventilated. Resuscitated - Eye Exam Eye Exam: PERRL. absent: Conjunctival injection, Scleral icterus - ENT Exam ENT Exam: Mucous Membranes Moist, Normal External Ear Exam, TM's Normal Bilaterally - Neck Exam Additional comments: intubated and ventilated. - Respiratory Exam Additional comments: Intubated and ventilated. - Cardiovascular Exam Cardiovascular Exam: REGULAR RHYTHM, RRR, +S1, +S2 - GI/Abdominal Exam GI & Abdominal Exam: Normal Bowel Sounds, Soft. absent: Distended, Tenderness - Extremities Exam Extremities exam: Positive for: full ROM, normal inspection - Neurological Exam Additional comments: Sedated. Spontaneous movement. Results - Vital Signs Recent Vital Signs: Last Vital Signs Temp 99.1 F 07/26/17 18:00 Pulse 87 07/26/17 18:00 Resp 23 07/26/17 07:50 BP 117/76 07/26/17 07:00 Pulse Ox 100 07/26/17 07:50 - Labs Result Diagrams: 07/26/17 09:10 07/26/17 09:10 Labs: Laboratory Results - last 24 hr 07/25/17 07/25/17 07/25/17 21:14 22:09 23:14 WBC RBC Hgb Hct MCV MCH MCHC RDW Plt Count MPV Gran % Lymph % (Auto) [place] % (Auto) Eos % (Auto) Baso % (Auto) Gran # Lymph # (Auto) [place] # (Auto) Eos # (Auto) Baso # (Auto) PT INR APTT pCO2 pO2 HCO3 ABG pH ABG Total CO2 ABG O2 Saturation ABG O2 Content ABG Base Excess ABG Hemoglobin ABG Carboxyhemoglobin POC ABG HHb (Measured) ABG Methemoglobin ABG O2 Capacity VBG pH VBG pCO2 VBG HCO3 VBG Total CO2 VBG O2 Sat (Calc) VBG Base Excess VBG Potassium Hgb O2 Saturation Sodium Chloride Glucose Lactate FiO2 Potassium Carbon Dioxide Anion Gap BUN Creatinine Est GFR ( Amer) Est GFR (Non-Af Amer) POC Glucose (mg/dL) 63 L 76 118 H Random Glucose Calcium Phosphorus Magnesium Total Bilirubin AST ALT Alkaline Phosphatase Troponin I Total Protein Albumin Globulin Albumin/Globulin Ratio Procalcitonin Venous Blood Potassium 07/26/17 07/26/17 07/26/17 00:30 00:30 00:30 WBC 13.1 H D RBC 3.32 L Hgb 10.5 L Hct 30.7 L MCV 92.5 D MCH 31.6 MCHC 34.2 RDW 15.4 H Plt Count 174 MPV 9.7 Gran % 86.0 H Lymph % (Auto) 9.5 L [place] % (Auto) 4.4 Eos % (Auto) 0.0 L Baso % (Auto) 0.1 Gran # 11.24 H Lymph # (Auto) 1.2 [place] # (Auto) 0.6 Eos # (Auto) 0.0 Baso # (Auto) 0.01 PT INR APTT pCO2 pO2 115 H HCO3 ABG pH ABG Total CO2 ABG O2 Saturation ABG O2 Content ABG Base Excess ABG Hemoglobin ABG Carboxyhemoglobin POC ABG HHb (Measured) ABG Methemoglobin ABG O2 Capacity VBG pH 7.47 H VBG pCO2 30.0 L VBG HCO3 21.8 VBG Total CO2 22.7 VBG O2 Sat (Calc) 99.5 H VBG Base Excess -0.9 L VBG Potassium 2.7 L Hgb O2 Saturation Sodium 137.0 139 Chloride 104.0 102 Glucose 112 H Lactate 2.7 H FiO2 21.0 Potassium 2.8 L* D Carbon Dioxide 22 Anion Gap 18 BUN 18 Creatinine 1.7 H Est GFR ( Amer) 37 Est GFR (Non-Af Amer) 30 POC Glucose (mg/dL) Random Glucose 112 H Calcium 7.4 L Phosphorus 3.3 Magnesium 2.2 Total Bilirubin 0.6 AST 93 H D ALT 28 Alkaline Phosphatase 122 Troponin I 1.32 H* D Total Protein 6.7 Albumin 3.7 Globulin 2.9 Albumin/Globulin Ratio 1.3 Procalcitonin Venous Blood Potassium 2.7 L 07/26/17 07/26/17 07/26/17 01:10 03:23 05:02 WBC RBC Hgb Hct MCV MCH MCHC RDW Plt Count MPV Gran % Lymph % (Auto) [place] % (Auto) Eos % (Auto) Baso % (Auto) Gran # Lymph # (Auto) [place] # (Auto) Eos # (Auto) Baso # (Auto) PT INR APTT pCO2 29 L pO2 119.0 H HCO3 21.6 ABG pH 7.48 H ABG Total CO2 22.5 ABG O2 Saturation 99.3 H ABG O2 Content 14.5 L ABG Base Excess -1.2 ABG Hemoglobin 10.5 L ABG Carboxyhemoglobin 1.5 POC ABG HHb (Measured) 0.7 ABG Methemoglobin 1.4 ABG O2 Capacity 14.6 L VBG pH VBG pCO2 VBG HCO3 VBG Total CO2 VBG O2 Sat (Calc) VBG Base Excess VBG Potassium Hgb O2 Saturation 96.5 Sodium Chloride Glucose Lactate FiO2 50.0 Potassium Carbon Dioxide Anion Gap BUN Creatinine Est GFR ( Amer) Est GFR (Non-Af Amer) POC Glucose (mg/dL) 69 97 Random Glucose Calcium Phosphorus Magnesium Total Bilirubin AST ALT Alkaline Phosphatase Troponin I Total Protein Albumin Globulin Albumin/Globulin Ratio Procalcitonin Venous Blood Potassium 07/26/17 07/26/17 07/26/17 06:49 07:49 09:10 WBC 13.5 H RBC 3.20 L Hgb 10.1 L Hct 29.7 L MCV 92.8 MCH 31.6 MCHC 34.0 RDW 15.6 H Plt Count 156 MPV 10.6 Gran % 84.9 H Lymph % (Auto) 11.3 L [place] % (Auto) 3.7 Eos % (Auto) 0.0 L Baso % (Auto) 0.1 Gran # 11.42 H Lymph # (Auto) 1.5 [place] # (Auto) 0.5 Eos # (Auto) 0.0 Baso # (Auto) 0.01 PT INR APTT pCO2 pO2 HCO3 ABG pH ABG Total CO2 ABG O2 Saturation ABG O2 Content ABG Base Excess ABG Hemoglobin ABG Carboxyhemoglobin POC ABG HHb (Measured) ABG Methemoglobin ABG O2 Capacity VBG pH VBG pCO2 VBG HCO3 VBG Total CO2 VBG O2 Sat (Calc) VBG Base Excess VBG Potassium Hgb O2 Saturation Sodium Chloride Glucose Lactate FiO2 Potassium Carbon Dioxide Anion Gap BUN Creatinine Est GFR ( Amer) Est GFR (Non-Af Amer) POC Glucose (mg/dL) 95 118 H Random Glucose Calcium Phosphorus Magnesium Total Bilirubin AST ALT Alkaline Phosphatase Troponin I Total Protein Albumin Globulin Albumin/Globulin Ratio Procalcitonin Venous Blood Potassium 07/26/17 07/26/17 07/26/17 09:10 09:10 09:10 WBC RBC Hgb Hct MCV MCH MCHC RDW Plt Count MPV Gran % Lymph % (Auto) [place] % (Auto) Eos % (Auto) Baso % (Auto) Gran # Lymph # (Auto) [place] # (Auto) Eos # (Auto) Baso # (Auto) PT 12.5 INR 1.09 H APTT 25.9 pCO2 pO2 180 H HCO3 ABG pH ABG Total CO2 ABG O2 Saturation ABG O2 Content ABG Base Excess ABG Hemoglobin ABG Carboxyhemoglobin POC ABG HHb (Measured) ABG Methemoglobin ABG O2 Capacity VBG pH 7.48 H VBG pCO2 31.0 L VBG HCO3 23.1 VBG Total CO2 24.1 VBG O2 Sat (Calc) 100.1 H VBG Base Excess 0.4 VBG Potassium 3.3 L Hgb O2 Saturation Sodium 139 138.0 Chloride 106 108.0 H Glucose 127 H Lactate 1.1 FiO2 21.0 Potassium 3.4 L Carbon Dioxide 22 Anion Gap 14 BUN 16 Creatinine 1.3 H Est GFR ( Amer) 50 Est GFR (Non-Af Amer) 41 POC Glucose (mg/dL) Random Glucose 121 H Calcium 7.1 L Phosphorus Magnesium Total Bilirubin 0.6 AST 79 H ALT 27 Alkaline Phosphatase 113 Troponin I 0.45 H* D Total Protein 6.3 Albumin 3.4 Globulin 2.8 Albumin/Globulin Ratio 1.2 Procalcitonin Venous Blood Potassium 3.3 L 07/26/17 07/26/17 07/26/17 10:02 10:15 11:44 WBC RBC Hgb Hct MCV MCH MCHC RDW Plt Count MPV Gran % Lymph % (Auto) [place] % (Auto) Eos % (Auto) Baso % (Auto) Gran # Lymph # (Auto) [place] # (Auto) Eos # (Auto) Baso # (Auto) PT INR APTT pCO2 pO2 HCO3 ABG pH ABG Total CO2 ABG O2 Saturation ABG O2 Content ABG Base Excess ABG Hemoglobin ABG Carboxyhemoglobin POC ABG HHb (Measured) ABG Methemoglobin ABG O2 Capacity VBG pH VBG pCO2 VBG HCO3 VBG Total CO2 VBG O2 Sat (Calc) VBG Base Excess VBG Potassium Hgb O2 Saturation Sodium Chloride Glucose Lactate FiO2 Potassium Carbon Dioxide Anion Gap BUN Creatinine Est GFR ( Amer) Est GFR (Non-Af Amer) POC Glucose (mg/dL) 108 124 H Random Glucose Calcium Phosphorus Magnesium Total Bilirubin AST ALT Alkaline Phosphatase Troponin I Total Protein Albumin Globulin Albumin/Globulin Ratio Procalcitonin 6.28 H Venous Blood Potassium 07/26/17 07/26/17 07/26/17 13:45 16:07 18:15 WBC RBC Hgb Hct MCV MCH MCHC RDW Plt Count MPV Gran % Lymph % (Auto) [place] % (Auto) Eos % (Auto) Baso % (Auto) Gran # Lymph # (Auto) [place] # (Auto) Eos # (Auto) Baso # (Auto) PT INR APTT pCO2 pO2 HCO3 ABG pH ABG Total CO2 ABG O2 Saturation ABG O2 Content ABG Base Excess ABG Hemoglobin ABG Carboxyhemoglobin POC ABG HHb (Measured) ABG Methemoglobin ABG O2 Capacity VBG pH VBG pCO2 VBG HCO3 VBG Total CO2 VBG O2 Sat (Calc) VBG Base Excess VBG Potassium Hgb O2 Saturation Sodium Chloride Glucose Lactate FiO2 Potassium Carbon Dioxide Anion Gap BUN Creatinine Est GFR ( Amer) Est GFR (Non-Af Amer) POC Glucose (mg/dL) 131 H 114 H 120 H Random Glucose Calcium Phosphorus Magnesium Total Bilirubin AST ALT Alkaline Phosphatase Troponin I Total Protein Albumin Globulin Albumin/Globulin Ratio Procalcitonin Venous Blood Potassium 07/26/17 19:57 WBC RBC Hgb Hct MCV MCH MCHC RDW Plt Count MPV Gran % Lymph % (Auto) [place] % (Auto) Eos % (Auto) Baso % (Auto) Gran # Lymph # (Auto) [place] # (Auto) Eos # (Auto) Baso # (Auto) PT INR APTT pCO2 pO2 HCO3 ABG pH ABG Total CO2 ABG O2 Saturation ABG O2 Content ABG Base Excess ABG Hemoglobin ABG Carboxyhemoglobin POC ABG HHb (Measured) ABG Methemoglobin ABG O2 Capacity VBG pH VBG pCO2 VBG HCO3 VBG Total CO2 VBG O2 Sat (Calc) VBG Base Excess VBG Potassium Hgb O2 Saturation Sodium Chloride Glucose Lactate FiO2 Potassium Carbon Dioxide Anion Gap BUN Creatinine Est GFR ( Amer) Est GFR (Non-Af Amer) POC Glucose (mg/dL) 116 H Random Glucose Calcium Phosphorus Magnesium Total Bilirubin AST ALT Alkaline Phosphatase Troponin I Total Protein Albumin Globulin Albumin/Globulin Ratio Procalcitonin Venous Blood Potassium Assessment & Plan - Assessment and Plan (Free Text) Assessment: 62 yo female with history of CHF (EF on admission 16%), COPD, HTN and tobacco abuse presented to [facility] 07/25 with complaints of SOB had cardiac arrest and required resuscitation twice leading to intubation and ventilation. Now also with leukocytosis. She is poorly responsive. Extremely poor prognosis. Can add Meropenem for antibiotic coverage but infection does not seem like a significant issue at this time. Leukocytosis can be secondary to the resuscitation efforts performed on the patient. CHF a major contributor to the patient's conditions. Supportive care. Thank you for allowing me to participate in the care of the patient, we will follow with you.
[2017-07-26] MEDS: Meropenem 500 MG in Sodium Chloride 0.9% 50 ML IVPB SCH (21:56)
[2017-07-27] MEDS: Insulin Reg-HIGH-Coverage SC SCH (00:23)
[2017-07-27] MEDS: Insulin Reg-MEDIUM-Coverage SC SCH ×5 (04:18→19:56)
[2017-07-27] MEDS: Propofol 10 mg/ml 1,000 MG/100 ML VIAL IV PRN (04:36)
[2017-07-27 05:11] LABS: ARTERIAL BLOOD GAS HCO3 22.6 mmol/L (21-28); ARTERIAL BLOOD GAS O2 CAPACITY 14.2 mL/dl (16-24); ARTERIAL BLOOD GAS O2 CONTENT 14.2 ML/dl (15-23); ARTERIAL BLOOD GAS O2 SAT 100.2 % (95-98); ARTERIAL BLOOD GAS PCO2 31 mm/Hg (35-45); ARTERIAL BLOOD GAS PH 7.47 (7.35-7.45); ARTERIAL BLOOD GAS TCO2 23.6 mmol.L (22-28)
[2017-07-27] MEDS: NOREPINEPHRINE BIT/0.9 % NACL 4 MG/250 ML BAG IV PRN (06:16)
[2017-07-27 06:28] LABS: BASO # 0.02 K/mm3 (0.0-2.0); BASO % 0.2 % (0.0-3.0); EOS % 0.2 % (1.5-5.0); GRAN # 8.99 (1.4-6.5); GRAN % 78.6 % (50.0-68.0); HEMOGLOBIN 9.5 g/dL (12.0-16.0); LYMPH # 1.7 (1.2-3.4); MEAN CELL VOLUME 94.5 fl (80.0-105.0); MEAN CORPUSCULAR HEMOGLOBIN 30.8 pg (25.0-35.0); MEAN CORPUSCULAR HGB CONC 32.6 g/dl (31.0-37.0); MEAN PLATELET VOLUME 10.9 fl (7.0-11.0); MONO # 0.7 (0.1-0.6); RBC 3.08 10^6/uL (3.5-6.1); RED CELL DISTRIBUTION WIDTH 16.1 % (11.5-14.5); WHITE BLOOD COUNT 11.4 10^3/ul (4.5-11.0)
[2017-07-27 06:40] LABS: INR 1.06 (0.93-1.08); PARTIAL THROMBOPLASTIN TIME 25.8 Seconds (25.1-36.5); PROTHROMBIN TIME 12.2 SECONDS (9.4-12.5)
--- NOTE | 2017-07-27 06:46 | CP.CCUPN ---
<Ignacio Becerra - Last Filed: 07/27/17 12:56> CCU Subjective - Physician Review Subjective (Free Text): 07/27/17 12:56 Patient seen and examined at bedside in ICU. Initially was sedated/unresponsive , but began to wake up on sedation vacation. Was able to follow most commands appropriately, and tolerated a pressure support trial well, so she was extubated to Nasal Cannula. Tolerating well. CCU Objective - Vital Signs / Intake & Output Vital Signs (Last 4 hours): Vital Signs Pulse BP Pulse Ox 07/27/17 06:20 83 100 07/27/17 06:15 123/77 07/27/17 06:14 74 100 07/27/17 06:10 80 100 07/27/17 06:00 82 126/74 07/27/17 05:59 79 100 07/27/17 05:50 75 100 07/27/17 05:45 128/77 07/27/17 05:40 100 07/27/17 05:30 126/81 07/27/17 05:29 76 100 07/27/17 05:20 78 100 07/27/17 05:15 128/80 07/27/17 05:14 83 100 07/27/17 05:10 93 H 100 07/27/17 05:00 79 131/83 100 07/27/17 04:50 78 100 07/27/17 04:45 131/78 07/27/17 04:44 79 100 07/27/17 04:40 85 100 07/27/17 04:30 79 126/77 100 07/27/17 04:20 79 100 07/27/17 04:15 85 137/88 100 07/27/17 04:10 79 100 07/27/17 04:00 130/81 07/27/17 03:59 78 100 07/27/17 03:50 79 100 07/27/17 03:45 130/79 07/27/17 03:44 80 100 07/27/17 03:40 80 100 07/27/17 03:30 79 130/88 100 07/27/17 03:20 80 100 07/27/17 03:15 80 133/81 100 07/27/17 03:10 80 100 07/27/17 03:00 80 128/78 100 07/27/17 02:50 81 100 Intake and Output (Last 8hrs): Intake & Output 07/26/17 07/26/17 07/27/17 14:59 22:59 06:59 Intake Total 599 1964.0 450 Output Total 1125 Balance 599 839.0 450 Weight 60.328 kg Intake: IV 599 1964.0 450 Right Femoral 1396 Output: Urine 875 Urine, Voided 875 Stool 250 - Physical Exam Head: Positive for: Atraumatic, Normocephalic, Other (no gross facial asymmetries appreciated post sedation-vacation and extubation) Pupils: Positive for: PERRL (after sedation vacation) Extroacular Muscles: Positive for: EOMI Conjunctiva: Positive for: Normal. Negative for: Injected, Icteric Mouth: Positive for: Moist Mucous Membranes, Normal Lips, Normal Tounge, Normal Teeth Nose (External): Positive for: Atraumatic. Negative for: Abrasion, Laceration Nose (Internal): Positive for: Normal Inspection, No Active Bleeding. Negative for: Epistaxis Neck: Positive for: Normal Range of Motion. Negative for: JVD Respiratory/Chest: Positive for: Good Air Exchange, Rales (diffuse mild ronchi in all [place]). Negative for: Clear to Auscultation, Accessory Muscle Use, Wheezes, Decreased Breath Sounds, Tachypneic Cardiovascular: Positive for: Regular Rate and Rhythm, Normal S1, S2. Negative for: Murmurs, Irregular Rhythm, Tachycardic, Bradycardic Abdomen: Positive for: Normal Bowel Sounds. Negative for: Tenderness, Distention, Peritoneal Signs Upper Extremity: Positive for: Normal Inspection, Normal ROM, NORMAL PULSES. Negative for: Cyanosis, Edema, Tenderness, Swelling, Erythema, Deformity Lower Extremity: Positive for: Normal Inspection, NORMAL PULSES, Normal ROM. Negative for: Edema, CALF TENDERNESS, Cyanosis, Tenderness, Swelling, Erythema, Deformity Neurological: Positive for: GCS=15, Motor Func Grossly Intact, Other (now awake and alert, following commands, moving all extremities spontaneously) Skin: Positive for: Warm, Dry, Normal Color. Negative for: Rashes Psychiatric: Positive for: Other (awake and alert, not overly agitated/anxious) - Medications Active Medications: Active Medications Generic Name Dose Route Start Last Admin Trade Name Freq PRN Reason Stop Dose Admin Albuterol/Ipratropium 3 ml 07/25/17 04:52 Duoneb 3 Mg/0.5 Mg (3 Ml) Ud IH Q2H PRN Shortness of Breath Artificial Tears 0.3 ml 07/25/17 18:07 Refresh Opth Soln OU Q4H PRN Dry eyes Aspirin 81 mg 07/25/17 10:00 07/26/17 10:00 Ecotrin PO 81 mg DAILY AUNDREA Administration Atorvastatin Calcium 20 mg 07/25/17 17:00 07/26/17 16:35 Lipitor PO 20 mg DIN AUNDREA Administration Enoxaparin Sodium 40 mg 07/25/17 10:00 07/26/17 09:54 Lovenox SC 40 mg DAILY AUNDREA Administration Protocol Potassium Chloride/Dextrose 1,000 mls @ 20 mls/hr 07/25/17 16:00 07/26/17 17: 29 Potassium Chl 20 Meq In D5w IV 20 mls/hr .Q24H AUNDREA Administration Propofol 1,000 mg in 100 mls @ 1.649 mls/hr 07/25/17 16:35 07/27/17 04:36 Diprivan IV 30 mcg/kg/min .Q24H PRN 9.896 mls/hr TITRATE PER MD ORDER Administration Protocol 5 MCG/KG/MIN NOREPINEPHRINE BIT/0.9 % NACL 4 mg in 250 mls @ 15 mls/hr 07/25/17 16:11 06:16 Levophed 4 Mg/ 250 Ml Ns Premixed IV 10 mcg/min .[id number] PRN 37.5 mls/hr TITRATE PER MD ORDER Administration Protocol 4 MCG/MIN Midazolam 100 mg/100ml in NS 100 mg in 100 mls @ 1 mls/hr 07/25/17 18:07 07:30 Midazolam 100 Mg/100ml In Ns IV 2 mg/hr .Q24H PRN 2 mls/hr Sedation Titration Protocol 1 MG/HR Milrinone Lactate/Dextrose 100 mls @ 5.443 mls/hr 07/26/17 08:06 07/26/17 23: 07 Primacor 20mg/100ml D5w IV 0.33 mcg/kg/min .[id number] PRN 5.443 mls/hr TITRATE PER MD ORDER Administration Protocol 0.33 MCG/KG/MIN Meropenem 500 mg/ Sodium 50 mls @ 100 mls/hr 07/26/17 22:00 07/26/17 21:56 Chloride IVPB 07/29/17 22:01 100 mls/hr Q12 AUNDREA Administration Protocol Insulin Human Regular 0 units 07/27/17 03:30 07/27/17 04:18 Humulin R Med SC Not Given Q4H AUNDREA Protocol Ondansetron HCl 4 mg 07/25/17 04:53 Zofran Inj IVP Q4H PRN Nausea/Vomiting Pantoprazole Sodium 40 mg 07/26/17 10:00 07/26/17 09:54 Protonix Inj IVP 40 mg DAILY AUNDREA Administration Potassium Chloride 40 meq 07/26/17 08:00 07/26/17 08:00 K-Dur 20 Meq Er Tab PO 40 meq BRK AUNDREA Administration Thiamine HCl 100 mg 07/25/17 10:00 07/26/17 11:33 Vitamin B1 Tab PO 100 mg DAILY AUNDREA Administration - Patient Studies Lab Studies: Lab Studies 07/27/17 07/27/17 07/27/17 Range/Units 06:00 06:00 05:05 WBC 11.4 H (4.5-11.0) 10^3/ul RBC 3.08 L (3.5-6.1) 10^6/uL Hgb 9.5 L (12.0-16.0) g/dL Hct 29.1 L (36.0-48.0) % MCV 94.5 (80.0-105.0) fl MCH 30.8 (25.0-35.0) pg MCHC 32.6 (31.0-37.0) g/dl RDW 16.1 H (11.5-14.5) % Plt Count 143 (120.0-450.0) 10^3/uL MPV 10.9 (7.0-11.0) fl Gran % 78.6 H (50.0-68.0) % Lymph % (Auto) 15.0 L (22.0-35.0) % [place] % (Auto) 6.0 (1.0-6.0) % Eos % (Auto) 0.2 L (1.5-5.0) % Baso % (Auto) 0.2 (0.0-3.0) % Gran # 8.99 H (1.4-6.5) Lymph # (Auto) 1.7 (1.2-3.4) [place] # (Auto) 0.7 H (0.1-0.6) Eos # (Auto) 0.0 (0.0-0.7) Baso # (Auto) 0.02 (0.0-2.0) K/mm3 PT 12.2 (9.4-12.5) SECONDS INR 1.06 (0.93-1.08) APTT 25.8 (25.1-36.5) Seconds pCO2 31 L (35-45) mm/Hg pO2 222.0 H (30-55) mm/Hg HCO3 22.6 (21-28) mmol/L ABG pH 7.47 H (7.35-7.45) ABG Total CO2 23.6 (22-28) mmol.L ABG O2 Saturation 100.2 H (95-98) % ABG O2 Content 14.2 L (15-23) ML/dl ABG Base Excess -0.6 (-2.0-3.0) mmol/L ABG Hemoglobin 10.0 L (11.7-17.4) g/dL ABG Carboxyhemoglobin 1.9 H (0.5-1.5) % POC ABG HHb (Measured) -0.2 L (0-5) % ABG Methemoglobin 1.3 (0.0-3.0) % ABG O2 Capacity 14.2 L (16-24) mL/dl VBG pH (7.32-7.43) VBG pCO2 (40-60) VBG HCO3 (21-28) mmol/l VBG Total CO2 (22-28) mmol.L VBG O2 Sat (Calc) (40-65) % VBG Base Excess (0.0-2.0) mmol/L VBG Potassium (3.6-5.2) mmol/L Hgb O2 Saturation 97.0 (95.0-98.0) % Sodium (132-148) mmol/L Chloride (98-107) mmol/L Glucose (65-105) mg/dl Lactate (0.7-2.1) mmol/L FiO2 50.0 % Potassium (3.6-5.0) mmol/L Carbon Dioxide (21-33) mmol/L Anion Gap (10-20) BUN (7-21) mg/dL Creatinine (0.7-1.2) mg/dl Est GFR ( Amer) Est GFR (Non-Af Amer) POC Glucose (mg/dL) (65-110) mg/dL Random Glucose (70-110) mg/dL Calcium (8.4-10.5) mg/dL Total Bilirubin (0.2-1.3) mg/dL AST (14-36) U/L ALT (7-56) U/L Alkaline Phosphatase (38-126) U/L Troponin I ng/mL Total Protein (5.8-8.3) g/dL Albumin (3.0-4.8) g/dL Globulin gm/dL Albumin/Globulin Ratio (1.1-1.8) Procalcitonin (0.19-0.49) NG/ML Venous Blood Potassium (3.6-5.2) mmol/L 07/27/17 07/26/17 07/26/17 Range/Units 04:17 21:22 19:57 WBC (4.5-11.0) 10^3/ul RBC (3.5-6.1) 10^6/uL Hgb (12.0-16.0) g/dL Hct (36.0-48.0) % MCV (80.0-105.0) fl MCH (25.0-35.0) pg MCHC (31.0-37.0) g/dl RDW (11.5-14.5) % Plt Count (120.0-450.0) 10^3/uL MPV (7.0-11.0) fl Gran % (50.0-68.0) % Lymph % (Auto) (22.0-35.0) % [place] % (Auto) (1.0-6.0) % Eos % (Auto) (1.5-5.0) % Baso % (Auto) (0.0-3.0) % Gran # (1.4-6.5) Lymph # (Auto) (1.2-3.4) [place] # (Auto) (0.1-0.6) Eos # (Auto) (0.0-0.7) Baso # (Auto) (0.0-2.0) K/mm3 PT (9.4-12.5) SECONDS INR (0.93-1.08) APTT (25.1-36.5) Seconds pCO2 (35-45) mm/Hg pO2 (30-55) mm/Hg HCO3 (21-28) mmol/L ABG pH (7.35-7.45) ABG Total CO2 (22-28) mmol.L ABG O2 Saturation (95-98) % ABG O2 Content (15-23) ML/dl ABG Base Excess (-2.0-3.0) mmol/L ABG Hemoglobin (11.7-17.4) g/dL ABG Carboxyhemoglobin (0.5-1.5) % POC ABG HHb (Measured) (0-5) % ABG Methemoglobin (0.0-3.0) % ABG O2 Capacity (16-24) mL/dl VBG pH (7.32-7.43) VBG pCO2 (40-60) VBG HCO3 (21-28) mmol/l VBG Total CO2 (22-28) mmol.L VBG O2 Sat (Calc) (40-65) % VBG Base Excess (0.0-2.0) mmol/L VBG Potassium (3.6-5.2) mmol/L Hgb O2 Saturation (95.0-98.0) % Sodium (132-148) mmol/L Chloride (98-107) mmol/L Glucose (65-105) mg/dl Lactate (0.7-2.1) mmol/L FiO2 % Potassium (3.6-5.0) mmol/L Carbon Dioxide (21-33) mmol/L Anion Gap (10-20) BUN (7-21) mg/dL Creatinine (0.7-1.2) mg/dl Est GFR ( Amer) Est GFR (Non-Af Amer) POC Glucose (mg/dL) 98 115 H 116 H (65-110) mg/dL Random Glucose (70-110) mg/dL Calcium (8.4-10.5) mg/dL Total Bilirubin (0.2-1.3) mg/dL AST (14-36) U/L ALT (7-56) U/L Alkaline Phosphatase (38-126) U/L Troponin I ng/mL Total Protein (5.8-8.3) g/dL Albumin (3.0-4.8) g/dL Globulin gm/dL Albumin/Globulin Ratio (1.1-1.8) Procalcitonin (0.19-0.49) NG/ML Venous Blood Potassium (3.6-5.2) mmol/L 07/26/17 07/26/17 07/26/17 Range/Units 18:15 16:07 13:45 WBC (4.5-11.0) 10^3/ul RBC (3.5-6.1) 10^6/uL Hgb (12.0-16.0) g/dL Hct (36.0-48.0) % MCV (80.0-105.0) fl MCH (25.0-35.0) pg MCHC (31.0-37.0) g/dl RDW (11.5-14.5) % Plt Count (120.0-450.0) 10^3/uL MPV (7.0-11.0) fl Gran % (50.0-68.0) % Lymph % (Auto) (22.0-35.0) % [place] % (Auto) (1.0-6.0) % Eos % (Auto) (1.5-5.0) % Baso % (Auto) (0.0-3.0) % Gran # (1.4-6.5) Lymph # (Auto) (1.2-3.4) [place] # (Auto) (0.1-0.6) Eos # (Auto) (0.0-0.7) Baso # (Auto) (0.0-2.0) K/mm3 PT (9.4-12.5) SECONDS INR (0.93-1.08) APTT (25.1-36.5) Seconds pCO2 (35-45) mm/Hg pO2 (30-55) mm/Hg HCO3 (21-28) mmol/L ABG pH (7.35-7.45) ABG Total CO2 (22-28) mmol.L ABG O2 Saturation (95-98) % ABG O2 Content (15-23) ML/dl ABG Base Excess (-2.0-3.0) mmol/L ABG Hemoglobin (11.7-17.4) g/dL ABG Carboxyhemoglobin (0.5-1.5) % POC ABG HHb (Measured) (0-5) % ABG Methemoglobin (0.0-3.0) % ABG O2 Capacity (16-24) mL/dl VBG pH (7.32-7.43) VBG pCO2 (40-60) VBG HCO3 (21-28) mmol/l VBG Total CO2 (22-28) mmol.L VBG O2 Sat (Calc) (40-65) % VBG Base Excess (0.0-2.0) mmol/L VBG Potassium (3.6-5.2) mmol/L Hgb O2 Saturation (95.0-98.0) % Sodium (132-148) mmol/L Chloride (98-107) mmol/L Glucose (65-105) mg/dl Lactate (0.7-2.1) mmol/L FiO2 % Potassium (3.6-5.0) mmol/L Carbon Dioxide (21-33) mmol/L Anion Gap (10-20) BUN (7-21) mg/dL Creatinine (0.7-1.2) mg/dl Est GFR ( Amer) Est GFR (Non-Af Amer) POC Glucose (mg/dL) 120 H 114 H 131 H (65-110) mg/dL Random Glucose (70-110) mg/dL Calcium (8.4-10.5) mg/dL Total Bilirubin (0.2-1.3) mg/dL AST (14-36) U/L ALT (7-56) U/L Alkaline Phosphatase (38-126) U/L Troponin I ng/mL Total Protein (5.8-8.3) g/dL Albumin (3.0-4.8) g/dL Globulin gm/dL Albumin/Globulin Ratio (1.1-1.8) Procalcitonin (0.19-0.49) NG/ML Venous Blood Potassium (3.6-5.2) mmol/L 07/26/17 07/26/17 07/26/17 Range/Units 11:44 10:15 10:02 WBC (4.5-11.0) 10^3/ul RBC (3.5-6.1) 10^6/uL Hgb (12.0-16.0) g/dL Hct (36.0-48.0) % MCV (80.0-105.0) fl MCH (25.0-35.0) pg MCHC (31.0-37.0) g/dl RDW (11.5-14.5) % Plt Count (120.0-450.0) 10^3/uL MPV (7.0-11.0) fl Gran % (50.0-68.0) % Lymph % (Auto) (22.0-35.0) % [place] % (Auto) (1.0-6.0) % Eos % (Auto) (1.5-5.0) % Baso % (Auto) (0.0-3.0) % Gran # (1.4-6.5) Lymph # (Auto) (1.2-3.4) [place] # (Auto) (0.1-0.6) Eos # (Auto) (0.0-0.7) Baso # (Auto) (0.0-2.0) K/mm3 PT (9.4-12.5) SECONDS INR (0.93-1.08) APTT (25.1-36.5) Seconds pCO2 (35-45) mm/Hg pO2 (30-55) mm/Hg HCO3 (21-28) mmol/L ABG pH (7.35-7.45) ABG Total CO2 (22-28) mmol.L ABG O2 Saturation (95-98) % ABG O2 Content (15-23) ML/dl ABG Base Excess (-2.0-3.0) mmol/L ABG Hemoglobin (11.7-17.4) g/dL ABG Carboxyhemoglobin (0.5-1.5) % POC ABG HHb (Measured) (0-5) % ABG Methemoglobin (0.0-3.0) % ABG O2 Capacity (16-24) mL/dl VBG pH (7.32-7.43) VBG pCO2 (40-60) VBG HCO3 (21-28) mmol/l VBG Total CO2 (22-28) mmol.L VBG O2 Sat (Calc) (40-65) % VBG Base Excess (0.0-2.0) mmol/L VBG Potassium (3.6-5.2) mmol/L Hgb O2 Saturation (95.0-98.0) % Sodium (132-148) mmol/L Chloride (98-107) mmol/L Glucose (65-105) mg/dl Lactate (0.7-2.1) mmol/L FiO2 % Potassium (3.6-5.0) mmol/L Carbon Dioxide (21-33) mmol/L Anion Gap (10-20) BUN (7-21) mg/dL Creatinine (0.7-1.2) mg/dl Est GFR ( Amer) Est GFR (Non-Af Amer) POC Glucose (mg/dL) 124 H 108 (65-110) mg/dL Random Glucose (70-110) mg/dL Calcium (8.4-10.5) mg/dL Total Bilirubin (0.2-1.3) mg/dL AST (14-36) U/L ALT (7-56) U/L Alkaline Phosphatase (38-126) U/L Troponin I ng/mL Total Protein (5.8-8.3) g/dL Albumin (3.0-4.8) g/dL Globulin gm/dL Albumin/Globulin Ratio (1.1-1.8) Procalcitonin 6.28 H (0.19-0.49) NG/ML Venous Blood Potassium (3.6-5.2) mmol/L 07/26/17 07/26/17 07/26/17 Range/Units 09:10 09:10 09:10 WBC (4.5-11.0) 10^3/ul RBC (3.5-6.1) 10^6/uL Hgb (12.0-16.0) g/dL Hct (36.0-48.0) % MCV (80.0-105.0) fl MCH (25.0-35.0) pg MCHC (31.0-37.0) g/dl RDW (11.5-14.5) % Plt Count (120.0-450.0) 10^3/uL MPV (7.0-11.0) fl Gran % (50.0-68.0) % Lymph % (Auto) (22.0-35.0) % [place] % (Auto) (1.0-6.0) % Eos % (Auto) (1.5-5.0) % Baso % (Auto) (0.0-3.0) % Gran # (1.4-6.5) Lymph # (Auto) (1.2-3.4) [place] # (Auto) (0.1-0.6) Eos # (Auto) (0.0-0.7) Baso # (Auto) (0.0-2.0) K/mm3 PT 12.5 (9.4-12.5) SECONDS INR 1.09 H (0.93-1.08) APTT 25.9 (25.1-36.5) Seconds pCO2 (35-45) mm/Hg pO2 180 H (30-55) mm/Hg HCO3 (21-28) mmol/L ABG pH (7.35-7.45) ABG Total CO2 (22-28) mmol.L ABG O2 Saturation (95-98) % ABG O2 Content (15-23) ML/dl ABG Base Excess (-2.0-3.0) mmol/L ABG Hemoglobin (11.7-17.4) g/dL ABG Carboxyhemoglobin (0.5-1.5) % POC ABG HHb (Measured) (0-5) % ABG Methemoglobin (0.0-3.0) % ABG O2 Capacity (16-24) mL/dl VBG pH 7.48 H (7.32-7.43) VBG pCO2 31.0 L (40-60) VBG HCO3 23.1 (21-28) mmol/l VBG Total CO2 24.1 (22-28) mmol.L VBG O2 Sat (Calc) 100.1 H (40-65) % VBG Base Excess 0.4 (0.0-2.0) mmol/L VBG Potassium 3.3 L (3.6-5.2) mmol/L Hgb O2 Saturation (95.0-98.0) % Sodium 138.0 139 (132-148) mmol/L Chloride 108.0 H 106 (98-107) mmol/L Glucose 127 H (65-105) mg/dl Lactate 1.1 (0.7-2.1) mmol/L FiO2 21.0 % Potassium 3.4 L (3.6-5.0) mmol/L Carbon Dioxide 22 (21-33) mmol/L Anion Gap 14 (10-20) BUN 16 (7-21) mg/dL Creatinine 1.3 H (0.7-1.2) mg/dl Est GFR ( Amer) 50 Est GFR (Non-Af Amer) 41 POC Glucose (mg/dL) (65-110) mg/dL Random Glucose 121 H (70-110) mg/dL Calcium 7.1 L (8.4-10.5) mg/dL Total Bilirubin 0.6 (0.2-1.3) mg/dL AST 79 H (14-36) U/L ALT 27 (7-56) U/L Alkaline Phosphatase 113 (38-126) U/L Troponin I 0.45 H* D ng/mL Total Protein 6.3 (5.8-8.3) g/dL Albumin 3.4 (3.0-4.8) g/dL Globulin 2.8 gm/dL Albumin/Globulin Ratio 1.2 (1.1-1.8) Procalcitonin (0.19-0.49) NG/ML Venous Blood Potassium 3.3 L (3.6-5.2) mmol/L 07/26/17 07/26/17 07/26/17 Range/Units 09:10 07:49 06:49 WBC 13.5 H (4.5-11.0) 10^3/ul RBC 3.20 L (3.5-6.1) 10^6/uL Hgb 10.1 L (12.0-16.0) g/dL Hct 29.7 L (36.0-48.0) % MCV 92.8 (80.0-105.0) fl MCH 31.6 (25.0-35.0) pg MCHC 34.0 (31.0-37.0) g/dl RDW 15.6 H (11.5-14.5) % Plt Count 156 (120.0-450.0) 10^3/uL MPV 10.6 (7.0-11.0) fl Gran % 84.9 H (50.0-68.0) % Lymph % (Auto) 11.3 L (22.0-35.0) % [place] % (Auto) 3.7 (1.0-6.0) % Eos % (Auto) 0.0 L (1.5-5.0) % Baso % (Auto) 0.1 (0.0-3.0) % Gran # 11.42 H (1.4-6.5) Lymph # (Auto) 1.5 (1.2-3.4) [place] # (Auto) 0.5 (0.1-0.6) Eos # (Auto) 0.0 (0.0-0.7) Baso # (Auto) 0.01 (0.0-2.0) K/mm3 PT (9.4-12.5) SECONDS INR (0.93-1.08) APTT (25.1-36.5) Seconds pCO2 (35-45) mm/Hg pO2 (30-55) mm/Hg HCO3 (21-28) mmol/L ABG pH (7.35-7.45) ABG Total CO2 (22-28) mmol.L ABG O2 Saturation (95-98) % ABG O2 Content (15-23) ML/dl ABG Base Excess (-2.0-3.0) mmol/L ABG Hemoglobin (11.7-17.4) g/dL ABG Carboxyhemoglobin (0.5-1.5) % POC ABG HHb (Measured) (0-5) % ABG Methemoglobin (0.0-3.0) % ABG O2 Capacity (16-24) mL/dl VBG pH (7.32-7.43) VBG pCO2 (40-60) VBG HCO3 (21-28) mmol/l VBG Total CO2 (22-28) mmol.L VBG O2 Sat (Calc) (40-65) % VBG Base Excess (0.0-2.0) mmol/L VBG Potassium (3.6-5.2) mmol/L Hgb O2 Saturation (95.0-98.0) % Sodium (132-148) mmol/L Chloride (98-107) mmol/L Glucose (65-105) mg/dl Lactate (0.7-2.1) mmol/L FiO2 % Potassium (3.6-5.0) mmol/L Carbon Dioxide (21-33) mmol/L Anion Gap (10-20) BUN (7-21) mg/dL Creatinine (0.7-1.2) mg/dl Est GFR ( Amer) Est GFR (Non-Af Amer) POC Glucose (mg/dL) 118 H 95 (65-110) mg/dL Random Glucose (70-110) mg/dL Calcium (8.4-10.5) mg/dL Total Bilirubin (0.2-1.3) mg/dL AST (14-36) U/L ALT (7-56) U/L Alkaline Phosphatase (38-126) U/L Troponin I ng/mL Total Protein (5.8-8.3) g/dL Albumin (3.0-4.8) g/dL Globulin gm/dL Albumin/Globulin Ratio (1.1-1.8) Procalcitonin (0.19-0.49) NG/ML Venous Blood Potassium (3.6-5.2) mmol/L 07/26/17 07/26/17 Range/Units 05:02 03:23 WBC (4.5-11.0) 10^3/ul RBC (3.5-6.1) 10^6/uL Hgb (12.0-16.0) g/dL Hct (36.0-48.0) % MCV (80.0-105.0) fl MCH (25.0-35.0) pg MCHC (31.0-37.0) g/dl RDW (11.5-14.5) % Plt Count (120.0-450.0) 10^3/uL MPV (7.0-11.0) fl Gran % (50.0-68.0) % Lymph % (Auto) (22.0-35.0) % [place] % (Auto) (1.0-6.0) % Eos % (Auto) (1.5-5.0) % Baso % (Auto) (0.0-3.0) % Gran # (1.4-6.5) Lymph # (Auto) (1.2-3.4) [place] # (Auto) (0.1-0.6) Eos # (Auto) (0.0-0.7) Baso # (Auto) (0.0-2.0) K/mm3 PT (9.4-12.5) SECONDS INR (0.93-1.08) APTT (25.1-36.5) Seconds pCO2 (35-45) mm/Hg pO2 (30-55) mm/Hg HCO3 (21-28) mmol/L ABG pH (7.35-7.45) ABG Total CO2 (22-28) mmol.L ABG O2 Saturation (95-98) % ABG O2 Content (15-23) ML/dl ABG Base Excess (-2.0-3.0) mmol/L ABG Hemoglobin (11.7-17.4) g/dL ABG Carboxyhemoglobin (0.5-1.5) % POC ABG HHb (Measured) (0-5) % ABG Methemoglobin (0.0-3.0) % ABG O2 Capacity (16-24) mL/dl VBG pH (7.32-7.43) VBG pCO2 (40-60) VBG HCO3 (21-28) mmol/l VBG Total CO2 (22-28) mmol.L VBG O2 Sat (Calc) (40-65) % VBG Base Excess (0.0-2.0) mmol/L VBG Potassium (3.6-5.2) mmol/L Hgb O2 Saturation (95.0-98.0) % Sodium (132-148) mmol/L Chloride (98-107) mmol/L Glucose (65-105) mg/dl Lactate (0.7-2.1) mmol/L FiO2 % Potassium (3.6-5.0) mmol/L Carbon Dioxide (21-33) mmol/L Anion Gap (10-20) BUN (7-21) mg/dL Creatinine (0.7-1.2) mg/dl Est GFR ( Amer) Est GFR (Non-Af Amer) POC Glucose (mg/dL) 97 69 (65-110) mg/dL Random Glucose (70-110) mg/dL Calcium (8.4-10.5) mg/dL Total Bilirubin (0.2-1.3) mg/dL AST (14-36) U/L ALT (7-56) U/L Alkaline Phosphatase (38-126) U/L Troponin I ng/mL Total Protein (5.8-8.3) g/dL Albumin (3.0-4.8) g/dL Globulin gm/dL Albumin/Globulin Ratio (1.1-1.8) Procalcitonin (0.19-0.49) NG/ML Venous Blood Potassium (3.6-5.2) mmol/L Laboratory Results - last 24 hr 07/26/17 07/26/17 07/26/17 03:23 05:02 06:49 WBC RBC Hgb Hct MCV MCH MCHC RDW Plt Count MPV Gran % Lymph % (Auto) [place] % (Auto) Eos % (Auto) Baso % (Auto) Gran # Lymph # (Auto) [place] # (Auto) Eos # (Auto) Baso # (Auto) PT INR APTT pCO2 pO2 HCO3 ABG pH ABG Total CO2 ABG O2 Saturation ABG O2 Content ABG Base Excess ABG Hemoglobin ABG Carboxyhemoglobin POC ABG HHb (Measured) ABG Methemoglobin ABG O2 Capacity VBG pH VBG pCO2 VBG HCO3 VBG Total CO2 VBG O2 Sat (Calc) VBG Base Excess VBG Potassium Hgb O2 Saturation Sodium Chloride Glucose Lactate FiO2 Potassium Carbon Dioxide Anion Gap BUN Creatinine Est GFR ( Amer) Est GFR (Non-Af Amer) POC Glucose (mg/dL) 69 97 95 Random Glucose Calcium Total Bilirubin AST ALT Alkaline Phosphatase Troponin I Total Protein Albumin Globulin Albumin/Globulin Ratio Procalcitonin Venous Blood Potassium 07/26/17 07/26/17 07/26/17 07:49 09:10 09:10 WBC 13.5 H RBC 3.20 L Hgb 10.1 L Hct 29.7 L MCV 92.8 MCH 31.6 MCHC 34.0 RDW 15.6 H Plt Count 156 MPV 10.6 Gran % 84.9 H Lymph % (Auto) 11.3 L [place] % (Auto) 3.7 Eos % (Auto) 0.0 L Baso % (Auto) 0.1 Gran # 11.42 H Lymph # (Auto) 1.5 [place] # (Auto) 0.5 Eos # (Auto) 0.0 Baso # (Auto) 0.01 PT INR APTT pCO2 pO2 HCO3 ABG pH ABG Total CO2 ABG O2 Saturation ABG O2 Content ABG Base Excess ABG Hemoglobin ABG Carboxyhemoglobin POC ABG HHb (Measured) ABG Methemoglobin ABG O2 Capacity VBG pH VBG pCO2 VBG HCO3 VBG Total CO2 VBG O2 Sat (Calc) VBG Base Excess VBG Potassium Hgb O2 Saturation Sodium 139 Chloride 106 Glucose Lactate FiO2 Potassium 3.4 L Carbon Dioxide 22 Anion Gap 14 BUN 16 Creatinine 1.3 H Est GFR ( Amer) 50 Est GFR (Non-Af Amer) 41 POC Glucose (mg/dL) 118 H Random Glucose 121 H Calcium 7.1 L Total Bilirubin 0.6 AST 79 H ALT 27 Alkaline Phosphatase 113 Troponin I 0.45 H* D Total Protein 6.3 Albumin 3.4 Globulin 2.8 Albumin/Globulin Ratio 1.2 Procalcitonin Venous Blood Potassium 07/26/17 07/26/17 07/26/17 09:10 09:10 10:02 WBC RBC Hgb Hct MCV MCH MCHC RDW Plt Count MPV Gran % Lymph % (Auto) [place] % (Auto) Eos % (Auto) Baso % (Auto) Gran # Lymph # (Auto) [place] # (Auto) Eos # (Auto) Baso # (Auto) PT 12.5 INR 1.09 H APTT 25.9 pCO2 pO2 180 H HCO3 ABG pH ABG Total CO2 ABG O2 Saturation ABG O2 Content ABG Base Excess ABG Hemoglobin ABG Carboxyhemoglobin POC ABG HHb (Measured) ABG Methemoglobin ABG O2 Capacity VBG pH 7.48 H VBG pCO2 31.0 L VBG HCO3 23.1 VBG Total CO2 24.1 VBG O2 Sat (Calc) 100.1 H VBG Base Excess 0.4 VBG Potassium 3.3 L Hgb O2 Saturation Sodium 138.0 Chloride 108.0 H Glucose 127 H Lactate 1.1 FiO2 21.0 Potassium Carbon Dioxide Anion Gap BUN Creatinine Est GFR ( Amer) Est GFR (Non-Af Amer) POC Glucose (mg/dL) 108 Random Glucose Calcium Total Bilirubin AST ALT Alkaline Phosphatase Troponin I Total Protein Albumin Globulin Albumin/Globulin Ratio Procalcitonin Venous Blood Potassium 3.3 L 07/26/17 07/26/17 07/26/17 10:15 11:44 13:45 WBC RBC Hgb Hct MCV MCH MCHC RDW Plt Count MPV Gran % Lymph % (Auto) [place] % (Auto) Eos % (Auto) Baso % (Auto) Gran # Lymph # (Auto) [place] # (Auto) Eos # (Auto) Baso # (Auto) PT INR APTT pCO2 pO2 HCO3 ABG pH ABG Total CO2 ABG O2 Saturation ABG O2 Content ABG Base Excess ABG Hemoglobin ABG Carboxyhemoglobin POC ABG HHb (Measured) ABG Methemoglobin ABG O2 Capacity VBG pH VBG pCO2 VBG HCO3 VBG Total CO2 VBG O2 Sat (Calc) VBG Base Excess VBG Potassium Hgb O2 Saturation Sodium Chloride Glucose Lactate FiO2 Potassium Carbon Dioxide Anion Gap BUN Creatinine Est GFR ( Amer) Est GFR (Non-Af Amer) POC Glucose (mg/dL) 124 H 131 H Random Glucose Calcium Total Bilirubin AST ALT Alkaline Phosphatase Troponin I Total Protein Albumin Globulin Albumin/Globulin Ratio Procalcitonin 6.28 H Venous Blood Potassium 07/26/17 07/26/17 07/26/17 16:07 18:15 19:57 WBC RBC Hgb Hct MCV MCH MCHC RDW Plt Count MPV Gran % Lymph % (Auto) [place] % (Auto) Eos % (Auto) Baso % (Auto) Gran # Lymph # (Auto) [place] # (Auto) Eos # (Auto) Baso # (Auto) PT INR APTT pCO2 pO2 HCO3 ABG pH ABG Total CO2 ABG O2 Saturation ABG O2 Content ABG Base Excess ABG Hemoglobin ABG Carboxyhemoglobin POC ABG HHb (Measured) ABG Methemoglobin ABG O2 Capacity VBG pH VBG pCO2 VBG HCO3 VBG Total CO2 VBG O2 Sat (Calc) VBG Base Excess VBG Potassium Hgb O2 Saturation Sodium Chloride Glucose Lactate FiO2 Potassium Carbon Dioxide Anion Gap BUN Creatinine Est GFR ( Amer) Est GFR (Non-Af Amer) POC Glucose (mg/dL) 114 H 120 H 116 H Random Glucose Calcium Total Bilirubin AST ALT Alkaline Phosphatase Troponin I Total Protein Albumin Globulin Albumin/Globulin Ratio Procalcitonin Venous Blood Potassium 07/26/17 07/27/17 07/27/17 21:22 04:17 05:05 WBC RBC Hgb Hct MCV MCH MCHC RDW Plt Count MPV Gran % Lymph % (Auto) [place] % (Auto) Eos % (Auto) Baso % (Auto) Gran # Lymph # (Auto) [place] # (Auto) Eos # (Auto) Baso # (Auto) PT INR APTT pCO2 31 L pO2 222.0 H HCO3 22.6 ABG pH 7.47 H ABG Total CO2 23.6 ABG O2 Saturation 100.2 H ABG O2 Content 14.2 L ABG Base Excess -0.6 ABG Hemoglobin 10.0 L ABG Carboxyhemoglobin 1.9 H POC ABG HHb (Measured) -0.2 L ABG Methemoglobin 1.3 ABG O2 Capacity 14.2 L VBG pH VBG pCO2 VBG HCO3 VBG Total CO2 VBG O2 Sat (Calc) VBG Base Excess VBG Potassium Hgb O2 Saturation 97.0 Sodium Chloride Glucose Lactate FiO2 50.0 Potassium Carbon Dioxide Anion Gap BUN Creatinine Est GFR ( Amer) Est GFR (Non-Af Amer) POC Glucose (mg/dL) 115 H 98 Random Glucose Calcium Total Bilirubin AST ALT Alkaline Phosphatase Troponin I Total Protein Albumin Globulin Albumin/Globulin Ratio Procalcitonin Venous Blood Potassium 07/27/17 07/27/17 06:00 06:00 WBC 11.4 H RBC 3.08 L Hgb 9.5 L Hct 29.1 L MCV 94.5 MCH 30.8 MCHC 32.6 RDW 16.1 H Plt Count 143 MPV 10.9 Gran % 78.6 H Lymph % (Auto) 15.0 L [place] % (Auto) 6.0 Eos % (Auto) 0.2 L Baso % (Auto) 0.2 Gran # 8.99 H Lymph # (Auto) 1.7 [place] # (Auto) 0.7 H Eos # (Auto) 0.0 Baso # (Auto) 0.02 PT 12.2 INR 1.06 APTT 25.8 pCO2 pO2 HCO3 ABG pH ABG Total CO2 ABG O2 Saturation ABG O2 Content ABG Base Excess ABG Hemoglobin ABG Carboxyhemoglobin POC ABG HHb (Measured) ABG Methemoglobin ABG O2 Capacity VBG pH VBG pCO2 VBG HCO3 VBG Total CO2 VBG O2 Sat (Calc) VBG Base Excess VBG Potassium Hgb O2 Saturation Sodium Chloride Glucose Lactate FiO2 Potassium Carbon Dioxide Anion Gap BUN Creatinine Est GFR ( Amer) Est GFR (Non-Af Amer) POC Glucose (mg/dL) Random Glucose Calcium Total Bilirubin AST ALT Alkaline Phosphatase Troponin I Total Protein Albumin Globulin Albumin/Globulin Ratio Procalcitonin Venous Blood Potassium Fingerstick Blood Sugar Results: 98 Assessment/Plan - Assessment and Plan (Free Text) Assessment: This is a 62 yo AA F with PMH of CHF (EF on admission 16%), COPD, HTN, tobacco & substance abuse, and chronic non-compliance with medications/follow-up who presented originally to [facility] with worsening shortness of breath, and came to the ICU s/p cardiac arrest, intubated/sedation on mechanical ventilation, and with decerebrate posturing post-code. Her posturing resolved, she began to wake up on sedation vacation, and she tolerated a pressure-support trial well enough to be extubated. Plan: Neuro: -now awake, off sedation fully, following all commands and moving all extremities -decerebrate posturing resolved -afebrile overnight -CT head obtained, negative for acute findings -Neuro consulted, appreciate their recs; EEG obtained (pending read), pending MRI Cardio: -Hx CHF with EF < 30% noncompliant with meds/follow-up -Echo (pre-cardiac arrest) this admission notable for EF 16%, mild dilated LV with global hypokinesia, severe MR, mild-moderate TR, mild pulm HTN -Vfib initially during code, s/p 1x defibrilator shock, PEA for remainder of code until ROSC -UDS obtained post-code concerning for positive for canabinoid and cocaine ( neither present on admission), concerning for possible cocaine-induced cardiac arrest -continue milrinone; now off Amio and levophed, maintaining appropriate rhythm and blood pressure off levo/amio -continue daily ASA, Lipitor -holding Coreg due to cocaine exposure, want to avoid unopposed alpha stimulation; home lisinopril stopped due to hypotension -EP was consulted for possible pacer given low EF, but given current situation, no acute intervention planned at this time -Cardio and EP following, appreciate all recs Pulm: -now extubated to nasal canula, tolerating well -maintain SaO2 > 88% (COPD pt) and paO2 > 60; ABG post-extubation reviewed -Aspiration precautions -AM CXR reviewed, no congestion appreciated on CXR -Pending Swallow eval GI: -NPO pending swallow eval -Protonix for ppx -AST elevations likely 2/2 cardiac arrest, less likely shock liver in setting of normal ALT/Alk Phos levels, improving Renal: -monitor and replete electrolytes as needed -strict I's and O's, monitor urine output -Cr returning to baseline, 1.0 today; elevations likely CRISTÓBAL 2/2 cardiac arrest/ shock ID: -procal 6.28, WBCs 11.4 (was 13.5) -empiric coverage with Merrem as per ID, but unlikely to be infectious etiology , more likely leukocytosis 2/2 resuscitative efforts as per ID -ID following, appreciate all recs Heme: -hgb 9.5 (was 10.1) -Lovenox for DVT ppx Dispo: ICU, woke up during sedation vacation and able to follow commands, extubated to nasal canula, pending swallow eval FEN: NPO pending swallow eval Access: Peripheral IVs Consults: Neuro, Cardio, EP, ID Ppx: Protonix for GI, Lovenox for DVT Patient seen, reviewed, and discussed with attending, Dr. Pack <Farrukh Pack - Last Filed: 07/28/17 12:24> CCU Objective - Vital Signs / Intake & Output Vital Signs (Last 4 hours): Vital Signs Pulse Resp BP Pulse Ox 07/28/17 11:19 121 H 07/28/17 11:16 107 H 168/97 H 07/28/17 11:07 168/97 H 07/28/17 11:00 112 H 17 168/97 H 96 07/28/17 10:19 151/89 H 07/28/17 10:00 151/89 H 07/28/17 09:59 106 H 21 99 07/28/17 09:00 87 18 154/95 H 97 Intake and Output (Last 8hrs): Intake & Output 07/27/17 07/28/17 07/28/17 22:59 06:59 14:59 Intake Total 764 662 354 Output Total 550 350 250 Balance 214 312 104 Intake: IV 764 412 354 KCL in d5w 240 240 80 Right Femoral 300 250 abx 100 midazolam 24 milrinone 60 72 24 propofol 40 Oral 250 Output: Urine 550 350 250 Urethral (Sánchez) 550 250 Urine, Voided 350 - Medications Active Medications: Active Medications Generic Name Dose Route Start Last Admin Trade Name Freq PRN Reason Stop Dose Admin Albuterol/Ipratropium 3 ml 07/25/17 04:52 Duoneb 3 Mg/0.5 Mg (3 Ml) Ud IH Q2H PRN Shortness of Breath Artificial Tears 0.3 ml 07/25/17 18:07 Refresh Opth Soln OU Q4H PRN Dry eyes Aspirin 81 mg 07/25/17 10:00 07/28/17 11:09 Ecotrin PO Not Given DAILY AUNDREA Atorvastatin Calcium 20 mg 07/25/17 17:00 07/27/17 17:46 Lipitor PO Not Given DIN AUNDREA Enoxaparin Sodium 40 mg 07/25/17 10:00 07/28/17 10:17 Lovenox SC 40 mg DAILY AUNDREA Administration Protocol Folic Acid 1 mg 07/28/17 10:15 07/28/17 10:19 Folic Acid PO 1 mg DAILY AUNDREA Administration Furosemide 20 mg 07/28/17 10:15 07/28/17 10:19 Lasix IVP 20 mg Q12 AUNDREA Administration Potassium Chloride/Dextrose 1,000 mls @ 20 mls/hr 07/25/17 16:00 07/27/17 17: 46 Potassium Chl 20 Meq In D5w IV 20 mls/hr .Q24H AUNDREA Administration Milrinone Lactate/Dextrose 100 mls @ 5.443 mls/hr 07/26/17 08:06 07/28/17 05: 41 Primacor 20mg/100ml D5w IV 0.33 mcg/kg/min .[id number] PRN 5.443 mls/hr TITRATE PER MD ORDER Administration Protocol 0.33 MCG/KG/MIN Meropenem 500 mg/ Sodium 50 mls @ 100 mls/hr 07/26/17 22:00 07/28/17 10:16 Chloride IVPB 07/29/17 22:01 100 mls/hr Q12 AUNDREA Administration Protocol Potassium Chloride 20 meq in 100 mls @ 50 mls/hr 07/28/17 08:45 07/28/17 11: 15 Potassium Chloride 20 Meq/100 Ml IVPB 07/28/17 12:44 Not Given Q2H AUNDRAE Insulin Human Regular 0 units 07/27/17 03:30 07/28/17 11:43 Humulin R Med SC Not Given Q4H AUNDREA Protocol Lisinopril 10 mg 07/28/17 10:45 07/28/17 11:16 Zestril PO 10 mg DAILY AUNDREA Administration Multivitamins/Minerals 1 tab 07/29/17 08:00 Therapeutic-M Tab PO 0800 AUNDREA Nitroglycerin 1 ea 07/27/17 22:00 07/28/17 10:16 Nitro-Bid 2% Oint TOP 1 ea QID AUNDREA Administration Pantoprazole Sodium 40 mg 07/28/17 10:00 07/28/17 10:17 Protonix Ec Tab PO 40 mg DAILY AUNDREA Administration Phenol/Menthol 0 ml 07/28/17 09:05 07/28/17 10:17 Phenaseptic 1.4% Throat [place] 1 spr Q2H PRN Administration tongue sore Ramipril 2.5 mg 07/28/17 10:45 07/28/17 11:07 Altace PO 2.5 mg DAILY AUNDREA Administration Thiamine HCl 100 mg 07/25/17 10:00 07/28/17 10:17 Vitamin B1 Tab PO 100 mg DAILY AUNDREA Administration - Patient Studies Lab Studies: Microbiology Studies 07/26/17 10:30 Blood Culture - Preliminary Blood NO GROWTH AFTER 48 HOURS 07/26/17 10:00 Blood Culture - Preliminary Blood NO GROWTH AFTER 48 HOURS 07/26/17 16:24 Gram Stain - Final Sputum 07/25/17 21:23 MRSA Culture (Admit) - Final Naris MRSA NOT DETECTED 07/26/17 12:00 Urine Culture - Final Urine,Sánchez No Growth (<1,000 CFU/ML) Lab Studies 07/28/17 07/28/17 07/28/17 Range/Units 11:39 08:10 06:30 WBC (4.5-11.0) 10^3/ul RBC (3.5-6.1) 10^6/uL Hgb (12.0-16.0) g/dL Hct (36.0-48.0) % MCV (80.0-105.0) fl MCH (25.0-35.0) pg MCHC (31.0-37.0) g/dl RDW (11.5-14.5) % Plt Count (120.0-450.0) 10^3/uL MPV (7.0-11.0) fl Gran % (50.0-68.0) % Lymph % (Auto) (22.0-35.0) % [place] % (Auto) (1.0-6.0) % Eos % (Auto) (1.5-5.0) % Baso % (Auto) (0.0-3.0) % Gran # (1.4-6.5) Lymph # (Auto) (1.2-3.4) [place] # (Auto) (0.1-0.6) Eos # (Auto) (0.0-0.7) Baso # (Auto) (0.0-2.0) K/mm3 PT (9.4-12.5) SECONDS INR (0.93-1.08) APTT (25.1-36.5) Seconds Sodium (132-148) mmol/L Potassium (3.6-5.0) mmol/L Chloride (98-107) mmol/L Carbon Dioxide (21-33) mmol/L Anion Gap (10-20) BUN (7-21) mg/dL Creatinine (0.7-1.2) mg/dl Est GFR ( Amer) Est GFR (Non-Af Amer) POC Glucose (mg/dL) 121 H 93 (65-110) mg/dL Random Glucose (70-110) mg/dL Calcium (8.4-10.5) mg/dL Magnesium 1.5 L (1.7-2.2) mg/dL Total Bilirubin (0.2-1.3) mg/dL AST (14-36) U/L ALT (7-56) U/L Alkaline Phosphatase (38-126) U/L Troponin I ng/mL Total Protein (5.8-8.3) g/dL Albumin (3.0-4.8) g/dL Globulin gm/dL Albumin/Globulin Ratio (1.1-1.8) Urine Color (YELLOW) Urine Appearance (CLEAR) Urine pH (4.7-8.0) Ur Specific [place] (1.005-1.035) Urine Protein (<30 mg/dL) mg/dL Urine Glucose (UA) (NEGATIVE) mg/dL Urine Ketones (NEGATIVE) mg/dL Urine Blood (NEGATIVE) Urine Nitrate (NEGATIVE) Urine Bilirubin (NEGATIVE) Urine Urobilinogen (<1 E.U./dL) E.U./dL Ur Leukocyte Esterase (NEGATIVE) Alejandra/uL Urine RBC (0-2) /hpf Urine WBC (0-6) /hpf Ur Epithelial Cells (0-5) /hpf Other Crystals /hpf Amorphous Sediment Urine Bacteria (NEG) Coarse Granular Casts (0-2) /hpf Urine Other 07/28/17 07/28/17 07/28/17 Range/Units 06:30 06:30 06:30 WBC 9.8 (4.5-11.0) 10^3/ul RBC 2.94 L (3.5-6.1) 10^6/uL Hgb 9.2 L (12.0-16.0) g/dL Hct 28.2 L (36.0-48.0) % MCV 95.9 (80.0-105.0) fl MCH 31.3 (25.0-35.0) pg MCHC 32.6 (31.0-37.0) g/dl RDW 15.8 H (11.5-14.5) % Plt Count 137 (120.0-450.0) 10^3/uL MPV 10.9 (7.0-11.0) fl Gran % 76.9 H (50.0-68.0) % Lymph % (Auto) 16.3 L (22.0-35.0) % [place] % (Auto) 5.8 (1.0-6.0) % Eos % (Auto) 0.9 L (1.5-5.0) % Baso % (Auto) 0.1 (0.0-3.0) % Gran # 7.50 H (1.4-6.5) Lymph # (Auto) 1.6 (1.2-3.4) [place] # (Auto) 0.6 (0.1-0.6) Eos # (Auto) 0.1 (0.0-0.7) Baso # (Auto) 0.01 (0.0-2.0) K/mm3 PT 11.0 (9.4-12.5) SECONDS INR 0.96 (0.93-1.08) APTT 27.3 (25.1-36.5) Seconds Sodium 140 (132-148) mmol/L Potassium 3.5 L (3.6-5.0) mmol/L Chloride 108 H (98-107) mmol/L Carbon Dioxide 25 (21-33) mmol/L Anion Gap 10 (10-20) BUN 9 (7-21) mg/dL Creatinine 0.9 (0.7-1.2) mg/dl Est GFR ( Amer) > 60 Est GFR (Non-Af Amer) > 60 POC Glucose (mg/dL) (65-110) mg/dL Random Glucose 90 (70-110) mg/dL Calcium 8.7 (8.4-10.5) mg/dL Magnesium (1.7-2.2) mg/dL Total Bilirubin 0.8 (0.2-1.3) mg/dL AST 38 H D (14-36) U/L ALT 26 (7-56) U/L Alkaline Phosphatase 87 (38-126) U/L Troponin I ng/mL Total Protein 6.4 (5.8-8.3) g/dL Albumin 3.4 (3.0-4.8) g/dL Globulin 3.0 gm/dL Albumin/Globulin Ratio 1.1 (1.1-1.8) Urine Color (YELLOW) Urine Appearance (CLEAR) Urine pH (4.7-8.0) Ur Specific [place] (1.005-1.035) Urine Protein (<30 mg/dL) mg/dL Urine Glucose (UA) (NEGATIVE) mg/dL Urine Ketones (NEGATIVE) mg/dL Urine Blood (NEGATIVE) Urine Nitrate (NEGATIVE) Urine Bilirubin (NEGATIVE) Urine Urobilinogen (<1 E.U./dL) E.U./dL Ur Leukocyte Esterase (NEGATIVE) Alejandra/uL Urine RBC (0-2) /hpf Urine WBC (0-6) /hpf Ur Epithelial Cells (0-5) /hpf Other Crystals /hpf Amorphous Sediment Urine Bacteria (NEG) Coarse Granular Casts (0-2) /hpf Urine Other 07/28/17 07/27/17 07/27/17 Range/Units 03:46 23:50 22:01 WBC (4.5-11.0) 10^3/ul RBC (3.5-6.1) 10^6/uL Hgb (12.0-16.0) g/dL Hct (36.0-48.0) % MCV (80.0-105.0) fl MCH (25.0-35.0) pg MCHC (31.0-37.0) g/dl RDW (11.5-14.5) % Plt Count (120.0-450.0) 10^3/uL MPV (7.0-11.0) fl Gran % (50.0-68.0) % Lymph % (Auto) (22.0-35.0) % [place] % (Auto) (1.0-6.0) % Eos % (Auto) (1.5-5.0) % Baso % (Auto) (0.0-3.0) % Gran # (1.4-6.5) Lymph # (Auto) (1.2-3.4) [place] # (Auto) (0.1-0.6) Eos # (Auto) (0.0-0.7) Baso # (Auto) (0.0-2.0) K/mm3 PT (9.4-12.5) SECONDS INR (0.93-1.08) APTT (25.1-36.5) Seconds Sodium (132-148) mmol/L Potassium (3.6-5.0) mmol/L Chloride (98-107) mmol/L Carbon Dioxide (21-33) mmol/L Anion Gap (10-20) BUN (7-21) mg/dL Creatinine (0.7-1.2) mg/dl Est GFR ( Amer) Est GFR (Non-Af Amer) POC Glucose (mg/dL) 92 100 (65-110) mg/dL Random Glucose (70-110) mg/dL Calcium (8.4-10.5) mg/dL Magnesium (1.7-2.2) mg/dL Total Bilirubin (0.2-1.3) mg/dL AST (14-36) U/L ALT (7-56) U/L Alkaline Phosphatase (38-126) U/L Troponin I 0.05 ng/mL Total Protein (5.8-8.3) g/dL Albumin (3.0-4.8) g/dL Globulin gm/dL Albumin/Globulin Ratio (1.1-1.8) Urine Color (YELLOW) Urine Appearance (CLEAR) Urine pH (4.7-8.0) Ur Specific [place] (1.005-1.035) Urine Protein (<30 mg/dL) mg/dL Urine Glucose (UA) (NEGATIVE) mg/dL Urine Ketones (NEGATIVE) mg/dL Urine Blood (NEGATIVE) Urine Nitrate (NEGATIVE) Urine Bilirubin (NEGATIVE) Urine Urobilinogen (<1 E.U./dL) E.U./dL Ur Leukocyte Esterase (NEGATIVE) Alejandra/uL Urine RBC (0-2) /hpf Urine WBC (0-6) /hpf Ur Epithelial Cells (0-5) /hpf Other Crystals /hpf Amorphous Sediment Urine Bacteria (NEG) Coarse Granular Casts (0-2) /hpf Urine Other 07/27/17 07/27/17 07/27/17 Range/Units 19:16 18:53 15:57 WBC (4.5-11.0) 10^3/ul RBC (3.5-6.1) 10^6/uL Hgb (12.0-16.0) g/dL Hct (36.0-48.0) % MCV (80.0-105.0) fl MCH (25.0-35.0) pg MCHC (31.0-37.0) g/dl RDW (11.5-14.5) % Plt Count (120.0-450.0) 10^3/uL MPV (7.0-11.0) fl Gran % (50.0-68.0) % Lymph % (Auto) (22.0-35.0) % [place] % (Auto) (1.0-6.0) % Eos % (Auto) (1.5-5.0) % Baso % (Auto) (0.0-3.0) % Gran # (1.4-6.5) Lymph # (Auto) (1.2-3.4) [place] # (Auto) (0.1-0.6) Eos # (Auto) (0.0-0.7) Baso # (Auto) (0.0-2.0) K/mm3 PT (9.4-12.5) SECONDS INR (0.93-1.08) APTT (25.1-36.5) Seconds Sodium (132-148) mmol/L Potassium (3.6-5.0) mmol/L Chloride (98-107) mmol/L Carbon Dioxide (21-33) mmol/L Anion Gap (10-20) BUN (7-21) mg/dL Creatinine (0.7-1.2) mg/dl Est GFR ( Amer) Est GFR (Non-Af Amer) POC Glucose (mg/dL) 97 94 (65-110) mg/dL Random Glucose (70-110) mg/dL Calcium (8.4-10.5) mg/dL Magnesium (1.7-2.2) mg/dL Total Bilirubin (0.2-1.3) mg/dL AST (14-36) U/L ALT (7-56) U/L Alkaline Phosphatase (38-126) U/L Troponin I 0.05 D ng/mL Total Protein (5.8-8.3) g/dL Albumin (3.0-4.8) g/dL Globulin gm/dL Albumin/Globulin Ratio (1.1-1.8) Urine Color (YELLOW) Urine Appearance (CLEAR) Urine pH (4.7-8.0) Ur Specific [place] (1.005-1.035) Urine Protein (<30 mg/dL) mg/dL Urine Glucose (UA) (NEGATIVE) mg/dL Urine Ketones (NEGATIVE) mg/dL Urine Blood (NEGATIVE) Urine Nitrate (NEGATIVE) Urine Bilirubin (NEGATIVE) Urine Urobilinogen (<1 E.U./dL) E.U./dL Ur Leukocyte Esterase (NEGATIVE) Alejandra/uL Urine RBC (0-2) /hpf Urine WBC (0-6) /hpf Ur Epithelial Cells (0-5) /hpf Other Crystals /hpf Amorphous Sediment Urine Bacteria (NEG) Coarse Granular Casts (0-2) /hpf Urine Other 07/27/17 Range/Units 14:45 WBC (4.5-11.0) 10^3/ul RBC (3.5-6.1) 10^6/uL Hgb (12.0-16.0) g/dL Hct (36.0-48.0) % MCV (80.0-105.0) fl MCH (25.0-35.0) pg MCHC (31.0-37.0) g/dl RDW (11.5-14.5) % Plt Count (120.0-450.0) 10^3/uL MPV (7.0-11.0) fl Gran % (50.0-68.0) % Lymph % (Auto) (22.0-35.0) % [place] % (Auto) (1.0-6.0) % Eos % (Auto) (1.5-5.0) % Baso % (Auto) (0.0-3.0) % Gran # (1.4-6.5) Lymph # (Auto) (1.2-3.4) [place] # (Auto) (0.1-0.6) Eos # (Auto) (0.0-0.7) Baso # (Auto) (0.0-2.0) K/mm3 PT (9.4-12.5) SECONDS INR (0.93-1.08) APTT (25.1-36.5) Seconds Sodium (132-148) mmol/L Potassium (3.6-5.0) mmol/L Chloride (98-107) mmol/L Carbon Dioxide (21-33) mmol/L Anion Gap (10-20) BUN (7-21) mg/dL Creatinine (0.7-1.2) mg/dl Est GFR ( Amer) Est GFR (Non-Af Amer) POC Glucose (mg/dL) (65-110) mg/dL Random Glucose (70-110) mg/dL Calcium (8.4-10.5) mg/dL Magnesium (1.7-2.2) mg/dL Total Bilirubin (0.2-1.3) mg/dL AST (14-36) U/L ALT (7-56) U/L Alkaline Phosphatase (38-126) U/L Troponin I ng/mL Total Protein (5.8-8.3) g/dL Albumin (3.0-4.8) g/dL Globulin gm/dL Albumin/Globulin Ratio (1.1-1.8) Urine Color Dark yellow (YELLOW) Urine Appearance Clear (CLEAR) Urine pH 5.5 (4.7-8.0) Ur Specific Ross 1.025 (1.005-1.035) Urine Protein 100 H (<30 mg/dL) mg/dL Urine Glucose (UA) Negative (NEGATIVE) mg/dL Urine Ketones Negative (NEGATIVE) mg/dL Urine Blood Large H (NEGATIVE) Urine Nitrate Negative (NEGATIVE) Urine Bilirubin Negative (NEGATIVE) Urine Urobilinogen 0.2 (<1 E.U./dL) E.U./dL Ur Leukocyte Esterase Trace H (NEGATIVE) Alejandra/uL Urine RBC 25 - 30 (0-2) /hpf Urine WBC 5 - 10 (0-6) /hpf Ur Epithelial Cells 6 - 8 (0-5) /hpf Other Crystals /hpf Amorphous Sediment Moderate Urine Bacteria Many (NEG) Coarse Granular Casts Trace H (0-2) /hpf Urine Other Uyeast Laboratory Results - last 24 hr 07/27/17 07/27/17 07/27/17 14:45 15:57 18:53 WBC RBC Hgb Hct MCV MCH MCHC RDW Plt Count MPV Gran % Lymph % (Auto) [place] % (Auto) Eos % (Auto) Baso % (Auto) Gran # Lymph # (Auto) [place] # (Auto) Eos # (Auto) Baso # (Auto) PT INR APTT Sodium Potassium Chloride Carbon Dioxide Anion Gap BUN Creatinine Est GFR ( Amer) Est GFR (Non-Af Amer) POC Glucose (mg/dL) 94 Random Glucose Calcium Magnesium Total Bilirubin AST ALT Alkaline Phosphatase Troponin I 0.05 D Total Protein Albumin Globulin Albumin/Globulin Ratio Urine Color Dark yellow Urine Appearance Clear Urine pH 5.5 Ur Specific Ross 1.025 Urine Protein 100 H Urine Glucose (UA) Negative Urine Ketones Negative Urine Blood Large H Urine Nitrate Negative Urine Bilirubin Negative Urine Urobilinogen 0.2 Ur Leukocyte Esterase Trace H Urine RBC 25 - 30 Urine WBC 5 - 10 Ur Epithelial Cells 6 - 8 Other Crystals Amorphous Sediment Moderate Urine Bacteria Many Coarse Granular Casts Trace H Urine Other Uyeast 07/27/17 07/27/17 07/27/17 19:16 22:01 23:50 WBC RBC Hgb Hct MCV MCH MCHC RDW Plt Count MPV Gran % Lymph % (Auto) [place] % (Auto) Eos % (Auto) Baso % (Auto) Gran # Lymph # (Auto) [place] # (Auto) Eos # (Auto) Baso # (Auto) PT INR APTT Sodium Potassium Chloride Carbon Dioxide Anion Gap BUN Creatinine Est GFR ( Amer) Est GFR (Non-Af Amer) POC Glucose (mg/dL) 97 100 Random Glucose Calcium Magnesium Total Bilirubin AST ALT Alkaline Phosphatase Troponin I 0.05 Total Protein Albumin Globulin Albumin/Globulin Ratio Urine Color Urine Appearance Urine pH Ur Specific Ross Urine Protein Urine Glucose (UA) Urine Ketones Urine Blood Urine Nitrate Urine Bilirubin Urine Urobilinogen Ur Leukocyte Esterase Urine RBC Urine WBC Ur Epithelial Cells Other Crystals Amorphous Sediment Urine Bacteria Coarse Granular Casts Urine Other 07/28/17 07/28/17 07/28/17 03:46 06:30 06:30 WBC 9.8 RBC 2.94 L Hgb 9.2 L Hct 28.2 L MCV 95.9 MCH 31.3 MCHC 32.6 RDW 15.8 H Plt Count 137 MPV 10.9 Gran % 76.9 H Lymph % (Auto) 16.3 L [place] % (Auto) 5.8 Eos % (Auto) 0.9 L Baso % (Auto) 0.1 Gran # 7.50 H Lymph # (Auto) 1.6 [place] # (Auto) 0.6 Eos # (Auto) 0.1 Baso # (Auto) 0.01 PT INR APTT Sodium 140 Potassium 3.5 L Chloride 108 H Carbon Dioxide 25 Anion Gap 10 BUN 9 Creatinine 0.9 Est GFR ( Amer) > 60 Est GFR (Non-Af Amer) > 60 POC Glucose (mg/dL) 92 Random Glucose 90 Calcium 8.7 Magnesium Total Bilirubin 0.8 AST 38 H D ALT 26 Alkaline Phosphatase 87 Troponin I Total Protein 6.4 Albumin 3.4 Globulin 3.0 Albumin/Globulin Ratio 1.1 Urine Color Urine Appearance Urine pH Ur Specific Ross Urine Protein Urine Glucose (UA) Urine Ketones Urine Blood Urine Nitrate Urine Bilirubin Urine Urobilinogen Ur Leukocyte Esterase Urine RBC Urine WBC Ur Epithelial Cells Other Crystals Amorphous Sediment Urine Bacteria Coarse Granular Casts Urine Other 07/28/17 07/28/17 07/28/17 06:30 06:30 08:10 WBC RBC Hgb Hct MCV MCH MCHC RDW Plt Count MPV Gran % Lymph % (Auto) [place] % (Auto) Eos % (Auto) Baso % (Auto) Gran # Lymph # (Auto) [place] # (Auto) Eos # (Auto) Baso # (Auto) PT 11.0 INR 0.96 APTT 27.3 Sodium Potassium Chloride Carbon Dioxide Anion Gap BUN Creatinine Est GFR ( Amer) Est GFR (Non-Af Amer) POC Glucose (mg/dL) 93 Random Glucose Calcium Magnesium 1.5 L Total Bilirubin AST ALT Alkaline Phosphatase Troponin I Total Protein Albumin Globulin Albumin/Globulin Ratio Urine Color Urine Appearance Urine pH Ur Specific Ross Urine Protein Urine Glucose (UA) Urine Ketones Urine Blood Urine Nitrate Urine Bilirubin Urine Urobilinogen Ur Leukocyte Esterase Urine RBC Urine WBC Ur Epithelial Cells Other Crystals Amorphous Sediment Urine Bacteria Coarse Granular Casts Urine Other 07/28/17 11:39 WBC RBC Hgb Hct MCV MCH MCHC RDW Plt Count MPV Gran % Lymph % (Auto) [place] % (Auto) Eos % (Auto) Baso % (Auto) Gran # Lymph # (Auto) [place] # (Auto) Eos # (Auto) Baso # (Auto) PT INR APTT Sodium Potassium Chloride Carbon Dioxide Anion Gap BUN Creatinine Est GFR ( Amer) Est GFR (Non-Af Amer) POC Glucose (mg/dL) 121 H Random Glucose Calcium Magnesium Total Bilirubin AST ALT Alkaline Phosphatase Troponin I Total Protein Albumin Globulin Albumin/Globulin Ratio Urine Color Urine Appearance Urine pH Ur Specific [place] Urine Protein Urine Glucose (UA) Urine Ketones Urine Blood Urine Nitrate Urine Bilirubin Urine Urobilinogen Ur Leukocyte Esterase Urine RBC Urine WBC Ur Epithelial Cells Other Crystals Amorphous Sediment Urine Bacteria Coarse Granular Casts Urine Other EKG/Cardiology Studies: Cardiology / EKG Studies 07/27/17 18:37 EKG [ELECTROCARDIOGRAM] Stat Comment: Reason For Exam: chest pain Critical Care Progress Note - Nutrition Nutrition: Nutrition Category Date Time Status Dysphagia/Modified Consistency Diet [DIET] Diets 07/27/17 Dinner Ordered Attending/Attestation - Attestation I have personally seen and examined this patient.: Yes I have fully participated in the care of the patient.: Yes I have reviewed all pertinent clinical information: Yes Notes (Text): 07/28/17 12:19 62 yo female s/p cardiac arrest in the setting of severe LV systolic dysfunction and cocaine abuse, now on milrinone, pressors are weaned off. Patient is following commands and moving all extremities spontaneously. Extubated. comfortable. ccm time 40 min
[2017-07-27 07:23] LABS: ALBUMIN 3.2 g/dL (3.0-4.8); ALT/SGPT 25 U/L (7-56); AST/SGOT 58 U/L (14-36); BLOOD UREA NITROGEN 11 mg/dL (7-21); CALCIUM 8.1 mg/dL (8.4-10.5); GFR AFRICAN-AMERICAN > 60; GFR NON-AFRICAN AMERICAN 56
--- NOTE | 2017-07-27 08:29 | CP.PCM.PN ---
Subjective - Date & Time of Evaluation Date of Evaluation: 07/27/17 Time of Evaluation: 09:15 - Subjective Subjective: PGY2 Neuro Progress Note for Dr. Hall Patient seen and examined at bedside. Nursing reported overnight she tried to pull out ET tube and restraints had to be placed. This AM she is intubated off sedation and communicating with family at bedside. She nodded yes and no to questions on ROS and reported she was having some abdominal pain and a headache but denied any chest pain. She nodded yes when asked if she wanted the ET tube out. Complete ROS unobtainable. Objective - Vital Signs/Intake and Output Vital Signs (last 24 hours): Temp Pulse Resp BP Pulse Ox 97.7 F 83 23 123/77 100 07/27/17 04:00 07/27/17 06:20 07/26/17 07:50 07/27/17 06:15 07/27/17 06:20 Intake and Output: 07/27/17 07/27/17 06:59 18:59 Intake Total 1676.5 162 Output Total 340 Balance 1336.5 162 - Medications Medications: Current Medications Albuterol/Ipratropium (Duoneb 3 Mg/0.5 Mg (3 Ml) Ud) 3 ml IH Q2H PRN PRN Reason: Shortness of Breath Artificial Tears (Refresh Opth Soln) 0.3 ml OU Q4H PRN PRN Reason: Dry eyes Aspirin (Ecotrin) 81 mg PO DAILY [facility] Last Admin: 07/26/17 10:00 Dose: 81 mg Atorvastatin Calcium (Lipitor) 20 mg PO DIN [facility] Last Admin: 07/26/17 16:35 Dose: 20 mg Enoxaparin Sodium (Lovenox) 40 mg SC DAILY [facility] PRN Reason: Protocol Last Admin: 07/26/17 09:54 Dose: 40 mg Potassium Chloride/Dextrose (Potassium Chl 20 Meq In D5w) 1,000 mls @ 20 mls/ hr IV .Q24H [facility] Last Admin: 07/26/17 17:29 Dose: 20 mls/hr Propofol (Diprivan) 1,000 mg in 100 mls @ 1.649 mls/hr IV .Q24H PRN; Protocol; 5 MCG/KG/MIN PRN Reason: TITRATE PER MD ORDER Last Titration: 07/27/17 08:06 Dose: 0 mcg/kg/min, 0 mls/hr NOREPINEPHRINE BIT/0.9 % NACL (Levophed 4 Mg/ 250 Ml Ns Premixed) 4 mg in 250 mls @ 15 mls/hr IV .[id number] PRN; Protocol; 4 MCG/MIN PRN Reason: TITRATE PER MD ORDER Last Titration: 07/27/17 08:03 Dose: 5 mcg/min, 18.75 mls/hr Midazolam 100 mg/100ml in NS (Midazolam 100 Mg/100ml In Ns) 100 mg in 100 mls @ 1 mls/hr IV .Q24H PRN; Protocol; 1 MG/HR PRN Reason: Sedation Last Titration: 07/26/17 07:30 Dose: 2 mg/hr, 2 mls/hr Milrinone Lactate/Dextrose (Primacor 20mg/100ml D5w) 100 mls @ 5.443 mls/hr IV .[id number] PRN; Protocol; 0.33 MCG/KG/MIN PRN Reason: TITRATE PER MD ORDER Last Admin: 07/26/17 23:07 Dose: 0.33 mcg/kg/min, 5.443 mls/hr Meropenem 500 mg/ Sodium (Chloride) 50 mls @ 100 mls/hr IVPB Q12 [facility] PRN Reason: Protocol Stop: 07/29/17 22:01 Last Admin: 07/26/17 21:56 Dose: 100 mls/hr Insulin Human Regular (Humulin R Med) 0 units SC Q4H [facility] PRN Reason: Protocol Last Admin: 07/27/17 08:05 Dose: Not Given Ondansetron HCl (Zofran Inj) 4 mg IVP Q4H PRN PRN Reason: Nausea/Vomiting Pantoprazole Sodium (Protonix Inj) 40 mg IVP DAILY [facility] Last Admin: 07/26/17 09:54 Dose: 40 mg Potassium Chloride (K-Dur 20 Meq Er Tab) 40 meq PO BRK [facility] Last Admin: 07/26/17 08:00 Dose: 40 meq Thiamine HCl (Vitamin B1 Tab) 100 mg PO DAILY [facility] Last Admin: 07/26/17 11:33 Dose: 100 mg - Labs Labs: 07/27/17 06:00 07/27/17 06:00 PT 12.2 SECONDS (9.4-12.5) 07/27/17 06:00 INR 1.06 (0.93-1.08) 07/27/17 06:00 APTT 25.8 Seconds (25.1-36.5) 07/27/17 06:00 - Constitutional Appears: No Acute Distress - Head Exam Head Exam: ATRAUMATIC, NORMAL INSPECTION, NORMOCEPHALIC - Eye Exam Eye Exam: EOMI, Normal appearance, PERRL. absent: Conjunctival injection, Scleral icterus - ENT Exam ENT Exam: Mucous Membranes Dry Additional comments: ET tube in place - Respiratory Exam Additional comments: intubated on vent support - Cardiovascular Exam Cardiovascular Exam: +S1, +S2 - Extremities Exam Extremities Exam: Normal Inspection. absent: Pedal Edema, Tenderness Additional comments: SCDs in place - Neurological Exam Neurological Exam: Alert, Awake - Skin Skin Exam: Dry, Intact Assessment and Plan - Assessment and Plan (Free Text) Assessment: 62yo female PMHx CHF (EF on admission 16%), COPD, HTN and tobacco abuse presented to [facility] 07/25 with complaints of SOB originally admitted to TELE for CHF exacerbation later found to have cardiac arrest on TELE and admitted to ICU. Neuro consulted for possible anoxic brain injury s/p cardiac arrest Plan: -CT head: no acute findings -f/u EEG -f/u MRI brain -HoB above 30 -Aspiration precautions -maintain euthermia and normothermia -continue management as per ICU team and primary Discussed with Dr. Isabel Richard PGY2
--- NOTE | 2017-07-27 08:42 | RAD ---
HISTORY: intubated, f/u COMPARISON: 07/26/2017 FINDINGS: LUNGS: No active pulmonary disease. PLEURA: No significant pleural effusion identified, no pneumothorax apparent. CARDIOVASCULAR: Mild cardiomegaly OSSEOUS STRUCTURES: No significant abnormalities. VISUALIZED UPPER ABDOMEN: Normal. OTHER FINDINGS: Endotracheal and nasogastric tubes in satisfactory position IMPRESSION: No active disease. Decreased vascular congestion
--- NOTE | 2017-07-27 09:06 | CP.PCM.PN ---
<Danish Marte - Last Filed: 07/27/17 13:30> Subjective - Date & Time of Evaluation Date of Evaluation: 07/27/17 Time of Evaluation: 06:00 - Subjective Subjective: Patient seen and evaluated bedside. Patient was extubated. Patient alert, oriented but does not recall why she ended up in the ICU. No complaints, denies chest pain, shortness of breath, abdominal pain, nausea, vomiting, or any other complaints at this time. Patient breathing on her own on nasal canula. Objective - Vital Signs/Intake and Output Vital Signs (last 24 hours): Temp Pulse Resp BP Pulse Ox 97.7 F 83 23 123/77 100 07/27/17 04:00 07/27/17 06:20 07/26/17 07:50 07/27/17 06:15 07/27/17 06:20 Intake and Output: 07/27/17 07/27/17 06:59 18:59 Intake Total 1676.5 162 Output Total 340 Balance 1336.5 162 - Medications Medications: Current Medications Albuterol/Ipratropium (Duoneb 3 Mg/0.5 Mg (3 Ml) Ud) 3 ml IH Q2H PRN PRN Reason: Shortness of Breath Artificial Tears (Refresh Opth Soln) 0.3 ml OU Q4H PRN PRN Reason: Dry eyes Aspirin (Ecotrin) 81 mg PO DAILY [facility] Last Admin: 07/26/17 10:00 Dose: 81 mg Atorvastatin Calcium (Lipitor) 20 mg PO DIN [facility] Last Admin: 07/26/17 16:35 Dose: 20 mg Enoxaparin Sodium (Lovenox) 40 mg SC DAILY [facility] PRN Reason: Protocol Last Admin: 07/26/17 09:54 Dose: 40 mg Potassium Chloride/Dextrose (Potassium Chl 20 Meq In D5w) 1,000 mls @ 20 mls/ hr IV .Q24H [facility] Last Admin: 07/26/17 17:29 Dose: 20 mls/hr Propofol (Diprivan) 1,000 mg in 100 mls @ 1.649 mls/hr IV .Q24H PRN; Protocol; 5 MCG/KG/MIN PRN Reason: TITRATE PER MD ORDER Last Titration: 07/27/17 08:06 Dose: 0 mcg/kg/min, 0 mls/hr NOREPINEPHRINE BIT/0.9 % NACL (Levophed 4 Mg/ 250 Ml Ns Premixed) 4 mg in 250 mls @ 15 mls/hr IV .[id number] PRN; Protocol; 4 MCG/MIN PRN Reason: TITRATE PER MD ORDER Last Titration: 07/27/17 08:03 Dose: 5 mcg/min, 18.75 mls/hr Midazolam 100 mg/100ml in NS (Midazolam 100 Mg/100ml In Ns) 100 mg in 100 mls @ 1 mls/hr IV .Q24H PRN; Protocol; 1 MG/HR PRN Reason: Sedation Last Titration: 07/26/17 07:30 Dose: 2 mg/hr, 2 mls/hr Milrinone Lactate/Dextrose (Primacor 20mg/100ml D5w) 100 mls @ 5.443 mls/hr IV .[id number] PRN; Protocol; 0.33 MCG/KG/MIN PRN Reason: TITRATE PER MD ORDER Last Admin: 07/26/17 23:07 Dose: 0.33 mcg/kg/min, 5.443 mls/hr Meropenem 500 mg/ Sodium (Chloride) 50 mls @ 100 mls/hr IVPB Q12 [facility] PRN Reason: Protocol Stop: 07/29/17 22:01 Last Admin: 07/26/17 21:56 Dose: 100 mls/hr Insulin Human Regular (Humulin R Med) 0 units SC Q4H [facility] PRN Reason: Protocol Last Admin: 07/27/17 08:05 Dose: Not Given Ondansetron HCl (Zofran Inj) 4 mg IVP Q4H PRN PRN Reason: Nausea/Vomiting Pantoprazole Sodium (Protonix Inj) 40 mg IVP DAILY [facility] Last Admin: 07/26/17 09:54 Dose: 40 mg Potassium Chloride (K-Dur 20 Meq Er Tab) 40 meq PO BRK [facility] Last Admin: 07/26/17 08:00 Dose: 40 meq Thiamine HCl (Vitamin B1 Tab) 100 mg PO DAILY [facility] Last Admin: 07/26/17 11:33 Dose: 100 mg - Labs Labs: 07/27/17 06:00 07/27/17 06:00 PT 12.2 SECONDS (9.4-12.5) 07/27/17 06:00 INR 1.06 (0.93-1.08) 07/27/17 06:00 APTT 25.8 Seconds (25.1-36.5) 07/27/17 06:00 - Constitutional Appears: Non-toxic, No Acute Distress - Head Exam Head Exam: ATRAUMATIC, NORMAL INSPECTION, NORMOCEPHALIC - Eye Exam Eye Exam: EOMI, Normal appearance, PERRL - ENT Exam ENT Exam: Mucous Membranes Moist - Respiratory Exam Respiratory Exam: Rales, NORMAL BREATHING PATTERN - Cardiovascular Exam Cardiovascular Exam: REGULAR RHYTHM, +S1, +S2 - GI/Abdominal Exam GI & Abdominal Exam: Soft. absent: Tenderness - Extremities Exam Extremities Exam: absent: Pedal Edema, Tenderness - Neurological Exam Neurological Exam: Alert, Awake, Oriented x3 Assessment and Plan - Assessment and Plan (Free Text) Assessment: 62 year old female with a past medical history significant for CHF (last EF 27% , 04/15), COPD, HTN and tobacco abuse who presented with shortness of breath for the past four days with intermittent cough productive of clear sputum. Patient noted to have elevated BNP and hypokalemia. She was being treated for CHF exacerbation when she went into cardiac arrest, mariela garcia was called, patient had ROSC and is now in the ICU and was intubated. Extubated today and now on 3L Nasal canula. Plan: 1. Cardiac Arrest s/p shock and ROSC -patient extubated earlier today -sedation DC -milrinone drip -daily chest xray -chext xray showing improved congestion -cardio consulted, follow recs -Neuro consulted follow recs -CT head negative, possible MRI -EEG pending read 2. CHF exacerbation secondary to medical non compliance -Last Echo 03/2016 reviewed with LVEF of 27% -initial Chest X-Ray showed diffuse PVC with perihilar and mid to lower lung zone pulmonary edema -Continue home ASA -Cardiology consulted, all recommendations appreciated 3. History of COPD/Asthma -3L Nasal canula -on vent currently 4. Normocytic Anemia -Irom: 87 TIBC: 253 %saturation: 34 -peripheral smear pending -Continue to monitor with daily CBC's 5. Hypokalemia -K 3.5 -Replenished -Monitor with daily CMP's 6. History of HTN -Continue home Lisinopril -Chol 259, LDL 110 7. CRISTÓBAL -secondary from cardiac arrest -Cr 1.0, improving 8. Leukocytosis -likely reactive -meropenem for abx covergae -ID consulted, follow recs GI Prophylaxis: Protonix DVT Prophylaxis: Lovenox NG tube in place <Alba Torrez - Last Filed: 07/27/17 16:44> Objective - Vital Signs/Intake and Output Vital Signs (last 24 hours): Temp Pulse Resp BP Pulse Ox 97.7 F 99 H 34 H 142/88 99 07/27/17 04:00 07/27/17 16:10 07/27/17 16:10 07/27/17 16:01 07/27/17 16:10 Intake and Output: 07/27/17 07/27/17 06:59 18:59 Intake Total 1676.5 222 Output Total 340 Balance 1336.5 222 - Medications Medications: Current Medications Albuterol/Ipratropium (Duoneb 3 Mg/0.5 Mg (3 Ml) Ud) 3 ml IH Q2H PRN PRN Reason: Shortness of Breath Artificial Tears (Refresh Opth Soln) 0.3 ml OU Q4H PRN PRN Reason: Dry eyes Aspirin (Ecotrin) 81 mg PO DAILY [facility] Last Admin: 07/27/17 12:07 Dose: Not Given Atorvastatin Calcium (Lipitor) 20 mg PO DIN [facility] Last Admin: 07/26/17 16:35 Dose: 20 mg Enoxaparin Sodium (Lovenox) 40 mg SC DAILY [facility] PRN Reason: Protocol Last Admin: 07/27/17 12:16 Dose: 40 mg Potassium Chloride/Dextrose (Potassium Chl 20 Meq In D5w) 1,000 mls @ 20 mls/ hr IV .Q24H [facility] Last Admin: 07/26/17 17:29 Dose: 20 mls/hr Milrinone Lactate/Dextrose (Primacor 20mg/100ml D5w) 100 mls @ 5.443 mls/hr IV .[id number] PRN; Protocol; 0.33 MCG/KG/MIN PRN Reason: TITRATE PER MD ORDER Last Admin: 07/26/17 23:07 Dose: 0.33 mcg/kg/min, 5.443 mls/hr Meropenem 500 mg/ Sodium (Chloride) 50 mls @ 100 mls/hr IVPB Q12 [facility] PRN Reason: Protocol Stop: 07/29/17 22:01 Last Admin: 07/27/17 12:16 Dose: 100 mls/hr Insulin Human Regular (Humulin R Med) 0 units SC Q4H [facility] PRN Reason: Protocol Last Admin: 07/27/17 16:08 Dose: Not Given Ondansetron HCl (Zofran Inj) 4 mg IVP Q4H PRN PRN Reason: Nausea/Vomiting Pantoprazole Sodium (Protonix Inj) 40 mg IVP DAILY [facility] Last Admin: 07/27/17 12:16 Dose: 40 mg Thiamine HCl (Vitamin B1 Tab) 100 mg PO DAILY [facility] Last Admin: 07/27/17 12:12 Dose: Not Given - Labs Labs: 07/27/17 06:00 07/27/17 06:00 PT 12.2 SECONDS (9.4-12.5) 07/27/17 06:00 INR 1.06 (0.93-1.08) 07/27/17 06:00 APTT 25.8 Seconds (25.1-36.5) 07/27/17 06:00 Attending/Attestation - Attestation I have personally seen and examined this patient.: Yes I have fully participated in the care of the patient.: Yes I have reviewed all pertinent clinical information, including history, physical exam and plan: Yes Notes (Text): 07/27/17 16:39 Medical record note made by the resident after discussion with my direction and input after the patient was personally seen and examined by me. I have reviewed the chart and agree that the record accurately reflects by personal performance of the history, physical exam, data review, and medical decision-making, in the course for the patient. I have also personally directed the plan of care. 62 year old female with a past medical history significant for CHF (last EF 27% , 04/15), COPD, HTN ,chronic smoking, alcohol and drug abuse, non compliance with her medications was admitted with acute on chronic systolic CHF exacerbation, responded well to initial IV lasix, later had VF cardiac arrest and was coded as per ACLS protocol.Patient was intubated and transferred to ICU.Today Patient was eventually extubated, currently on nasal cannula, mildly dyspnic, on Milrinone drip as per cardiology.Blood pressure is better, off pressor. Management plan was discussed in detail with patient and family. Education was provided. Prognosis is guarded. 07/27/17 16:42
[2017-07-27] MEDS: Potassium Chloride 20 mEq ER Tab PO SCH (12:06)
[2017-07-27] MEDS: Enoxaparin 40 mg Syringe SC SCH (12:16)
[2017-07-27] MEDS: Meropenem 500 MG in Sodium Chloride 0.9% 50 ML IVPB SCH ×2 (12:16→21:12)
--- NOTE | 2017-07-27 14:23 | PN ---
DATE: 07/27/2017 SUBJECTIVE: The patient is still on the ventilator, no reported ventricular tachycardia. PHYSICAL EXAMINATION: VITAL SIGNS: Blood pressure 123/77, heart rate 83, temperature 97.7. HEENT: Pale conjunctivae. CHEST: Bilateral rhonchi. HEART: S1 and S2 regular. EXTREMITIES: No edema. LABORATORY DATA: SMA-7: Sodium 139, potassium 3.5, chloride 108, CO2 of 24, glucose 107, BUN 11, creatinine 1, magnesium is within normal limits at 1.8. Hemoglobin and hematocrit 9.5 and 29.1, white count 11.4, platelet count 143,000. PT, PTT, INR within normal limits. Today's chest x-ray revealed mild cardiomegaly with mild CHF. ASSESSMENT: 1. Status post cardiac arrest, ventricular fibrillation as initial event. 2. In-hospital cocaine and cannabinoid abuse. 3. Cardiomyopathy. 4. Hypokalemia. RECOMMENDATIONS: Continue current subcutaneous Lovenox at 40 mg once a day, Lipitor 20 mg once a day, K-Dur 40 mEq daily via nasogastric tube, aspirin 81 mg once a day, and thiamine 100 mg once a day. Jerome Mtz MD
--- NOTE | 2017-07-27 15:58 | MRI ---
PROCEDURE: MRI BRAIN WITHOUT CONTRAST HISTORY: s/p cardiac arrest, assess for anoxic injury COMPARISON: None. TECHNIQUE: Multiplanar, multisequence MR images of the brain were obtained without intravenous contrast enhancement. FINDINGS: HEMORRHAGE: None DWI: No evidence of an acute or early subacute infarction. BRAIN PARENCHYMA: No mass effect or edema. Chronic microvascular changes are seen in the deep white matter. No acute infarct or hemorrhage VENTRICLES: Unremarkable. No hydrocephalus. CRANIUM: Unremarkable. ORBITS: Grossly unremarkable. PARANASAL SINUSES/MASTOIDS: Clear VASCULAR SYSTEM: Skull base flow voids intact. OTHER FINDINGS: None. IMPRESSION: No acute intracranial findings
[2017-07-27 16:43] LABS: PH,URINE 5.5 (4.7-8.0); URINE BILIRUBIN NEGATIVE (NEGATIVE); URINE BLOOD LARGE (NEGATIVE); URINE GLUCOSE (UA) NEGATIVE (NEGATIVE); URINE LEUKOCYTE ESTERASE TRACE Leu/uL (NEGATIVE); URINE PROTEIN 100 mg/dL (<30 mg/dL); URINE UROBILINOGEN 0.2 E.U./dL (<1 E.U./dL)
[2017-07-27 16:46] LABS: URINE APPEARANCE CLEAR (CLEAR); URINE COLOR DARK YELLOW (YELLOW)
[2017-07-27 17:08] LABS: URINE RBC 25 - 30 /hpf (0-2)
[2017-07-27 17:09] LABS: URINE BACTERIA MANY (NEG)
[2017-07-27 17:15] LABS: URINE AMORPHOUS SEDIMENT MODERATE
[2017-07-27 17:16] LABS: URINE COARSE GRANULAR CAST TRACE /hpf (0-2)
[2017-07-27] MEDS: Potassium Chl 20mEq & D5W 1,000 ML IV SCH (17:46)
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
[2017-07-27] MEDS: Nitroglycerin 2% Ointment Foilpak UD TOP SCH (22:07)
--- NOTE | 2017-07-27 22:26 | CARD ---
APPROVED REPORT EKG Measurement Heart [id number] [place] [id number] <Conclusion> Normal sinus rhythm Voltage criteria for left ventricular hypertrophy Nonspecific T wave abnormality Prolonged QT Abnormal ECG
[2017-07-28] MEDS: Insulin Reg-MEDIUM-Coverage SC SCH ×6 (03:30→22:35)
[2017-07-28] MEDS: Milrinone 20mg/100ml D5W 100 ML IV PRN ×2 (05:41→22:17)
[2017-07-28 07:13] LABS: BASO # 0.01 K/mm3 (0.0-2.0); BASO % 0.1 % (0.0-3.0); EOS # 0.1 (0.0-0.7); EOS % 0.9 % (1.5-5.0); GRAN # 7.5 (1.4-6.5); GRAN % 76.9 % (50.0-68.0); HEMOGLOBIN 9.2 g/dL (12.0-16.0); LYMPH # 1.6 (1.2-3.4); LYMPH % 16.3 % (22.0-35.0); MEAN CELL VOLUME 95.9 fl (80.0-105.0); MEAN CORPUSCULAR HEMOGLOBIN 31.3 pg (25.0-35.0); MEAN CORPUSCULAR HGB CONC 32.6 g/dl (31.0-37.0); MEAN PLATELET VOLUME 10.9 fl (7.0-11.0); MONO # 0.6 (0.1-0.6); MONO % 5.8 % (1.0-6.0); RBC 2.94 10^6/uL (3.5-6.1); RED CELL DISTRIBUTION WIDTH 15.8 % (11.5-14.5); WHITE BLOOD COUNT 9.8 10^3/ul (4.5-11.0)
[2017-07-28 07:25] LABS: INR 0.96 (0.93-1.08); PARTIAL THROMBOPLASTIN TIME 27.3 Seconds (25.1-36.5)
[2017-07-28 07:54] LABS: ALB/GLOB RATIO 1.1 (1.1-1.8); ALBUMIN 3.4 g/dL (3.0-4.8); ALT/SGPT 26 U/L (7-56); AST/SGOT 38 U/L (14-36); BLOOD UREA NITROGEN 9 mg/dL (7-21); CALCIUM 8.7 mg/dL (8.4-10.5); GFR AFRICAN-AMERICAN > 60; GFR NON-AFRICAN AMERICAN > 60
--- NOTE | 2017-07-28 08:11 | CON ---
DATE: 07/26/2017 ELECTROPHYSIOLOGY CONSULTATION REASON FOR EVALUATION: 1. Dilated cardiomyopathy. 2. History of VF arrest. 3. Systolic heart failure. REFERRING PHYSICIAN: Jerome Mtz MD HISTORY OF PRESENT ILLNESS: Ms. Loren Bruno is a 62-year-old -Israeli female with past medical history significant for hypertension, dilated cardiomyopathy, systolic heart failure, hypertensive heart disease, COPD, tobacco and substance abuse history, who presented to [facility] with worsening shortness of breath which did not respond to her p.r.n. albuterol inhaler. In addition, patient had worsening orthopnea. Patient has been noncompliant with medication secondary to insurance coverage issues. She denies initially any recent travel or contact with anybody with acute illnesses. No visual disturbances, sore throat, dysphagia, the aforementioned shortness of breath, her extremity edema, intermittent cough but now productive of green and yellow sputum, hemoptysis, abdominal pain, nausea, vomiting, diarrhea, constipation or urinary complaints. During the course of her evaluation, patient became unresponsive. Patient was felt to have no pulse, code blue was called. ACLS was protocolled and started. Upon assessment of heart rhythm, patient had appeared to be in ventricular fibrillation, subsequently shocked with resumption of spontaneous circulation. Patient underwent triple lumen insertion, second round of ACLS was required when pulse lost again, and again patient had circulation restored. The patient was intubated and brought to the ICU for further evaluation and management. I have been asked to see her in regards to the long-standing cardiomyopathy with severe LV dysfunction dating back to 03/2016. Patient is currently intubated and sedated. The sister is at the bedside. She remains stable on ventilatory support, on propofol drip, amiodarone drip as well as milrinone. At this point, appears poorly responsive. Patient did have leukocytosis as well. PAST MEDICAL HISTORY: Significant for systolic heart failure, hypertensive cardiomyopathy, congestive heart failure, COPD, alcohol and substance abuse. PAST SURGICAL HISTORY: Patient had exploratory laparotomy approximately 30 years ago. ALLERGIES: NO KNOWN DRUG ALLERGIES. SOCIAL HISTORY: Patient is a chronic smoker with currently half-pack per day use. Social EtOH. Social marijuana use. Interestingly with urinary drug screen, patient did have positive UDS for marijuana. LABORATORY DATA: EKG which was dated 07/25/2017 at 2:56 a.m. shows left atrial abnormality, LA interval is 151 milliseconds which is a little bit on the shorter side. There is some slurring of the R-wave without any dyllan evidence of pre-excitation. QT does appear quite prolonged at 647, with the computer measurements being 568 and 647 respectively. On review of telemetry with the index event, patient appeared to be in normal sinus rhythm, which then appeared to be a PAC x2, followed by a PVC which leads to an unstable ventricular tachycardia, which eventually degenerates into ventricular fibrillation followed by therapy. Echocardiogram which was done on 07/25/2017 shows the left ventricle is mildly dilated with normal LV thickness; LV systolic function, however, is severely impaired. There is global hypokinesis of left ventricle. No evidence of left ventricular thrombus. Mitral regurgitation is severe. LVEF is measured to be 16%. PHYSICAL EXAMINATION: GENERAL: Patient is a somewhat ill-appearing, -Israeli female, in no acute distress, intubated and sedated. HEENT: Examination of her head is normocephalic and atraumatic. There is no dyllan facial asymmetry. CHEST: Clear to auscultation in the upper zones. Small crackles are present in the lower zone. CARDIOVASCULAR: Regular rate and rhythm. S1 and S2. There is a 2/6 holosystolic murmur heard best at the left sternal border. ABDOMEN: Soft, nontender, nondistended. Positive for bowel sounds. EXTREMITIES: No cyanosis, clubbing or edema. ASSESSMENT AND PLAN: 1. Dilated cardiomyopathy, likely on the basis of hypertensive cardiomyopathy. Patient does have and has had a depressed ejection fraction, initially 27% as per prior documentation in 2017, currently 16%. Patient did have a ventricular fibrillation arrest in hospital, unclear what her neurological sequela would be. Continue current supportive efforts. Await final neurologic status prior to deciding whether or not she would be a candidate for a defibrillator for secondary prevention. I have discussed this in detail with the ICU team as well. 2. Ventricular fibrillation arrest. Await final neurologic status prior to making any further decisions from an electrophysiologic standpoint. In the interim, would continue following EKG's closely, monitoring the QT, QTc. Patient's initial electrolyte status was notable for hypokalemia and magnesium level was also 1.8 and would try keeping that above 2 would likely be beneficial. 3. Systolic heart failure. We will continue current medical therapy patient will need long-term cardiac care. 4. Mitral regurgitation, at this point appears to be severe. Patient may require an ischemic workup if not done previously. Severity of mitral regurgitation is somewhat discordant with reported normal cavity size of left ventricle. Further management as per Dr. Mtz. Thank you for allowing me to participate in the care of your patient. Please do not hesitate to call for any questions with regards to her care. Salvador Montgomery MD cc: MD Alba Trimble MD MTDD
[2017-07-28] MEDS ORDERED: Potassium Chloride 10 mEq ER Tab PO STA (08:17)
--- NOTE | 2017-07-28 08:45 | RAD ---
HISTORY: intubated, f/u COMPARISON: 07/27/2017 FINDINGS: LUNGS: No active pulmonary disease. PLEURA: No significant pleural effusion identified, no pneumothorax apparent. CARDIOVASCULAR: No radiographic findings to suggest acute or significant cardiovascular disease. OSSEOUS STRUCTURES: No significant abnormalities. VISUALIZED UPPER ABDOMEN: Normal. OTHER FINDINGS: Removal of support apparatus since the prior study: Endotracheal tube and nasogastric tube. IMPRESSION: No active pulmonary disease.
[2017-07-28] MEDS: Nitroglycerin 2% Ointment Foilpak UD TOP SCH ×4 (10:16→22:22)
[2017-07-28] MEDS: Meropenem 500 MG in Sodium Chloride 0.9% 50 ML IVPB SCH ×2 (10:16→22:21)
[2017-07-28] MEDS: Pantoprazole 40 mg EC Tab PO SCH (10:17)
[2017-07-28] MEDS: Enoxaparin 40 mg Syringe SC SCH (10:17)
[2017-07-28] MEDS: Phenol Topical 1.4% Throat Spray (180 ml) MT PRN (10:17)
--- NOTE | 2017-07-28 10:21 | CP.PCM.PN ---
Subjective - Date & Time of Evaluation Date of Evaluation: 07/28/17 Time of Evaluation: 08:45 - Subjective Subjective: PGY2 Neuro Progress note for Dr. Hall Patient seen and examined at beside. Nursing reported overnight patient was confused and pulled out her [place]. She is in 2 point wrist restraints this AM. She is confused and only oriented to self. Denied acute complaints of headache, chest pain, SOB, and abd pain. Complete ROS unobtainable secondary to patient condition. Objective - Vital Signs/Intake and Output Vital Signs (last 24 hours): Temp Pulse Resp BP Pulse Ox 98 F 94 H 40 H 151/89 H 98 07/28/17 00:01 07/28/17 06:50 07/28/17 06:40 07/28/17 10:19 07/28/17 06:50 Intake and Output: 07/28/17 07/28/17 06:59 18:59 Intake Total 662 Output Total 350 Balance 312 - Medications Medications: Current Medications Albuterol/Ipratropium (Duoneb 3 Mg/0.5 Mg (3 Ml) Ud) 3 ml IH Q2H PRN PRN Reason: Shortness of Breath Artificial Tears (Refresh Opth Soln) 0.3 ml OU Q4H PRN PRN Reason: Dry eyes Aspirin (Ecotrin) 81 mg PO DAILY [facility] Last Admin: 07/28/17 10:16 Dose: 81 mg Atorvastatin Calcium (Lipitor) 20 mg PO DIN [facility] Last Admin: 07/27/17 17:46 Dose: Not Given Enoxaparin Sodium (Lovenox) 40 mg SC DAILY [facility] PRN Reason: Protocol Last Admin: 07/28/17 10:17 Dose: 40 mg Folic Acid (Folic Acid) 1 mg PO DAILY [facility] Last Admin: 07/28/17 10:19 Dose: 1 mg Furosemide (Lasix) 20 mg IVP Q12 [facility] Last Admin: 07/28/17 10:19 Dose: 20 mg Potassium Chloride/Dextrose (Potassium Chl 20 Meq In D5w) 1,000 mls @ 20 mls/ hr IV .Q24H [facility] Last Admin: 07/27/17 17:46 Dose: 20 mls/hr Milrinone Lactate/Dextrose (Primacor 20mg/100ml D5w) 100 mls @ 5.443 mls/hr IV .[id number] PRN; Protocol; 0.33 MCG/KG/MIN PRN Reason: TITRATE PER MD ORDER Last Admin: 07/28/17 05:41 Dose: 0.33 mcg/kg/min, 5.443 mls/hr Meropenem 500 mg/ Sodium (Chloride) 50 mls @ 100 mls/hr IVPB Q12 [facility] PRN Reason: Protocol Stop: 07/29/17 22:01 Last Admin: 07/28/17 10:16 Dose: 100 mls/hr Potassium Chloride (Potassium Chloride 20 Meq/100 Ml) 20 meq in 100 mls @ 50 mls/hr IVPB Q2H [facility] Stop: 07/28/17 12:44 Last Admin: 07/28/17 08:49 Dose: 50 mls/hr Insulin Human Regular (Humulin R Med) 0 units SC Q4H [facility] PRN Reason: Protocol Last Admin: 07/28/17 08:40 Dose: Not Given Multivitamins/Minerals (Therapeutic-M Tab) 1 tab PO 0800 [facility] Nitroglycerin (Nitro-Bid 2% Oint) 1 ea TOP QID [facility] Last Admin: 07/28/17 10:16 Dose: 1 ea Pantoprazole Sodium (Protonix Ec Tab) 40 mg PO DAILY [facility] Last Admin: 07/28/17 10:17 Dose: 40 mg Phenol/Menthol (Phenaseptic 1.4% Throat [place]) 0 ml MT Q2H PRN PRN Reason: tongue sore Last Admin: 07/28/17 10:17 Dose: 1 spr Thiamine HCl (Vitamin B1 Tab) 100 mg PO DAILY [facility] Last Admin: 07/28/17 10:17 Dose: 100 mg - Labs Labs: 07/28/17 06:30 07/28/17 06:30 PT 11.0 SECONDS (9.4-12.5) 07/28/17 06:30 INR 0.96 (0.93-1.08) 07/28/17 06:30 APTT 27.3 Seconds (25.1-36.5) 07/28/17 06:30 - Constitutional Appears: No Acute Distress - Head Exam Head Exam: ATRAUMATIC, NORMAL INSPECTION, NORMOCEPHALIC - Eye Exam Eye Exam: Normal appearance. absent: Conjunctival injection, Scleral icterus - ENT Exam ENT Exam: Mucous Membranes Moist - Neck Exam Neck Exam: Full ROM - Respiratory Exam Respiratory Exam: NORMAL BREATHING PATTERN. absent: Accessory Muscle Use, Respiratory Distress - Cardiovascular Exam Cardiovascular Exam: +S1, +S2 - Extremities Exam Extremities Exam: Normal Capillary Refill, Normal Inspection. absent: Pedal Edema - Neurological Exam Neurological Exam: Alert, Altered, Awake. absent: Oriented x3 - Psychiatric Exam Psychiatric exam: Flat Affect - Skin Skin Exam: Dry, Intact, Normal Color, Warm Assessment and Plan - Assessment and Plan (Free Text) Assessment: 62yo female PMHx CHF (EF on admission 16%), COPD, HTN and tobacco abuse [place] [facility] [place] with complaints of SOB originally admitted to TELE for CHF exacerbation later found to have cardiac arrest on TELE and admitted to ICU. Neuro consulted for possible anoxic brain injury s/p cardiac arrest Plan: -CT head: no acute findings -f/u EEG -MRI brain: unremarkable -HoB above 30 -Aspiration precautions -maintain euthermia and normothermia -continue management as per primary Neurology will sign off at this time. Please reconsult as needed. Discussed with Dr. Isabel Richard PGY2
--- NOTE | 2017-07-28 11:57 | CP.PCM.PN ---
<Danish Marte - Last Filed: 07/28/17 14:24> Subjective - Date & Time of Evaluation Date of Evaluation: 07/28/17 Time of Evaluation: 06:22 - Subjective Subjective: Patient seen and evaluated bedside. Overnight she was slightly anxious and pulling on IV, had restraints put on and ativan given. She says she is doing well this morning and does not remember why she was in the ICU. Patient complains of chest tenderness, likely from CPR. Denies SOB, fever, abdominal pain, nausea, vomiting or any other complaints at this time. Objective - Vital Signs/Intake and Output Vital Signs (last 24 hours): Temp Pulse Resp BP Pulse Ox 98 F 121 H 17 168/97 H 96 07/28/17 00:01 07/28/17 11:19 07/28/17 11:00 07/28/17 11:16 07/28/17 11:00 Intake and Output: 07/28/17 07/28/17 06:59 18:59 Intake Total 662 354 Output Total 350 250 Balance 312 104 - Medications Medications: Current Medications Albuterol/Ipratropium (Duoneb 3 Mg/0.5 Mg (3 Ml) Ud) 3 ml IH Q2H PRN PRN Reason: Shortness of Breath Artificial Tears (Refresh Opth Soln) 0.3 ml OU Q4H PRN PRN Reason: Dry eyes Aspirin (Ecotrin) 81 mg PO DAILY [facility] Last Admin: 07/28/17 11:09 Dose: Not Given Atorvastatin Calcium (Lipitor) 20 mg PO DIN [facility] Last Admin: 07/27/17 17:46 Dose: Not Given Enoxaparin Sodium (Lovenox) 40 mg SC DAILY [facility] PRN Reason: Protocol Last Admin: 07/28/17 10:17 Dose: 40 mg Folic Acid (Folic Acid) 1 mg PO DAILY [facility] Last Admin: 07/28/17 10:19 Dose: 1 mg Furosemide (Lasix) 20 mg IVP Q12 [facility] Last Admin: 07/28/17 10:19 Dose: 20 mg Potassium Chloride/Dextrose (Potassium Chl 20 Meq In D5w) 1,000 mls @ 20 mls/ hr IV .Q24H [facility] Last Admin: 07/27/17 17:46 Dose: 20 mls/hr Milrinone Lactate/Dextrose (Primacor 20mg/100ml D5w) 100 mls @ 5.443 mls/hr IV .[id number] PRN; Protocol; 0.33 MCG/KG/MIN PRN Reason: TITRATE PER MD ORDER Last Admin: 07/28/17 05:41 Dose: 0.33 mcg/kg/min, 5.443 mls/hr Meropenem 500 mg/ Sodium (Chloride) 50 mls @ 100 mls/hr IVPB Q12 [facility] PRN Reason: Protocol Stop: 07/29/17 22:01 Last Admin: 07/28/17 10:16 Dose: 100 mls/hr Potassium Chloride (Potassium Chloride 20 Meq/100 Ml) 20 meq in 100 mls @ 50 mls/hr IVPB Q2H [facility] Stop: 07/28/17 12:44 Last Admin: 07/28/17 11:15 Dose: Not Given Insulin Human Regular (Humulin R Med) 0 units SC Q4H [facility] PRN Reason: Protocol Last Admin: 07/28/17 11:43 Dose: Not Given Lisinopril (Zestril) 10 mg PO DAILY [facility] Last Admin: 07/28/17 11:16 Dose: 10 mg Multivitamins/Minerals (Therapeutic-M Tab) 1 tab PO 0800 [facility] Nitroglycerin (Nitro-Bid 2% Oint) 1 ea TOP QID [facility] Last Admin: 07/28/17 10:16 Dose: 1 ea Pantoprazole Sodium (Protonix Ec Tab) 40 mg PO DAILY [facility] Last Admin: 07/28/17 10:17 Dose: 40 mg Phenol/Menthol (Phenaseptic 1.4% Throat [place]) 0 ml MT Q2H PRN PRN Reason: tongue sore Last Admin: 07/28/17 10:17 Dose: 1 spr Ramipril (Altace) 2.5 mg PO DAILY [facility] Last Admin: 07/28/17 11:07 Dose: 2.5 mg Thiamine HCl (Vitamin B1 Tab) 100 mg PO DAILY [facility] Last Admin: 07/28/17 10:17 Dose: 100 mg - Labs Labs: 07/28/17 06:30 07/28/17 06:30 PT 11.0 SECONDS (9.4-12.5) 07/28/17 06:30 INR 0.96 (0.93-1.08) 07/28/17 06:30 APTT 27.3 Seconds (25.1-36.5) 07/28/17 06:30 - Constitutional Appears: No Acute Distress - Head Exam Head Exam: ATRAUMATIC, NORMAL INSPECTION, NORMOCEPHALIC - Eye Exam Eye Exam: EOMI, Normal appearance, PERRL - ENT Exam ENT Exam: Mucous Membranes Moist - Respiratory Exam Respiratory Exam: Rales, NORMAL BREATHING PATTERN - Cardiovascular Exam Cardiovascular Exam: REGULAR RHYTHM, +S1, +S2 - GI/Abdominal Exam GI & Abdominal Exam: Soft. absent: Tenderness - Neurological Exam Neurological Exam: Alert, Awake. absent: Oriented x3 Assessment and Plan - Assessment and Plan (Free Text) Assessment: 62 year old female with a past medical history significant for CHF (last EF 27% , 04/15), COPD, HTN and tobacco abuse who presented with shortness of breath for the past four days with intermittent cough productive of clear sputum. Patient noted to have elevated BNP and hypokalemia. She was being treated for CHF exacerbation when she went into cardiac arrest, mariela garcia was called, patient had ROSC and is now in the ICU and was intubated, subsequently extubated and now downgraded to telemetry. Plan: 1. Cardiac Arrest s/p shock and ROSC -downgraded to telemetry -milrinone drip -lisinopril 10mg -chext xray showing improved congestion -cardio consulted, follow recs -Neuro consulted follow recs -CT head negative, MRI negative -EEG pending read -patient oriented to person, time, but not place 2. CHF exacerbation secondary to medical non compliance -Last Echo 03/2016 reviewed with LVEF of 27% -Lasix 20mg IV BID -Continue home ASA -Cardiology consulted, all recommendations appreciated 3. History of COPD/Asthma -continue to monitor respiratory status 4. Normocytic Anemia -Irom: 87 TIBC: 253 %saturation: 34 -peripheral smear pending -Continue to monitor with daily CBC's 5. Hypokalemia -K 3.5 -Replenished -Monitor with daily CMP's 6. History of HTN -lisinopril 7. CRISTÓBAL -secondary from cardiac arrest -Cr .9, improving 8. Leukocytosis-resolved -likely reactive -meropenem for abx covergae -ID consulted, follow recs GI Prophylaxis: Protonix DVT Prophylaxis: Lovenox Diet: <Alba Torrez - Last Filed: 07/28/17 15:59> Objective - Vital Signs/Intake and Output Vital Signs (last 24 hours): Temp Pulse Resp BP Pulse Ox 98 F 97 H 17 168/97 H 96 07/28/17 00:01 07/28/17 14:00 07/28/17 11:00 07/28/17 11:16 07/28/17 11:00 Intake and Output: 07/28/17 07/28/17 06:59 18:59 Intake Total 662 474 Output Total 350 1150 Balance 312 -676 - Medications Medications: Current Medications Albuterol/Ipratropium (Duoneb 3 Mg/0.5 Mg (3 Ml) Ud) 3 ml IH Q2H PRN PRN Reason: Shortness of Breath Artificial Tears (Refresh Opth Soln) 0.3 ml OU Q4H PRN PRN Reason: Dry eyes Aspirin (Ecotrin) 81 mg PO DAILY [facility] Last Admin: 07/28/17 11:09 Dose: Not Given Atorvastatin Calcium (Lipitor) 20 mg PO DIN [facility] Last Admin: 07/27/17 17:46 Dose: Not Given Enoxaparin Sodium (Lovenox) 40 mg SC DAILY [facility] PRN Reason: Protocol Last Admin: 07/28/17 10:17 Dose: 40 mg Folic Acid (Folic Acid) 1 mg PO DAILY [facility] Last Admin: 07/28/17 10:19 Dose: 1 mg Furosemide (Lasix) 20 mg IVP Q12 [facility] Last Admin: 07/28/17 10:19 Dose: 20 mg Potassium Chloride/Dextrose (Potassium Chl 20 Meq In D5w) 1,000 mls @ 20 mls/ hr IV .Q24H [facility] Last Admin: 07/27/17 17:46 Dose: 20 mls/hr Milrinone Lactate/Dextrose (Primacor 20mg/100ml D5w) 100 mls @ 5.443 mls/hr IV .[id number] PRN; Protocol; 0.33 MCG/KG/MIN PRN Reason: TITRATE PER MD ORDER Last Admin: 07/28/17 05:41 Dose: 0.33 mcg/kg/min, 5.443 mls/hr Meropenem 500 mg/ Sodium (Chloride) 50 mls @ 100 mls/hr IVPB Q12 [facility] PRN Reason: Protocol Stop: 07/29/17 22:01 Last Admin: 07/28/17 10:16 Dose: 100 mls/hr Insulin Human Regular (Humulin R Med) 0 units SC ACHS [facility] PRN Reason: Protocol Lisinopril (Zestril) 10 mg PO DAILY [facility] Last Admin: 07/28/17 11:16 Dose: 10 mg Multivitamins/Minerals (Therapeutic-M Tab) 1 tab PO 0800 [facility] Nitroglycerin (Nitro-Bid 2% Oint) 1 ea TOP QID [facility] Last Admin: 07/28/17 13:51 Dose: 1 ea Pantoprazole Sodium (Protonix Ec Tab) 40 mg PO DAILY [facility] Last Admin: 07/28/17 10:17 Dose: 40 mg Phenol/Menthol (Phenaseptic 1.4% Throat [place]) 0 ml MT Q2H PRN PRN Reason: tongue sore Last Admin: 07/28/17 10:17 Dose: 1 spr Thiamine HCl (Vitamin B1 Tab) 100 mg PO DAILY [facility] Last Admin: 07/28/17 10:17 Dose: 100 mg - Labs Labs: 07/28/17 06:30 07/28/17 06:30 PT 11.0 SECONDS (9.4-12.5) 07/28/17 06:30 INR 0.96 (0.93-1.08) 07/28/17 06:30 APTT 27.3 Seconds (25.1-36.5) 07/28/17 06:30 Attending/Attestation - Attestation I have personally seen and examined this patient.: Yes I have fully participated in the care of the patient.: Yes I have reviewed all pertinent clinical information, including history, physical exam and plan: Yes Notes (Text): 07/28/17 15:56 Medical record note made by the resident after discussion with my direction and input after the patient was personally seen and examined by me. I have reviewed the chart and agree that the record accurately reflects by personal performance of the history, physical exam, data review, and medical decision-making, in the course for the patient. I have also personally directed the plan of care. 62 year old female with a past medical history significant for CHF (last EF 27% , 04/15), COPD, HTN ,chronic smoking, alcohol and drug abuse, non compliance with her medications was admitted with acute on chronic systolic CHF exacerbation, responded well to initial IV lasix, later had VF cardiac arrest and was coded as per ACLS protocol.Patient was intubated and transferred to ICU.Patient was eventually extubated, yesterday, currently on nasal cannula, Patient is having basal crackle, will add IV laxis , patient is On Milrinone as per Cardiology.She is awake butshe is having intermittent confusion could be secondary to ischemic brain injury during CPR..Patient is off pressor. Case was discussed with Cardioloy .
--- NOTE | 2017-07-28 13:55 | PN ---
DATE: 07/28/2017 FOLLOWUP SUBJECTIVE: The patient was extubated; however, she is confused, restless and in 2-point restraints. She denies any chest pain. PHYSICAL EXAMINATION: VITAL SIGNS: Blood pressure 151/89, heart rate 91, temperature 98, respirations 31. HEENT: Pale conjunctivae. CHEST: Minimal basilar rales. HEART: S1 and S2 regular. ABDOMEN: Soft. EXTREMITIES: No edema. LABORATORY DATA: Hemoglobin and hematocrit 9.2 and 28.2, platelet count 137,000, white count 9.8. Today's SMA-7: Sodium 140, potassium 3.5, chloride 108, CO2 of 25, glucose 90, BUN 9, creatinine 0.9. Chest x-ray: Early cardiomegaly, right lower lobe infiltrate, mild CHF. Brain MRI: No acute intracranial findings. ASSESSMENT: 1. Status post cardiorespiratory arrest. 2. Cocaine abuse while in the hospital. 3. Cardiomyopathy. 4. Hypokalemia. 5. Hypertension. RECOMMENDATIONS: Continue Altace 2.5 mg once a day, aspirin 81 mg once a day, Lasix 20 mg intravenously twice a day, Lipitor 20 mg once a day, nitro paste was started yesterday at 1 inch four times daily. The patient is currently receiving potassium intravenous replacement and continue milrinone infusion and oral thiamine. Case was discussed with the medical team. The patient was evaluated by Dr. Ankush Palafox for cardiac catheterization; however, she is not a candidate for cardiac catheterization at this time. The management was discussed with the patient's family at the bedside and with the hospitalist and the nuclear medicine medical director. Jerome Mtz MD
--- NOTE | 2017-07-28 14:59 | CP.CCUPN ---
<Ignacio Becerra - Last Filed: 07/28/17 14:54> CCU Subjective - Physician Review Subjective (Free Text): 07/28/17 09:54 Patient seen and examined at bedside in ICU. Remains awake and alert off sedation, continues to tolerate extubate to NC O2 2L well. Following all commands appropriately, but is disoriented (oriented to self, partially to location, not oriented to time). Denies any memory of what happened to end up in ICU, but admitted to Primary Team resident that she did use cocaine prior to her cardiac arrest on the floor. Denies current chest pain, shortness of breath , nausea, emesis, focal weakness. Passed swallow eval overnight, was recommended advanced bite size with thin liquids, tolerating well. CCU Objective - Vital Signs / Intake & Output Vital Signs (Last 4 hours): Vital Signs Pulse Resp BP Pulse Ox 07/28/17 11:19 121 H 07/28/17 11:16 107 H 168/97 H 07/28/17 11:07 168/97 H 07/28/17 11:00 112 H 17 168/97 H 96 Intake and Output (Last 8hrs): Intake & Output 07/27/17 07/28/17 07/28/17 22:59 06:59 14:59 Intake Total 764 662 474 Output Total 469 502 6964 Balance 214 312 -676 Intake: IV 764 412 354 KCL in d5w 240 240 80 Right Femoral 300 250 abx 100 midazolam 24 milrinone 60 72 24 propofol 40 Oral 250 120 Output: Urine 220 764 8932 Urethral (Sánchez) 550 1150 Urine, Voided 350 Other: # Voids Urine, Voided 0 - Physical Exam Head: Positive for: Atraumatic, Normocephalic Pupils: Positive for: PERRL. Negative for: Sluggish, Non-Reactive, Pinpoint Extroacular Muscles: Positive for: EOMI. Negative for: Gaze Palsy, Entrapment Conjunctiva: Positive for: Normal. Negative for: Injected, Icteric Mouth: Positive for: Moist Mucous Membranes, Normal Lips, Normal Tounge Nose (External): Positive for: Atraumatic. Negative for: Abrasion, Laceration Nose (Internal): Positive for: Normal Inspection, No Active Bleeding. Negative for: Epistaxis Neck: Positive for: Normal Range of Motion. Negative for: JVD Respiratory/Chest: Positive for: Clear to Auscultation, Good Air Exchange. Negative for: Accessory Muscle Use, Wheezes, Decreased Breath Sounds, Rales, Rhonchi, Tachypneic Cardiovascular: Positive for: Regular Rate and Rhythm, Normal S1, S2. Negative for: Murmurs, Irregular Rhythm, Tachycardic, Bradycardic Abdomen: Positive for: Normal Bowel Sounds. Negative for: Tenderness, Distention, Peritoneal Signs Upper Extremity: Positive for: Normal Inspection, Normal ROM, NORMAL PULSES. Negative for: Cyanosis, Edema, Tenderness, Swelling, Erythema, Deformity Lower Extremity: Positive for: Normal Inspection, NORMAL PULSES, Normal ROM. Negative for: Edema, CALF TENDERNESS, Cyanosis, Tenderness, Swelling, Erythema, Deformity Neurological: Positive for: GCS=15, Motor Func Grossly Intact, Normal Sensory Function, Other (now awake and alert, following commands, moving all extremities spontaneously). Negative for: Speech Normal (speech is slow, slightly slurred compared to baseline as per primary team) Skin: Positive for: Warm, Dry, Normal Color. Negative for: Rashes Psychiatric: Positive for: Alert, Normal Insight, Normal Concentration, Normal Affect, Normal Mood. Negative for: Oriented x 3 (oriented to self, partially to place (knows in a hospital, not which hospital), not oriented to time), Anxious, Agitated - Medications Active Medications: Active Medications Generic Name Dose Route Start Last Admin Trade Name Freq PRN Reason Stop Dose Admin Albuterol/Ipratropium 3 ml 07/25/17 04:52 Duoneb 3 Mg/0.5 Mg (3 Ml) Ud IH Q2H PRN Shortness of Breath Artificial Tears 0.3 ml 07/25/17 18:07 Refresh Opth Soln OU Q4H PRN Dry eyes Aspirin 81 mg 07/25/17 10:07/28/17 11:09 Ecotrin PO Not Given DAILY AUNDREA Atorvastatin Calcium 20 mg 07/25/17 17:00 07/27/17 17:46 Lipitor PO Not Given DIN AUNDREA Enoxaparin Sodium 40 mg 07/25/17 10:07/28/17 10:17 Lovenox SC 40 mg DAILY AUNDREA Administration Protocol Folic Acid 1 mg 07/28/17 10:15 07/28/17 10:19 Folic Acid PO 1 mg DAILY AUNDREA Administration Furosemide 20 mg 07/28/17 10:15 07/28/17 10:19 Lasix IVP 20 mg Q12 AUNDREA Administration Potassium Chloride/Dextrose 1,000 mls @ 20 mls/hr 07/25/17 16:00 07/27/17 17: 46 Potassium Chl 20 Meq In D5w IV 20 mls/hr .Q24H AUNDREA Administration Milrinone Lactate/Dextrose 100 mls @ 5.443 mls/hr 07/26/17 08:06 07/28/17 05: 41 Primacor 20mg/100ml D5w IV 0.33 mcg/kg/min .[id number] PRN 5.443 mls/hr TITRATE PER MD ORDER Administration Protocol 0.33 MCG/KG/MIN Meropenem 500 mg/ Sodium 50 mls @ 100 mls/hr 07/26/17 22:00 07/28/17 10:16 Chloride IVPB 07/29/17 22:01 100 mls/hr Q12 AUNDREA Administration Protocol Insulin Human Regular 0 units 07/28/17 16:30 Humulin R Med SC ACHS [facility] Protocol Lisinopril 10 mg 07/28/17 10:45 07/28/17 11:16 Zestril PO 10 mg DAILY AUNDREA Administration Multivitamins/Minerals 1 tab 07/29/17 08:00 Therapeutic-M Tab PO 0800 [facility] Nitroglycerin 1 ea 07/27/17 22:00 07/28/17 13:51 Nitro-Bid 2% Oint TOP 1 ea QID AUNDREA Administration Pantoprazole Sodium 40 mg 07/28/17 10:00 07/28/17 10:17 Protonix Ec Tab PO 40 mg DAILY AUNDREA Administration Phenol/Menthol 0 ml 07/28/17 09:05 07/28/17 10:17 Phenaseptic 1.4% Throat Sebastian MT 1 spr Q2H PRN Administration tongue sore Thiamine HCl 100 mg 07/25/17 10:00 07/28/17 10:17 Vitamin B1 Tab PO 100 mg DAILY AUNDREA Administration - Patient Studies Lab Studies: Microbiology Studies 07/26/17 10:30 Blood Culture - Preliminary Blood NO GROWTH AFTER 48 HOURS 07/26/17 10:00 Blood Culture - Preliminary Blood NO GROWTH AFTER 48 HOURS 07/26/17 16:24 Gram Stain - Final Sputum 07/25/17 21:23 MRSA Culture (Admit) - Final Naris MRSA NOT DETECTED 07/26/17 12:00 Urine Culture - Final Urine,Sánchez No Growth (<1,000 CFU/ML) Lab Studies 07/28/17 07/28/17 07/28/17 Range/Units 11:39 08:10 06:30 WBC (4.5-11.0) 10^3/ul RBC (3.5-6.1) 10^6/uL Hgb (12.0-16.0) g/dL Hct (36.0-48.0) % MCV (80.0-105.0) fl MCH (25.0-35.0) pg MCHC (31.0-37.0) g/dl RDW (11.5-14.5) % Plt Count (120.0-450.0) 10^3/uL MPV (7.0-11.0) fl Gran % (50.0-68.0) % Lymph % (Auto) (22.0-35.0) % [place] % (Auto) (1.0-6.0) % Eos % (Auto) (1.5-5.0) % Baso % (Auto) (0.0-3.0) % Gran # (1.4-6.5) Lymph # (Auto) (1.2-3.4) [place] # (Auto) (0.1-0.6) Eos # (Auto) (0.0-0.7) Baso # (Auto) (0.0-2.0) K/mm3 PT (9.4-12.5) SECONDS INR (0.93-1.08) APTT (25.1-36.5) Seconds Sodium (132-148) mmol/L Potassium (3.6-5.0) mmol/L Chloride (98-107) mmol/L Carbon Dioxide (21-33) mmol/L Anion Gap (10-20) BUN (7-21) mg/dL Creatinine (0.7-1.2) mg/dl Est GFR ( Amer) Est GFR (Non-Af Amer) POC Glucose (mg/dL) 121 H 93 (65-110) mg/dL Random Glucose (70-110) mg/dL Calcium (8.4-10.5) mg/dL Magnesium 1.5 L (1.7-2.2) mg/dL Total Bilirubin (0.2-1.3) mg/dL AST (14-36) U/L ALT (7-56) U/L Alkaline Phosphatase (38-126) U/L Troponin I ng/mL Total Protein (5.8-8.3) g/dL Albumin (3.0-4.8) g/dL Globulin gm/dL Albumin/Globulin Ratio (1.1-1.8) Urine Color (YELLOW) Urine Appearance (CLEAR) Urine pH (4.7-8.0) Ur Specific [place] (1.005-1.035) Urine Protein (<30 mg/dL) mg/dL Urine Glucose (UA) (NEGATIVE) mg/dL Urine Ketones (NEGATIVE) mg/dL Urine Blood (NEGATIVE) Urine Nitrate (NEGATIVE) Urine Bilirubin (NEGATIVE) Urine Urobilinogen (<1 E.U./dL) E.U./dL Ur Leukocyte Esterase (NEGATIVE) Alejandra/uL Urine RBC (0-2) /hpf Urine WBC (0-6) /hpf Ur Epithelial Cells (0-5) /hpf Other Crystals /hpf Amorphous Sediment Urine Bacteria (NEG) Coarse Granular Casts (0-2) /hpf Urine Other 07/28/17 07/28/17 07/28/17 Range/Units 06:30 06:30 06:30 WBC 9.8 (4.5-11.0) 10^3/ul RBC 2.94 L (3.5-6.1) 10^6/uL Hgb 9.2 L (12.0-16.0) g/dL Hct 28.2 L (36.0-48.0) % MCV 95.9 (80.0-105.0) fl MCH 31.3 (25.0-35.0) pg MCHC 32.6 (31.0-37.0) g/dl RDW 15.8 H (11.5-14.5) % Plt Count 137 (120.0-450.0) 10^3/uL MPV 10.9 (7.0-11.0) fl Gran % 76.9 H (50.0-68.0) % Lymph % (Auto) 16.3 L (22.0-35.0) % [place] % (Auto) 5.8 (1.0-6.0) % Eos % (Auto) 0.9 L (1.5-5.0) % Baso % (Auto) 0.1 (0.0-3.0) % Gran # 7.50 H (1.4-6.5) Lymph # (Auto) 1.6 (1.2-3.4) [place] # (Auto) 0.6 (0.1-0.6) Eos # (Auto) 0.1 (0.0-0.7) Baso # (Auto) 0.01 (0.0-2.0) K/mm3 PT 11.0 (9.4-12.5) SECONDS INR 0.96 (0.93-1.08) APTT 27.3 (25.1-36.5) Seconds Sodium 140 (132-148) mmol/L Potassium 3.5 L (3.6-5.0) mmol/L Chloride 108 H (98-107) mmol/L Carbon Dioxide 25 (21-33) mmol/L Anion Gap 10 (10-20) BUN 9 (7-21) mg/dL Creatinine 0.9 (0.7-1.2) mg/dl Est GFR ( Amer) > 60 Est GFR (Non-Af Amer) > 60 POC Glucose (mg/dL) (65-110) mg/dL Random Glucose 90 (70-110) mg/dL Calcium 8.7 (8.4-10.5) mg/dL Magnesium (1.7-2.2) mg/dL Total Bilirubin 0.8 (0.2-1.3) mg/dL AST 38 H D (14-36) U/L ALT 26 (7-56) U/L Alkaline Phosphatase 87 (38-126) U/L Troponin I ng/mL Total Protein 6.4 (5.8-8.3) g/dL Albumin 3.4 (3.0-4.8) g/dL Globulin 3.0 gm/dL Albumin/Globulin Ratio 1.1 (1.1-1.8) Urine Color (YELLOW) Urine Appearance (CLEAR) Urine pH (4.7-8.0) Ur Specific [place] (1.005-1.035) Urine Protein (<30 mg/dL) mg/dL Urine Glucose (UA) (NEGATIVE) mg/dL Urine Ketones (NEGATIVE) mg/dL Urine Blood (NEGATIVE) Urine Nitrate (NEGATIVE) Urine Bilirubin (NEGATIVE) Urine Urobilinogen (<1 E.U./dL) E.U./dL Ur Leukocyte Esterase (NEGATIVE) Alejandra/uL Urine RBC (0-2) /hpf Urine WBC (0-6) /hpf Ur Epithelial Cells (0-5) /hpf Other Crystals /hpf Amorphous Sediment Urine Bacteria (NEG) Coarse Granular Casts (0-2) /hpf Urine Other 07/28/17 07/27/17 07/27/17 Range/Units 03:46 23:50 22:01 WBC (4.5-11.0) 10^3/ul RBC (3.5-6.1) 10^6/uL Hgb (12.0-16.0) g/dL Hct (36.0-48.0) % MCV (80.0-105.0) fl MCH (25.0-35.0) pg MCHC (31.0-37.0) g/dl RDW (11.5-14.5) % Plt Count (120.0-450.0) 10^3/uL MPV (7.0-11.0) fl Gran % (50.0-68.0) % Lymph % (Auto) (22.0-35.0) % [place] % (Auto) (1.0-6.0) % Eos % (Auto) (1.5-5.0) % Baso % (Auto) (0.0-3.0) % Gran # (1.4-6.5) Lymph # (Auto) (1.2-3.4) [place] # (Auto) (0.1-0.6) Eos # (Auto) (0.0-0.7) Baso # (Auto) (0.0-2.0) K/mm3 PT (9.4-12.5) SECONDS INR (0.93-1.08) APTT (25.1-36.5) Seconds Sodium (132-148) mmol/L Potassium (3.6-5.0) mmol/L Chloride (98-107) mmol/L Carbon Dioxide (21-33) mmol/L Anion Gap (10-20) BUN (7-21) mg/dL Creatinine (0.7-1.2) mg/dl Est GFR ( Amer) Est GFR (Non-Af Amer) POC Glucose (mg/dL) 92 100 (65-110) mg/dL Random Glucose (70-110) mg/dL Calcium (8.4-10.5) mg/dL Magnesium (1.7-2.2) mg/dL Total Bilirubin (0.2-1.3) mg/dL AST (14-36) U/L ALT (7-56) U/L Alkaline Phosphatase (38-126) U/L Troponin I 0.05 ng/mL Total Protein (5.8-8.3) g/dL Albumin (3.0-4.8) g/dL Globulin gm/dL Albumin/Globulin Ratio (1.1-1.8) Urine Color (YELLOW) Urine Appearance (CLEAR) Urine pH (4.7-8.0) Ur Specific [place] (1.005-1.035) Urine Protein (<30 mg/dL) mg/dL Urine Glucose (UA) (NEGATIVE) mg/dL Urine Ketones (NEGATIVE) mg/dL Urine Blood (NEGATIVE) Urine Nitrate (NEGATIVE) Urine Bilirubin (NEGATIVE) Urine Urobilinogen (<1 E.U./dL) E.U./dL Ur Leukocyte Esterase (NEGATIVE) Alejandra/uL Urine RBC (0-2) /hpf Urine WBC (0-6) /hpf Ur Epithelial Cells (0-5) /hpf Other Crystals /hpf Amorphous Sediment Urine Bacteria (NEG) Coarse Granular Casts (0-2) /hpf Urine Other 07/27/17 07/27/17 07/27/17 Range/Units 19:16 18:53 15:57 WBC (4.5-11.0) 10^3/ul RBC (3.5-6.1) 10^6/uL Hgb (12.0-16.0) g/dL Hct (36.0-48.0) % MCV (80.0-105.0) fl MCH (25.0-35.0) pg MCHC (31.0-37.0) g/dl RDW (11.5-14.5) % Plt Count (120.0-450.0) 10^3/uL MPV (7.0-11.0) fl Gran % (50.0-68.0) % Lymph % (Auto) (22.0-35.0) % [place] % (Auto) (1.0-6.0) % Eos % (Auto) (1.5-5.0) % Baso % (Auto) (0.0-3.0) % Gran # (1.4-6.5) Lymph # (Auto) (1.2-3.4) [place] # (Auto) (0.1-0.6) Eos # (Auto) (0.0-0.7) Baso # (Auto) (0.0-2.0) K/mm3 PT (9.4-12.5) SECONDS INR (0.93-1.08) APTT (25.1-36.5) Seconds Sodium (132-148) mmol/L Potassium (3.6-5.0) mmol/L Chloride (98-107) mmol/L Carbon Dioxide (21-33) mmol/L Anion Gap (10-20) BUN (7-21) mg/dL Creatinine (0.7-1.2) mg/dl Est GFR ( Amer) Est GFR (Non-Af Amer) POC Glucose (mg/dL) 97 94 (65-110) mg/dL Random Glucose (70-110) mg/dL Calcium (8.4-10.5) mg/dL Magnesium (1.7-2.2) mg/dL Total Bilirubin (0.2-1.3) mg/dL AST (14-36) U/L ALT (7-56) U/L Alkaline Phosphatase (38-126) U/L Troponin I 0.05 D ng/mL Total Protein (5.8-8.3) g/dL Albumin (3.0-4.8) g/dL Globulin gm/dL Albumin/Globulin Ratio (1.1-1.8) Urine Color (YELLOW) Urine Appearance (CLEAR) Urine pH (4.7-8.0) Ur Specific [place] (1.005-1.035) Urine Protein (<30 mg/dL) mg/dL Urine Glucose (UA) (NEGATIVE) mg/dL Urine Ketones (NEGATIVE) mg/dL Urine Blood (NEGATIVE) Urine Nitrate (NEGATIVE) Urine Bilirubin (NEGATIVE) Urine Urobilinogen (<1 E.U./dL) E.U./dL Ur Leukocyte Esterase (NEGATIVE) Alejandra/uL Urine RBC (0-2) /hpf Urine WBC (0-6) /hpf Ur Epithelial Cells (0-5) /hpf Other Crystals /hpf Amorphous Sediment Urine Bacteria (NEG) Coarse Granular Casts (0-2) /hpf Urine Other 07/27/17 Range/Units 14:45 WBC (4.5-11.0) 10^3/ul RBC (3.5-6.1) 10^6/uL Hgb (12.0-16.0) g/dL Hct (36.0-48.0) % MCV (80.0-105.0) fl MCH (25.0-35.0) pg MCHC (31.0-37.0) g/dl RDW (11.5-14.5) % Plt Count (120.0-450.0) 10^3/uL MPV (7.0-11.0) fl Gran % (50.0-68.0) % Lymph % (Auto) (22.0-35.0) % [place] % (Auto) (1.0-6.0) % Eos % (Auto) (1.5-5.0) % Baso % (Auto) (0.0-3.0) % Gran # (1.4-6.5) Lymph # (Auto) (1.2-3.4) [place] # (Auto) (0.1-0.6) Eos # (Auto) (0.0-0.7) Baso # (Auto) (0.0-2.0) K/mm3 PT (9.4-12.5) SECONDS INR (0.93-1.08) APTT (25.1-36.5) Seconds Sodium (132-148) mmol/L Potassium (3.6-5.0) mmol/L Chloride (98-107) mmol/L Carbon Dioxide (21-33) mmol/L Anion Gap (10-20) BUN (7-21) mg/dL Creatinine (0.7-1.2) mg/dl Est GFR ( Amer) Est GFR (Non-Af Amer) POC Glucose (mg/dL) (65-110) mg/dL Random Glucose (70-110) mg/dL Calcium (8.4-10.5) mg/dL Magnesium (1.7-2.2) mg/dL Total Bilirubin (0.2-1.3) mg/dL AST (14-36) U/L ALT (7-56) U/L Alkaline Phosphatase (38-126) U/L Troponin I ng/mL Total Protein (5.8-8.3) g/dL Albumin (3.0-4.8) g/dL Globulin gm/dL Albumin/Globulin Ratio (1.1-1.8) Urine Color Dark yellow (YELLOW) Urine Appearance Clear (CLEAR) Urine pH 5.5 (4.7-8.0) Ur Specific [place] 1.025 (1.005-1.035) Urine Protein 100 H (<30 mg/dL) mg/dL Urine Glucose (UA) Negative (NEGATIVE) mg/dL Urine Ketones Negative (NEGATIVE) mg/dL Urine Blood Large H (NEGATIVE) Urine Nitrate Negative (NEGATIVE) Urine Bilirubin Negative (NEGATIVE) Urine Urobilinogen 0.2 (<1 E.U./dL) E.U./dL Ur Leukocyte Esterase Trace H (NEGATIVE) Alejandra/uL Urine RBC 25 - 30 (0-2) /hpf Urine WBC 5 - 10 (0-6) /hpf Ur Epithelial Cells 6 - 8 (0-5) /hpf Other Crystals /hpf Amorphous Sediment Moderate Urine Bacteria Many (NEG) Coarse Granular Casts Trace H (0-2) /hpf Urine Other Uyeast Laboratory Results - last 24 hr 07/27/17 07/27/17 07/27/17 14:45 15:57 18:53 WBC RBC Hgb Hct MCV MCH MCHC RDW Plt Count MPV Gran % Lymph % (Auto) [place] % (Auto) Eos % (Auto) Baso % (Auto) Gran # Lymph # (Auto) [place] # (Auto) Eos # (Auto) Baso # (Auto) PT INR APTT Sodium Potassium Chloride Carbon Dioxide Anion Gap BUN Creatinine Est GFR ( Amer) Est GFR (Non-Af Amer) POC Glucose (mg/dL) 94 Random Glucose Calcium Magnesium Total Bilirubin AST ALT Alkaline Phosphatase Troponin I 0.05 D Total Protein Albumin Globulin Albumin/Globulin Ratio Urine Color Dark yellow Urine Appearance Clear Urine pH 5.5 Ur Specific [place] 1.025 Urine Protein 100 H Urine Glucose (UA) Negative Urine Ketones Negative Urine Blood Large H Urine Nitrate Negative Urine Bilirubin Negative Urine Urobilinogen 0.2 Ur Leukocyte Esterase Trace H Urine RBC 25 - 30 Urine WBC 5 - 10 Ur Epithelial Cells 6 - 8 Other Crystals Amorphous Sediment Moderate Urine Bacteria Many Coarse Granular Casts Trace H Urine Other Uyeast 07/27/17 07/27/17 07/27/17 19:16 22:01 23:50 WBC RBC Hgb Hct MCV MCH MCHC RDW Plt Count MPV Gran % Lymph % (Auto) [place] % (Auto) Eos % (Auto) Baso % (Auto) Gran # Lymph # (Auto) [place] # (Auto) Eos # (Auto) Baso # (Auto) PT INR APTT Sodium Potassium Chloride Carbon Dioxide Anion Gap BUN Creatinine Est GFR ( Amer) Est GFR (Non-Af Amer) POC Glucose (mg/dL) 97 100 Random Glucose Calcium Magnesium Total Bilirubin AST ALT Alkaline Phosphatase Troponin I 0.05 Total Protein Albumin Globulin Albumin/Globulin Ratio Urine Color Urine Appearance Urine pH Ur Specific [place] Urine Protein Urine Glucose (UA) Urine Ketones Urine Blood Urine Nitrate Urine Bilirubin Urine Urobilinogen Ur Leukocyte Esterase Urine RBC Urine WBC Ur Epithelial Cells Other Crystals Amorphous Sediment Urine Bacteria Coarse Granular Casts Urine Other 07/28/17 07/28/17 07/28/17 03:46 06:30 06:30 WBC 9.8 RBC 2.94 L Hgb 9.2 L Hct 28.2 L MCV 95.9 MCH 31.3 MCHC 32.6 RDW 15.8 H Plt Count 137 MPV 10.9 Gran % 76.9 H Lymph % (Auto) 16.3 L [place] % (Auto) 5.8 Eos % (Auto) 0.9 L Baso % (Auto) 0.1 Gran # 7.50 H Lymph # (Auto) 1.6 [place] # (Auto) 0.6 Eos # (Auto) 0.1 Baso # (Auto) 0.01 PT INR APTT Sodium 140 Potassium 3.5 L Chloride 108 H Carbon Dioxide 25 Anion Gap 10 BUN 9 Creatinine 0.9 Est GFR ( Amer) > 60 Est GFR (Non-Af Amer) > 60 POC Glucose (mg/dL) 92 Random Glucose 90 Calcium 8.7 Magnesium Total Bilirubin 0.8 AST 38 H D ALT 26 Alkaline Phosphatase 87 Troponin I Total Protein 6.4 Albumin 3.4 Globulin 3.0 Albumin/Globulin Ratio 1.1 Urine Color Urine Appearance Urine pH Ur Specific [place] Urine Protein Urine Glucose (UA) Urine Ketones Urine Blood Urine Nitrate Urine Bilirubin Urine Urobilinogen Ur Leukocyte Esterase Urine RBC Urine WBC Ur Epithelial Cells Other Crystals Amorphous Sediment Urine Bacteria Coarse Granular Casts Urine Other 07/28/17 07/28/17 07/28/17 06:30 06:30 08:10 WBC RBC Hgb Hct MCV MCH MCHC RDW Plt Count MPV Gran % Lymph % (Auto) [place] % (Auto) Eos % (Auto) Baso % (Auto) Gran # Lymph # (Auto) [place] # (Auto) Eos # (Auto) Baso # (Auto) PT 11.0 INR 0.96 APTT 27.3 Sodium Potassium Chloride Carbon Dioxide Anion Gap BUN Creatinine Est GFR ( Amer) Est GFR (Non-Af Amer) POC Glucose (mg/dL) 93 Random Glucose Calcium Magnesium 1.5 L Total Bilirubin AST ALT Alkaline Phosphatase Troponin I Total Protein Albumin Globulin Albumin/Globulin Ratio Urine Color Urine Appearance Urine pH Ur Specific [place] Urine Protein Urine Glucose (UA) Urine Ketones Urine Blood Urine Nitrate Urine Bilirubin Urine Urobilinogen Ur Leukocyte Esterase Urine RBC Urine WBC Ur Epithelial Cells Other Crystals Amorphous Sediment Urine Bacteria Coarse Granular Casts Urine Other 07/28/17 11:39 WBC RBC Hgb Hct MCV MCH MCHC RDW Plt Count MPV Gran % Lymph % (Auto) [place] % (Auto) Eos % (Auto) Baso % (Auto) Gran # Lymph # (Auto) [place] # (Auto) Eos # (Auto) Baso # (Auto) PT INR APTT Sodium Potassium Chloride Carbon Dioxide Anion Gap BUN Creatinine Est GFR ( Amer) Est GFR (Non-Af Amer) POC Glucose (mg/dL) 121 H Random Glucose Calcium Magnesium Total Bilirubin AST ALT Alkaline Phosphatase Troponin I Total Protein Albumin Globulin Albumin/Globulin Ratio Urine Color Urine Appearance Urine pH Ur Specific [place] Urine Protein Urine Glucose (UA) Urine Ketones Urine Blood Urine Nitrate Urine Bilirubin Urine Urobilinogen Ur Leukocyte Esterase Urine RBC Urine WBC Ur Epithelial Cells Other Crystals Amorphous Sediment Urine Bacteria Coarse Granular Casts Urine Other EKG/Cardiology Studies: Cardiology / EKG Studies 07/27/17 18:37 EKG [ELECTROCARDIOGRAM] Stat Comment: Reason For Exam: chest pain Fingerstick Blood Sugar Results: 92 Review of Systems - Review of Systems All systems: reviewed and no additional remarkable complaints except (as per HP) Critical Care Progress Note - Nutrition Nutrition: Nutrition Category Date Time Status Dysphagia/Modified Consistency Diet [DIET] Diets 07/27/17 Dinner Ordered Assessment/Plan - Assessment and Plan (Free Text) Assessment: This is a 62 yo AA F with PMH of CHF (EF on admission 16%), COPD, HTN, tobacco & substance abuse, and chronic non-compliance with medications/follow-up who presented originally to [facility] with worsening shortness of breath, and came to the ICU s/p cardiac arrest, intubated/sedation on mechanical ventilation, and with decerebrate posturing post-code. She is awake and alert, but remains somewhat disoriented, and continues to tolerate extubation well. Pending transfer to telemetry. Plan: Neuro: -now awake and alert, but only partially oriented (2/2 arrest +/- delirium), off sedation fully, following all commands and moving all extremities -decerebrate posturing resolved -afebrile overnight -CT head obtained, negative for acute findings; MRI brain negative for acute findings -Neuro consulted, appreciate their recs; EEG obtained (pending read) -Swallow eval passed, started on advanced bite-size + thin liquids diet as per Speech recs Cardio: -Hx CHF with EF < 30% noncompliant with meds/follow-up -Echo (pre-cardiac arrest) this admission notable for EF 16%, mild dilated LV with global hypokinesia, severe MR, mild-moderate TR, mild pulm HTN -Vfib initially during code, s/p 1x defibrilator shock, PEA for remainder of code until ROSC -UDS obtained post-code concerning for positive for canabinoid and cocaine ( neither present on admission, pt admitting to use now), concerning for possible cocaine-induced cardiac arrest -continue milrinone; maintaining appropriate rhythm and blood pressure off levo/ amio -continue daily ASA, Lipitor -holding Coreg due to cocaine exposure, want to avoid unopposed alpha stimulation -EP was consulted for possible pacer given low EF, but given current situation, no acute intervention planned at this time -Cardio and EP following, appreciate all recs Pulm: -remains stable on 2L NC, tolerating well -maintain SaO2 > 88% (COPD pt) and paO2 > 60; ABG this AM reviewed -Aspiration precautions -AM CXR reviewed, no congestion appreciated on CXR GI: -advanced bite size with thin liquids as per Speech -Protonix for ppx -AST elevations likely 2/2 cardiac arrest, less likely shock liver in setting of normal ALT/Alk Phos levels, improving Renal: -monitor and replete electrolytes as needed -strict I's and O's, monitor urine output -Cr returning to baseline, 1.0 today; elevations likely CRISTÓBAL 2/2 cardiac arrest/ shock ID: -procal 6.28, WBCs 9.8 (was 11.4), remains afebrile -empiric coverage with Merrem as per ID, but unlikely to be infectious etiology , more likely leukocytosis 2/2 resuscitative efforts as per ID -ID following, appreciate all recs Heme: -hgb 9.2 (was 9.5) -Lovenox for DVT ppx Dispo: ICU s/p extubation, tolerating well, awake and alert but only partially oriented, pending FEN: advanced bite size + thin liquids Access: Peripheral IVs Consults: Neuro, Cardio, EP, ID Ppx: Protonix for GI, Lovenox for DVT Patient seen, reviewed, and discussed with attending, Dr. Pack <Farrukh Pack - Last Filed: 07/28/17 17:45> CCU Objective - Vital Signs / Intake & Output Vital Signs (Last 4 hours): Vital Signs Pulse 07/28/17 14:00 97 H Intake and Output (Last 8hrs): Intake & Output 07/28/17 07/28/17 07/28/17 06:59 14:59 22:59 Intake Total 662 474 Output Total 350 1150 Balance 312 -676 Intake: IV 412 354 KCL in d5w 240 80 Right Femoral 250 abx 100 milrinone 72 24 Oral 250 120 Output: Urine 350 1150 Urethral (Sánchez) 1150 Urine, Voided 350 Other: # Voids Urine, Voided 0 - Medications Active Medications: Active Medications Generic Name Dose Route Start Last Admin Trade Name Freq PRN Reason Stop Dose Admin Albuterol/Ipratropium 3 ml 07/25/17 04:52 Duoneb 3 Mg/0.5 Mg (3 Ml) Ud IH Q2H PRN Shortness of Breath Artificial Tears 0.3 ml 07/25/17 18:07 Refresh Opth Soln OU Q4H PRN Dry eyes Aspirin 81 mg 07/25/17 10:00 07/28/17 11:09 Ecotrin PO Not Given DAILY AUNDREA Atorvastatin Calcium 20 mg 07/25/17 17:00 07/27/17 17:46 Lipitor PO Not Given DIN AUNDREA Enoxaparin Sodium 40 mg 07/25/17 10:00 07/28/17 10:17 Lovenox SC 40 mg DAILY AUNDREA Administration Protocol Folic Acid 1 mg 07/28/17 10:15 07/28/17 10:19 Folic Acid PO 1 mg DAILY AUNDREA Administration Furosemide 20 mg 07/28/17 10:15 07/28/17 10:19 Lasix IVP 20 mg Q12 AUNDREA Administration Potassium Chloride/Dextrose 1,000 mls @ 20 mls/hr 07/25/17 16:00 07/27/17 17: 46 Potassium Chl 20 Meq In D5w IV 20 mls/hr .Q24H AUNDREA Administration Milrinone Lactate/Dextrose 100 mls @ 5.443 mls/hr 07/26/17 08:06 07/28/17 05: 41 Primacor 20mg/100ml D5w IV 0.33 mcg/kg/min .[id number] PRN 5.443 mls/hr TITRATE PER MD ORDER Administration Protocol 0.33 MCG/KG/MIN Meropenem 500 mg/ Sodium 50 mls @ 100 mls/hr 07/26/17 22:00 07/28/17 10:16 Chloride IVPB 07/29/17 22:01 100 mls/hr Q12 [facility] Administration Protocol Insulin Human Regular 0 units 07/28/17 16:30 07/28/17 17:12 Humulin R Med SC Not Given ACHS [facility] Protocol Lisinopril 10 mg 07/28/17 10:45 07/28/17 11:16 Zestril PO 10 mg DAILY [facility] Administration Multivitamins/Minerals 1 tab 07/29/17 08:00 Therapeutic-M Tab PO 0800 [facility] Nitroglycerin 1 ea 07/27/17 22:00 07/28/17 13:51 Nitro-Bid 2% Oint TOP 1 ea QID [facility] Administration Pantoprazole Sodium 40 mg 07/28/17 10:00 07/28/17 10:17 Protonix Ec Tab PO 40 mg DAILY [facility] Administration Phenol/Menthol 0 ml 07/28/17 09:05 07/28/17 10:17 Phenaseptic 1.4% Throat [place] 1 spr Q2H PRN Administration tongue sore Thiamine HCl 100 mg 07/25/17 10:00 07/28/17 10:17 Vitamin B1 Tab PO 100 mg DAILY [facility] Administration - Patient Studies Lab Studies: Microbiology Studies 07/26/17 10:30 Blood Culture - Preliminary Blood NO GROWTH AFTER 48 HOURS 07/26/17 10:00 Blood Culture - Preliminary Blood NO GROWTH AFTER 48 HOURS 07/26/17 16:24 Gram Stain - Final Sputum 07/25/17 21:23 MRSA Culture (Admit) - Final Naris MRSA NOT DETECTED Lab Studies 07/28/17 07/28/17 07/28/17 Range/Units 11:39 08:10 06:30 WBC (4.5-11.0) 10^3/ul RBC (3.5-6.1) 10^6/uL Hgb (12.0-16.0) g/dL Hct (36.0-48.0) % MCV (80.0-105.0) fl MCH (25.0-35.0) pg MCHC (31.0-37.0) g/dl RDW (11.5-14.5) % Plt Count (120.0-450.0) 10^3/uL MPV (7.0-11.0) fl Gran % (50.0-68.0) % Lymph % (Auto) (22.0-35.0) % [place] % (Auto) (1.0-6.0) % Eos % (Auto) (1.5-5.0) % Baso % (Auto) (0.0-3.0) % Gran # (1.4-6.5) Lymph # (Auto) (1.2-3.4) [place] # (Auto) (0.1-0.6) Eos # (Auto) (0.0-0.7) Baso # (Auto) (0.0-2.0) K/mm3 PT (9.4-12.5) SECONDS INR (0.93-1.08) APTT (25.1-36.5) Seconds Sodium (132-148) mmol/L Potassium (3.6-5.0) mmol/L Chloride (98-107) mmol/L Carbon Dioxide (21-33) mmol/L Anion Gap (10-20) BUN (7-21) mg/dL Creatinine (0.7-1.2) mg/dl Est GFR ( Amer) Est GFR (Non-Af Amer) POC Glucose (mg/dL) 121 H 93 (65-110) mg/dL Random Glucose (70-110) mg/dL Calcium (8.4-10.5) mg/dL Magnesium 1.5 L (1.7-2.2) mg/dL Total Bilirubin (0.2-1.3) mg/dL AST (14-36) U/L ALT (7-56) U/L Alkaline Phosphatase (38-126) U/L Troponin I ng/mL Total Protein (5.8-8.3) g/dL Albumin (3.0-4.8) g/dL Globulin gm/dL Albumin/Globulin Ratio (1.1-1.8) 07/28/17 07/28/17 07/28/17 Range/Units 06:30 06:30 06:30 WBC 9.8 (4.5-11.0) 10^3/ul RBC 2.94 L (3.5-6.1) 10^6/uL Hgb 9.2 L (12.0-16.0) g/dL Hct 28.2 L (36.0-48.0) % MCV 95.9 (80.0-105.0) fl MCH 31.3 (25.0-35.0) pg MCHC 32.6 (31.0-37.0) g/dl RDW 15.8 H (11.5-14.5) % Plt Count 137 (120.0-450.0) 10^3/uL MPV 10.9 (7.0-11.0) fl Gran % 76.9 H (50.0-68.0) % Lymph % (Auto) 16.3 L (22.0-35.0) % [place] % (Auto) 5.8 (1.0-6.0) % Eos % (Auto) 0.9 L (1.5-5.0) % Baso % (Auto) 0.1 (0.0-3.0) % Gran # 7.50 H (1.4-6.5) Lymph # (Auto) 1.6 (1.2-3.4) [place] # (Auto) 0.6 (0.1-0.6) Eos # (Auto) 0.1 (0.0-0.7) Baso # (Auto) 0.01 (0.0-2.0) K/mm3 PT 11.0 (9.4-12.5) SECONDS INR 0.96 (0.93-1.08) APTT 27.3 (25.1-36.5) Seconds Sodium 140 (132-148) mmol/L Potassium 3.5 L (3.6-5.0) mmol/L Chloride 108 H (98-107) mmol/L Carbon Dioxide 25 (21-33) mmol/L Anion Gap 10 (10-20) BUN 9 (7-21) mg/dL Creatinine 0.9 (0.7-1.2) mg/dl Est GFR ( Amer) > 60 Est GFR (Non-Af Amer) > 60 POC Glucose (mg/dL) (65-110) mg/dL Random Glucose 90 (70-110) mg/dL Calcium 8.7 (8.4-10.5) mg/dL Magnesium (1.7-2.2) mg/dL Total Bilirubin 0.8 (0.2-1.3) mg/dL AST 38 H D (14-36) U/L ALT 26 (7-56) U/L Alkaline Phosphatase 87 (38-126) U/L Troponin I ng/mL Total Protein 6.4 (5.8-8.3) g/dL Albumin 3.4 (3.0-4.8) g/dL Globulin 3.0 gm/dL Albumin/Globulin Ratio 1.1 (1.1-1.8) 07/28/17 07/27/17 07/27/17 Range/Units 03:46 23:50 22:01 WBC (4.5-11.0) 10^3/ul RBC (3.5-6.1) 10^6/uL Hgb (12.0-16.0) g/dL Hct (36.0-48.0) % MCV (80.0-105.0) fl MCH (25.0-35.0) pg MCHC (31.0-37.0) g/dl RDW (11.5-14.5) % Plt Count (120.0-450.0) 10^3/uL MPV (7.0-11.0) fl Gran % (50.0-68.0) % Lymph % (Auto) (22.0-35.0) % [place] % (Auto) (1.0-6.0) % Eos % (Auto) (1.5-5.0) % Baso % (Auto) (0.0-3.0) % Gran # (1.4-6.5) Lymph # (Auto) (1.2-3.4) [place] # (Auto) (0.1-0.6) Eos # (Auto) (0.0-0.7) Baso # (Auto) (0.0-2.0) K/mm3 PT (9.4-12.5) SECONDS INR (0.93-1.08) APTT (25.1-36.5) Seconds Sodium (132-148) mmol/L Potassium (3.6-5.0) mmol/L Chloride (98-107) mmol/L Carbon Dioxide (21-33) mmol/L Anion Gap (10-20) BUN (7-21) mg/dL Creatinine (0.7-1.2) mg/dl Est GFR ( Amer) Est GFR (Non-Af Amer) POC Glucose (mg/dL) 92 100 (65-110) mg/dL Random Glucose (70-110) mg/dL Calcium (8.4-10.5) mg/dL Magnesium (1.7-2.2) mg/dL Total Bilirubin (0.2-1.3) mg/dL AST (14-36) U/L ALT (7-56) U/L Alkaline Phosphatase (38-126) U/L Troponin I 0.05 ng/mL Total Protein (5.8-8.3) g/dL Albumin (3.0-4.8) g/dL Globulin gm/dL Albumin/Globulin Ratio (1.1-1.8) 07/27/17 07/27/17 07/27/17 Range/Units 19:16 18:53 15:57 WBC (4.5-11.0) 10^3/ul RBC (3.5-6.1) 10^6/uL Hgb (12.0-16.0) g/dL Hct (36.0-48.0) % MCV (80.0-105.0) fl MCH (25.0-35.0) pg MCHC (31.0-37.0) g/dl RDW (11.5-14.5) % Plt Count (120.0-450.0) 10^3/uL MPV (7.0-11.0) fl Gran % (50.0-68.0) % Lymph % (Auto) (22.0-35.0) % [place] % (Auto) (1.0-6.0) % Eos % (Auto) (1.5-5.0) % Baso % (Auto) (0.0-3.0) % Gran # (1.4-6.5) Lymph # (Auto) (1.2-3.4) [place] # (Auto) (0.1-0.6) Eos # (Auto) (0.0-0.7) Baso # (Auto) (0.0-2.0) K/mm3 PT (9.4-12.5) SECONDS INR (0.93-1.08) APTT (25.1-36.5) Seconds Sodium (132-148) mmol/L Potassium (3.6-5.0) mmol/L Chloride (98-107) mmol/L Carbon Dioxide (21-33) mmol/L Anion Gap (10-20) BUN (7-21) mg/dL Creatinine (0.7-1.2) mg/dl Est GFR ( Amer) Est GFR (Non-Af Amer) POC Glucose (mg/dL) 97 94 (65-110) mg/dL Random Glucose (70-110) mg/dL Calcium (8.4-10.5) mg/dL Magnesium (1.7-2.2) mg/dL Total Bilirubin (0.2-1.3) mg/dL AST (14-36) U/L ALT (7-56) U/L Alkaline Phosphatase (38-126) U/L Troponin I 0.05 D ng/mL Total Protein (5.8-8.3) g/dL Albumin (3.0-4.8) g/dL Globulin gm/dL Albumin/Globulin Ratio (1.1-1.8) Laboratory Results - last 24 hr 07/27/17 07/27/17 07/27/17 15:57 18:53 19:16 WBC RBC Hgb Hct MCV MCH MCHC RDW Plt Count MPV Gran % Lymph % (Auto) [place] % (Auto) Eos % (Auto) Baso % (Auto) Gran # Lymph # (Auto) [place] # (Auto) Eos # (Auto) Baso # (Auto) PT INR APTT Sodium Potassium Chloride Carbon Dioxide Anion Gap BUN Creatinine Est GFR ( Amer) Est GFR (Non-Af Amer) POC Glucose (mg/dL) 94 97 Random Glucose Calcium Magnesium Total Bilirubin AST ALT Alkaline Phosphatase Troponin I 0.05 D Total Protein Albumin Globulin Albumin/Globulin Ratio 07/27/17 07/27/17 07/28/17 22:01 23:50 03:46 WBC RBC Hgb Hct MCV MCH MCHC RDW Plt Count MPV Gran % Lymph % (Auto) [place] % (Auto) Eos % (Auto) Baso % (Auto) Gran # Lymph # (Auto) [place] # (Auto) Eos # (Auto) Baso # (Auto) PT INR APTT Sodium Potassium Chloride Carbon Dioxide Anion Gap BUN Creatinine Est GFR ( Amer) Est GFR (Non-Af Amer) POC Glucose (mg/dL) 100 92 Random Glucose Calcium Magnesium Total Bilirubin AST ALT Alkaline Phosphatase Troponin I 0.05 Total Protein Albumin Globulin Albumin/Globulin Ratio 07/28/17 07/28/17 07/28/17 06:30 06:30 06:30 WBC 9.8 RBC 2.94 L Hgb 9.2 L Hct 28.2 L MCV 95.9 MCH 31.3 MCHC 32.6 RDW 15.8 H Plt Count 137 MPV 10.9 Gran % 76.9 H Lymph % (Auto) 16.3 L [place] % (Auto) 5.8 Eos % (Auto) 0.9 L Baso % (Auto) 0.1 Gran # 7.50 H Lymph # (Auto) 1.6 [place] # (Auto) 0.6 Eos # (Auto) 0.1 Baso # (Auto) 0.01 PT 11.0 INR 0.96 APTT 27.3 Sodium 140 Potassium 3.5 L Chloride 108 H Carbon Dioxide 25 Anion Gap 10 BUN 9 Creatinine 0.9 Est GFR ( Amer) > 60 Est GFR (Non-Af Amer) > 60 POC Glucose (mg/dL) Random Glucose 90 Calcium 8.7 Magnesium Total Bilirubin 0.8 AST 38 H D ALT 26 Alkaline Phosphatase 87 Troponin I Total Protein 6.4 Albumin 3.4 Globulin 3.0 Albumin/Globulin Ratio 1.1 07/28/17 07/28/17 07/28/17 06:30 08:10 11:39 WBC RBC Hgb Hct MCV MCH MCHC RDW Plt Count MPV Gran % Lymph % (Auto) [place] % (Auto) Eos % (Auto) Baso % (Auto) Gran # Lymph # (Auto) [place] # (Auto) Eos # (Auto) Baso # (Auto) PT INR APTT Sodium Potassium Chloride Carbon Dioxide Anion Gap BUN Creatinine Est GFR ( Amer) Est GFR (Non-Af Amer) POC Glucose (mg/dL) 93 121 H Random Glucose Calcium Magnesium 1.5 L Total Bilirubin AST ALT Alkaline Phosphatase Troponin I Total Protein Albumin Globulin Albumin/Globulin Ratio EKG/Cardiology Studies: Cardiology / EKG Studies 07/27/17 18:37 EKG [ELECTROCARDIOGRAM] Stat Comment: Reason For Exam: chest pain Critical Care Progress Note - Nutrition Nutrition: Nutrition Category Date Time Status Dysphagia/Modified Consistency Diet [DIET] Diets 07/27/17 Dinner Ordered Attending/Attestation - Attestation I have personally seen and examined this patient.: Yes I have fully participated in the care of the patient.: Yes I have reviewed all pertinent clinical information: Yes Notes (Text): 07/28/17 17:27 62 yo female s/p cardiac arrest in the setting of severe LV systolic dysfunction and cocaine abuse, now successfully resuscitated, extubated. Hemodynamically stable, respiratory stable, protecting airways, acei started, milrinone continued. dvt/gi prophylaxis--cardiology is following patient as well ccm time 40 min 07/28/17 17:44
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
[2017-07-28] MEDS: Potassium Chl 20mEq & D5W 1,000 ML IV SCH (17:27)
[2017-07-29] MEDS ORDERED: Magnesium Sulfate 1 gm in D5W 1 GM/100 ML BAG IVPB ONE (07:49)
[2017-07-29 08:01] LABS: BASO # 0.01 K/mm3 (0.0-2.0); BASO % 0.1 % (0.0-3.0); EOS # 0.2 (0.0-0.7); EOS % 1.8 % (1.5-5.0); GRAN # 6.23 (1.4-6.5); GRAN % 64.7 % (50.0-68.0); HEMOGLOBIN 10.4 g/dL (12.0-16.0); LYMPH # 2.2 (1.2-3.4); LYMPH % 22.6 % (22.0-35.0); MEAN CELL VOLUME 94.3 fl (80.0-105.0); MEAN CORPUSCULAR HEMOGLOBIN 31.2 pg (25.0-35.0); MEAN CORPUSCULAR HGB CONC 33.1 g/dl (31.0-37.0); MONO % 10.8 % (1.0-6.0); RBC 3.33 10^6/uL (3.5-6.1); RED CELL DISTRIBUTION WIDTH 15.3 % (11.5-14.5); WHITE BLOOD COUNT 9.6 10^3/ul (4.5-11.0)
[2017-07-29 08:25] LABS: ALB/GLOB RATIO 1.2 (1.1-1.8); ALBUMIN 3.8 g/dL (3.0-4.8); ALT/SGPT 21 U/L (7-56); AST/SGOT 33 U/L (14-36); BLOOD UREA NITROGEN 7 mg/dL (7-21); CALCIUM 9.5 mg/dL (8.4-10.5); GFR AFRICAN-AMERICAN > 60; GFR NON-AFRICAN AMERICAN 56
[2017-07-29] MEDS: Insulin Reg-MEDIUM-Coverage SC SCH ×4 (08:30→22:00)
[2017-07-29] MEDS: Nitroglycerin 2% Ointment Foilpak UD TOP SCH ×5 (09:10→22:16)
[2017-07-29] MEDS: Enoxaparin 40 mg Syringe SC SCH (09:11)
[2017-07-29] MEDS: Multivitamin With Minerals Tab PO SCH (09:12)
[2017-07-29] MEDS: Pantoprazole 40 mg EC Tab PO SCH (09:12)
[2017-07-29] MEDS: Meropenem 500 MG in Sodium Chloride 0.9% 50 ML IVPB SCH ×2 (10:19→21:45)
--- NOTE | 2017-07-29 10:47 | CP.PCM.PN ---
<Danish Marte - Last Filed: 07/29/17 10:44> Subjective - Date & Time of Evaluation Date of Evaluation: 07/29/17 Time of Evaluation: 06:00 - Subjective Subjective: Patient seen and evaluated bedside. Patient had episode of agitation overnight was given valium. Patient says she feels well, no issues breathing. Patient denies chest pain, SOB, abdominal pain, fever, chills, or any other complaints at this time. Objective - Vital Signs/Intake and Output Vital Signs (last 24 hours): Temp Pulse Resp BP Pulse Ox 97.7 F 95 H 18 140/100 H 98 07/29/17 06:00 07/29/17 09:12 07/29/17 06:00 07/29/17 09:12 07/29/17 06:00 Intake and Output: 07/29/17 07/29/17 06:59 18:59 Intake Total 438 Output Total 200 Balance 238 - Medications Medications: Current Medications Albuterol/Ipratropium (Duoneb 3 Mg/0.5 Mg (3 Ml) Ud) 3 ml IH Q2H PRN PRN Reason: Shortness of Breath Artificial Tears (Refresh Opth Soln) 0.3 ml OU Q4H PRN PRN Reason: Dry eyes Aspirin (Ecotrin) 81 mg PO DAILY [facility] Last Admin: 07/29/17 09:12 Dose: 81 mg Atorvastatin Calcium (Lipitor) 20 mg PO DIN [facility] Last Admin: 07/28/17 17:27 Dose: 20 mg Enoxaparin Sodium (Lovenox) 40 mg SC DAILY [facility] PRN Reason: Protocol Last Admin: 07/29/17 09:11 Dose: 40 mg Folic Acid (Folic Acid) 1 mg PO DAILY [facility] Last Admin: 07/29/17 09:12 Dose: 1 mg Furosemide (Lasix) 20 mg IVP Q12 [facility] Last Admin: 07/29/17 09:11 Dose: 20 mg Milrinone Lactate/Dextrose (Primacor 20mg/100ml D5w) 100 mls @ 5.443 mls/hr IV .[id number] PRN; Protocol; 0.33 MCG/KG/MIN PRN Reason: TITRATE PER MD ORDER Last Admin: 07/28/17 22:17 Dose: 0.33 mcg/kg/min, 5.443 mls/hr Meropenem 500 mg/ Sodium (Chloride) 50 mls @ 100 mls/hr IVPB Q12 [facility] PRN Reason: Protocol Stop: 07/29/17 22:01 Last Admin: 07/29/17 10:19 Dose: 100 mls/hr Insulin Human Regular (Humulin R Med) 0 units SC ACHS [facility] PRN Reason: Protocol Last Admin: 07/29/17 08:30 Dose: Not Given Lisinopril (Zestril) 10 mg PO DAILY [facility] Last Admin: 07/29/17 09:12 Dose: 10 mg Multivitamins/Minerals (Therapeutic-M Tab) 1 tab PO 0800 [facility] Last Admin: 07/29/17 09:12 Dose: 1 tab Nicotine (Nicoderm Cq) 1 patch TD DAILY [facility] Nitroglycerin (Nitro-Bid 2% Oint) 1 ea TOP QID [facility] Last Admin: 07/29/17 09:10 Dose: 1 ea Pantoprazole Sodium (Protonix Ec Tab) 40 mg PO DAILY [facility] Last Admin: 07/29/17 09:12 Dose: 40 mg Phenol/Menthol (Phenaseptic 1.4% Throat [place]) 0 ml MT Q2H PRN PRN Reason: tongue sore Last Admin: 07/28/17 10:17 Dose: 1 spr Thiamine HCl (Vitamin B1 Tab) 100 mg PO DAILY [facility] Last Admin: 07/29/17 10:19 Dose: 100 mg - Labs Labs: 07/29/17 07:30 07/29/17 07:30 PT 11.0 SECONDS (9.4-12.5) 07/28/17 06:30 INR 0.96 (0.93-1.08) 07/28/17 06:30 APTT 27.3 Seconds (25.1-36.5) 07/28/17 06:30 - Constitutional Appears: Non-toxic, No Acute Distress - Head Exam Head Exam: ATRAUMATIC, NORMAL INSPECTION, NORMOCEPHALIC - Eye Exam Eye Exam: EOMI, Normal appearance - ENT Exam ENT Exam: Mucous Membranes Moist - Respiratory Exam Respiratory Exam: Clear to Ausculation Bilateral, NORMAL BREATHING PATTERN - Cardiovascular Exam Cardiovascular Exam: REGULAR RHYTHM, +S1, +S2 - GI/Abdominal Exam GI & Abdominal Exam: Soft. absent: Tenderness - Extremities Exam Extremities Exam: absent: Pedal Edema, Tenderness - Neurological Exam Neurological Exam: Alert, Awake. absent: Oriented x3 Assessment and Plan - Assessment and Plan (Free Text) Assessment: 62 year old female with a past medical history significant for CHF (last EF 27% , 04/15), COPD, HTN and tobacco abuse who presented with shortness of breath for the past four days with intermittent cough productive of clear sputum. Patient noted to have elevated BNP and hypokalemia. She was being treated for CHF exacerbation when she went into cardiac arrest, code blue was called, patient had ROSC and was in the ICU and was intubated, subsequently extubated and now downgraded to telemetry. Plan: 1. Cardiac Arrest s/p shock and ROSC -telemetry -milrinone drip -lisinopril 10mg -cardio consulted, follow recs -Neuro consulted and signed off -CT head negative, MRI negative -patient oriented to person, but not time or place 2. CHF exacerbation secondary to medical non compliance -Echo <20% -Lasix 20mg IV BID -Continue home ASA -Cardiology consulted, all recommendations appreciated 3. History of COPD/Asthma -continue to monitor respiratory status 4. Normocytic Anemia -Irom: 87 TIBC: 253 %saturation: 34 -peripheral smear pending -Continue to monitor with daily CBC's 5. Hypokalemia-resolved -K 4.3 -Monitor with daily CMP's 6. History of HTN -lisinopril 7. CRISTÓBAL-resolved -secondary from cardiac arrest 8. Leukocytosis-resolved -likely reactive -meropenem for abx covergae -ID consulted, follow recs 9. Hypomagnesia -1.3 -repleted, monitor GI Prophylaxis: Protonix DVT Prophylaxis: Lovenox Diet: modified <Lyndon Ordonez - Last Filed: 07/29/17 11:17> Objective - Vital Signs/Intake and Output Vital Signs (last 24 hours): Temp Pulse Resp BP Pulse Ox 97.7 F 95 H 18 140/100 H 98 07/29/17 06:00 07/29/17 09:12 07/29/17 06:00 07/29/17 09:12 07/29/17 06:00 Intake and Output: 07/29/17 07/29/17 06:59 18:59 Intake Total 438 Output Total 200 Balance 238 - Medications Medications: Current Medications Albuterol/Ipratropium (Duoneb 3 Mg/0.5 Mg (3 Ml) Ud) 3 ml IH Q2H PRN PRN Reason: Shortness of Breath Artificial Tears (Refresh Opth Soln) 0.3 ml OU Q4H PRN PRN Reason: Dry eyes Aspirin (Ecotrin) 81 mg PO DAILY [facility] Last Admin: 07/29/17 09:12 Dose: 81 mg Atorvastatin Calcium (Lipitor) 20 mg PO DIN [facility] Last Admin: 07/28/17 17:27 Dose: 20 mg Enoxaparin Sodium (Lovenox) 40 mg SC DAILY [facility] PRN Reason: Protocol Last Admin: 07/29/17 09:11 Dose: 40 mg Folic Acid (Folic Acid) 1 mg PO DAILY [facility] Last Admin: 07/29/17 09:12 Dose: 1 mg Furosemide (Lasix) 20 mg IVP Q12 [facility] Last Admin: 07/29/17 09:11 Dose: 20 mg Milrinone Lactate/Dextrose (Primacor 20mg/100ml D5w) 100 mls @ 5.443 mls/hr IV .[id number] PRN; Protocol; 0.33 MCG/KG/MIN PRN Reason: TITRATE PER MD ORDER Last Admin: 07/28/17 22:17 Dose: 0.33 mcg/kg/min, 5.443 mls/hr Meropenem 500 mg/ Sodium (Chloride) 50 mls @ 100 mls/hr IVPB Q12 [facility] PRN Reason: Protocol Stop: 07/29/17 22:01 Last Admin: 07/29/17 10:19 Dose: 100 mls/hr Insulin Human Regular (Humulin R Med) 0 units SC ACHS [facility] PRN Reason: Protocol Last Admin: 07/29/17 08:30 Dose: Not Given Lisinopril (Zestril) 10 mg PO DAILY [facility] Last Admin: 07/29/17 09:12 Dose: 10 mg Multivitamins/Minerals (Therapeutic-M Tab) 1 tab PO 0800 [facility] Last Admin: 07/29/17 09:12 Dose: 1 tab Nicotine (Nicoderm Cq) 1 patch TD DAILY [facility] Nitroglycerin (Nitro-Bid 2% Oint) 1 ea TOP QID [facility] Last Admin: 07/29/17 09:10 Dose: 1 ea Pantoprazole Sodium (Protonix Ec Tab) 40 mg PO DAILY [facility] Last Admin: 07/29/17 09:12 Dose: 40 mg Phenol/Menthol (Phenaseptic 1.4% Throat [place]) 0 ml MT Q2H PRN PRN Reason: tongue sore Last Admin: 07/28/17 10:17 Dose: 1 spr Thiamine HCl (Vitamin B1 Tab) 100 mg PO DAILY [facility] Last Admin: 07/29/17 10:19 Dose: 100 mg - Labs Labs: 07/29/17 07:30 07/29/17 07:30 PT 11.0 SECONDS (9.4-12.5) 07/28/17 06:30 INR 0.96 (0.93-1.08) 07/28/17 06:30 APTT 27.3 Seconds (25.1-36.5) 07/28/17 06:30 Attending/Attestation - Attestation I have personally seen and examined this patient.: Yes I have fully participated in the care of the patient.: Yes I have reviewed all pertinent clinical information, including history, physical exam and plan: Yes Notes (Text): 07/29/17 11:04 62 year old female with past medical history of CHF, COPD, hypertension, smoker and alcohol/substance abuse who presented with shortness of breath secondary to acute systolic CHF exacerbation. She also had episode of cardiac arrest and was intubated, now extubated and transferred to telemetry unit. Continue with iv lasix and milrinone as per cardiology. She had intermittent confusion after the code, possibly anoxic brain injury during CPR. Mental status is slowly improving. CT head and MRI brain were negative for acute findings. Neurology evaluation was appreciated. She was counselled on alcohol cessation, smoking abstinence and on risks of continued substance abuse. Lyndon Ordonez MD Hospitalist.
[2017-07-29] MEDS: Milrinone 20mg/100ml D5W 100 ML IV PRN (13:31)
--- NOTE | 2017-07-29 14:52 | PN ---
DATE: 07/29/2017 SUBJECTIVE: The patient is confused. She denies any chest pain and does not appear to be in any distress. PHYSICAL EXAMINATION: VITAL SIGNS: Blood pressure 140/100, heart rate 95, temperature 97.7, respirations 18. HEENT: Normocephalic. CHEST: Bibasilar rhonchi. HEART: S1, S2 regular. EXTREMITIES: 1+ edema. LABORATORY DATA: Hemoglobin and hematocrit 10.4 and 31.4, white count and platelet count are within normal limits. SMA-7 today is within normal limit. Magnesium is 1.3, phosphorous 2.4. ASSESSMENT: 1. Status post cardiac arrest. 2. In-hospital cocaine abuse. 3. Dilated cardiomyopathy. 4. Borderline troponin elevation. 5. Hypomagnesemia and hypophosphatemia. 6. Severe hypokalemia on admission, which is currently corrected. CONDITIONS: Continue aspirin 81 mg once a day, Lasix 20 mg intravenously twice a day, thiamine 100 mg once a day, Zestril 10 mg once a day, intravenous magnesium sulfate 1 g was administered today. Start Slow-Mag at 1 tablet orally twice a day. The patient is not suitable candidate for cardiac catheterization. Jerome Mtz MD
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
[2017-07-29] MEDS: Magnesium Chloride 64 mg ER Tab PO SCH (17:35)
[2017-07-30] MEDS: Milrinone 20mg/100ml D5W 100 ML IV PRN (06:17)
[2017-07-30 06:49] LABS: BASO # 0.02 K/mm3 (0.0-2.0); BASO % 0.2 % (0.0-3.0); EOS # 0.2 (0.0-0.7); EOS % 2.5 % (1.5-5.0); GRAN # 5.01 (1.4-6.5); GRAN % 60.5 % (50.0-68.0); HEMOGLOBIN 10.8 g/dL (12.0-16.0); LYMPH # 1.8 (1.2-3.4); LYMPH % 21.7 % (22.0-35.0); MEAN CELL VOLUME 92.5 fl (80.0-105.0); MEAN CORPUSCULAR HEMOGLOBIN 31.3 pg (25.0-35.0); MEAN CORPUSCULAR HGB CONC 33.9 g/dl (31.0-37.0); MEAN PLATELET VOLUME 10.6 fl (7.0-11.0); MONO # 1.3 (0.1-0.6); MONO % 15.1 % (1.0-6.0); RBC 3.45 10^6/uL (3.5-6.1); RED CELL DISTRIBUTION WIDTH 15.1 % (11.5-14.5); WHITE BLOOD COUNT 8.3 10^3/ul (4.5-11.0)
[2017-07-30 07:32] LABS: ALB/GLOB RATIO 1.2 (1.1-1.8); ALBUMIN 3.8 g/dL (3.0-4.8); ALT/SGPT 27 U/L (7-56); AST/SGOT 39 U/L (14-36); BLOOD UREA NITROGEN 6 mg/dL (7-21); CALCIUM 9.5 mg/dL (8.4-10.5); GFR AFRICAN-AMERICAN > 60; GFR NON-AFRICAN AMERICAN > 60
[2017-07-30] MEDS: Multivitamin With Minerals Tab PO SCH (08:37)
[2017-07-30] MEDS: Insulin Reg-MEDIUM-Coverage SC SCH ×4 (08:37→21:54)
[2017-07-30] MEDS ORDERED: Magnesium 2 gm/50 ml NS 2 GM/50 ML BAG IVPB ONE (08:46)
[2017-07-30] MEDS: Pantoprazole 40 mg EC Tab PO SCH (09:47)
[2017-07-30] MEDS: Magnesium Chloride 64 mg ER Tab PO SCH ×2 (09:47→17:19)
[2017-07-30] MEDS: Enoxaparin 40 mg Syringe SC SCH (09:47)
[2017-07-30] MEDS: Nitroglycerin 2% Ointment Foilpak UD TOP SCH ×4 (09:48→21:52)
--- NOTE | 2017-07-30 13:55 | CP.PCM.PN ---
<Leo Cuellar Zaire - Last Filed: 07/30/17 13:13> Subjective - Date & Time of Evaluation Date of Evaluation: 07/30/17 Time of Evaluation: 13:16 - Subjective Subjective: Medicine progress note: Dr. Ordonez Patient seen and examined at bedside. No acute events overnight besides a couple of bouts of tachycardia. Patient offers no acute complaints. Objective - Vital Signs/Intake and Output Vital Signs (last 24 hours): Temp Pulse Resp BP Pulse Ox 98.5 F 110 H 20 134/90 97 07/30/17 00:01 07/30/17 10:00 07/30/17 00:01 07/30/17 09:47 07/30/17 00:01 Intake and Output: 07/30/17 07/30/17 06:59 18:59 Intake Total 460 Output Total 875 Balance -415 - Medications Medications: Current Medications Albuterol/Ipratropium (Duoneb 3 Mg/0.5 Mg (3 Ml) Ud) 3 ml IH Q2H PRN PRN Reason: Shortness of Breath Artificial Tears (Refresh Opth Soln) 0.3 ml OU Q4H PRN PRN Reason: Dry eyes Aspirin (Ecotrin) 81 mg PO DAILY [facility] Last Admin: 07/30/17 09:47 Dose: 81 mg Atorvastatin Calcium (Lipitor) 20 mg PO DIN [facility] Last Admin: 07/29/17 17:34 Dose: 20 mg Enoxaparin Sodium (Lovenox) 40 mg SC DAILY [facility] PRN Reason: Protocol Last Admin: 07/30/17 09:47 Dose: 40 mg Folic Acid (Folic Acid) 1 mg PO DAILY [facility] Last Admin: 07/30/17 09:47 Dose: 1 mg Furosemide (Lasix) 20 mg IVP Q12 [facility] Last Admin: 07/30/17 09:47 Dose: 20 mg Milrinone Lactate/Dextrose (Primacor 20mg/100ml D5w) 100 mls @ 5.443 mls/hr IV .[id number] PRN; Protocol; 0.33 MCG/KG/MIN PRN Reason: TITRATE PER MD ORDER Last Admin: 07/30/17 06:17 Dose: 0.33 mcg/kg/min, 5.443 mls/hr Insulin Human Regular (Humulin R Med) 0 units SC ACHS [facility] PRN Reason: Protocol Last Admin: 07/30/17 12:28 Dose: Not Given Lisinopril (Zestril) 10 mg PO DAILY [facility] Last Admin: 07/30/17 09:46 Dose: 10 mg Magnesium Chloride (Slow-Mag) 64 mg PO BID [facility] Last Admin: 07/30/17 09:47 Dose: 64 mg Multivitamins/Minerals (Therapeutic-M Tab) 1 tab PO 0800 [facility] Last Admin: 07/30/17 08:37 Dose: 1 tab Nicotine (Nicoderm Cq) 1 patch TD DAILY [facility] Last Admin: 07/30/17 09:48 Dose: 1 patch Nitroglycerin (Nitro-Bid 2% Oint) 1 ea TOP QID [facility] Last Admin: 07/30/17 09:48 Dose: 1 ea Pantoprazole Sodium (Protonix Ec Tab) 40 mg PO DAILY [facility] Last Admin: 07/30/17 09:47 Dose: 40 mg Phenol/Menthol (Phenaseptic 1.4% Throat [place]) 0 ml MT Q2H PRN PRN Reason: tongue sore Last Admin: 07/28/17 10:17 Dose: 1 spr Spironolactone (Aldactone) 25 mg PO DAILY [facility] Thiamine HCl (Vitamin B1 Tab) 100 mg PO DAILY [facility] Last Admin: 07/30/17 09:47 Dose: 100 mg - Labs Labs: 07/30/17 06:30 07/30/17 06:30 PT 11.0 SECONDS (9.4-12.5) 07/28/17 06:30 INR 0.96 (0.93-1.08) 07/28/17 06:30 APTT 27.3 Seconds (25.1-36.5) 07/28/17 06:30 - Constitutional Appears: Well - Head Exam Head Exam: ATRAUMATIC, NORMAL INSPECTION, NORMOCEPHALIC - Eye Exam Eye Exam: EOMI, Normal appearance, PERRL Pupil Exam: NORMAL ACCOMODATION, PERRL - ENT Exam ENT Exam: Mucous Membranes Moist, Normal Exam - Neck Exam Neck Exam: Full ROM, Normal Inspection. absent: Lymphadenopathy - Respiratory Exam Respiratory Exam: Clear to Ausculation Bilateral, NORMAL BREATHING PATTERN - Cardiovascular Exam Cardiovascular Exam: REGULAR RHYTHM, +S1, +S2. absent: Murmur - GI/Abdominal Exam GI & Abdominal Exam: Soft, Normal Bowel Sounds. absent: Tenderness - Extremities Exam Extremities Exam: Full ROM, Normal Capillary Refill, Normal Inspection. absent : Joint Swelling, Pedal Edema - Back Exam Back Exam: NORMAL INSPECTION - Neurological Exam Neurological Exam: Alert, Awake, CN II-XII Intact, Normal Gait, Oriented x3 - Psychiatric Exam Psychiatric exam: Normal Affect, Normal Mood - Skin Skin Exam: Dry, Intact, Normal Color, Warm Assessment and Plan - Assessment and Plan (Free Text) Assessment: 62 year old female with a past medical history significant for CHF (last EF 27% , 04/15), COPD, HTN and tobacco abuse who presented with shortness of breath for the past four days with intermittent cough productive of clear sputum. Patient noted to have elevated BNP and hypokalemia. She was being treated for CHF exacerbation when she went into cardiac arrest, code jose was called, patient had ROSC and was in the ICU and was intubated, subsequently extubated and now downgraded to telemetry. Plan: Cardiac Arrest s/p shock and ROSC, likely 2/2 Cocaine - Telemetry - Milrinone drip; Lisinopril 10mg; Lipitor - Cardio consulted, follow recs - Neuro consulted and signed off - CT head negative, MRI negative CHF exacerbation secondary to medical non compliance - Echo <20% - Lasix 20mg IV BID; Aldactone; Lipitor - Continue home ASA - Cardiology consulted, all recommendations appreciated Normocytic Anemia - Iron: 87 TIBC: 253 %saturation: 34 - Peripheral smear pending - Continue to monitor with daily CBC's Hypokalemia - Resolved - K 3.7; Mg 1.4 (low repleted) - Monitor Hypomagnesemia - Repleted - Mg 1.4 today, repleted CRISTÓBAL 2/2 Cardiac Arrest - Resolved Leukocytosis likely Reactive - Resolved - Meropenem for abx coverage - ID consulted, follow recs History of HTN - Lisinopril History of COPD/Asthma - Continue to monitor respiratory status History DM - RISS Low History Tobacco Abuse - Nicotine patch - Advised cessation GI Prophylaxis: Protonix DVT Prophylaxis: Lovenox Diet: modified <Lyndon Ordonez - Last Filed: 07/30/17 14:16> Objective - Vital Signs/Intake and Output Vital Signs (last 24 hours): Temp Pulse Resp BP Pulse Ox 98.4 F 82 20 150/97 H 97 07/30/17 12:00 07/30/17 12:00 07/30/17 12:00 07/30/17 12:00 07/30/17 00:01 Intake and Output: 07/30/17 07/30/17 06:59 18:59 Intake Total 460 Output Total 875 Balance -415 - Medications Medications: Current Medications Albuterol/Ipratropium (Duoneb 3 Mg/0.5 Mg (3 Ml) Ud) 3 ml IH Q2H PRN PRN Reason: Shortness of Breath Artificial Tears (Refresh Opth Soln) 0.3 ml OU Q4H PRN PRN Reason: Dry eyes Aspirin (Ecotrin) 81 mg PO DAILY [facility] Last Admin: 07/30/17 09:47 Dose: 81 mg Atorvastatin Calcium (Lipitor) 20 mg PO DIN [facility] Last Admin: 07/29/17 17:34 Dose: 20 mg Enoxaparin Sodium (Lovenox) 40 mg SC DAILY [facility] PRN Reason: Protocol Last Admin: 07/30/17 09:47 Dose: 40 mg Folic Acid (Folic Acid) 1 mg PO DAILY [facility] Last Admin: 07/30/17 09:47 Dose: 1 mg Furosemide (Lasix) 20 mg IVP Q12 [facility] Last Admin: 07/30/17 09:47 Dose: 20 mg Milrinone Lactate/Dextrose (Primacor 20mg/100ml D5w) 100 mls @ 5.443 mls/hr IV .[id number] PRN; Protocol; 0.33 MCG/KG/MIN PRN Reason: TITRATE PER MD ORDER Last Admin: 07/30/17 06:17 Dose: 0.33 mcg/kg/min, 5.443 mls/hr Meropenem 500 mg/ Sodium (Chloride) 50 mls @ 100 mls/hr IVPB Q12 [facility] PRN Reason: Protocol Stop: 07/30/17 22:29 Insulin Human Regular (Humulin R Med) 0 units SC ACHS [facility] PRN Reason: Protocol Last Admin: 07/30/17 12:28 Dose: Not Given Lisinopril (Zestril) 10 mg PO DAILY [facility] Last Admin: 07/30/17 09:46 Dose: 10 mg Magnesium Chloride (Slow-Mag) 64 mg PO BID [facility] Last Admin: 07/30/17 09:47 Dose: 64 mg Multivitamins/Minerals (Therapeutic-M Tab) 1 tab PO 0800 [facility] Last Admin: 07/30/17 08:37 Dose: 1 tab Nicotine (Nicoderm Cq) 1 patch TD DAILY [facility] Last Admin: 07/30/17 09:48 Dose: 1 patch Nitroglycerin (Nitro-Bid 2% Oint) 1 ea TOP QID [facility] Last Admin: 07/30/17 13:13 Dose: 1 ea Pantoprazole Sodium (Protonix Ec Tab) 40 mg PO DAILY [facility] Last Admin: 07/30/17 09:47 Dose: 40 mg Phenol/Menthol (Phenaseptic 1.4% Throat [place]) 0 ml MT Q2H PRN PRN Reason: tongue sore Last Admin: 07/28/17 10:17 Dose: 1 spr Spironolactone (Aldactone) 25 mg PO DAILY [facility] Last Admin: 07/30/17 13:13 Dose: 25 mg Thiamine HCl (Vitamin B1 Tab) 100 mg PO DAILY [facility] Last Admin: 07/30/17 09:47 Dose: 100 mg - Labs Labs: 07/30/17 06:30 07/30/17 06:30 PT 11.0 SECONDS (9.4-12.5) 07/28/17 06:30 INR 0.96 (0.93-1.08) 07/28/17 06:30 APTT 27.3 Seconds (25.1-36.5) 07/28/17 06:30 Attending/Attestation - Attestation I have personally seen and examined this patient.: Yes I have fully participated in the care of the patient.: Yes I have reviewed all pertinent clinical information, including history, physical exam and plan: Yes Notes (Text): 07/30/17 14:15 62 year old female with past medical history of CHF, COPD, hypertension, smoker and alcohol/substance abuse who presented with shortness of breath secondary to acute systolic CHF exacerbation. She also had episode of cardiac arrest and was intubated, now extubated and transferred to telemetry unit. Continue with iv lasix and milrinone as per cardiology. She is on lisinopril and spironalactone also has been added. Out of bed to chair is ordered. She had intermittent confusion after the code, possibly anoxic brain injury during CPR. Mental status has improved. CT head and MRI brain were negative for acute findings. Neurology evaluation was appreciated. She was counselled on alcohol cessation, smoking abstinence and on risks of continued substance abuse. Will replete and repeat lytes. Lyndon Ordonez MD Hospitalist.
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
--- NOTE | 2017-07-30 18:10 | PN ---
DATE: 07/30/2017 SUBJECTIVE: The patient is still confused and restless. No reported ventricular tachycardia. PHYSICAL EXAMINATION: VITAL SIGNS: Blood pressure 134/90, heart rate 93, temperature 98.5. HEENT: Normocephalic. CHEST: Clear. HEART: S1, S2 regular. EXTREMITIES: No edema. LABORATORY DATA: Today's hemoglobin and hematocrit are , white count and platelet count are within normal limits. Today's SMA-7 is within normal limits except for BUN of 6 and magnesium of 1.4. Blood culture, no growth after 4 days. ASSESSMENT: 1. Cardiomyopathy, status post cocaine abuse and cardiac arrest. 2. Slight degree of anoxic encephalopathy, the patient is still confused. 3. Hypomagnesemia. 4. Hypokalemia. 5. Uncontrolled hypertension. RECOMMENDATIONS: The patient did receive IV potassium and magnesium replacements today. Continue aspirin 81 mg once a day, Lasix 20 mg intravenously twice a day, Lovenox 40 mg subcutaneously once a day, Primacor infusion, and Slow-Mag at 64 mg twice a day. Start Aldactone at 25 mg orally once a day. Jerome Mtz MD
[2017-07-30] MEDS ORDERED: Meropenem 500 MG in Sodium Chloride 0.9% 50 ML IVPB SCH (22:00)
[2017-07-30] MEDS: Cefepime 1gm in NS 100ml 1 GM/100 ML BAG IVPB SCH (23:50)
[2017-07-31] MEDS: Milrinone 20mg/100ml D5W 100 ML IV PRN (00:09)
[2017-07-31 06:58] LABS: BASO # 0.02 K/mm3 (0.0-2.0); BASO % 0.2 % (0.0-3.0); EOS # 0.3 (0.0-0.7); EOS % 2.8 % (1.5-5.0); GRAN # 5.61 (1.4-6.5); GRAN % 55.6 % (50.0-68.0); HEMOGLOBIN 10.9 g/dL (12.0-16.0); LYMPH # 2.4 (1.2-3.4); MEAN CELL VOLUME 93.1 fl (80.0-105.0); MEAN CORPUSCULAR HEMOGLOBIN 31.2 pg (25.0-35.0); MEAN CORPUSCULAR HGB CONC 33.5 g/dl (31.0-37.0); MEAN PLATELET VOLUME 10.6 fl (7.0-11.0); MONO # 1.8 (0.1-0.6); MONO % 17.4 % (1.0-6.0); RBC 3.49 10^6/uL (3.5-6.1); RED CELL DISTRIBUTION WIDTH 15.2 % (11.5-14.5); WHITE BLOOD COUNT 10.1 10^3/ul (4.5-11.0)
[2017-07-31] MEDS: Insulin Reg-MEDIUM-Coverage SC SCH ×4 (07:34→21:29)
[2017-07-31 07:53] LABS: ALB/GLOB RATIO 1.2 (1.1-1.8); ALBUMIN 4.1 g/dL (3.0-4.8); ALT/SGPT 23 U/L (7-56); AST/SGOT 42 U/L (14-36); BLOOD UREA NITROGEN 9 mg/dL (7-21); CALCIUM 9.3 mg/dL (8.4-10.5); GFR AFRICAN-AMERICAN > 60; GFR NON-AFRICAN AMERICAN 56
[2017-07-31] MEDS ORDERED: Magnesium 2 gm/50 ml NS 2 GM/50 ML BAG IVPB ONE ×2 (08:54→11:02)
[2017-07-31] MEDS: Pantoprazole 40 mg EC Tab PO SCH (11:30)
[2017-07-31] MEDS: Magnesium Chloride 64 mg ER Tab PO SCH ×2 (11:31→18:12)
[2017-07-31] MEDS: Multivitamin With Minerals Tab PO SCH (11:31)
[2017-07-31] MEDS: Nitroglycerin 2% Ointment Foilpak UD TOP SCH ×4 (11:32→21:18)
[2017-07-31] MEDS: Cefepime 1gm in NS 100ml 1 GM/100 ML BAG IVPB SCH ×2 (11:32→21:17)
[2017-07-31] MEDS: Enoxaparin 40 mg Syringe SC SCH (11:32)
--- NOTE | 2017-07-31 11:51 | CP.PCM.PN ---
Subjective - Date & Time of Evaluation Date of Evaluation: 07/31/17 Time of Evaluation: 11:49 - Subjective Subjective: Ms. Bruno was seen and examined at the bedside. She is alert, oriented in all spheres. She denies any headache, dizziness, lightheadedness, nausea. or vomiting. She is able to follow simple commands. She further claims of able to tolerate PO intake. She remains with a telesitter for patient safety.There was no untoward events overnight. Objective - Vital Signs/Intake and Output Vital Signs (last 24 hours): Temp Pulse Resp BP Pulse Ox 98.6 F 97 H 20 159/96 H 95 07/31/17 00:01 07/31/17 11:30 07/31/17 00:01 07/31/17 11:32 07/31/17 00:01 Intake and Output: 07/31/17 07/31/17 06:59 18:59 Intake Total 700 Output Total 675 Balance 25 - Medications Medications: Current Medications Albuterol/Ipratropium (Duoneb 3 Mg/0.5 Mg (3 Ml) Ud) 3 ml IH Q2H PRN PRN Reason: Shortness of Breath Artificial Tears (Refresh Opth Soln) 0.3 ml OU Q4H PRN PRN Reason: Dry eyes Aspirin (Ecotrin) 81 mg PO DAILY [facility] Last Admin: 07/31/17 11:30 Dose: 81 mg Atorvastatin Calcium (Lipitor) 20 mg PO DIN [facility] Last Admin: 07/30/17 17:19 Dose: 20 mg Diphenhydramine HCl (Benadryl) 25 mg PO HS PRN PRN Reason: Insomnia Last Admin: 07/30/17 22:36 Dose: 25 mg Enoxaparin Sodium (Lovenox) 40 mg SC DAILY [facility] PRN Reason: Protocol Last Admin: 07/31/17 11:32 Dose: 40 mg Folic Acid (Folic Acid) 1 mg PO DAILY [facility] Last Admin: 07/31/17 11:30 Dose: 1 mg Furosemide (Lasix) 20 mg IVP Q12 [facility] Last Admin: 07/31/17 11:32 Dose: 20 mg Milrinone Lactate/Dextrose (Primacor 20mg/100ml D5w) 100 mls @ 5.443 mls/hr IV .[id number] PRN; Protocol; 0.33 MCG/KG/MIN PRN Reason: TITRATE PER MD ORDER Last Admin: 07/31/17 00:09 Dose: 0.33 mcg/kg/min, 5.443 mls/hr Cefepime HCl (Maxipime 1gm) 1 gm in 100 mls @ 100 mls/hr IVPB Q12 [facility] PRN Reason: Protocol Last Admin: 07/31/17 11:32 Dose: 100 mls/hr Magnesium 2 gm/50 ml NS (Magnesium Sulfate 2 Gm/50 Ml Ns) 2 gm in 50 mls @ 50 mls/hr IVPB ONCE ONE Stop: 07/31/17 12:01 Insulin Human Regular (Humulin R Med) 0 units SC ACHS [facility] PRN Reason: Protocol Last Admin: 07/31/17 11:33 Dose: Not Given Lisinopril (Zestril) 10 mg PO DAILY [facility] Last Admin: 07/31/17 11:30 Dose: 10 mg Magnesium Chloride (Slow-Mag) 64 mg PO BID [facility] Last Admin: 07/31/17 11:31 Dose: 64 mg Multivitamins/Minerals (Therapeutic-M Tab) 1 tab PO 0800 [facility] Last Admin: 07/31/17 11:31 Dose: 1 tab Nicotine (Nicoderm Cq) 1 patch TD DAILY [facility] Last Admin: 07/31/17 11:31 Dose: 1 patch Nitroglycerin (Nitro-Bid 2% Oint) 1 ea TOP QID [facility] Last Admin: 07/31/17 11:32 Dose: 1 ea Pantoprazole Sodium (Protonix Ec Tab) 40 mg PO DAILY [facility] Last Admin: 07/31/17 11:30 Dose: 40 mg Phenol/Menthol (Phenaseptic 1.4% Throat [place]) 0 ml MT Q2H PRN PRN Reason: tongue sore Last Admin: 07/28/17 10:17 Dose: 1 spr Spironolactone (Aldactone) 25 mg PO DAILY [facility] Last Admin: 07/31/17 11:31 Dose: 25 mg Thiamine HCl (Vitamin B1 Tab) 100 mg PO DAILY [facility] Last Admin: 07/31/17 11:31 Dose: 100 mg - Labs Labs: 07/31/17 06:30 07/31/17 06:30 PT 11.0 SECONDS (9.4-12.5) 07/28/17 06:30 INR 0.96 (0.93-1.08) 07/28/17 06:30 APTT 27.3 Seconds (25.1-36.5) 07/28/17 06:30 - Constitutional Appears: No Acute Distress - Head Exam Head Exam: NORMAL INSPECTION - Eye Exam Pupil Exam: PERRL - Extremities Exam Extremities Exam: Full ROM, Normal Capillary Refill - Neurological Exam Neurological Exam: Alert, Awake, CN II-XII Intact, Oriented x3 Neuro motor strength exam: Left Upper Extremity: 5, Right Upper Extremity: 5, Left Lower Extremity: 5, Right Lower Extremity: 5 Additional comments: Alert, oriented, follows commands. and sensation is intact. Assessment and Plan (1) Altered mental status Assessment & Plan: Case discussed with Dr. Mcnair, continue all current medical regimen. Recommend hydration, treat any underlying infection or electrolyte abnormalities. Pending EEG results. Status: Acute
[2017-07-31 12:29] LABS: BARBITURATES, UR NEGATIVE (NEGATIVE); BENZODIAZEPINES, UR POSITIVE (NEGATIVE); OPIATES, UR NEGATIVE (NEGATIVE); PHENCYCLIDINE, UR NEGATIVE (NEGATIVE)
--- NOTE | 2017-07-31 12:44 | PN ---
DATE: 07/31/2017 SUBJECTIVE: The patient denies chest pain. She is oriented to place. PHYSICAL EXAMINATION: VITAL SIGNS: Blood pressure 159/96, heart rate 97, temperature 98.6, respirations 20. HEENT: Normocephalic. CHEST: Clear. HEART: S1 and S2, regular. EXTREMITIES: No edema. LABORATORY DATA: Hemoglobin and hematocrit 10.9 and 32.5, white count and platelet count are within normal limits. SMA-7 is within normal limit. Magnesium today is 1.6. ASSESSMENT: 1. Status post ventricular fibrillation. 2. In-hospital cocaine abuse. 3. Cardiomyopathy. 4. Hypomagnesemia. CONDITIONS: Continue Aldactone 25 mg once a day, aspirin 81 mg once a day, Lasix 20 mg intravenous twice a day, Lipitor 20 mg once a day, subcutaneous Lovenox 40 mg once a day, magnesium sulfate intravenous placement was initiated today. Continue IV Maxipime. Discontinue IV Primacor. Case was discussed with medical language specialist. The patient will be evaluated for cardiac catheterization by Dr. Ankush Palafox at a later time, when she is cleared for the procedure. Jerome Mtz MD
--- NOTE | 2017-07-31 13:49 | CP.PCM.PN ---
<Douglas Oleary - Last Filed: 07/31/17 13:46> Subjective - Date & Time of Evaluation Date of Evaluation: 07/31/17 Time of Evaluation: 07:45 - Subjective Subjective: Patient seen and examined this AM. No acute events reported overnight. Patient appears to show signs of confusion when interviewing. Stating she was at her sister's house on Monday and then had come back to the hospital. No record of patient leaving is in charts. Patient is AAOx3 with poor recall of events while hospitalized. Patient denies shortness of breath, abdominal pain, fever, diarrhea, constipation, weakness, numbness. Patient reports midsternal reproducible chest pain. Objective - Vital Signs/Intake and Output Vital Signs (last 24 hours): Temp Pulse Resp BP Pulse Ox 98.6 F 97 H 20 159/96 H 95 07/31/17 00:01 07/31/17 11:30 07/31/17 00:01 07/31/17 11:32 07/31/17 00:01 Intake and Output: 07/31/17 07/31/17 06:59 18:59 Intake Total 700 Output Total 675 Balance 25 - Medications Medications: Current Medications Albuterol/Ipratropium (Duoneb 3 Mg/0.5 Mg (3 Ml) Ud) 3 ml IH Q2H PRN PRN Reason: Shortness of Breath Artificial Tears (Refresh Opth Soln) 0.3 ml OU Q4H PRN PRN Reason: Dry eyes Aspirin (Ecotrin) 81 mg PO DAILY [facility] Last Admin: 07/31/17 11:30 Dose: 81 mg Atorvastatin Calcium (Lipitor) 20 mg PO DIN [facility] Last Admin: 07/30/17 17:19 Dose: 20 mg Diphenhydramine HCl (Benadryl) 25 mg PO HS PRN PRN Reason: Insomnia Last Admin: 07/30/17 22:36 Dose: 25 mg Enoxaparin Sodium (Lovenox) 40 mg SC DAILY [facility] PRN Reason: Protocol Last Admin: 07/31/17 11:32 Dose: 40 mg Folic Acid (Folic Acid) 1 mg PO DAILY [facility] Last Admin: 07/31/17 11:30 Dose: 1 mg Furosemide (Lasix) 20 mg IVP Q12 [facility] Last Admin: 07/31/17 11:32 Dose: 20 mg Milrinone Lactate/Dextrose (Primacor 20mg/100ml D5w) 100 mls @ 5.443 mls/hr IV .[id number] PRN; Protocol; 0.33 MCG/KG/MIN PRN Reason: TITRATE PER MD ORDER Last Admin: 07/31/17 00:09 Dose: 0.33 mcg/kg/min, 5.443 mls/hr Cefepime HCl (Maxipime 1gm) 1 gm in 100 mls @ 100 mls/hr IVPB Q12 [facility] PRN Reason: Protocol Last Admin: 07/31/17 11:32 Dose: 100 mls/hr Insulin Human Regular (Humulin R Med) 0 units SC ACHS [facility] PRN Reason: Protocol Last Admin: 07/31/17 11:33 Dose: Not Given Lisinopril (Zestril) 10 mg PO DAILY [facility] Last Admin: 07/31/17 11:30 Dose: 10 mg Magnesium Chloride (Slow-Mag) 64 mg PO BID [facility] Last Admin: 07/31/17 11:31 Dose: 64 mg Multivitamins/Minerals (Therapeutic-M Tab) 1 tab PO 0800 [facility] Last Admin: 07/31/17 11:31 Dose: 1 tab Nicotine (Nicoderm Cq) 1 patch TD DAILY [facility] Last Admin: 07/31/17 11:31 Dose: 1 patch Nitroglycerin (Nitro-Bid 2% Oint) 1 ea TOP QID [facility] Last Admin: 07/31/17 11:32 Dose: 1 ea Pantoprazole Sodium (Protonix Ec Tab) 40 mg PO DAILY [facility] Last Admin: 07/31/17 11:30 Dose: 40 mg Phenol/Menthol (Phenaseptic 1.4% Throat [place]) 0 ml MT Q2H PRN PRN Reason: tongue sore Last Admin: 07/28/17 10:17 Dose: 1 spr Spironolactone (Aldactone) 25 mg PO DAILY [facility] Last Admin: 07/31/17 11:31 Dose: 25 mg Thiamine HCl (Vitamin B1 Tab) 100 mg PO DAILY [facility] Last Admin: 07/31/17 11:31 Dose: 100 mg - Labs Labs: 07/31/17 06:30 07/31/17 06:30 PT 11.0 SECONDS (9.4-12.5) 07/28/17 06:30 INR 0.96 (0.93-1.08) 07/28/17 06:30 APTT 27.3 Seconds (25.1-36.5) 07/28/17 06:30 - Constitutional Appears: No Acute Distress - Head Exam Head Exam: ATRAUMATIC, NORMAL INSPECTION, NORMOCEPHALIC - Eye Exam Eye Exam: EOMI, PERRL - Respiratory Exam Respiratory Exam: Clear to Ausculation Bilateral, NORMAL BREATHING PATTERN. absent: Rales - Cardiovascular Exam Cardiovascular Exam: REGULAR RHYTHM, +S1, +S2 - GI/Abdominal Exam GI & Abdominal Exam: Soft, Normal Bowel Sounds. absent: Guarding, Rigid, Tenderness - Extremities Exam Extremities Exam: absent: Calf Tenderness, Pedal Edema, Tenderness - Neurological Exam Neurological Exam: Alert, Awake, Normal Gait, Oriented x3 Neuro motor strength exam: Left Upper Extremity: 5, Right Upper Extremity: 5, Left Lower Extremity: 5, Right Lower Extremity: 5 - Psychiatric Exam Psychiatric exam: Anxious. absent: Agitated, Manic - Skin Skin Exam: Dry, Warm Assessment and Plan - Assessment and Plan (Free Text) Assessment: 62 year old female with past medical history of CHF(last known EF 27% 04/15), COPD, hypertension, smoker and alcohol/substance abuse who presented with shortness of breath secondary to acute systolic CHF exacerbation. Patient with cardiac arrest and intubation during admission. Patient was extubated and transferred to telemetry. Patient continues to be followed by cardiology and neurology. Plan: CHF exacerbation - Likely secondary to medical non-complaince - Last known Echo <20% - Lasix 20mg IV BID, Aldactone, Lipitor, ASA - Milrinone gtt held today, evaluate patient mental status tomorrow with possible cath - Cardiology consulted Cardiac Arrest s/p ACLS and ROSC - Likely secondary to substance abuse - Patient is s/p ICU and in telemetry - Cardiology consulted and following Hx of HTN - Stable - Continue medications Hx of COPD/Asthma - Stable - Continue medications DM2 - ISS low - ACHS Hx of Tobacco abuse - Nicotine - Smoking cessation GI/DVT ppx - Protonix - Lovenox Case and plan discussed with attending <Lyndon Ordonez - Last Filed: 07/31/17 14:14> Objective - Vital Signs/Intake and Output Vital Signs (last 24 hours): Temp Pulse Resp BP Pulse Ox 98.4 F 97 H 20 159/96 H 95 07/31/17 12:00 07/31/17 12:00 07/31/17 12:00 07/31/17 12:00 07/31/17 00:01 Intake and Output: 07/31/17 07/31/17 06:59 18:59 Intake Total 700 Output Total 675 Balance 25 - Medications Medications: Current Medications Albuterol/Ipratropium (Duoneb 3 Mg/0.5 Mg (3 Ml) Ud) 3 ml IH Q2H PRN PRN Reason: Shortness of Breath Artificial Tears (Refresh Opth Soln) 0.3 ml OU Q4H PRN PRN Reason: Dry eyes Aspirin (Ecotrin) 81 mg PO DAILY [facility] Last Admin: 07/31/17 11:30 Dose: 81 mg Atorvastatin Calcium (Lipitor) 20 mg PO DIN [facility] Last Admin: 07/30/17 17:19 Dose: 20 mg Diphenhydramine HCl (Benadryl) 25 mg PO HS PRN PRN Reason: Insomnia Last Admin: 07/30/17 22:36 Dose: 25 mg Enoxaparin Sodium (Lovenox) 40 mg SC DAILY [facility] PRN Reason: Protocol Last Admin: 07/31/17 11:32 Dose: 40 mg Folic Acid (Folic Acid) 1 mg PO DAILY [facility] Last Admin: 07/31/17 11:30 Dose: 1 mg Furosemide (Lasix) 20 mg IVP Q12 [facility] Last Admin: 07/31/17 11:32 Dose: 20 mg Milrinone Lactate/Dextrose (Primacor 20mg/100ml D5w) 100 mls @ 5.443 mls/hr IV .[id number] PRN; Protocol; 0.33 MCG/KG/MIN PRN Reason: TITRATE PER MD ORDER Last Admin: 07/31/17 00:09 Dose: 0.33 mcg/kg/min, 5.443 mls/hr Cefepime HCl (Maxipime 1gm) 1 gm in 100 mls @ 100 mls/hr IVPB Q12 [facility] PRN Reason: Protocol Last Admin: 07/31/17 11:32 Dose: 100 mls/hr Insulin Human Regular (Humulin R Med) 0 units SC ACHS [facility] PRN Reason: Protocol Last Admin: 07/31/17 11:33 Dose: Not Given Lisinopril (Zestril) 10 mg PO DAILY [facility] Last Admin: 07/31/17 11:30 Dose: 10 mg Magnesium Chloride (Slow-Mag) 64 mg PO BID [facility] Last Admin: 07/31/17 11:31 Dose: 64 mg Multivitamins/Minerals (Therapeutic-M Tab) 1 tab PO 0800 [facility] Last Admin: 07/31/17 11:31 Dose: 1 tab Nicotine (Nicoderm Cq) 1 patch TD DAILY [facility] Last Admin: 07/31/17 11:31 Dose: 1 patch Nitroglycerin (Nitro-Bid 2% Oint) 1 ea TOP QID [facility] Last Admin: 07/31/17 11:32 Dose: 1 ea Pantoprazole Sodium (Protonix Ec Tab) 40 mg PO DAILY [facility] Last Admin: 07/31/17 11:30 Dose: 40 mg Phenol/Menthol (Phenaseptic 1.4% Throat [place]) 0 ml MT Q2H PRN PRN Reason: tongue sore Last Admin: 07/28/17 10:17 Dose: 1 spr Spironolactone (Aldactone) 25 mg PO DAILY [facility] Last Admin: 07/31/17 11:31 Dose: 25 mg Thiamine HCl (Vitamin B1 Tab) 100 mg PO DAILY [facility] Last Admin: 07/31/17 11:31 Dose: 100 mg - Labs Labs: 07/31/17 06:30 07/31/17 06:30 PT 11.0 SECONDS (9.4-12.5) 07/28/17 06:30 INR 0.96 (0.93-1.08) 07/28/17 06:30 APTT 27.3 Seconds (25.1-36.5) 07/28/17 06:30 Attending/Attestation - Attestation I have personally seen and examined this patient.: Yes I have fully participated in the care of the patient.: Yes I have reviewed all pertinent clinical information, including history, physical exam and plan: Yes Notes (Text): 07/31/17 14:11 62 year old female with past medical history of CHF, COPD, hypertension, smoker and alcohol/substance abuse who presented with shortness of breath secondary to acute systolic CHF exacerbation. She also had episode of cardiac arrest and was intubated, now extubated and transferred to telemetry unit. She is on iv lasix, milrinone, lisinopril and spironalactone. Symptoms have improved and milrinone drip is discontinued today. Consider cardiac cath as per cardiology once her mental status improves. She had intermittent confusion after the code , possibly anoxic brain injury during CPR. CT head and MRI brain were negative for acute findings. Neurology is following. Patient was counselled on alcohol cessation, smoking abstinence and on risks of continued substance abuse. Will replete and repeat lytes. Lyndon Ordonez MD Hospitalist.
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
--- NOTE | 2017-08-01 01:21 | EEG ---
DATE: 07/31/2017 Technical Information: Electrodes were placed according to the 10-20 International electrode system by educational technologist. Total of 23 electrodes (21 EEG and 2 EKG) were placed. EEG activity was digitally recorded referentially to P1/P2 or A1/A2 electrodes. Continuous monitoring with EEG was performed using digital analysis for spike detection. The [employer] spike and seizure detection algorithms were used for digital EEG analysis throughout the monitoring period to screen the EEG in real-time and kavon the data file with pointers to electrographic seizures and interictal discharges. EEG was screened for electrographic seizures and interictal discharges by a technologist. Physician, epileptologist reviewed detections as well as extensive random samples and whole EEG study in detail. Digital EEG Analysis: Was carried out including FFT (Fast Fourier Transform), R2D2 (Rhythmicity Run Detection and Display), Relative Asymmetry Spectrogram, and voltage plot by the [employer] Software. The qualitative EEG analysis and the voltage plot mapping were used for detection of foci of paroxysmal and abnormal electrical cortical activity. General Description: Background Rhythm: There is a well-formed, 8-10 Hz posterior dominant rhythm that is reactive, symmetric, and attenuates with eye opening. There was a normal amount of frontal beta noted bilaterally. There is no sleep recorded. Activation Procedures: Photic stimulation: There is no driving noted. Hyperventilation: There is slowing noted that is self-remitted. Abnormal Activity: There are no focal epileptiform discharges noted. No clinical or subclinical seizures noted. IMPRESSION: This is a normal awake and drowsy EEG. Clinical correlation is required. Kathryn Mcnair MD
[2017-08-01 07:04] LABS: BASO # 0.03 K/mm3 (0.0-2.0); BASO % 0.4 % (0.0-3.0); EOS # 0.3 (0.0-0.7); EOS % 3.6 % (1.5-5.0); GRAN # 4.5 (1.4-6.5); GRAN % 53.8 % (50.0-68.0); LYMPH # 2.4 (1.2-3.4); LYMPH % 28.4 % (22.0-35.0); MEAN CORPUSCULAR HEMOGLOBIN 31.6 pg (25.0-35.0); MEAN CORPUSCULAR HGB CONC 33.6 g/dl (31.0-37.0); MEAN PLATELET VOLUME 10.2 fl (7.0-11.0); MONO # 1.2 (0.1-0.6); MONO % 13.8 % (1.0-6.0); RBC 3.48 10^6/uL (3.5-6.1); RED CELL DISTRIBUTION WIDTH 15.1 % (11.5-14.5); WHITE BLOOD COUNT 8.4 10^3/ul (4.5-11.0)
[2017-08-01 07:49] LABS: ALB/GLOB RATIO 1.2 (1.1-1.8); ALT/SGPT 22 U/L (7-56); AST/SGOT 45 U/L (14-36); BLOOD UREA NITROGEN 11 mg/dL (7-21); CALCIUM 9.4 mg/dL (8.4-10.5); GFR AFRICAN-AMERICAN > 60; GFR NON-AFRICAN AMERICAN 56
[2017-08-01] MEDS ORDERED: Potassium Chloride 20 mEq ER Tab PO ONE (07:56)
[2017-08-01] MEDS ORDERED: Magnesium 2 gm/50 ml NS 2 GM/50 ML BAG IVPB ONE (07:56)
[2017-08-01] MEDS: Insulin Reg-MEDIUM-Coverage SC SCH ×4 (07:57→21:36)
[2017-08-01] MEDS: Multivitamin With Minerals Tab PO SCH (08:31)
--- NOTE | 2017-08-01 08:36 | CP.PCM.PN ---
<Douglas Oleary - Last Filed: 08/01/17 14:32> Subjective - Date & Time of Evaluation Date of Evaluation: 08/01/17 Time of Evaluation: 07:30 - Subjective Subjective: Patient seen and examined this AM. Overnight patient noted to have episode of chest discomfort. According to patient she credits this to her nerves. She reports reproducible chest discomfort from previous exam. She denied palpitations, nausea, sweating at time of event. EKG and troponin were preformed and reviewed. Patient is alert and oriented x 3. She still appears to have some confusion regarding clinical course since admission. Discussed patient further treatment plan, patient with good insight. Objective - Vital Signs/Intake and Output Vital Signs (last 24 hours): Temp Pulse Resp BP Pulse Ox 98.5 F 86 18 106/69 95 08/01/17 05:36 08/01/17 06:00 08/01/17 05:36 08/01/17 05:36 08/01/17 05:36 Intake and Output: 08/01/17 08/01/17 06:59 18:59 Intake Total 580 Balance 580 - Medications Medications: Current Medications Albuterol/Ipratropium (Duoneb 3 Mg/0.5 Mg (3 Ml) Ud) 3 ml IH Q2H PRN PRN Reason: Shortness of Breath Artificial Tears (Refresh Opth Soln) 0.3 ml OU Q4H PRN PRN Reason: Dry eyes Aspirin (Ecotrin) 81 mg PO DAILY [facility] Last Admin: 07/31/17 11:30 Dose: 81 mg Atorvastatin Calcium (Lipitor) 20 mg PO DIN [facility] Last Admin: 07/31/17 18:12 Dose: 20 mg Diphenhydramine HCl (Benadryl) 25 mg PO HS PRN PRN Reason: Insomnia Last Admin: 07/31/17 22:48 Dose: 25 mg Enoxaparin Sodium (Lovenox) 40 mg SC DAILY [facility] PRN Reason: Protocol Last Admin: 07/31/17 11:32 Dose: 40 mg Folic Acid (Folic Acid) 1 mg PO DAILY [facility] Last Admin: 07/31/17 11:30 Dose: 1 mg Furosemide (Lasix) 20 mg IVP Q12 [facility] Last Admin: 07/31/17 21:17 Dose: 20 mg Milrinone Lactate/Dextrose (Primacor 20mg/100ml D5w) 100 mls @ 5.443 mls/hr IV .[id number] PRN; Protocol; 0.33 MCG/KG/MIN PRN Reason: TITRATE PER MD ORDER Last Admin: 07/31/17 00:09 Dose: 0.33 mcg/kg/min, 5.443 mls/hr Cefepime HCl (Maxipime 1gm) 1 gm in 100 mls @ 100 mls/hr IVPB Q12 [facility] PRN Reason: Protocol Last Admin: 07/31/17 21:17 Dose: 100 mls/hr Magnesium 2 gm/50 ml NS (Magnesium Sulfate 2 Gm/50 Ml Ns) 2 gm in 50 mls @ 50 mls/hr IVPB ONCE ONE Stop: 08/01/17 08:55 Insulin Human Regular (Humulin R Med) 0 units SC ACHS [facility] PRN Reason: Protocol Last Admin: 08/01/17 07:57 Dose: Not Given Lisinopril (Zestril) 10 mg PO DAILY [facility] Last Admin: 07/31/17 11:30 Dose: 10 mg Magnesium Chloride (Slow-Mag) 64 mg PO BID [facility] Last Admin: 07/31/17 18:12 Dose: 64 mg Multivitamins/Minerals (Therapeutic-M Tab) 1 tab PO 0800 [facility] Last Admin: 07/31/17 11:31 Dose: 1 tab Nicotine (Nicoderm Cq) 1 patch TD DAILY [facility] Last Admin: 07/31/17 11:31 Dose: 1 patch Nitroglycerin (Nitro-Bid 2% Oint) 1 ea TOP QID [facility] Last Admin: 07/31/17 21:18 Dose: 1 ea Pantoprazole Sodium (Protonix Ec Tab) 40 mg PO DAILY [facility] Last Admin: 07/31/17 11:30 Dose: 40 mg Phenol/Menthol (Phenaseptic 1.4% Throat [place]) 0 ml MT Q2H PRN PRN Reason: tongue sore Last Admin: 07/28/17 10:17 Dose: 1 spr Spironolactone (Aldactone) 25 mg PO DAILY [facility] Last Admin: 07/31/17 11:31 Dose: 25 mg Thiamine HCl (Vitamin B1 Tab) 100 mg PO DAILY [facility] Last Admin: 07/31/17 11:31 Dose: 100 mg - Labs Labs: 08/01/17 06:15 08/01/17 06:15 PT 11.0 SECONDS (9.4-12.5) 07/28/17 06:30 INR 0.96 (0.93-1.08) 07/28/17 06:30 APTT 27.3 Seconds (25.1-36.5) 07/28/17 06:30 - Constitutional Appears: No Acute Distress - Head Exam Head Exam: ATRAUMATIC, NORMAL INSPECTION, NORMOCEPHALIC - Eye Exam Eye Exam: EOMI, PERRL - ENT Exam Additional comments: ventral aspect of tongue with small ulcer measuring 1cm x 0.5 cm, raised and white discolaration, no drainage noted - Neck Exam Neck Exam: Full ROM - Cardiovascular Exam Cardiovascular Exam: REGULAR RHYTHM, +S1, +S2 - GI/Abdominal Exam GI & Abdominal Exam: Soft, Normal Bowel Sounds. absent: Tenderness - Extremities Exam Extremities Exam: absent: Pedal Edema - Neurological Exam Neurological Exam: Alert, Awake, Oriented x3 Neuro motor strength exam: Left Upper Extremity: 5, Right Upper Extremity: 5, Left Lower Extremity: 5, Right Lower Extremity: 5 - Psychiatric Exam Psychiatric exam: Normal Affect - Skin Skin Exam: Dry, Warm Assessment and Plan - Assessment and Plan (Free Text) Assessment: 62 year old female with past medical history of CHF(last known EF 27% 04/15), COPD, hypertension, smoker and alcohol/substance abuse who presented with shortness of breath secondary to acute systolic CHF exacerbation. Patient with cardiac arrest and intubation during admission. Patient was extubated and transferred to telemetry. Patient continues to be followed by cardiology and neurology. Plan: CHF exacerbation - Likely secondary to medical non-complaince - Last known Echo <20% - Lasix 20mg IV BID, Aldactone, Lipitor, ASA - Milrinone gtt held - Cardiology consulted - Re consulting cardiology with Dr. Palafox for possible [facility] Cardiac Arrest s/p ACLS and ROSC - Likely secondary to substance abuse - Patient is s/p ICU and in telemetry - Cardiology consulted and following Hypokalemia - Replaced - Follow up AM labs Hx of HTN - Stable - Continue medications Hx of COPD/Asthma - Stable - Continue medications DM2 - ISS low - ACHS Hx of Tobacco abuse - Nicotine - Smoking cessation GI/DVT ppx - Protonix - Lovenox Case and plan discussed with attending <Lyndon Ordonez - Last Filed: 08/01/17 14:43> Objective - Vital Signs/Intake and Output Vital Signs (last 24 hours): Temp Pulse Resp BP Pulse Ox 98.1 F 88 20 115/81 95 08/01/17 12:00 08/01/17 12:00 08/01/17 12:00 08/01/17 12:00 08/01/17 05:36 Intake and Output: 08/01/17 08/01/17 06:59 18:59 Intake Total 580 660 Balance 580 660 - Medications Medications: Current Medications Albuterol/Ipratropium (Duoneb 3 Mg/0.5 Mg (3 Ml) Ud) 3 ml IH Q2H PRN PRN Reason: Shortness of Breath Artificial Tears (Refresh Opth Soln) 0.3 ml OU Q4H PRN PRN Reason: Dry eyes Aspirin (Ecotrin) 81 mg PO DAILY [facility] Last Admin: 08/01/17 09:41 Dose: 81 mg Atorvastatin Calcium (Lipitor) 20 mg PO DIN [facility] Last Admin: 07/31/17 18:12 Dose: 20 mg Diphenhydramine HCl (Benadryl) 25 mg PO HS PRN PRN Reason: Insomnia Last Admin: 07/31/17 22:48 Dose: 25 mg Enoxaparin Sodium (Lovenox) 40 mg SC DAILY [facility] PRN Reason: Protocol Last Admin: 08/01/17 09:41 Dose: 40 mg Folic Acid (Folic Acid) 1 mg PO DAILY [facility] Last Admin: 08/01/17 09:41 Dose: 1 mg Furosemide (Lasix) 20 mg IVP Q12 [facility] Last Admin: 08/01/17 09:41 Dose: 20 mg Milrinone Lactate/Dextrose (Primacor 20mg/100ml D5w) 100 mls @ 5.443 mls/hr IV .[id number] PRN; Protocol; 0.33 MCG/KG/MIN PRN Reason: TITRATE PER MD ORDER Last Admin: 07/31/17 00:09 Dose: 0.33 mcg/kg/min, 5.443 mls/hr Cefepime HCl (Maxipime 1gm) 1 gm in 100 mls @ 100 mls/hr IVPB Q12 [facility] PRN Reason: Protocol Last Admin: 08/01/17 09:38 Dose: 100 mls/hr Insulin Human Regular (Humulin R Med) 0 units SC ACHS [facility] PRN Reason: Protocol Last Admin: 08/01/17 12:16 Dose: Not Given Lisinopril (Zestril) 10 mg PO DAILY [facility] Last Admin: 08/01/17 09:52 Dose: 10 mg Magnesium Chloride (Slow-Mag) 64 mg PO BID [facility] Last Admin: 08/01/17 09:40 Dose: 64 mg Multivitamins/Minerals (Therapeutic-M Tab) 1 tab PO 0800 [facility] Last Admin: 08/01/17 08:31 Dose: 1 tab Nicotine (Nicoderm Cq) 1 patch TD DAILY [facility] Last Admin: 08/01/17 09:40 Dose: 1 patch Nitroglycerin (Nitro-Bid 2% Oint) 1 ea TOP QID [facility] Last Admin: 08/01/17 14:40 Dose: Not Given Pantoprazole Sodium (Protonix Ec Tab) 40 mg PO DAILY [facility] Last Admin: 08/01/17 09:41 Dose: 40 mg Phenol/Menthol (Phenaseptic 1.4% Throat [place]) 0 ml MT Q2H PRN PRN Reason: tongue sore Last Admin: 07/28/17 10:17 Dose: 1 spr Spironolactone (Aldactone) 25 mg PO DAILY [facility] Last Admin: 08/01/17 09:41 Dose: 25 mg Thiamine HCl (Vitamin B1 Tab) 100 mg PO DAILY [facility] Last Admin: 08/01/17 09:52 Dose: 100 mg - Labs Labs: 08/01/17 06:15 08/01/17 06:15 PT 11.0 SECONDS (9.4-12.5) 07/28/17 06:30 INR 0.96 (0.93-1.08) 07/28/17 06:30 APTT 27.3 Seconds (25.1-36.5) 07/28/17 06:30 Attending/Attestation - Attestation I have personally seen and examined this patient.: Yes I have fully participated in the care of the patient.: Yes I have reviewed all pertinent clinical information, including history, physical exam and plan: Yes Notes (Text): 08/01/17 14:41 62 year old female with past medical history of CHF, COPD, hypertension, smoker and alcohol/substance abuse who presented with shortness of breath secondary to acute systolic CHF exacerbation. She also had episode of cardiac arrest and was intubated, now extubated and transferred to telemetry unit. She is on iv lasix, lisinopril and spironalactone. Milrinone drip is discontinued yesterday. Her mental status continues to improve. Will request cardiology follow up for possible cath. Patient was counselled on alcohol cessation, smoking abstinence and on risks of continued substance abuse. Will replete and repeat lytes. Lyndon Ordonez MD Hospitalist.
[2017-08-01] MEDS: Cefepime 1gm in NS 100ml 1 GM/100 ML BAG IVPB SCH ×2 (09:38→21:14)
[2017-08-01] MEDS: Magnesium Chloride 64 mg ER Tab PO SCH ×2 (09:40→17:02)
[2017-08-01] MEDS: Nitroglycerin 2% Ointment Foilpak UD TOP SCH ×5 (09:41→21:14)
[2017-08-01] MEDS: Pantoprazole 40 mg EC Tab PO SCH (09:41)
[2017-08-01] MEDS: Enoxaparin 40 mg Syringe SC SCH (09:41)
--- NOTE | 2017-08-01 10:56 | CARD ---
APPROVED REPORT EKG Measurement Heart [id number] <Conclusion> Normal sinus rhythm LVH STTW changes Prolonged QT Electrical and baseline artifact present Probably no change
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
[2017-08-01] MEDS: Phenol Topical 1.4% Throat Spray (180 ml) MT PRN (20:48)
[2017-08-02] MEDS: Phenol Topical 1.4% Throat Spray (180 ml) MT PRN ×2 (01:14→10:22)
[2017-08-02 07:12] LABS: BASO # 0.03 K/mm3 (0.0-2.0); BASO % 0.4 % (0.0-3.0); EOS # 0.2 (0.0-0.7); EOS % 2.9 % (1.5-5.0); GRAN # 3.6 (1.4-6.5); GRAN % 48.3 % (50.0-68.0); HEMOGLOBIN 10.6 g/dL (12.0-16.0); LYMPH # 2.5 (1.2-3.4); LYMPH % 33.5 % (22.0-35.0); MEAN CORPUSCULAR HEMOGLOBIN 30.4 pg (25.0-35.0); MEAN CORPUSCULAR HGB CONC 32.3 g/dl (31.0-37.0); MEAN PLATELET VOLUME 10.1 fl (7.0-11.0); MONO # 1.1 (0.1-0.6); MONO % 14.9 % (1.0-6.0); RBC 3.49 10^6/uL (3.5-6.1); WHITE BLOOD COUNT 7.5 10^3/ul (4.5-11.0)
[2017-08-02 07:31] LABS: ALB/GLOB RATIO 1.1 (1.1-1.8); ALBUMIN 3.9 g/dL (3.0-4.8); ALT/SGPT 29 U/L (7-56); AST/SGOT 41 U/L (14-36); BLOOD UREA NITROGEN 15 mg/dL (7-21); CALCIUM 9.7 mg/dL (8.4-10.5); GFR AFRICAN-AMERICAN > 60; GFR NON-AFRICAN AMERICAN 56
[2017-08-02] MEDS: Insulin Reg-MEDIUM-Coverage SC SCH ×3 (08:25→17:04)
[2017-08-02] MEDS: Multivitamin With Minerals Tab PO SCH (08:37)
[2017-08-02] MEDS: Cefepime 1gm in NS 100ml 1 GM/100 ML BAG IVPB SCH (09:58)
[2017-08-02] MEDS: Pantoprazole 40 mg EC Tab PO SCH (09:58)
[2017-08-02] MEDS: Nitroglycerin 2% Ointment Foilpak UD TOP SCH ×3 (09:58→17:14)
[2017-08-02] MEDS: Magnesium Chloride 64 mg ER Tab PO SCH ×2 (09:59→17:14)
[2017-08-02] MEDS: Enoxaparin 40 mg Syringe SC SCH (10:00)
--- NOTE | 2017-08-02 15:22 | CP.PCM.DIS ---
Provider - Provider Date of Admission: 07/25/17 04:51 Attending physician: Lyndon Ordonez MD Primary care physician: Cecile Adrian MD Consults: Cardiology: Dr. Bergeron Neurology: Dr. Hlal Time Spent in preparation of Discharge (in minutes): 45 Diagnosis - Discharge Diagnosis (1) Cardiac arrest Status: Acute (2) Substance abuse Status: Chronic (3) Alcohol abuse Status: Chronic (4) Altered mental status Status: Resolved (5) CHF (congestive heart failure) Status: Chronic (6) COPD exacerbation Status: Acute (7) Wheezing Status: Resolved Hospital Course - Lab Results Lab Results: Micro Results 07/26/17 10:30 Blood Blood Culture - Final NO GROWTH AFTER 5 DAYS 07/26/17 10:00 Blood Blood Culture - Final NO GROWTH AFTER 5 DAYS 07/26/17 10:00 Blood Gram Stain - Final TEST NOT PERFORMED 07/26/17 16:24 Sputum Gram Stain - Final 07/26/17 16:24 Sputum Sputum Culture - Final NORMAL ORAL DALE 07/27/17 17:02 Stool Stool Culture - Final NO SALMONELLA, SHIGELLA OR CAMPYLOBACTER ISOLATED. 07/25/17 21:23 Naris MRSA Culture (Admit) - Final MRSA NOT DETECTED 07/26/17 12:00 Urine,Sánchez Urine Culture - Final No Growth (<1,000 CFU/ML) Most Recent Lab Values WBC 7.5 10^3/ul (4.5-11.0) 08/02/17 06:30 RBC 3.49 10^6/uL (3.5-6.1) L 08/02/17 06:30 Hgb 10.6 g/dL (12.0-16.0) L 08/02/17 06:30 Hct 32.8 % (36.0-48.0) L 08/02/17 06:30 MCV 94.0 fl (80.0-105.0) 08/02/17 06:30 MCH 30.4 pg (25.0-35.0) 08/02/17 06:30 MCHC 32.3 g/dl (31.0-37.0) 08/02/17 06:30 RDW 15.0 % (11.5-14.5) H 08/02/17 06:30 Plt Count 346 10^3/uL (120.0-450.0) 08/02/17 06:30 MPV 10.1 fl (7.0-11.0) 08/02/17 06:30 Gran % 48.3 % (50.0-68.0) L 08/02/17 06:30 Lymph % (Auto) 33.5 % (22.0-35.0) 08/02/17 06:30 [place] % (Auto) 14.9 % (1.0-6.0) H 08/02/17 06:30 Eos % (Auto) 2.9 % (1.5-5.0) 08/02/17 06:30 Baso % (Auto) 0.4 % (0.0-3.0) 08/02/17 06:30 Gran # 3.60 (1.4-6.5) 08/02/17 06:30 Lymph # (Auto) 2.5 (1.2-3.4) 08/02/17 06:30 [place] # (Auto) 1.1 (0.1-0.6) H 08/02/17 06:30 Eos # (Auto) 0.2 (0.0-0.7) 08/02/17 06:30 Baso # (Auto) 0.03 K/mm3 (0.0-2.0) 08/02/17 06:30 Retic Count 1.54 % (0.5-1.5) H 07/25/17 05:00 PT 11.0 SECONDS (9.4-12.5) 07/28/17 06:30 INR 0.96 (0.93-1.08) 07/28/17 06:30 APTT 27.3 Seconds (25.1-36.5) 07/28/17 06:30 pCO2 31 mm/Hg (35-45) L 07/27/17 05:05 pO2 222.0 mm/Hg (80-100) H 07/27/17 05:05 HCO3 22.6 mmol/L (21-28) 07/27/17 05:05 ABG pH 7.47 (7.35-7.45) H 07/27/17 05:05 ABG Total CO2 23.6 mmol.L (22-28) 07/27/17 05:05 ABG O2 Saturation 100.2 % (95-98) H 07/27/17 05:05 ABG O2 Content 14.2 ML/dl (15-23) L 07/27/17 05:05 ABG Base Excess -0.6 mmol/L (-2.0-3.0) 07/27/17 05:05 ABG Hemoglobin 10.0 g/dL (11.7-17.4) L 07/27/17 05:05 ABG Carboxyhemoglobin 1.9 % (0.5-1.5) H 07/27/17 05:05 POC ABG HHb (Measured) -0.2 % (0-5) L 07/27/17 05:05 ABG Methemoglobin 1.3 % (0.0-3.0) 07/27/17 05:05 ABG O2 Capacity 14.2 mL/dl (16-24) L 07/27/17 05:05 ABG Potassium 5.0 mmol/L (3.6-5.2) 07/25/17 16:40 VBG pH 7.48 (7.32-7.43) H 07/26/17 09:10 VBG pCO2 31.0 (40-60) L 07/26/17 09:10 VBG HCO3 23.1 mmol/l (21-28) 07/26/17 09:10 VBG Total CO2 24.1 mmol.L (22-28) 07/26/17 09:10 VBG O2 Sat (Calc) 100.1 % (40-65) H 07/26/17 09:10 VBG Base Excess 0.4 mmol/L (0.0-2.0) 07/26/17 09:10 VBG Potassium 3.3 mmol/L (3.6-5.2) L 07/26/17 09:10 Hgb O2 Saturation 97.0 % (95.0-98.0) 07/27/17 05:05 Sodium 138.0 mmol/L (132-148) 07/26/17 09:10 Chloride 108.0 mmol/L (98-107) H 07/26/17 09:10 Glucose 127 mg/dl (65-105) H 07/26/17 09:10 Lactate 1.1 mmol/L (0.7-2.1) 07/26/17 09:10 FiO2 50.0 % 07/27/17 05:05 Sodium 140 mmol/L (132-148) 08/02/17 06:30 Potassium 4.2 mmol/L (3.6-5.0) 08/02/17 06:30 Chloride 102 mmol/L (98-107) 08/02/17 06:30 Carbon Dioxide 28 mmol/L (21-33) 08/02/17 06:30 Anion Gap 14 (10-20) 08/02/17 06:30 BUN 15 mg/dL (7-21) 08/02/17 06:30 Creatinine 1.0 mg/dl (0.7-1.2) 08/02/17 06:30 Est GFR ( Amer) > 60 08/02/17 06:30 Est GFR (Non-Af Amer) 56 08/02/17 06:30 POC Glucose (mg/dL) 95 mg/dL (65-110) 08/02/17 11:14 Random Glucose 96 mg/dL (70-110) 08/02/17 06:30 Hemoglobin A1c 4.7 % (4.2-6.5) 07/25/17 04:30 Calcium 9.7 mg/dL (8.4-10.5) 08/02/17 06:30 Phosphorus 3.9 mg/dL (2.5-4.5) 08/02/17 06:30 Magnesium 1.7 mg/dL (1.7-2.2) 08/02/17 06:30 Iron 87 ug/dL (45-180) 07/25/17 03:20 TIBC 253 ug/dL (265-497) L 07/25/17 03:20 % Saturation 34 % (20-55) 07/25/17 03:20 Transferrin 226.65 mg/dL (206-381) 07/25/17 03:20 Ferritin 148.0 ng/mL 07/25/17 03:20 Total Bilirubin 0.6 mg/dL (0.2-1.3) 08/02/17 06:30 AST 41 U/L (14-36) H 08/02/17 06:30 ALT 29 U/L (7-56) 08/02/17 06:30 Alkaline Phosphatase 69 U/L (38-126) 08/02/17 06:30 Lactate Dehydrogenase 653 U/L (333-699) 07/25/17 03:20 Total Creatine Kinase 150 U/L (35-230) 07/25/17 03:20 Troponin I 0.03 ng/mL D 08/01/17 01:20 NT-Pro-B Natriuret Pep 3590 pg/mL (0-450) H 07/25/17 03:20 Total Protein 7.4 g/dL (5.8-8.3) 08/02/17 06:30 Albumin 3.9 g/dL (3.0-4.8) 08/02/17 06:30 Globulin 3.5 gm/dL 08/02/17 06:30 Albumin/Globulin Ratio 1.1 (1.1-1.8) 08/02/17 06:30 Triglycerides 102 mg/dL (35-160) 07/25/17 03:20 Cholesterol 259 mg/dL (130-200) H 07/25/17 03:20 LDL Cholesterol Direct 110 mg/dL (0-129) 07/25/17 03:20 HDL Cholesterol 141 mg/dL (29-60) H 07/25/17 03:20 Vitamin B12 275 pg/mL (239-931) 07/25/17 03:20 Folate 10.8 ng/mL 07/25/17 03:20 Procalcitonin 6.28 NG/ML (0.19-0.49) H 07/26/17 10:15 TSH 3rd Generation 3.92 mIU/mL (0.46-4.68) 07/25/17 03:20 Arterial Blood Potassium 5.0 mmol/L (3.6-5.2) 07/25/17 16:40 Venous Blood Potassium 3.3 mmol/L (3.6-5.2) L 07/26/17 09:10 Urine Color Dark yellow (YELLOW) 07/27/17 14:45 Urine Appearance Clear (CLEAR) 07/27/17 14:45 Urine pH 5.5 (4.7-8.0) 07/27/17 14:45 Ur Specific [place] 1.025 (1.005-1.035) 07/27/17 14:45 Urine Protein 100 mg/dL (<30 mg/dL) H 07/27/17 14:45 Urine Glucose (UA) Negative mg/dL (NEGATIVE) 07/27/17 14:45 Urine Ketones Negative mg/dL (NEGATIVE) 07/27/17 14:45 Urine Blood Large (NEGATIVE) H 07/27/17 14:45 Urine Nitrate Negative (NEGATIVE) 07/27/17 14:45 Urine Bilirubin Negative (NEGATIVE) 07/27/17 14:45 Urine Urobilinogen 0.2 E.U./dL (<1 E.U./dL) 07/27/17 14:45 Ur Leukocyte Esterase Trace Alejandra/uL (NEGATIVE) H 07/27/17 14:45 Urine RBC 25 - 30 /hpf (0-2) 07/27/17 14:45 Urine WBC 5 - 10 /hpf (0-6) 07/27/17 14:45 Ur Epithelial Cells 6 - 8 /hpf (0-5) 07/27/17 14:45 Other Crystals /hpf 07/27/17 14:45 Amorphous Sediment Moderate 07/27/17 14:45 Urine Bacteria Many (NEG) 07/27/17 14:45 Hyaline Casts 0 - 2 /hpf 07/25/17 18:38 Coarse Granular Casts Trace /hpf (0-2) H 07/27/17 14:45 Urine Other [place] 07/27/17 14:45 Urine Opiates Screen Negative (NEGATIVE) 07/31/17 12:01 Urine Methadone Screen Negative (NEGATIVE) 07/31/17 12:01 Ur Barbiturates Screen Negative (NEGATIVE) 07/31/17 12:01 Ur Phencyclidine Scrn Negative (NEGATIVE) 07/31/17 12:01 Ur Amphetamines Screen Negative (NEGATIVE) 07/31/17 12:01 U Benzodiazepines Scrn Positive (NEGATIVE) H 07/31/17 12:01 U Oth Cocaine Metabols Negative (NEGATIVE) 07/31/17 12:01 U Cannabinoids Screen Negative (NEGATIVE) 07/31/17 12:01 - Hospital Course Hospital Course: 62yo female with past medical history of CHF (last EF 27%, 04/15), COPD, HTN and tobacco abuse presented to [facility] ED 07/25 with complaints of shortness of breath. Patient was initially admitted to telemetry floor for CHF exacerbation. While on the floors patient had an rapid response called on 07/25 for acute change in mental status as patient was found unresponsive. Soon after patient was found to be pulseless and CODE Blue was called and ACLS protocol was initiated until ROSC was achieved. The patient coded for a second time and multiple rounds of ACLS were performed until ROSC was achieved. Patient was intubated placed on vent support, started on propofol gtt, amiodarone gtt, and milrinone gtt and transferred to ICU. Neurology was consulted and recommended EEG, Head CT which was negative. Patient was stabilized and transferred to telemetry floor. Cardiology was consulted and - Date & Time of H&P Date of H&P: 07/25/17 Time of H&P: 05:37 Discharge Exam - Head Exam Head Exam: ATRAUMATIC, NORMOCEPHALIC - Eye Exam Eye Exam: EOMI, PERRL Discharge Plan - Discharge Medications Prescriptions: Atorvastatin [Lipitor] 20 mg PO DIN #14 tab Folic Acid 1 mg PO DAILY #14 tab Multimineral/Multivitamin [Therapeutic-M Tab] 1 tab PO 0800 #14 tab Spironolactone [Aldactone] 25 mg PO DAILY #14 tab Thiamine [Vitamin B1 Tab] 100 mg PO DAILY #14 tab - Follow Up Plan Condition: STABLE Disposition: HOME/ ROUTINE Instructions: Heart Failure (ED) Additional Instructions: Follow up with PMD within 3-5 days of discharge Follow up with cardiology within 1-2 weeks upon discharge Avoid consuming alcohol, cocaine, and other recreational drugs Take medications as prescribed to you Return to nearest ED if you begin experiencing chest pain, shortness of breath, persistent fever or headache Referrals: Cecile Adrian MD [Primary Care Provider] -
--- NOTE | 2017-08-02 16:31 | PN ---
DATE: 08/02/2017 CARDIOLOGY FOLLOWUP SUBJECTIVE: Cardiology followup (for Dr. Mtz). The patient is awake and alert. No chest pain. No angina noted. She does have chest wall discomfort on palpation. PHYSICAL EXAMINATION: VITAL SIGNS: Blood pressure is 112/60, the heart rates in the 70s. NECK: Negative JVD. LUNGS: Without rales. HEART: Reveals S1, S2. EXTREMITIES: Without edema. LABORATORY DATA: BUN and creatinine are unremarkable. Hemoglobin is 10.6. IMPRESSION: 1. End-stage dilated cardiomyopathy, likely due to alcoholism. 2. Status post ventricular tachycardia. 3. Multidrug abuse. 4. Hypomagnesemia. PLAN: Given these findings, the patient refuses to discuss nor correct her recurrent drug abuse. I do not feel the patient can be relied upon to take Plavix if a stent was necessary. We would continue medical therapy. There are no plans for catheterization and possible stent placement given the patient's uncooperativeness and also unreliability and noncompliance with medical therapy. The patient wants to go home. We will continue medical therapy with aspirin and beta-blockers. Ankush Palafox MD
[2017-08-02 16:45] VITALS: BP 114/73; PULSE 83; RESP 17; TEMP 97.7; O2SAT 99
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
[2017-08-03] MEDS ORDERED: Enoxaparin 40 mg Syringe SC SCH (10:00)
== END 2017-08-02 19:08 | disposition home or self-care (01) | DRG 291 ==
LOC: ED 02:46 → ERH 04:51 → 2RSO 06:05 → CCU 16:25 → 2RSO 07-28 12:05
PROVIDERS: ADMIT Internal Medicine; ATTEND Internal Medicine
PROC: 5A1945Z Respiratory Ventilation, 24-96 Consecutive Hours (ICD-10-PCS; principal; 2017-07-25)
PROC: 0BH18EZ Insertion of Endotracheal Airway into Trachea, Via Natural or Artificial Opening Endoscopic (ICD-10-PCS; 2017-07-25)
PROC: 5A12012 Performance of Cardiac Output, Single, Manual (ICD-10-PCS; 2017-07-25)
PROC: 06HY33Z Insertion of Infusion Device into Lower Vein, Percutaneous Approach (ICD-10-PCS; 2017-07-25)
DX: I11.0 Hypertensive heart disease with heart failure (principal); I49.01 Ventricular fibrillation; R57.0 Cardiogenic shock; J44.1 Chronic obstructive pulmonary disease with (acute) exacerbation; E87.2 Acidosis; G93.1 Anoxic brain damage, not elsewhere classified; I50.23 Acute on chronic systolic (congestive) heart failure; I42.0 Dilated cardiomyopathy; I43 Cardiomyopathy in diseases classified elsewhere; D72.829 Elevated white blood cell count, unspecified; E83.39 Other disorders of phosphorus metabolism; E83.42 Hypomagnesemia; E87.6 Hypokalemia; F10.20 Alcohol dependence, uncomplicated; F12.90 Cannabis use, unspecified, uncomplicated; F14.10 Cocaine abuse, uncomplicated; F17.210 Nicotine dependence, cigarettes, uncomplicated; I25.10 Atherosclerotic heart disease of native coronary artery without angina pectoris; I34.0 Nonrheumatic mitral (valve) insufficiency; K59.00 Constipation, unspecified; Z78.1 Physical restraint status; Z79.82 Long term (current) use of aspirin; Z79.899 Other long term (current) drug therapy; Z80.41 Family history of malignant neoplasm of ovary; Z86.79 Personal history of other diseases of the circulatory system; Z91.14 Patient's other noncompliance with medication regimen; Z87.19 Personal history of other diseases of the digestive system; R40.2412 Glasgow coma scale score 13-15, at arrival to emergency department; D64.9 Anemia, unspecified

== ENCOUNTER 2017-09-30 23:45 | Observation (INO) | payer MEDICAID, OTHER ==
[2017-09-30 23:45] VITALS: BMI 18.9
--- NOTE | 2017-09-30 23:56 | ED PDOC ---
Arrival/HPI - General Historian: Patient - History of Present Illness Time/Duration: Other (see hpi) Context: Home - General Time Seen by Provider: 09/30/17 23:54 - History of Present Illness Narrative History of Present Illness (Text): 09/30/17 23:56 Loren Bruno is a 62 year old female, whose past medical history includes COPD , CHF, and hypertension, who presents to the Emergency department brought in by EMS complaining of generalized abdominal pain, nausea, vomiting, diarrhea x 1 day. Patient stated she "cannot keep anything down". Patient denies sob, cp , wheezing, fever, rectal bleeding, or recent travel. (Lucila Elizalde) Past Medical History - Provider Review Nursing Documentation Reviewed: Yes - Infectious Disease Hx of Infectious Diseases: None - Tetanus Immunization Tetanus Immunization: Unknown - Cardiac Hx Cardiac Disorders: Yes Hx Congestive Heart Failure: Yes Hx Hypertension: Yes (stopped taking meds insurance problem) - Pulmonary Hx Respiratory Disorders: Yes Hx Asthma: Yes Hx Bronchitis: Yes (1 yr ago) - Neurological Hx Neurological Disorder: No - HEENT Hx HEENT Disorder: No - Renal Hx Renal Disorder: No - Endocrine/Metabolic Hx Endocrine Disorders: No - Hematological/Oncological Hx Blood Disorders: No - Integumentary Hx Dermatological Disorder: No - Musculoskeletal/Rheumatological Hx Musculoskeletal Disorders: No - Gastrointestinal Hx Gastrointestinal Disorders: Yes Hx Pancreatitis: Yes (age 55) - Genitourinary/Gynecological Hx Genitourinary Disorders: No - Psychiatric Hx Psychophysiologic Disorder: No Hx Substance Use: No - Surgical History Hx Cardiac Catheterization: No Hx Coronary Stent: No Family/Social History - Physician Review Nursing Documentation Reviewed: Yes Family/Social History: Other Smoking Status: Light Smoker < 10 Cigarettes Daily Hx Alcohol Use: Yes (social) Hx Substance Use: No Allergies/Home Meds Allergies/Adverse Reactions: Allergies No Known Allergies Allergy (Verified 07/25/17 02:50) Review of Systems - Review of Systems Constitutional: Normal. absent: Fatigue, Weight Change, Fevers, Night Sweats Eyes: Normal ENT: Normal Respiratory: Normal. absent: SOB, Cough, Sputum, Wheezing Cardiovascular: Normal. absent: Chest Pain, Edema, Calf Pain, FLOWER, Orthopnea, Syncope Gastrointestinal: Abdominal Pain, Diarrhea, Nausea, Vomiting. absent: Hematochezia, Hematemesis, Anorexia Genitourinary Female: Normal Musculoskeletal: Normal Skin: Normal Neurological: Normal. absent: Headache, Dizziness, Focal Weakness, Gait Changes , Speech Changes, Facial Droop, Disequilibrium, Seizure Endocrine: Normal Hemo/Lymphatic: Normal Psychiatric: Normal Physical Exam Temperature: Afebrile Blood Pressure: Normal Pulse: Tachycardic Respiratory Rate: Normal Appearance: Positive for: Well-Appearing, Non-Toxic, Uncomfortable Pain Distress: None Mental Status: Positive for: Alert and Oriented X 3 - Systems Exam Head: Present: Atraumatic, Normocephalic Pupils: Present: PERRL Extroacular Muscles: Present: EOMI Conjunctiva: Present: Normal Mouth: Present: Moist Mucous Membranes Pharnyx: Present: Normal. No: ERYTHEMA, EXUDATE, TONSILS ENLARGED Neck: Present: Normal Range of Motion, Trachea Midline. No: Meningeal Signs, MIDLINE TENDERNESS, Paraspinal Tenderness, Lymphadenopathy Respiratory/Chest: Present: Clear to Auscultation, Good Air Exchange. No: Respiratory Distress, Accessory Muscle Use, Wheezes, Retracting, Rhonchi Cardiovascular: Present: Regular Rate and Rhythm, Normal S1, S2. No: Murmurs Abdomen: Present: Tenderness (mild generalized abd. tenderness), Normal Bowel Sounds, Scars. No: Distention, Peritoneal Signs, Rebound, Guarding Back: Present: Normal Inspection Upper Extremity: Present: Normal Inspection. No: Cyanosis, Edema Lower Extremity: Present: Normal Inspection. No: Edema Neurological: Present: GCS=15, CN II-XII Intact, Speech Normal, Motor Func Grossly Intact, Normal Sensory Function, Normal Cerebellar Funct, Gait Normal Skin: Present: Warm, Dry, Normal Color. No: Rashes Psychiatric: Present: Alert, Oriented x 3, Normal Insight, Normal Concentration Vital Signs Pulse Resp BP Pulse Ox 09/30/17 23:54 111 H 20 116/79 97 Medical Decision Making Reassessment Condition: Re-examined, Improving,but remains with symptoms - Lab Interpretations I have reviewed the lab results: Yes Interpretation: Abnormal lab values - EKG Interpretation Interpreted by ED Physician: Yes (Sinus tachycardia @ 108 bpm. LVH with repolarization. ) Type: 12 lead EKG Comparison: Similar to previous EKG ED Course and Treatment: Progress Notes: EXAM: CT Abdomen and Pelvis Without Intravenous Contrast Dictated and Authenticated by: Camille Gillespie MD 10/01/2017 2:17 AM IMPRESSION: 1. There is mild wall thickening noted involving the colon. This may represent colitis due to infectious versus inflammatory. 2. There is a lucent focus not at the T11 vertebral body on the right side. It measures 9 mm 10/01/17 02:28 Case discussed with bacteriologist medical and Dr. Aguilar Negron who is aware and agrees with the plan. Accepts patient into hospitalist service. (Bhargav Harper) - Lab Interpretations Lab Results: 10/01/17 00:25 10/01/17 00:25 Lab Results 10/01/17 00:25: Sodium 136, Potassium 5.2 H, Chloride 101, Carbon Dioxide 15 L, Anion Gap 26 H, BUN 62 H, Creatinine 3.5 H, Est GFR ( Amer) 16, Est GFR ( Non-Af Amer) 13, Random Glucose 133 H, Calcium 10.1, Total Bilirubin 1.1, AST 131 H D, ALT 93 H, Alkaline Phosphatase 99, Lactate Dehydrogenase 656, Total Creatine Kinase 93, Troponin I 0.02 D, NT-Pro-B Natriuret Pep 3530 H, Total Protein 9.2 H, Albumin 4.9 H, Globulin 4.3, Albumin/Globulin Ratio 1.1, Amylase 227 H, Lipase 395 H 10/01/17 00:25: PT 11.7, INR 1.03, APTT 21.7 L 10/01/17 00:25: WBC 16.5 H D, RBC 3.96, Hgb 12.2, Hct 34.8 L, MCV 87.9 D, MCH 30.8, MCHC 35.1, RDW 14.0, Plt Count 208, MPV 10.4, Gran % 83.7 H, Lymph % (Auto ) 11.5 L, [place] % (Auto) 4.7, Eos % (Auto) 0.0 L, Baso % (Auto) 0.1, Gran # 13.83 H, Lymph # (Auto) 1.9, [place] # (Auto) 0.8 H, Eos # (Auto) 0.0, Baso # (Auto ) 0.01 - RAD Interpretation Radiology Orders: 10/01/17 00:01 CHEST PORTABLE [RAD] Stat 10/01/17 00:59 ABD & PELVIS W/O PO OR IV CONT [CT] Stat - Medication Orders Current Medication Orders: Aspirin (Ecotrin) 81 mg PO DAILY AUNDREA Last Admin: 10/01/17 09:19 Dose: 81 mg Carvedilol (Coreg) 3.125 mg PO BID [facility] Last Admin: 10/01/17 17:39 Dose: 3.125 mg Folic Acid (Folic Acid) 1 mg PO DAILY [facility] Last Admin: 10/01/17 09:19 Dose: 1 mg Guaifenesin (Robitussin) 100 mg PO Q4H PRN PRN Reason: Cough Heparin Sodium (Porcine) (Heparin) 5,000 units SC Q12 [facility] PRN Reason: Protocol Last Admin: 10/01/17 15:22 Dose: 5,000 units Subcutaneous Administrations Document 10/01/17 15:22 GM (Rec: 10/01/17 15:23 GM [place] [id number]) Injection Site MAR Injection Site Left Abdomen Charges for Administration # of Subcutaneous Administrations 1 Meropenem 500 mg/ Sodium (Chloride) 50 mls @ 100 mls/hr IVPB Q12 [facility] PRN Reason: Protocol Stop: 10/10/17 22:01 Sodium Chloride (Sodium Chloride 0.9%) 1,000 mls @ 60 mls/hr IV .[id number] [facility] Morphine Sulfate (Morphine) 2 mg IVP Q6H PRN PRN Reason: Pain, severe (8-10) Last Admin: 10/01/17 15:27 Dose: 2 mg ARNOLD Pain Assessment Document 10/01/17 15:27 GM (Rec: 10/01/17 15:28 GM [place] [id number]) Pain Reassessment Is this a pain reassessment? No Presence of Pain Presence of Pain Yes Pain Scale Used Pain Scale Used Numeric Location Left, Right or Bilateral Bilateral Pain Location Body Site Abdomen Description Description Constant Pain Behavior Moaning Guarding Alleviating Factors/Management Medication Techniques Alleviating Factors Medication IVP Administration Document 10/01/17 15:27 GM (Rec: 10/01/17 15:28 GM [place] [id number]) Charges for Administration # of IVP Administrations 1 Re-Assess: ARNOLD Pain Assessment Document 10/01/17 16:27 GM (Rec: 10/01/17 17:40 GM [place] [id number]) Pain Reassessment Is this a pain reassessment? Yes Presence of Pain Presence of Pain No Multivitamins/Minerals (Therapeutic-M Tab) 1 tab PO 0800 [facility] Last Admin: 10/01/17 09:18 Dose: 1 tab Pantoprazole Sodium (Protonix Ec Tab) 40 mg PO 0600 AUNDREA Thiamine HCl (Vitamin B1 Tab) 100 mg PO DAILY AUNDREA Last Admin: 10/01/17 09:19 Dose: 100 mg Discontinued Medications Famotidine (Pepcid) 20 mg IVP STAT STA Stop: 10/01/17 00:01 Last Admin: 10/01/17 00:34 Dose: 20 mg IVP Administration Document 10/01/17 00:34 CNR (Rec: 10/01/17 00:34 CNR [id number]) Charges for Administration # of IVP Administrations 1 Hydromorphone HCl (Dilaudid) 0.5 mg IVP Q4H PRN PRN Reason: Pain, moderate (4-7) Last Admin: 10/01/17 05:22 Dose: 0.5 mg [facility] Pain Assessment Document 10/01/17 05:22 AYAD (Rec: 10/01/17 05:22 [id number] Pain Reassessment Is this a pain reassessment? Yes Sleep Is patient sleeping during reassessment? No Presence of Pain Presence of Pain Yes Pain Scale Used Pain Scale Used Numeric Location Pain Location Body Site Abdomen Description Description Intermittent Intensity of Pain at present 10 Pain Behavior Crying Facial Grimacing Alleviating Factors/Management Medication Techniques Alleviating Factors Medication IVP Administration Document 10/01/17 05:22 AYAD (Rec: 10/01/17 05:22 [id number] Charges for Administration # of IVP Administrations 1 Re-Assess: [facility] Pain Assessment Document 10/01/17 06:22 AYAD (Rec: 10/01/17 06:36 AYAD [id number]) Pain Reassessment Is this a pain reassessment? Yes Sleep Is patient sleeping during reassessment? Yes Pain Scale Used Pain Scale Used Numeric Sodium Chloride (Sodium Chloride 0.9%) 500 mls @ 999 mls/hr IV .Q31M STA Stop: 10/01/17 00:33 Last Admin: 10/01/17 00:34 Dose: 999 mls/hr eMAR Start Stop Document 10/01/17 00:34 CNR (Rec: 10/01/17 00:34 CNR [id number]) Intravenous Solution Start Date 10/01/17 Start Time 00:34 Piperacillin Sod/Tazobactam Sod (Zosyn 3.375 In Ns 100ml) 100 mls @ 200 mls/hr IVPB STAT STA PRN Reason: Protocol Stop: 10/01/17 02:49 Last Admin: 10/01/17 02:37 Dose: 200 mls/hr eMAR Start Stop Document 10/01/17 02:37 CNR (Rec: 10/01/17 02:38 CNR [id number]) Intravenous Solution Start Date 10/01/17 Start Time 02:38 End Date 10/01/17 End time 03:08 Total Infusion Time 30 Sodium Chloride (Sodium Chloride 0.9%) 1,000 mls @ 100 mls/hr IV .Q10H AUNDREA Last Admin: 10/01/17 05:23 Dose: 100 mls/hr eMAR Start Stop Document 10/01/17 05:23 AYAD (Rec: 10/01/17 05:23 AYAD [id number]) Intravenous Solution Start Date 10/01/17 Start Time 05:23 Piperacillin Sod/Tazobactam Sod (Zosyn 2.25 Gm In 0.9% 100 Ml) 2.25 gm in 100 mls @ 100 mls/hr IVPB Q6H AUNDREA PRN Reason: Protocol Stop: 10/01/17 15:29 Last Admin: 10/01/17 09:19 Dose: 100 mls/hr eMAR Start Stop Document 10/01/17 09:19 GM (Rec: 10/01/17 09:19 GM [id number]) Intravenous Solution Start Date 10/01/17 Start Time 08:50 End Date 10/01/17 End time 09:50 Total Infusion Time 60 Magnesium 2 gm/50 ml NS (Magnesium Sulfate 2 Gm/50 Ml Ns) 2 gm in 50 mls @ 50 mls/hr IVPB ONCE ONE Stop: 10/01/17 10:37 Last Admin: 10/01/17 12:42 Dose: 50 mls/hr eMAR Start Stop Document 10/01/17 12:42 GM (Rec: 10/01/17 12:42 GM [id number]) Intravenous Solution Start Date 10/01/17 Start Time 12:42 End Date 10/01/17 End time 14:42 Total Infusion Time 120 Morphine Sulfate (Morphine) 4 mg IVP STAT STA Stop: 10/01/17 00:01 Last Admin: 10/01/17 00:34 Dose: 4 mg MAR Pain Assessment Document 10/01/17 00:34 CNR (Rec: 10/01/17 00:34 CNR [id number]) Pain Reassessment Is this a pain reassessment? No IVP Administration Document 10/01/17 00:34 CNR (Rec: 10/01/17 00:34 CNR [id number]) Charges for Administration # of IVP Administrations 1 Ondansetron HCl (Zofran Inj) 4 mg IVP STAT STA Stop: 10/01/17 00:01 Last Admin: 10/01/17 00:33 Dose: 4 mg IVP Administration Document 10/01/17 00:33 CNR (Rec: 10/01/17 00:34 CNR [id number]) Charges for Administration # of IVP Administrations 1 Ondansetron HCl (Zofran Inj) 4 mg IVP STAT STA Stop: 10/01/17 03:29 Last Admin: 10/01/17 03:30 Dose: 4 mg IVP Administration Document 10/01/17 03:30 CNR (Rec: 10/01/17 03:30 CNR [id number]) Charges for Administration # of IVP Administrations 1 Ondansetron HCl (Zofran Inj) 4 mg IVP STAT STA Stop: 10/01/17 05:04 Last Admin: 10/01/17 05:58 Dose: Not Given Non-Admin Reason: Patient Refused Disposition/Present on Arrival - Present on Arrival Any Indicators Present on Arrival: No History of DVT/PE: No History of Uncontrolled Diabetes: No Urinary Catheter: No History Surgical Site Infection Following: None - Disposition Have Diagnosis and Disposition been Completed?: Yes Disposition Time: 02:30 - Disposition Diagnosis: Intractable abdominal pain, Intractable nausea and vomiting, Acute renal failure (ARF), Colitis Disposition: HOSPITALIZED Patient Problems: Current Active Problems Problem Status Onset Acute renal failure (ARF) Acute Colitis Acute Intractable abdominal pain Acute Intractable nausea and vomiting Acute Condition: STABLE
[2017-10-01] MEDS ORDERED: Morphine 4 mg/ml ISec IVP STA
[2017-10-01] MEDS ORDERED: Sodium Chloride 0.9% 500 ML IV STA (00:03)
[2017-10-01 00:47] LABS: BASO # 0.01 K/mm3 (0.0-2.0); BASO % 0.1 % (0.0-3.0); GRAN # 13.83 (1.4-6.5); GRAN % 83.7 % (50.0-68.0); HEMOGLOBIN 12.2 g/dL (12.0-16.0); LYMPH # 1.9 (1.2-3.4); LYMPH % 11.5 % (22.0-35.0); MEAN CELL VOLUME 87.9 fl (80.0-105.0); MEAN CORPUSCULAR HEMOGLOBIN 30.8 pg (25.0-35.0); MEAN CORPUSCULAR HGB CONC 35.1 g/dl (31.0-37.0); MEAN PLATELET VOLUME 10.4 fl (7.0-11.0); MONO # 0.8 (0.1-0.6); MONO % 4.7 % (1.0-6.0); RBC 3.96 10^6/uL (3.5-6.1); WHITE BLOOD COUNT 16.5 10^3/ul (4.5-11.0)
[2017-10-01 00:49] LABS: INR 1.03; PROTHROMBIN TIME 11.7 SECONDS (9.4-12.5)
[2017-10-01 00:52] LABS: PARTIAL THROMBOPLASTIN TIME 21.7 Seconds (25.1-36.5)
[2017-10-01 00:53] LABS: ALB/GLOB RATIO 1.1 (1.1-1.8); ALBUMIN 4.9 g/dL (3.0-4.8); CALCIUM 10.1 mg/dL (8.4-10.5)
[2017-10-01 01:04] LABS: TROPONIN I 0.02 ng/mL
[2017-10-01] MEDS ORDERED: Piperacillin/Tazobact 3.375 gm 100 ML IVPB STA (02:20)
[2017-10-01] MEDS ORDERED: HYDROmorphone 0.5 mg/0.5 ml ISec IVP PRN (05:08)
[2017-10-01] MEDS ORDERED: guaiFENesin 100 mg/5 ml Syrup UD PO PRN (05:09)
[2017-10-01] MEDS ORDERED: Sodium Chloride 0.9% 1,000 ML IV SCH ×2 (05:15→11:31)
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
[2017-10-01 07:31] LABS: GRAN # 7.36 (1.4-6.5); GRAN % 84.2 % (50.0-68.0); HEMOGLOBIN 10.9 g/dL (12.0-16.0); LYMPH % 11.3 % (22.0-35.0); MEAN CELL VOLUME 88.6 fl (80.0-105.0); MEAN CORPUSCULAR HEMOGLOBIN 30.4 pg (25.0-35.0); MEAN CORPUSCULAR HGB CONC 34.3 g/dl (31.0-37.0); MEAN PLATELET VOLUME 10.2 fl (7.0-11.0); MONO # 0.4 (0.1-0.6); MONO % 4.5 % (1.0-6.0); RBC 3.59 10^6/uL (3.5-6.1); WHITE BLOOD COUNT 8.7 10^3/ul (4.5-11.0)
[2017-10-01 08:05] VITALS: O2SAT 100
[2017-10-01 08:12] LABS: ALB/GLOB RATIO 1.3 (1.1-1.8); ALBUMIN 4.4 g/dL (3.0-4.8); CALCIUM 9.4 mg/dL (8.4-10.5)
[2017-10-01] MEDS ORDERED: Piperacillin/Tazobact 2.25gm 2.25 GM/100 ML BAG IVPB SCH (08:30)
[2017-10-01] MEDS: Multivitamin With Minerals Tab PO SCH (09:18)
--- NOTE | 2017-10-01 09:18 | RAD ---
Date of service: 10/01/2017 HISTORY: epigastric pain COMPARISON: 07/28/2017 FINDINGS: LUNGS: No active pulmonary disease. PLEURA: No significant pleural effusion identified, no pneumothorax apparent. CARDIOVASCULAR: Normal. OSSEOUS STRUCTURES: No significant abnormalities. VISUALIZED UPPER ABDOMEN: Normal. OTHER FINDINGS: None. IMPRESSION: No active disease.
[2017-10-01] MEDS ORDERED: Magnesium 2 gm/50 ml NS 2 GM/50 ML BAG IVPB ONE (09:38)
[2017-10-01 09:43] LABS: URINE BILIRUBIN NEGATIVE (NEGATIVE); URINE BLOOD MODERATE (NEGATIVE); URINE GLUCOSE (UA) NEGATIVE (NEGATIVE); URINE LEUKOCYTE ESTERASE LARGE Leu/uL (NEGATIVE); URINE PROTEIN 30 mg/dL (<30 mg/dL); URINE UROBILINOGEN 0.2 E.U./dL (<1 E.U./dL)
[2017-10-01 09:45] LABS: URINE APPEARANCE SL CLOUDY (CLEAR); URINE COLOR YELLOW (YELLOW)
[2017-10-01 09:56] LABS: URINE BACTERIA MOD (NEG); URINE RBC 0 - 2 /hpf (0-2)
--- NOTE | 2017-10-01 13:29 | CT ---
Date of service: 10/01/2017 PROCEDURE: CT Abdomen and Pelvis without intravenous contrast HISTORY: abd. pain COMPARISON: None. TECHNIQUE: Without contrast. Contrast dose: Radiation dose: Total exam DLP = 187 mGy-cm. This CT exam was performed using one or more of the following dose reduction techniques: Automated exposure control, adjustment of the mA and/or kV according to patient size, and/or use of iterative reconstruction technique. FINDINGS: LOWER THORAX: Unremarkable. LIVER: Unremarkable. No gross lesion or ductal dilatation. GALLBLADDER AND BILE DUCTS: Unremarkable. PANCREAS: Unremarkable. No gross lesion or ductal dilatation. SPLEEN: Unremarkable. ADRENALS: Unremarkable. No mass. KIDNEYS AND URETERS: Unremarkable. No hydronephrosis. No solid mass. 6 mm nonobstructing stone in the lower pole of the right kidney VASCULATURE: Unremarkable. No aortic aneurysm. BOWEL: There is lack of distension of the colon. There may be some mural thickening especially in the transverse colon. Possible colitis. Clinical correlation is suggested APPENDIX: Unremarkable. Normal appendix. PERITONEUM: Unremarkable. No free fluid. No free air. LYMPH NODES: Unremarkable. No enlarged lymph nodes. BLADDER: Unremarkable. REPRODUCTIVE: Unremarkable. BONES: No acute fracture. OTHER FINDINGS: The report concurs with the preliminary [facility] report IMPRESSION: There is lack of distension of the colon. There may be some mural thickening especially in the transverse colon. Possible colitis. Clinical correlation is suggested
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
[2017-10-01] MEDS: Morphine 2 mg/ml ISec IVP PRN ×2 (15:27→21:21)
[2017-10-01 17:15] VITALS: RESP 20
[2017-10-01] MEDS: Meropenem 500 MG in Sodium Chloride 0.9% 50 ML IVPB SCH (21:22)
--- NOTE | 2017-10-01 22:26 | CP.PCM.CON ---
History of Present Illness - History of Present Illness History of Present Illness: 62 yo F w/ pmh of htn, CHF w/ severe systolic dysfunction, and COPD, presented to ED with 4 days of epigastric pain and vomiting; nephrology being consulted for acute renal failure; Patient reports being in her usual state of health until 4 days ago when above symptoms started; reports vomiting about 5 times per day with inability to keep down PO intake; patient reports continuing to take her meds during this period but but vomit these as well; she also reports taking 4 advil tablets twice a day during this period for her epigastric pain; she otherwise denies any diarrhea or change in urination; Of note, patient reports drinking 6 cans of beer and using cocaine on the day before her symptoms started; 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 absent: Suicidal Ideation - Hematologic/Lymphatic Hematologic: Easy Bruising Past Patient History - Infectious Disease Hx of Infectious Diseases: None - Tetanus Immunizations Tetanus Immunization: Unknown - Past Medical History & Family History Past Medical History?: Yes Pertinent Family History: mother - cancer - Past Social History Smoking Status: Light Smoker < 10 Cigarettes Daily - CARDIAC Hx Cardiac Disorders: Yes Hx Congestive Heart Failure: Yes Hx Hypertension: Yes (stopped taking meds insurance problem) - PULMONARY Hx Respiratory Disorders: Yes Hx Asthma: Yes Hx Bronchitis: Yes (1 yr ago) - NEUROLOGICAL Hx Neurological Disorder: No - HEENT Hx HEENT Problems: No - RENAL Hx Chronic Kidney Disease: No - ENDOCRINE/METABOLIC Hx Endocrine Disorders: No - HEMATOLOGICAL/ONCOLOGICAL Hx Blood Disorders: No - INTEGUMENTARY Hx Dermatological Problems: No - MUSCULOSKELETAL/RHEUMATOLOGICAL Hx Musculoskeletal Disorders: No - GASTROINTESTINAL Hx Gastrointestinal Disorders: Yes Hx Pancreatitis: Yes (age 55) - GENITOURINARY/GYNECOLOGICAL Hx Genitourinary Disorders: No - PSYCHIATRIC Hx Psychophysiologic Disorder: No Hx Substance Use: No - SURGICAL HISTORY Hx Cardiac Catheterization: No Hx Coronary Stent: No Meds Allergies/Adverse Reactions: Allergies Allergy/AdvReac Type Severity Reaction Status Date / Time No Known Allergies Allergy Verified 07/25/17 02:50 - Medications Medications: Current Medications Aspirin (Ecotrin) 81 mg PO DAILY [facility] Last Admin: 10/01/17 09:19 Dose: 81 mg Carvedilol (Coreg) 3.125 mg PO BID [facility] Last Admin: 10/01/17 17:39 Dose: 3.125 mg Folic Acid (Folic Acid) 1 mg PO DAILY [facility] Last Admin: 10/01/17 09:19 Dose: 1 mg Guaifenesin (Robitussin) 100 mg PO Q4H PRN PRN Reason: Cough Heparin Sodium (Porcine) (Heparin) 5,000 units SC Q12 [facility] PRN Reason: Protocol Last Admin: 10/01/17 15:22 Dose: 5,000 units Meropenem 500 mg/ Sodium (Chloride) 50 mls @ 100 mls/hr IVPB Q12 [facility] PRN Reason: Protocol Stop: 10/10/17 22:01 Last Admin: 10/01/17 21:22 Dose: 100 mls/hr Sodium Chloride (Sodium Chloride 0.9%) 1,000 mls @ 60 mls/hr IV .[id number] [facility] Last Admin: 10/01/17 20:39 Dose: 60 mls/hr Morphine Sulfate (Morphine) 2 mg IVP Q6H PRN PRN Reason: Pain, severe (8-10) Last Admin: 10/01/17 21:21 Dose: 2 mg Multivitamins/Minerals (Therapeutic-M Tab) 1 tab PO 0800 [facility] Last Admin: 10/01/17 09:18 Dose: 1 tab Pantoprazole Sodium (Protonix Ec Tab) 40 mg PO 0600 [facility] Thiamine HCl (Vitamin B1 Tab) 100 mg PO DAILY [facility] Last Admin: 10/01/17 09:19 Dose: 100 mg Physical Exam - Constitutional Appears: Non-toxic, No Acute Distress - Eye Exam Eye Exam: absent: Scleral icterus - ENT Exam ENT Exam: Mucous Membranes Moist - Respiratory Exam Respiratory Exam: Clear to Auscultation Bilateral. absent: Respiratory Distress - Cardiovascular Exam Cardiovascular Exam: RRR, +S1, +S2. absent: Gallop - GI/Abdominal Exam GI & Abdominal Exam: Soft. absent: Distended, Tenderness - Exam Exam: absent: Bladder Distension - Extremities Exam Additional comments: no leg edema; - Back Exam Back exam: absent: CVA tenderness (L), CVA tenderness (R) - Neurological Exam Neurological exam: Alert, Oriented x3 Additional comments: no tremor; no numbness in feet grossly - Psychiatric Exam Psychiatric exam: Normal Affect, Normal Mood - Skin Skin Exam: Normal Color, Warm Additional comments: no ulcers on feet Results - Vital Signs Recent Vital Signs: Last Vital Signs Temp 98.2 F 10/01/17 17:14 Pulse 84 10/01/17 17:14 Resp 20 10/01/17 17:14 BP 153/94 H 10/01/17 17:14 Pulse Ox 100 10/01/17 17:14 - Labs Result Diagrams: 10/01/17 07:15 10/01/17 07:15 Labs: Laboratory Results - last 24 hr 10/01/17 10/01/17 10/01/17 07:15 07:15 07:20 WBC 8.7 D RBC 3.59 Hgb 10.9 L Hct 31.8 L MCV 88.6 MCH 30.4 MCHC 34.3 RDW 14.0 Plt Count 181 MPV 10.2 Gran % 84.2 H Lymph % (Auto) 11.3 L [place] % (Auto) 4.5 Eos % (Auto) 0.0 L Baso % (Auto) 0.0 Gran # 7.36 H Lymph # (Auto) 1.0 L [place] # (Auto) 0.4 Eos # (Auto) 0.0 Baso # (Auto) 0.00 ESR 6 Sodium 140 Potassium 4.8 Chloride 101 Carbon Dioxide 19 L Anion Gap 24 H BUN 64 H Creatinine 3.2 H Est GFR ( Amer) 18 Est GFR (Non-Af Amer) 15 Random Glucose 140 H Serum Osmolality Calcium 9.4 Phosphorus 6.4 H Magnesium 1.5 L Total Bilirubin 1.3 AST 93 H D ALT 76 H Alkaline Phosphatase 82 Lactate Dehydrogenase Total Creatine Kinase Total Protein 7.7 Albumin 4.4 Globulin 3.3 Albumin/Globulin Ratio 1.3 Urine Color Urine Appearance Urine pH Ur Specific [place] Urine Protein Urine Glucose (UA) Urine Ketones Urine Blood Urine Nitrate Urine Bilirubin Urine Urobilinogen Ur Leukocyte Esterase Urine RBC Urine WBC Ur Epithelial Cells Urine Bacteria Alcohol, Quantitative < 10 10/01/17 10/01/17 10/01/17 07:20 09:30 14:30 WBC RBC Hgb Hct MCV MCH MCHC RDW Plt Count MPV Gran % Lymph % (Auto) [place] % (Auto) Eos % (Auto) Baso % (Auto) Gran # Lymph # (Auto) [place] # (Auto) Eos # (Auto) Baso # (Auto) ESR Sodium Potassium Chloride Carbon Dioxide Anion Gap BUN Creatinine Est GFR ( Amer) Est GFR (Non-Af Amer) Random Glucose Serum Osmolality 305 H Calcium Phosphorus Magnesium Total Bilirubin AST ALT Alkaline Phosphatase Lactate Dehydrogenase 483 Total Creatine Kinase 65 Total Protein Albumin Globulin Albumin/Globulin Ratio Urine Color Yellow Urine Appearance Sl cloudy Urine pH 6.0 Ur Specific [place] 1.025 Urine Protein 30 H Urine Glucose (UA) Negative Urine Ketones Negative Urine Blood Moderate H Urine Nitrate Negative Urine Bilirubin Negative Urine Urobilinogen 0.2 Ur Leukocyte Esterase Large H Urine RBC 0 - 2 Urine WBC 2 - 5 Ur Epithelial Cells 1 - 3 Urine Bacteria Mod Alcohol, Quantitative - Imaging and Cardiology Chest x-ray Status: Image reviewed by me Additional comment: CXR - lungs clear; Assessment & Plan (1) Acute renal failure (ARF) Assessment and Plan: CRISTÓBAL in the setting of volume depletion from GI losses and loss of autoregulation from NSAIDS and FABIO inhibitor; cocaine use may have been contributory as well; otherwise, non-oliguric renal failure by history (but no quantification of urine output available); relatively stable electrolyte status with moderate high anion gap metabolic acidosis but no osmolal gap; hyperphosphatemia from CRISTÓBAL but no evidence of rhabdomyolysis; mild hyperkalemia resolving; Mild improvement of renal function with IVF but there is still concern for ATN given patient's extensive NSAID; -Recommend to reduced rate of IVF to NS at 60 cc/hr given severe systolic dysfunction and since patient is currently normotensive; -Awaiting urine lytes; -Continue to hold FABIO inhbitior; -Avoid nephrotoxic agents (NSAIDS, phosphate enema, etc); -No need for phos binder for now, will re-evaluate need if renal failure is prolonged; Status: Acute (2) CHF (congestive heart failure) Assessment and Plan: Severe systolic dysfunction; currently euvolemic/volume depleted on exam; see above regarding IVF; -Agree with holding diuretics, FABIO inhbitor; f/u with cardiology for further recs; Status: Chronic (3) HTN (hypertension) Assessment and Plan: Currently normotensive; only on coreg 3.125 mg bid, continue same; Status: Chronic (4) Intractable nausea and vomiting Assessment and Plan: Symptoms resolved; f/u with GI for further recs; continue gentle intravascular volume repletion; Status: Acute
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
--- NOTE | 2017-10-02 01:04 | CON ---
Copied To: Jerome Mtz MD Attending MD: Jerome Mtz MD DATE: 10/01/2017 CARDIOLOGY CONSULTATION REASON FOR CONSULTATION: Abdominal pain, nausea, vomiting, as well as diarrhea. HISTORY OF PRESENT ILLNESS: The patient is a 62-year-old female, who has history of cocaine abuse in the past. The patient was evaluated by me in 06/2017 for congestive heart failure. The patient during that admission and after my initial evaluation, she developed ventricular fibrillation, which requires resuscitation, intubation and ICU admission and the patient considered positive for cocaine following that which presumably she abused cocaine in the hospital as initial drug screen was negative for cocaine at that time and the patient was subsequently extubated. However, she was not considered to be a suitable candidate for cardiac catheterization or coronary intervention because of the fact that she resented any change in her lifestyle. The patient denies any chest pain or shortness of breath at this time. MEDICATIONS: Coreg 3.125 mg twice a day, aspirin 81 mg once daily, folic acid 1 mg once a day, meropenem 500 mg intravenously every 12 hours, Protonix 20 mg p.o. once a day, Robitussin 100 mg p.o. every 4 hours p.r.n. REVIEW OF SYSTEMS: No recent syncopal episode, no chest pain and no leg swelling. PHYSICAL EXAMINATION: GENERAL: The patient is a middle-aged female, who does not appear to be in any acute distress. VITAL SIGNS: Blood pressure 151/95, heart rate 93, temperature 97.9, respirations 18. HEENT: Normocephalic. NECK: No JVD. CHEST: Bibasilar rhonchi. HEART: S1 and S2, regular. EXTREMITIES: No edema. LABORATORY DATA: Hemoglobin and hematocrit 10.9 and 31.8. White count and platelet count are within normal limits. SMA-7, sodium 140, potassium 4.8, chloride 101, CO2 of 19, glucose 140, BUN 64, creatinine 3.2. Troponin 0.02. Amylase and lipase are both elevated. EKG revealed sinus tachycardia at a rate of 108, LVH with repolarization changes. Echocardiography study in 06/2017 revealed mild dilated left ventricle with severely impaired systolic function with global hypokinesis and mild pulmonary hypertension. Abdomen and pelvis CT scan reveals a lack of distention of the colon, there may be some mural thickening especially in the transverse colon. Chest x-ray was unremarkable. ASSESSMENT: 1. Cardiomyopathy. 2. History of cocaine abuse in the past and today's urine drug screen result is still pending. 3. Chronic renal insufficiency. 4. Anemia. RECOMMENDATIONS: Continue Coreg 3.125 mg twice a day. Continue IV meropenem at 500 mg every 12 hours, thiamine 100 mg once a day. The patient is not a suitable candidate for either Aldactone or FABIO inhibitors. Obtain urine drug screen and start subcutaneous heparin 5000 units every 12 hours. Jerome Mtz MD
[2017-10-02] MEDS ORDERED: Pantoprazole 40 mg EC Tab PO SCH (06:00)
[2017-10-02 06:41] LABS: BASO # 0.01 K/mm3 (0.0-2.0); BASO % 0.2 % (0.0-3.0); EOS # 0.1 (0.0-0.7); GRAN # 2.51 (1.4-6.5); GRAN % 51.9 % (50.0-68.0); HEMOGLOBIN 9.4 g/dL (12.0-16.0); LYMPH # 1.9 (1.2-3.4); LYMPH % 39.3 % (22.0-35.0); MEAN CELL VOLUME 87.8 fl (80.0-105.0); MEAN CORPUSCULAR HEMOGLOBIN 30.1 pg (25.0-35.0); MEAN CORPUSCULAR HGB CONC 34.3 g/dl (31.0-37.0); MEAN PLATELET VOLUME 10.8 fl (7.0-11.0); MONO # 0.4 (0.1-0.6); MONO % 7.6 % (1.0-6.0); RBC 3.12 10^6/uL (3.5-6.1); WHITE BLOOD COUNT 4.8 10^3/ul (4.5-11.0)
--- NOTE | 2017-10-02 06:45 | CP.PCM.PN ---
Objective - Vital Signs/Intake and Output Vital Signs (last 24 hours): Temp Pulse Resp BP Pulse Ox 98.2 F 77 20 129/85 100 10/02/17 00:00 10/02/17 06:00 10/02/17 00:00 10/02/17 00:00 10/02/17 00:00 Intake and Output: 10/01/17 10/02/17 18:59 06:59 Intake Total 120 Balance 120 - Medications Medications: Current Medications Aspirin (Ecotrin) 81 mg PO DAILY [facility] Last Admin: 10/01/17 09:19 Dose: 81 mg Carvedilol (Coreg) 3.125 mg PO BID [facility] Last Admin: 10/01/17 17:39 Dose: 3.125 mg Folic Acid (Folic Acid) 1 mg PO DAILY [facility] Last Admin: 10/01/17 09:19 Dose: 1 mg Guaifenesin (Robitussin) 100 mg PO Q4H PRN PRN Reason: Cough Heparin Sodium (Porcine) (Heparin) 5,000 units SC Q12 [facility] PRN Reason: Protocol Last Admin: 10/02/17 01:01 Dose: 5,000 units Meropenem 500 mg/ Sodium (Chloride) 50 mls @ 100 mls/hr IVPB Q12 [facility] PRN Reason: Protocol Stop: 10/10/17 22:01 Last Admin: 10/01/17 21:22 Dose: 100 mls/hr Sodium Chloride (Sodium Chloride 0.9%) 1,000 mls @ 60 mls/hr IV .[id number] [facility] Last Admin: 10/01/17 20:39 Dose: 60 mls/hr Morphine Sulfate (Morphine) 2 mg IVP Q6H PRN PRN Reason: Pain, severe (8-10) Last Admin: 10/01/17 21:21 Dose: 2 mg Multivitamins/Minerals (Therapeutic-M Tab) 1 tab PO 0800 [facility] Last Admin: 10/01/17 09:18 Dose: 1 tab Pantoprazole Sodium (Protonix Ec Tab) 40 mg PO 0600 [facility] Last Admin: 10/02/17 05:35 Dose: 40 mg Thiamine HCl (Vitamin B1 Tab) 100 mg PO DAILY [facility] Last Admin: 10/01/17 09:19 Dose: 100 mg - Labs Labs: 10/01/17 07:15 10/01/17 07:15 PT 11.7 SECONDS (9.4-12.5) 10/01/17 00:25 INR 1.03 10/01/17 00:25 APTT 21.7 Seconds (25.1-36.5) L 10/01/17 00:25
--- NOTE | 2017-10-02 06:54 | CARD ---
APPROVED REPORT Date of service: 10/01/2017 EKG Measurement Heart [id number] <Conclusion> Sinus tachycardia Biatrial enlargement Left ventricular hypertrophy with repolarization abnormality Abnormal ECG
--- NOTE | 2017-10-02 07:03 | CP.PCM.PN ---
Subjective - Date & Time of Evaluation Date of Evaluation: 10/02/17 Time of Evaluation: 07:02 - Subjective Subjective: Nephrology Progress Note for Darvin Mora PGY3 Patient seen and examined at bedside. There were no acute overnight events as per nursing staff. Patient was resting comfortably in bed upon examination. She reports her abdominal pain has improved, but still hurts with eating. She states her urine is dark in color, but denies blood or foam in urine. Patient denies chest pain, shortness of breath, nausea/vomiting/diarrhea, fever/chills, numbness/tingling, dysuria or urinary frequency. Objective - Vital Signs/Intake and Output Vital Signs (last 24 hours): Temp Pulse Resp BP Pulse Ox 98.2 F 77 20 129/85 100 10/02/17 00:00 10/02/17 06:00 10/02/17 00:00 10/02/17 00:00 10/02/17 00:00 Intake and Output: 10/02/17 10/02/17 06:59 18:59 Intake Total 120 Balance 120 - Medications Medications: Current Medications Aspirin (Ecotrin) 81 mg PO DAILY [facility] Last Admin: 10/01/17 09:19 Dose: 81 mg Carvedilol (Coreg) 3.125 mg PO BID [facility] Last Admin: 10/01/17 17:39 Dose: 3.125 mg Folic Acid (Folic Acid) 1 mg PO DAILY [facility] Last Admin: 10/01/17 09:19 Dose: 1 mg Guaifenesin (Robitussin) 100 mg PO Q4H PRN PRN Reason: Cough Heparin Sodium (Porcine) (Heparin) 5,000 units SC Q12 [facility] PRN Reason: Protocol Last Admin: 10/02/17 01:01 Dose: 5,000 units Meropenem 500 mg/ Sodium (Chloride) 50 mls @ 100 mls/hr IVPB Q12 [facility] PRN Reason: Protocol Stop: 10/10/17 22:01 Last Admin: 10/01/17 21:22 Dose: 100 mls/hr Sodium Chloride (Sodium Chloride 0.9%) 1,000 mls @ 60 mls/hr IV .[id number] [facility] Last Admin: 10/01/17 20:39 Dose: 60 mls/hr Morphine Sulfate (Morphine) 2 mg IVP Q6H PRN PRN Reason: Pain, severe (8-10) Last Admin: 10/01/17 21:21 Dose: 2 mg Multivitamins/Minerals (Therapeutic-M Tab) 1 tab PO 0800 [facility] Last Admin: 10/01/17 09:18 Dose: 1 tab Pantoprazole Sodium (Protonix Ec Tab) 40 mg PO 0600 [facility] Last Admin: 10/02/17 05:35 Dose: 40 mg Thiamine HCl (Vitamin B1 Tab) 100 mg PO DAILY [facility] Last Admin: 10/01/17 09:19 Dose: 100 mg - Labs Labs: 10/01/17 07:15 10/01/17 07:15 PT 11.7 SECONDS (9.4-12.5) 10/01/17 00:25 INR 1.03 10/01/17 00:25 APTT 21.7 Seconds (25.1-36.5) L 10/01/17 00:25 - Constitutional Appears: No Acute Distress - Head Exam Head Exam: ATRAUMATIC, NORMAL INSPECTION, NORMOCEPHALIC - Eye Exam Eye Exam: Normal appearance, PERRL Pupil Exam: NORMAL ACCOMODATION, PERRL - ENT Exam ENT Exam: Mucous Membranes Dry - Neck Exam Neck Exam: Full ROM - Respiratory Exam Respiratory Exam: Clear to Ausculation Bilateral, NORMAL BREATHING PATTERN. absent: Rhonchi, Wheezes, Respiratory Distress - Cardiovascular Exam Cardiovascular Exam: REGULAR RHYTHM, +S1, +S2. absent: Gallop, Rubs, Murmur - GI/Abdominal Exam GI & Abdominal Exam: Soft, Normal Bowel Sounds. absent: Rigid, Tenderness, Pulsatile Mass, Rebound - Extremities Exam Extremities Exam: Normal Capillary Refill, Normal Inspection. absent: Pedal Edema, Tenderness - Neurological Exam Neurological Exam: Alert, Awake, CN II-XII Intact, Normal Gait, Oriented x3 - Psychiatric Exam Psychiatric exam: Normal Affect, Normal Mood - Skin Skin Exam: Dry, Intact, Warm Assessment and Plan - Assessment and Plan (Free Text) Assessment: This is a 62yo AA female with past medical history of HTN, COPD, systolic CHF ( EF ~16% in 06/2017), polysubstance abuse (EtOH and cocaine) who was admitted for 1. Acute renal failure on CKD IIIA (Improved) - pre-renal v. ATN - most likely secondary to GI loses with concomitant NSAID and ACEI use as well as cocaine - Cr trending down to 1.5. Baseline Cr is ~1.0 - Urine electrolytes pending - Diet advanced- will dc fluids - Hold ACEI and diuretics - Avoid nephrotoxic agents - Recommend to follow up as outpatient 2. Systolic CHF (chronic) - Last echo in 06/2017: EF ~16% - Patient is volume depleted on exam - Hold diuretics and ACEI until kidney function normalizes - Cardiology recommendations reviewed- pt reports SOB upon ambulation - Pt on Hep SC 3. HTN (Chronic) - Normotensive - Continue Coreg 4. Intractable nausea/vomiting (resolved) - Patient diet advanced - GI on consulted- recs reviewed Case seen, discussed and reviewed with Dr. Landa. Darvin Guerin PGY3
[2017-10-02 07:05] LABS: ALB/GLOB RATIO 1.1 (1.1-1.8); ALBUMIN 3.9 g/dL (3.0-4.8); CALCIUM 9.2 mg/dL (8.4-10.5)
--- NOTE | 2017-10-02 07:53 | CP.PCM.PN ---
<Audi Delgado - Last Filed: 10/02/17 15:12> Subjective - Date & Time of Evaluation Date of Evaluation: 10/02/17 Time of Evaluation: 07:45 - Subjective Subjective: Audi Delgado DO PGY1 Internal Medicine Scaler - Hospital Progress NOte Patient was seen and examined this AM at bedside; no acute events reported overnight. Patient advanced to [facility]D yesterday tolerating well. Abd pain still resolving at this time. Objective - Vital Signs/Intake and Output Vital Signs (last 24 hours): Temp Pulse Resp BP Pulse Ox 98.2 F 77 20 129/85 100 10/02/17 00:00 10/02/17 06:00 10/02/17 00:00 10/02/17 00:00 10/02/17 00:00 Intake and Output: 10/02/17 10/02/17 06:59 18:59 Intake Total 120 Balance 120 - Medications Medications: Current Medications Aspirin (Ecotrin) 81 mg PO DAILY [facility] Last Admin: 10/01/17 09:19 Dose: 81 mg Carvedilol (Coreg) 3.125 mg PO BID [facility] Last Admin: 10/01/17 17:39 Dose: 3.125 mg Folic Acid (Folic Acid) 1 mg PO DAILY [facility] Last Admin: 10/01/17 09:19 Dose: 1 mg Guaifenesin (Robitussin) 100 mg PO Q4H PRN PRN Reason: Cough Heparin Sodium (Porcine) (Heparin) 5,000 units SC Q12 [facility] PRN Reason: Protocol Last Admin: 10/02/17 01:01 Dose: 5,000 units Meropenem 500 mg/ Sodium (Chloride) 50 mls @ 100 mls/hr IVPB Q12 [facility] PRN Reason: Protocol Stop: 10/10/17 22:01 Last Admin: 10/01/17 21:22 Dose: 100 mls/hr Sodium Chloride (Sodium Chloride 0.9%) 1,000 mls @ 60 mls/hr IV .[id number] [facility] Last Admin: 10/01/17 20:39 Dose: 60 mls/hr Morphine Sulfate (Morphine) 2 mg IVP Q6H PRN PRN Reason: Pain, severe (8-10) Last Admin: 10/01/17 21:21 Dose: 2 mg Multivitamins/Minerals (Therapeutic-M Tab) 1 tab PO 0800 [facility] Last Admin: 10/01/17 09:18 Dose: 1 tab Pantoprazole Sodium (Protonix Ec Tab) 40 mg PO 0600 [facility] Last Admin: 10/02/17 05:35 Dose: 40 mg Thiamine HCl (Vitamin B1 Tab) 100 mg PO DAILY [facility] Last Admin: 10/01/17 09:19 Dose: 100 mg - Labs Labs: 10/02/17 06:10 10/02/17 06:10 PT 11.7 SECONDS (9.4-12.5) 10/01/17 00:25 INR 1.03 10/01/17 00:25 APTT 21.7 Seconds (25.1-36.5) L 10/01/17 00:25 - Constitutional Appears: Well, Non-toxic, No Acute Distress - Head Exam Head Exam: ATRAUMATIC, NORMOCEPHALIC - Eye Exam Eye Exam: EOMI, PERRL - ENT Exam ENT Exam: Mucous Membranes Moist - Respiratory Exam Respiratory Exam: Clear to Ausculation Bilateral, NORMAL BREATHING PATTERN. absent: Wheezes - Cardiovascular Exam Cardiovascular Exam: +S1, +S2, Murmur (systolic murmur at Tricsupid/Mitral position) - GI/Abdominal Exam GI & Abdominal Exam: Soft, Tenderness, Normal Bowel Sounds. absent: Guarding Additional comments: Non distended - Extremities Exam Extremities Exam: absent: Pedal Edema Additional comments: Distal pulses 2+ DP/TP BL - Neurological Exam Neurological Exam: Alert, Awake, CN II-XII Intact, Oriented x3 - Psychiatric Exam Psychiatric exam: Normal Affect, Normal Mood - Skin Skin Exam: Dry, Intact, Warm Assessment and Plan - Assessment and Plan (Free Text) Assessment: 62 y/o female with PMH of HTN, CHF, COPD, presents with dull epigastric pain x3 days after consuming 6 cans of beer and cocaine. Pain associated with N/V/D. Amylase and lipase elevated, so pain likely due to pancreatitis. CRISTÓBAL and Transaminitis are also noted. Plan: Salguero-Colitis Adv to [facility]D yesterday Merem - Abx therapy day 2 Morphine 2 Q6H PRN DC IVF as patient is no longer NPO Fecal leukocyte pending ID consulted, recs appreciated GI consulted, recs appreciated Transaminitis likely due to ETOH - improving Hepatitis panel negative Abdominal US pending avoid hepatotoxic meds monitor LFTs daily holding home statin Cocaine Abuse/ EtOH Abuse Patient counseled on polysubstance abuse and cessation Monitor for s/s of withdrawal Vitals stable Hx CHF: BNP 3530, same as last visit ECHO from last visit reviewed, EF 16%, LV global hypokinesis, severe MR Cardio following, recs appreciated O2 PRN HTN hold lisinopril due to CRISTÓBAL continue coreg cont asa traffic monitor specialist CRISTÓBAL - Improving Cr. 1.5 from 3.2 day prior hold lisinopril hold spironolactone (potassium 5.2) holding home lasix, monitor for fluid overload and restart as needed Nephro following, appreciate recs GI/DVT PPX: Protonix / Heparin SC Patient seen and evaluated w/ attending physician Dr. Lore Delgado DO PGY1 Internal Medicine Scaler - Pager [phone] <Alba Torrez - Last Filed: 10/04/17 08:48> Objective - Vital Signs/Intake and Output Vital Signs (last 24 hours): Temp Pulse Resp BP Pulse Ox 98.7 F 75 20 129/79 100 10/02/17 08:23 10/02/17 09:12 10/02/17 08:23 10/02/17 09:12 10/02/17 08:23 - Labs Labs: 10/02/17 06:10 10/02/17 06:10 PT 11.7 SECONDS (9.4-12.5) 10/01/17 00:25 INR 1.03 10/01/17 00:25 APTT 21.7 Seconds (25.1-36.5) L 10/01/17 00:25 Attending/Attestation - Attestation I have personally seen and examined this patient.: Yes I have fully participated in the care of the patient.: Yes I have reviewed all pertinent clinical information, including history, physical exam and plan: Yes Notes (Text): 10/04/17 08:39 Medical record note made by the resident after discussion with my direction and input after the patient was personally seen and examined by me. I have reviewed the chart and agree that the record accurately reflects by personal performance of the history, physical exam, data review, and medical decision-making, in the course for the patient. I have also personally directed the plan of care. 62 year old female with a past medical history significant for CHF with systolic dysfunction , COPD, HTN ,chronic smoking, alcohol and drug abuse, non compliance with her medications was admitted with abdominal pain due to transverse colitis and acute renal failure. Patient colitis is improving.Patient abdominal pain has improved.She is tolerating soft diet.She will be discharged home on oral Ciprofloxacin ad Flagyl.She will need to follow up with GI and will need out Patient colonoscopy. Acute renal failure is improved.Creatinin has come down to 1.5 from 3.5. Patient is euvolemic, will restart lisinopril, continue coreg.Lasix is on hold at the time of discharge.This was discussed in detail with her.She will follow up with broommaking supervisor in one week. Management plan was discussed in detail with patient. Education was provided.
[2017-10-02 08:24] VITALS: BP 129/79; PULSE 75; TEMP 98.7
[2017-10-02] MEDS: Multivitamin With Minerals Tab PO SCH (09:14)
[2017-10-02] MEDS: Meropenem 500 MG in Sodium Chloride 0.9% 50 ML IVPB SCH (09:21)
--- NOTE | 2017-10-02 12:17 | CP.PCM.PN ---
<Ronaldo Guzman - Last Filed: 10/02/17 12:22> Subjective - Date & Time of Evaluation Date of Evaluation: 10/02/17 Time of Evaluation: 08:30 - Subjective Subjective: Patient seen and examined at bedside in no acute distress. Patient states abdominal pain has resolved and she now just feels slight soreness in her abdomen. Denies abdominal pain, nausea, vomiting, diarrhea, fevers, chills, chest pain, shortness of breath, dysuria. Objective - Vital Signs/Intake and Output Vital Signs (last 24 hours): Temp Pulse Resp BP Pulse Ox 98.7 F 75 20 129/79 100 10/02/17 08:23 10/02/17 09:12 10/02/17 08:23 10/02/17 09:12 10/02/17 08:23 Intake and Output: 10/02/17 10/02/17 06:59 18:59 Intake Total 120 Balance 120 - Medications Medications: Current Medications Aspirin (Ecotrin) 81 mg PO DAILY [facility] Last Admin: 10/02/17 09:12 Dose: 81 mg Carvedilol (Coreg) 3.125 mg PO BID [facility] Last Admin: 10/02/17 09:12 Dose: 3.125 mg Folic Acid (Folic Acid) 1 mg PO DAILY [facility] Last Admin: 10/02/17 09:12 Dose: 1 mg Guaifenesin (Robitussin) 100 mg PO Q4H PRN PRN Reason: Cough Heparin Sodium (Porcine) (Heparin) 5,000 units SC Q12 [facility] PRN Reason: Protocol Last Admin: 10/02/17 09:13 Dose: 5,000 units Meropenem 500 mg/ Sodium (Chloride) 50 mls @ 100 mls/hr IVPB Q12 [facility] PRN Reason: Protocol Stop: 10/10/17 22:01 Last Admin: 10/02/17 09:21 Dose: 100 mls/hr Morphine Sulfate (Morphine) 2 mg IVP Q6H PRN PRN Reason: Pain, severe (8-10) Last Admin: 10/01/17 21:21 Dose: 2 mg Multivitamins/Minerals (Therapeutic-M Tab) 1 tab PO 0800 [facility] Last Admin: 10/02/17 09:14 Dose: 1 tab Pantoprazole Sodium (Protonix Ec Tab) 40 mg PO 0600 [facility] Last Admin: 10/02/17 05:35 Dose: 40 mg Thiamine HCl (Vitamin B1 Tab) 100 mg PO DAILY [facility] Last Admin: 10/02/17 09:14 Dose: 100 mg - Labs Labs: 10/02/17 06:10 10/02/17 06:10 PT 11.7 SECONDS (9.4-12.5) 10/01/17 00:25 INR 1.03 10/01/17 00:25 APTT 21.7 Seconds (25.1-36.5) L 10/01/17 00:25 - Constitutional Appears: Non-toxic, No Acute Distress - Head Exam Head Exam: ATRAUMATIC, NORMAL INSPECTION, NORMOCEPHALIC - Eye Exam Eye Exam: Normal appearance - ENT Exam ENT Exam: Mucous Membranes Moist - Neck Exam Neck Exam: Full ROM - Respiratory Exam Respiratory Exam: Clear to Ausculation Bilateral, NORMAL BREATHING PATTERN - Cardiovascular Exam Cardiovascular Exam: REGULAR RHYTHM, +S1, +S2 - GI/Abdominal Exam GI & Abdominal Exam: Soft, Normal Bowel Sounds. absent: Distended, Firm, Guarding, Rigid, Tenderness, Rebound - Extremities Exam Extremities Exam: Normal Inspection - Back Exam Back Exam: NORMAL INSPECTION - Neurological Exam Neurological Exam: Alert, Awake, Oriented x3 - Psychiatric Exam Psychiatric exam: Normal Affect, Normal Mood - Skin Skin Exam: Normal Color, Warm Assessment and Plan - Assessment and Plan (Free Text) Assessment: Patient is a 62yo female with PMHx significant for polysubstance abuse (EtOH and cocaine), HTN, systolic CHF, COPD who presented to the ED with abdominal pain -Abdominal pain -CRISTÓBAL -Polysubstance abuse - EtOH and cocaine -Systolic CHF -COPD -HTN Plan: -Suspect abdominal pain to be a result of recent binge drinking and cocaine use -CT reviewed; limited exam in absence of oral contrast and transverse colon appears decompressed vs mild thickening but cannot be fully evaluated -Symptoms improved since admission; one episode of diarrhea overnight and abdominal pain has resolved. -Advance diet as tolerated -Abdominal Ultrasound ordered <Edwina Owen V - Last Filed: 10/02/17 18:57> Objective - Vital Signs/Intake and Output Vital Signs (last 24 hours): Temp Pulse Resp BP Pulse Ox 98.7 F 75 20 129/79 100 10/02/17 08:23 10/02/17 09:12 10/02/17 08:23 10/02/17 09:12 10/02/17 08:23 Intake and Output: 10/02/17 10/02/17 06:59 18:59 Intake Total 120 Balance 120 - Medications Medications: Current Medications Aspirin (Ecotrin) 81 mg PO DAILY [facility] Last Admin: 10/02/17 09:12 Dose: 81 mg Carvedilol (Coreg) 3.125 mg PO BID [facility] Last Admin: 10/02/17 09:12 Dose: 3.125 mg Folic Acid (Folic Acid) 1 mg PO DAILY [facility] Last Admin: 10/02/17 09:12 Dose: 1 mg Guaifenesin (Robitussin) 100 mg PO Q4H PRN PRN Reason: Cough Heparin Sodium (Porcine) (Heparin) 5,000 units SC Q12 [facility] PRN Reason: Protocol Last Admin: 10/02/17 09:13 Dose: 5,000 units Meropenem 500 mg/ Sodium (Chloride) 50 mls @ 100 mls/hr IVPB Q12 [facility] PRN Reason: Protocol Stop: 10/10/17 22:01 Last Admin: 10/02/17 09:21 Dose: 100 mls/hr Morphine Sulfate (Morphine) 2 mg IVP Q6H PRN PRN Reason: Pain, severe (8-10) Last Admin: 10/01/17 21:21 Dose: 2 mg Multivitamins/Minerals (Therapeutic-M Tab) 1 tab PO 0800 [facility] Last Admin: 10/02/17 09:14 Dose: 1 tab Pantoprazole Sodium (Protonix Ec Tab) 40 mg PO 0600 [facility] Last Admin: 10/02/17 05:35 Dose: 40 mg Thiamine HCl (Vitamin B1 Tab) 100 mg PO DAILY [facility] Last Admin: 10/02/17 09:14 Dose: 100 mg - Labs Labs: 10/02/17 06:10 10/02/17 06:10 PT 11.7 SECONDS (9.4-12.5) 10/01/17 00:25 INR 1.03 10/01/17 00:25 APTT 21.7 Seconds (25.1-36.5) L 10/01/17 00:25 Attending/Attestation - Attestation I have personally seen and examined this patient.: Yes I have fully participated in the care of the patient.: Yes I have reviewed all pertinent clinical information, including history, physical exam and plan: Yes Notes (Text): This is an addendum to GI followup report dictated by the [employer]. The patient was seen and evaluated earlier. Medical records, lab studies, imagings were reviewed. Last 24 hours events reviewed. Agreed with the above treatment plan as outlined in [employer] 's notes with the addition of the following Patient was Feeling better Tolerating diet LFTs showing downward trend Scheduled for DC today I advised the patient strict lifestyle changes Advised to avoid alcohol and drugs Advised follow-up in clinic Patient fully understood 10/02/17 18:55
[2017-10-02 12:30] LABS: HEPATITIS B SURFACE AG Negative (NEGATIVE)
[2017-10-02 12:36] LABS: HEPATITIS A IGM NEGATIVE (NEGATIVE); HEPATITIS B CORE AB NEGATIVE (NEGATIVE)
[2017-10-02 12:48] LABS: HEPATITIS C ANTIBODY NEGATIVE (NEGATIVE)
--- NOTE | 2017-10-02 14:57 | CP.PCM.PN ---
Subjective - Date & Time of Evaluation Date of Evaluation: 10/02/17 Time of Evaluation: 11:15 - Subjective Subjective: Patient still with abdominal pain but a little better, no fevers, not in distress, still with some loose and dark stools. Objective - Vital Signs/Intake and Output Vital Signs (last 24 hours): Temp Pulse Resp BP Pulse Ox 98.7 F 75 20 129/79 100 10/02/17 08:23 10/02/17 09:12 10/02/17 08:23 10/02/17 09:12 10/02/17 08:23 Intake and Output: 10/02/17 10/02/17 06:59 18:59 Intake Total 120 Balance 120 - Medications Medications: Current Medications Aspirin (Ecotrin) 81 mg PO DAILY [facility] Last Admin: 10/02/17 09:12 Dose: 81 mg Carvedilol (Coreg) 3.125 mg PO BID [facility] Last Admin: 10/02/17 09:12 Dose: 3.125 mg Folic Acid (Folic Acid) 1 mg PO DAILY [facility] Last Admin: 10/02/17 09:12 Dose: 1 mg Guaifenesin (Robitussin) 100 mg PO Q4H PRN PRN Reason: Cough Heparin Sodium (Porcine) (Heparin) 5,000 units SC Q12 [facility] PRN Reason: Protocol Last Admin: 10/02/17 09:13 Dose: 5,000 units Meropenem 500 mg/ Sodium (Chloride) 50 mls @ 100 mls/hr IVPB Q12 [facility] PRN Reason: Protocol Stop: 10/10/17 22:01 Last Admin: 10/02/17 09:21 Dose: 100 mls/hr Morphine Sulfate (Morphine) 2 mg IVP Q6H PRN PRN Reason: Pain, severe (8-10) Last Admin: 10/01/17 21:21 Dose: 2 mg Multivitamins/Minerals (Therapeutic-M Tab) 1 tab PO 0800 [facility] Last Admin: 10/02/17 09:14 Dose: 1 tab Pantoprazole Sodium (Protonix Ec Tab) 40 mg PO 0600 [facility] Last Admin: 10/02/17 05:35 Dose: 40 mg Thiamine HCl (Vitamin B1 Tab) 100 mg PO DAILY [facility] Last Admin: 10/02/17 09:14 Dose: 100 mg - Labs Labs: 10/02/17 06:10 10/02/17 06:10 PT 11.7 SECONDS (9.4-12.5) 10/01/17 00:25 INR 1.03 10/01/17 00:25 APTT 21.7 Seconds (25.1-36.5) L 10/01/17 00:25 - Constitutional Appears: Non-toxic, Chronically Ill - Head Exam Head Exam: NORMAL INSPECTION - Neck Exam Neck Exam: absent: Meningismus - Respiratory Exam Respiratory Exam: Decreased Breath Sounds - Cardiovascular Exam Cardiovascular Exam: +S1, +S2 - GI/Abdominal Exam GI & Abdominal Exam: Soft. absent: Tenderness Assessment and Plan - Assessment and Plan (Free Text) Plan: Assessment Severe sepsis with acute renal failure due to acute transverse colitis chronic CHD HTN COPD significant smoking history chronic ethanol use history of pancreatitis Plan Continue Merrem (day 2) pending stool studies, cultures; blood cx are negative follow up further recommendations of GI will monitor clinically
--- NOTE | 2017-10-02 15:04 | US ---
Date of service: 10/02/2017 HISTORY: Abdominal pain COMPARISON: None. TECHNIQUE: Grayscale imaging was performed. FINDINGS: LIVER: Measures 15.5 cm. Normal echogenicity of the liver parenchyma. No mass. No intrahepatic bile duct dilatation. GALLBLADDER: There are no gallstones, wall thickening or pericholecystic fluid. The sonographic Metcalf's sign is negative. COMMON BILE DUCT: Measures 3.1 mm. No stones. No dilatation. PANCREAS: Unremarkable as visualized. No mass. No ductal dilatation. RIGHT KIDNEY: Measures 10.3cm. Normal echogenicity. No calculus, mass, or hydronephrosis. There is a 1.4 x 1.6 x 1.4 cm simple in the lower pole. LEFT KIDNEY: Measures 10.3cm. Normal echogenicity. No calculus, mass, or hydronephrosis. SPLEEN: Normal in size and contour. No mass. AORTA: No aneurysmal dilatation. IVC: Unremarkable. OTHER FINDINGS: None. IMPRESSION: No cholelithiasis or biliary dilatation.
--- NOTE | 2017-10-03 23:03 | CP.PCM.DIS ---
<DelgadoAudi magallon - Last Filed: 10/03/17 22:52> Provider - Provider Date of Admission: 10/01/17 02:30 Attending physician: Alba Torrez MD Primary care physician: Alba Jeter Consults: Infectious Disease - Dr. Medina Nephrology - Dr. Landa Gastroenterology - Dr. Owen Cardiology - Dr. Mtz Time Spent in preparation of Discharge (in minutes): 40 Diagnosis - Discharge Diagnosis (1) Transaminitis Status: Acute Priority: Medium (2) HTN (hypertension) Status: Chronic Priority: Medium (3) Acute renal failure (ARF) Status: Acute Priority: High (4) CHF (congestive heart failure) Status: Chronic Priority: Medium (5) Colitis Status: Acute Priority: High (6) Alcohol abuse Status: Chronic Priority: High (7) CHF (congestive heart failure) Status: Chronic (8) Substance abuse Status: Acute Priority: High Hospital Course - Lab Results Lab Results: Micro Results 10/01/17 09:30 Urine Urine Culture - Final No Growth (<1,000 CFU/ML) Most Recent Lab Values WBC 4.8 10^3/ul (4.5-11.0) D 10/02/17 06:10 RBC 3.12 10^6/uL (3.5-6.1) L 10/02/17 06:10 Hgb 9.4 g/dL (12.0-16.0) L 10/02/17 06:10 Hct 27.4 % (36.0-48.0) L 10/02/17 06:10 MCV 87.8 fl (80.0-105.0) 10/02/17 06:10 MCH 30.1 pg (25.0-35.0) 10/02/17 06:10 MCHC 34.3 g/dl (31.0-37.0) 10/02/17 06:10 RDW 14.0 % (11.5-14.5) 10/02/17 06:10 Plt Count 142 10^3/uL (120.0-450.0) 10/02/17 06:10 MPV 10.8 fl (7.0-11.0) 10/02/17 06:10 Gran % 51.9 % (50.0-68.0) 10/02/17 06:10 Lymph % (Auto) 39.3 % (22.0-35.0) H 10/02/17 06:10 Mag[place]in % (Auto) 7.6 % (1.0-6.0) H 10/02/17 06:10 Eos % (Auto) 1.0 % (1.5-5.0) L 10/02/17 06:10 Baso % (Auto) 0.2 % (0.0-3.0) 10/02/17 06:10 Gran # 2.51 (1.4-6.5) 10/02/17 06:10 Lymph # (Auto) 1.9 (1.2-3.4) 10/02/17 06:10 Mag[place]in # (Auto) 0.4 (0.1-0.6) 10/02/17 06:10 Eos # (Auto) 0.1 (0.0-0.7) 10/02/17 06:10 Baso # (Auto) 0.01 K/mm3 (0.0-2.0) 10/02/17 06:10 ESR 6 mm/hr (0.0-20.0) 10/01/17 07:15 PT 11.7 SECONDS (9.4-12.5) 10/01/17 00:25 INR 1.03 10/01/17 00:25 APTT 21.7 Seconds (25.1-36.5) L 10/01/17 00:25 Sodium 135 mmol/L (132-148) 10/02/17 06:10 Potassium 4.5 mmol/L (3.6-5.0) 10/02/17 06:10 Chloride 103 mmol/L (98-107) 10/02/17 06:10 Carbon Dioxide 21 mmol/L (21-33) 10/02/17 06:10 Anion Gap 16 (10-20) 10/02/17 06:10 BUN 32 mg/dL (7-21) H 10/02/17 06:10 Creatinine 1.5 mg/dl (0.7-1.2) H 10/02/17 06:10 Est GFR ( Amer) 42 10/02/17 06:10 Est GFR (Non-Af Amer) 35 10/02/17 06:10 POC Glucose (mg/dL) 122 mg/dL (65-110) H 10/02/17 15:58 Random Glucose 95 mg/dL (70-110) 10/02/17 06:10 Serum Osmolality 305 mosm/kg (272-300) H 10/01/17 07:20 Lactic Acid 0.9 mmol/L (0.7-2.1) 10/02/17 08:00 Calcium 9.2 mg/dL (8.4-10.5) 10/02/17 06:10 Phosphorus 2.5 mg/dL (2.5-4.5) 10/02/17 06:10 Magnesium 2.2 mg/dL (1.7-2.2) 10/02/17 06:10 Total Bilirubin 1.1 mg/dL (0.2-1.3) 10/02/17 06:10 AST 65 U/L (14-36) H D 10/02/17 06:10 ALT 52 U/L (7-56) 10/02/17 06:10 Alkaline Phosphatase 76 U/L (38-126) 10/02/17 06:10 Lactate Dehydrogenase 483 U/L (333-699) 10/01/17 14:30 Total Creatine Kinase 65 U/L (35-230) 10/01/17 14:30 Troponin I 0.02 ng/mL D 10/01/17 00:25 NT-Pro-B Natriuret Pep 3530 pg/mL (0-450) H 10/01/17 00:25 Total Protein 7.4 g/dL (5.8-8.3) 10/02/17 06:10 Albumin 3.9 g/dL (3.0-4.8) 10/02/17 06:10 Globulin 3.5 gm/dL 10/02/17 06:10 Albumin/Globulin Ratio 1.1 (1.1-1.8) 10/02/17 06:10 Amylase 227 U/L (35-125) H 10/01/17 00:25 Lipase 395 U/L (23-300) H 10/01/17 00:25 Urine Color Yellow (YELLOW) 10/01/17 09:30 Urine Appearance Sl cloudy (CLEAR) 10/01/17 09:30 Urine pH 6.0 (4.7-8.0) 10/01/17 09:30 Ur Specific Champion 1.025 (1.005-1.035) 10/01/17 09:30 Urine Protein 30 mg/dL (<30 mg/dL) H 10/01/17 09:30 Urine Glucose (UA) Negative mg/dL (NEGATIVE) 10/01/17 09:30 Urine Ketones Negative mg/dL (NEGATIVE) 10/01/17 09:30 Urine Blood Moderate (NEGATIVE) H 10/01/17 09:30 Urine Nitrate Negative (NEGATIVE) 10/01/17 09:30 Urine Bilirubin Negative (NEGATIVE) 10/01/17 09:30 Urine Urobilinogen 0.2 E.U./dL (<1 E.U./dL) 10/01/17 09:30 Ur Leukocyte Esterase Large Alejandra/uL (NEGATIVE) H 10/01/17 09:30 Urine RBC 0 - 2 /hpf (0-2) 10/01/17 09:30 Urine WBC 2 - 5 /hpf (0-6) 10/01/17 09:30 Ur Epithelial Cells 1 - 3 /hpf (0-5) 10/01/17 09:30 Urine Bacteria Mod (NEG) 10/01/17 09:30 Alcohol, Quantitative < 10 mg/dL (0-10) 10/01/17 07:20 Hepatitis A IgM Ab Negative (NEGATIVE) 10/02/17 09:00 Hep Bs Antigen Negative (NEGATIVE) 10/02/17 09:00 Hep B Core IgM Ab Negative (NEGATIVE) 10/02/17 09:00 Hepatitis C Antibody Negative (NEGATIVE) 10/02/17 09:00 HIV-1 Antibody TEST NOT PERFORMED 10/01/17 14:30 HIV-2 Antibody TEST NOT PERFORMED 10/01/17 14:30 HIV 1&2 Ag/Ab, 4th Gen Nonreactive (Nonreactive) 10/01/17 14:30 - Hospital Course Hospital Course: Audi Delgado DO PGY1 Internal 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 Pain is 8/10, intermittent, no radiation, no alleviating or relieving factors. Pain is associated with nausea, non bloody vomiting and non bloody diarrhea. Patient got admitted in 07/2017 at [facility] for CHF exacerbation, coded twice with resuscitation, intubated once during that admission. Patient stated she has been doing well since last hospital discharge,compliant with meds and no symptoms. Patient denied chest pain, palpitation, cough, FLOWER, leg swelling, headache, dizziness, visual changes. Chest xray was read w/o any active airspace disease; and EKG in ED did not reveal any ischemic changes. Hospital Course: Patient was admitted for work up of abdominal pain, transaminitis, and CRISTÓBAL. CT AP was read as some mural thickening of the transverse colon, and possible colitis. Abdominal ultrasound was read only with a simple cyst in the lower pole of the right kidney measuring 1.4x1.4x1.6; otherwise study was read as unremarkable. Given multiple comorbidities, cardiology, infectious disease, gastroenterology, and nephrology services were consulted. She was initially kept NPO, started on gentle IVF hydration given her history of cardiomyopathy. Patient was also started on IV antibiotics, and empiric PPI thearpy, . Given history of EtOH abuse and recent consumption, patient was started on folic acid , thiamine, and multivitamin. Through hospital course, diet was advanced slowly from NPO to CLD, FLD, and eventually soft diet. Patient tolerating diet well throughout course and denied any worsening of abd pain, N/V. Her transaminitis was still present upon time of discharge; however improved greatly, and hepatotoxic medications were held. CRISTÓBAL resolved with gentle IVF, and renal toxic medications were also held at this time. She was counseled on polysubstance/ EtOH abuse and advised cessation of these activities. Patient never displayed signs of withdrawal during hospital course. Cardiology recommended that patient continue her Coreg 3.125mg BID, and that she was not a suitable candidate for aldactone or candy-inhibitors at this time. Morning of discharge, patient was seen and examined at bedside; no acute events reported overnight. Patient advanced to CLD day prior tolerating well. Abd pain resolving at this time. 12 system ROS otherwise negative. Her diet was advanced throughout discharge day without any issue/ complaint. Patient was discharged home with the following instructions: Please stop taking your Lasix and Aldactone until otherwise instructed by either your PMD (Dr. Colten Adrian) or your [facility] at [facility] Please resume all other home medications and take as prescribed Prescriptions for 2 new antibiotics (Ciprofloxaxin and Flagyl) have been transmitted to the pharmacy, please take as instructed, please complete both courses. Do Not stop taking your antibiotics when feeling well, finish both antibiotics completely. You have been give a script for follow up BMP, to reassess your kidney function. Obtain in 1 week and share results with your PMD. Please avoid all further cocaine and alcohol use Please follow up with your PMD (Dr. Adrian) within 1 week of discharge. Please follow up with your C[facility] [employer] at [place] as soon as possible. Please establish yourself with a GI doctor for colonoscopy 6-8 weeks after discharge. If your primary medical group ([facility]) doesn't have one, call your insurer to find what GI doctors are in your network Please return to a hospital if you experience worsening or newly concerning symptoms. The patient is medically optimized/ stable for discharge at this time. - Date & Time of H&P Date of H&P: 10/01/17 Time of H&P: 05:24 Discharge Exam - Head Exam Head Exam: ATRAUMATIC, NORMOCEPHALIC - Eye Exam Eye Exam: EOMI, PERRL - ENT Exam ENT Exam: Mucous Membranes Moist - Respiratory Exam Respiratory Exam: Clear to PA & Lateral, NORMAL BREATHING PATTERN, UNREMARKABLE. absent: Wheezes, Respiratory Distress - Cardiovascular Exam Cardiovascular Exam: RRR, +S1, +S2, Systolic Murmur (Tricuspid/Mitral post) - GI/Abdominal Exam GI & Abdominal Exam: Normal Bowel Sounds, Soft, Tenderness. absent: Guarding Additional comments: Non distended - Extremities Exam Extremities exam: pedal pulses present (2+ TP/DP BL) Additional comments: No LE edema/ No pedal edema - Back Exam Back exam: NORMAL INSPECTION. absent: CVA tenderness (L), CVA tenderness (R) - Neurological Exam Neurological exam: Alert, CN II-XII Intact, Oriented x3 - Psychiatric Exam Psychiatric exam: Normal Affect, Normal Mood - Skin Skin Exam: Dry, Intact, Normal Color Discharge Plan - Discharge Medications Prescriptions: Ciprofloxacin HCl [Cipro] 500 mg PO BID #20 tab Metronidazole [Flagyl] 500 mg PO BID #20 tab - Follow Up Plan Condition: STABLE Disposition: HOME/ ROUTINE Instructions: Diarrhea in Adolescents and Adults, Cocaine Use Disorder, High Blood Pressure (DC), Exacerbation of COPD (DC), Heart Failure (DC), Acute Kidney Injury (DC) Additional Instructions: Please stop taking your Lasix and Aldactone until otherwise instructed by either your PMD (Dr. Colten Adrian) or your [facility] at [facility] Please resume all other home medications and take as prescribed Prescriptions for 2 new antibiotics (Ciprofloxaxin and Flagyl) have been transmitted to the pharmacy, please take as instructed, please complete both courses. Do Not stop taking your antibiotics when feeling well, finish both antibiotics completely. You have been give a script for follow up BMP, to reassess your kidney function. Obtain in 1 week and share results with your PMD. Please avoid all further cocaine and alcohol use Please follow up with your PMD (Dr. Adrian) within 1 week of discharge. Please follow up with your [facility] at [place] as soon as possible. Please establish yourself with a GI doctor for colonoscopy 6-8 weeks after discharge. If your primary medical group ([facility]) doesn't have one, call your insurer to find what GI doctors are in your network Please return to a hospital if you experience worsening or newly concerning symptoms. Referrals: [facility] [Provider Group] <Alba Torrez - Last Filed: 10/04/17 08:49> Provider - Provider Date of Admission: 10/01/17 02:30 Attending physician: Alba Torrez MD Hospital Course - Lab Results Lab Results: Micro Results 10/01/17 09:30 Urine Urine Culture - Final No Growth (<1,000 CFU/ML) Most Recent Lab Values WBC 4.8 10^3/ul (4.5-11.0) D 10/02/17 06:10 RBC 3.12 10^6/uL (3.5-6.1) L 10/02/17 06:10 Hgb 9.4 g/dL (12.0-16.0) L 10/02/17 06:10 Hct 27.4 % (36.0-48.0) L 10/02/17 06:10 MCV 87.8 fl (80.0-105.0) 10/02/17 06:10 MCH 30.1 pg (25.0-35.0) 10/02/17 06:10 MCHC 34.3 g/dl (31.0-37.0) 10/02/17 06:10 RDW 14.0 % (11.5-14.5) 10/02/17 06:10 Plt Count 142 10^3/uL (120.0-450.0) 10/02/17 06:10 MPV 10.8 fl (7.0-11.0) 10/02/17 06:10 Gran % 51.9 % (50.0-68.0) 10/02/17 06:10 Lymph % (Auto) 39.3 % (22.0-35.0) H 10/02/17 06:10 [place] % (Auto) 7.6 % (1.0-6.0) H 10/02/17 06:10 Eos % (Auto) 1.0 % (1.5-5.0) L 10/02/17 06:10 Baso % (Auto) 0.2 % (0.0-3.0) 10/02/17 06:10 Gran # 2.51 (1.4-6.5) 10/02/17 06:10 Lymph # (Auto) 1.9 (1.2-3.4) 10/02/17 06:10 Mag[place] # (Auto) 0.4 (0.1-0.6) 10/02/17 06:10 Eos # (Auto) 0.1 (0.0-0.7) 10/02/17 06:10 Baso # (Auto) 0.01 K/mm3 (0.0-2.0) 10/02/17 06:10 ESR 6 mm/hr (0.0-20.0) 10/01/17 07:15 PT 11.7 SECONDS (9.4-12.5) 10/01/17 00:25 INR 1.03 10/01/17 00:25 APTT 21.7 Seconds (25.1-36.5) L 10/01/17 00:25 Sodium 135 mmol/L (132-148) 10/02/17 06:10 Potassium 4.5 mmol/L (3.6-5.0) 10/02/17 06:10 Chloride 103 mmol/L (98-107) 10/02/17 06:10 Carbon Dioxide 21 mmol/L (21-33) 10/02/17 06:10 Anion Gap 16 (10-20) 10/02/17 06:10 BUN 32 mg/dL (7-21) H 10/02/17 06:10 Creatinine 1.5 mg/dl (0.7-1.2) H 10/02/17 06:10 Est GFR ( Amer) 42 10/02/17 06:10 Est GFR (Non-Af Amer) 35 10/02/17 06:10 POC Glucose (mg/dL) 122 mg/dL (65-110) H 10/02/17 15:58 Random Glucose 95 mg/dL (70-110) 10/02/17 06:10 Serum Osmolality 305 mosm/kg (272-300) H 10/01/17 07:20 Lactic Acid 0.9 mmol/L (0.7-2.1) 10/02/17 08:00 Calcium 9.2 mg/dL (8.4-10.5) 10/02/17 06:10 Phosphorus 2.5 mg/dL (2.5-4.5) 10/02/17 06:10 Magnesium 2.2 mg/dL (1.7-2.2) 10/02/17 06:10 Total Bilirubin 1.1 mg/dL (0.2-1.3) 10/02/17 06:10 AST 65 U/L (14-36) H D 10/02/17 06:10 ALT 52 U/L (7-56) 10/02/17 06:10 Alkaline Phosphatase 76 U/L (38-126) 10/02/17 06:10 Lactate Dehydrogenase 483 U/L (333-699) 10/01/17 14:30 Total Creatine Kinase 65 U/L (35-230) 10/01/17 14:30 Troponin I 0.02 ng/mL D 10/01/17 00:25 NT-Pro-B Natriuret Pep 3530 pg/mL (0-450) H 10/01/17 00:25 Total Protein 7.4 g/dL (5.8-8.3) 10/02/17 06:10 Albumin 3.9 g/dL (3.0-4.8) 10/02/17 06:10 Globulin 3.5 gm/dL 10/02/17 06:10 Albumin/Globulin Ratio 1.1 (1.1-1.8) 10/02/17 06:10 Amylase 227 U/L (35-125) H 10/01/17 00:25 Lipase 395 U/L (23-300) H 10/01/17 00:25 Urine Color Yellow (YELLOW) 10/01/17 09:30 Urine Appearance Sl cloudy (CLEAR) 10/01/17 09:30 Urine pH 6.0 (4.7-8.0) 10/01/17 09:30 Ur Specific Champion 1.025 (1.005-1.035) 10/01/17 09:30 Urine Protein 30 mg/dL (<30 mg/dL) H 10/01/17 09:30 Urine Glucose (UA) Negative mg/dL (NEGATIVE) 10/01/17 09:30 Urine Ketones Negative mg/dL (NEGATIVE) 10/01/17 09:30 Urine Blood Moderate (NEGATIVE) H 10/01/17 09:30 Urine Nitrate Negative (NEGATIVE) 10/01/17 09:30 Urine Bilirubin Negative (NEGATIVE) 10/01/17 09:30 Urine Urobilinogen 0.2 E.U./dL (<1 E.U./dL) 10/01/17 09:30 Ur Leukocyte Esterase Large Alejandra/uL (NEGATIVE) H 10/01/17 09:30 Urine RBC 0 - 2 /hpf (0-2) 10/01/17 09:30 Urine WBC 2 - 5 /hpf (0-6) 10/01/17 09:30 Ur Epithelial Cells 1 - 3 /hpf (0-5) 10/01/17 09:30 Urine Bacteria Mod (NEG) 10/01/17 09:30 Alcohol, Quantitative < 10 mg/dL (0-10) 10/01/17 07:20 Hepatitis A IgM Ab Negative (NEGATIVE) 10/02/17 09:00 Hep Bs Antigen Negative (NEGATIVE) 10/02/17 09:00 Hep B Core IgM Ab Negative (NEGATIVE) 10/02/17 09:00 Hepatitis C Antibody Negative (NEGATIVE) 10/02/17 09:00 HIV-1 Antibody TEST NOT PERFORMED 10/01/17 14:30 HIV-2 Antibody TEST NOT PERFORMED 10/01/17 14:30 HIV 1&2 Ag/Ab, 4th Gen Nonreactive (Nonreactive) 10/01/17 14:30 Attending/Attestation - Attestation I have personally seen and examined this patient.: Yes I have fully participated in the care of the patient.: Yes I have reviewed all pertinent clinical information, including history, physical exam and plan: Yes Notes (Text): 10/04/17 08:49 Medical record note made by the resident after discussion with my direction and input after the patient was personally seen and examined by me. I have reviewed the chart and agree that the record accurately reflects by personal performance of the history, physical exam, data review, and medical decision-making, in the course for the patient. I have also personally directed the plan of care. 62 year old female with a past medical history significant for CHF with systolic dysfunction , COPD, HTN ,chronic smoking, alcohol and drug abuse, non compliance with her medications was admitted with abdominal pain due to transverse colitis and acute renal failure. Patient colitis is improving.Patient abdominal pain has improved.She is tolerating soft diet.She will be discharged home on oral Ciprofloxacin ad Flagyl.She will need to follow up with GI and will need out Patient colonoscopy. Acute renal failure is improved.Creatinin has come down to 1.5 from 3.5. LFT are improving. Patient is euvolemic, will restart lisinopril, continue coreg.Lasix is on hold at the time of discharge.This was discussed in detail with her.She will follow up with b operator in one week. Management plan was discussed in detail with patient. Education was provided.
== END 2017-10-02 19:34 | disposition home or self-care (01) ==
LOC: ED 23:45 → INTOOBSV 10-01 02:30 → ERH 10-01 02:30 → 3RNO 10-01 03:41
PROVIDERS: ADMIT Internal Medicine; ATTEND Internal Medicine
DX: A41.9 Sepsis, unspecified organism (principal); R65.20 Severe sepsis without septic shock; N17.0 Acute kidney failure with tubular necrosis; I13.0 Hypertensive heart and chronic kidney disease with heart failure and stage 1 through stage 4 chronic kidney disease, or unspecified chronic kidney disease; I42.9 Cardiomyopathy, unspecified; I50.23 Acute on chronic systolic (congestive) heart failure; N18.3 Chronic kidney disease, stage 3 (moderate); F14.10 Cocaine abuse, uncomplicated; F10.10 Alcohol abuse, uncomplicated; J44.9 Chronic obstructive pulmonary disease, unspecified; D64.9 Anemia, unspecified; E86.9 Volume depletion, unspecified; K52.9 Noninfective gastroenteritis and colitis, unspecified; Z72.0 Tobacco use; Z91.14 Patient's other noncompliance with medication regimen
CPT/HCPCS: 36415; 71045; 74176; 76700; 80053; 80074; 80320; 81001; 82150; 82550; 82948; 83605; 83615; 83690; 83735; 83880; 83930; 84100; 84484; 85025; 85610; 85651; 85730; 87040; 87086; 87389; 93005; 96365; 96366; 96367; 96372; 96375; 96376; 99285; G0378; J1170; J1644; J2185; J2270; J2405; J2543; J3475; J7030; J7040

== ENCOUNTER 2017-10-03 06:13 | Emergency (ER) | payer OTHER ==
[2017-10-03 06:14] VITALS: BMI 18.9
[2017-10-03] MEDS ORDERED: Morphine 2 mg/ml ISec IVP STA ×2 (07:18→09:26)
[2017-10-03] MEDS ORDERED: Sodium Chloride 0.9% 1,000 ML IV STA (07:18)
--- NOTE | 2017-10-03 07:20 | ED PDOC ---
Arrival/HPI - General Chief Complaint: Abdominal Pain Time Seen by Provider: 10/03/17 06:41 Historian: Patient - History of Present Illness Narrative History of Present Illness (Text): 10/03/17 07:18 62 year old female, with a past medical history that includes COPD, CHF, and hypertension, presents to the Emergency department with epigastric abdominal pain, nausea, vomiting, diarrhea, since yesterday. Patient was hospitalized and discharged yesterday for similar symptoms. Patient states after consuming food after being discharged last night, the pain reoccurred. Patient denies any chest pain, shortness of breath, fever, sweats, headache, or any other complaints. Patient also denies any recent alcohol or drug use. states patient "ate a heavy meal". No bloody or dark stools reported. No dyspnea with exertion. Time/Duration: 4-6 hours (Most recent onset of pain was last night, but similar symptoms yesterday morning) Symptom Onset: Gradual Symptom Course: Unchanged Activities at Onset: Light Context: Home Past Medical History - Provider Review Nursing Documentation Reviewed: Yes - Infectious Disease Hx of Infectious Diseases: None - Tetanus Immunization Tetanus Immunization: Unknown - Cardiac Hx Cardiac Disorders: Yes Hx Congestive Heart Failure: Yes Hx Hypertension: Yes (stopped taking meds insurance problem) - Pulmonary Hx Respiratory Disorders: Yes Hx Asthma: Yes Hx Bronchitis: Yes (1 yr ago) - Neurological Hx Neurological Disorder: No - HEENT Hx HEENT Disorder: No - Renal Hx Renal Disorder: No - Endocrine/Metabolic Hx Endocrine Disorders: No - Hematological/Oncological Hx Blood Disorders: No - Integumentary Hx Dermatological Disorder: No - Musculoskeletal/Rheumatological Hx Musculoskeletal Disorders: No - Gastrointestinal Hx Gastrointestinal Disorders: Yes Hx Pancreatitis: Yes (age 55) - Genitourinary/Gynecological Hx Genitourinary Disorders: No - Psychiatric Hx Psychophysiologic Disorder: No Hx Substance Use: No - Surgical History Hx Cardiac Catheterization: No Hx Coronary Stent: No Family/Social History - Physician Review Nursing Documentation Reviewed: Yes Family/Social History: No Known Family HX Smoking Status: Light Smoker < 10 Cigarettes Daily Hx Alcohol Use: Yes (social) Hx Substance Use: No Substance used: hx marijuana Allergies/Home Meds Allergies/Adverse Reactions: Allergies No Known Allergies Allergy (Verified 10/03/17 06:22) Review of Systems - Review of Systems Constitutional: absent: Fevers Respiratory: absent: SOB Cardiovascular: absent: Chest Pain, Edema, FLOWER Gastrointestinal: Abdominal Pain, Diarrhea, Nausea, Vomiting. absent: Hematochezia, Hematemesis Genitourinary Female: absent: Dysuria, Frequency Musculoskeletal: absent: Back Pain, Neck Pain Skin: absent: Rash Neurological: absent: Headache, Dizziness, Focal Weakness Hemo/Lymphatic: absent: Easy Bleeding Psychiatric: absent: Depression, Suicidal Ideation Physical Exam - Physical Exam Narrative Physical Exam (Text): 10/03/17 07:24 Head: Atraumatic. Normocephalic. Eyes: PERRL. EOMI. Conjunctivae are not pale. Sclera anicteric. ENT: Mucous membranes are moist and intact. Oropharynx is clear and symmetric. Neck: Supple. Full ROM. No JVD. No lymphadenopathy. Cardiovascular: Regular rate. Regular rhythm. Systolic murmur. Distal pulses are 2+ and symmetric. Pulmonary/Chest: No evidence of respiratory distress. Clear to auscultation bilaterally. No wheezing, rales or rhonchi. Abdominal: Soft and non-distended. Mild epigastric pain with palpation, no pulsatile masses. No rebound, guarding, or rigidity. No organomegaly. Good bowel sounds. Back: No CVA tenderness. No midline tenderness. Extremities: No edema. No cyanosis. No clubbing. Full range of motion in all extremities. No calf tenderness. Skin: Skin is warm and dry. No petechiae. No purpura. Neurological: Alert, awake, and oriented. Motor and sensory exam intact. Reflexes intact. No facial droop. No slurred speech. Steady gait. Psychiatric: Good eye contact. Normal interaction, affect, and behavior. Denies depression or suicidal ideation. Rectal: no gross blood 10/03/17 15:40 Vital Signs Reviewed: Yes Vital Signs Temp Pulse Resp BP Pulse Ox 10/03/17 14:16 98 F 74 18 146/79 97 10/03/17 14:15 98 F 74 18 146/79 97 10/03/17 09:30 88 18 153/105 H 100 10/03/17 07:48 92 H 18 159/116 H 100 10/03/17 07:17 98.4 F 100 H 20 171/115 H 100 10/03/17 06:23 98.4 F 100 H 20 171/115 H 100 Temperature: Afebrile Blood Pressure: Hypertensive Appearance: Positive for: Uncomfortable Pain Distress: Mild Medical Decision Making ED Course and Treatment: 10/03/17 07:30 Impression: 62 year old female, presents to the Emergency department with epigastric pain, nausea, vomiting, and diarrhea. Prior Visits: Notes and results from previous visits were reviewed. Patient was last seen in the emergency department on 10/02/17 for similar symptoms of abdominal pain, nausea, vomiting, and diarrhea. Patient was admitted. Progress Notes: Patient with intermittent crampy diffuse pain. No flank pain. No chest pain. No shortness of breath. Recent admission included CT and ultrasound, which I reviewed. There is no bloody stool noted. Mild pain noted on initial exam with no rebound or guarding. Pain increased with observation but resolved with medication. Labs reviewed. She has no chest pain or shortness of breath. Patient observed in ED with serial exams. 10/03/17 14:12 Patient has been observed for 6 hours and has complete resolution of her abdominal pain without any further iv pain medication required.. Patient has no fever, chest pain, shortness of breath, nausea, or vomiting. As she is pain free with no nausea or vomiting, she will be discharged and instructed to follow up with her PCP. Abnormal CT findings from previous admission reviewed with patient, advised to continue current prescribed medications. Risks of alcohol and drug abuse and noncompliance with diet discussed with patient and at bedside. Anemia noted from previous admission, this is not worse from discharge and no active bleeding or cv instability noted. - Lab Interpretations Lab Results: 10/03/17 07:40 10/03/17 07:40 Lab Results 10/03/17 09:36: pO2 228 H, VBG pH 7.45 H, VBG pCO2 31.0 L, VBG HCO3 21.5, VBG Total CO2 22.5, VBG O2 Sat (Calc) 100.0 H, VBG Base Excess -2.0 L, VBG Potassium 4.2, Glucose 101, Lactate 0.6 L, FiO2 21.0, Sodium 134.0, Chloride 106.0, Venous Blood Potassium 4.2 10/03/17 08:00: Urine Opiates Screen Negative, Urine Methadone Screen Negative, Ur Barbiturates Screen Negative, Ur Phencyclidine Scrn Negative, Ur Amphetamines Screen Negative, U Benzodiazepines Scrn Negative, U Oth Cocaine Metabols Positive H, U Cannabinoids Screen Positive H 10/03/17 07:40: Acetaminophen < 10.0 L 10/03/17 07:40: Alcohol, Quantitative < 10 10/03/17 07:40: Sodium 137, Potassium 4.6, Chloride 102, Carbon Dioxide 22, Anion Gap 18, BUN 17, Creatinine 1.0, Est GFR ( Amer) > 60, Est GFR (Non- Af Amer) 56, Random Glucose 99, Calcium 9.6, Magnesium 1.5 L, Total Bilirubin 0.8, AST 77 H, ALT 66 H, Alkaline Phosphatase 79, Lactate Dehydrogenase 528, Total Creatine Kinase 51, Troponin I 0.01 D, Total Protein 7.7, Albumin 4.3, Globulin 3.4, Albumin/Globulin Ratio 1.3, Amylase 83, Lipase 198 10/03/17 07:40: Urine Color Yellow, Urine Appearance Clear, Urine pH 9.0, Ur Specific [place] > 1.030, Urine Protein 30 H, Urine Glucose (UA) Negative, Urine Ketones Trace, Urine Blood Trace H, Urine Nitrate Negative, Urine Bilirubin Negative, Urine Urobilinogen 0.2, Ur Leukocyte Esterase Mod H, Urine RBC 2 - 5, Urine WBC 20 - 25, Ur Epithelial Cells 4 - 5, Urine Bacteria Many, Fine Granular Casts 0 - 2 10/03/17 07:40: PT 11.1, INR 0.97, APTT 26.8 10/03/17 07:40: WBC 5.8 D, RBC 3.27 L, Hgb 9.9 L, Hct 28.9 L, MCV 88.4, MCH 30.3, MCHC 34.3, RDW 14.0, Plt Count 173, MPV 10.8, Gran % 60.7, Lymph % (Auto) 29.0, [place] % (Auto) 9.8 H, Eos % (Auto) 0.3 L, Baso % (Auto) 0.2, Gran # 3.54, Lymph # (Auto) 1.7, [place] # (Auto) 0.6, Eos # (Auto) 0.0, Baso # (Auto) 0.01 - RAD Interpretation Narrative RAD Interpretations (Text): 10/03/17 11:46 Chest X-ray reviewed by radiologist, shows: No acute findings. Dr. Hansa Pascual 08/07/18 10:16 Radiology Orders: 10/03/17 07:17 CHEST PORTABLE [RAD] Stat - EKG Interpretation Interpreted by ED Physician: Yes Type: 12 lead EKG - Medication Orders Current Medication Orders: Discontinued Medications Famotidine (Pepcid) 20 mg IVP STAT STA Stop: 10/03/17 07:19 Last Admin: 10/03/17 07:40 Dose: 20 mg IVP Administration Document 10/03/17 07:40 SRE (Rec: 10/03/17 07:40 SRE [id number]) Charges for Administration # of IVP Administrations 1 Sodium Chloride (Sodium Chloride 0.9%) 1,000 mls @ 1,000 mls/hr IV .Q1H STA Stop: 10/03/17 08:17 Last Admin: 10/03/17 07:39 Dose: 1,000 mls/hr eMAR Start Stop Document 10/03/17 07:39 SRE (Rec: 10/03/17 07:39 SRE [id number]) Intravenous Solution Start Date 10/03/17 Start Time 07:39 End Date 10/03/17 End time 08:40 Total Infusion Time 61 Sodium Chloride (Sodium Chloride 0.9%) 500 mls @ 1,000 mls/hr IV .Q30M STA Stop: 10/03/17 12:47 Last Admin: 10/03/17 12:25 Dose: 1,000 mls/hr eMAR Start Stop Document 10/03/17 12:25 SRE (Rec: 10/03/17 12:25 SRE [id number]) Intravenous Solution Start Date 10/03/17 Start Time 12:25 End Date 10/03/17 End time 13:00 Total Infusion Time 35 Morphine Sulfate (Morphine) 2 mg IVP STAT STA Stop: 10/03/17 07:19 Last Admin: 10/03/17 07:39 Dose: 2 mg MAR Pain Assessment Document 10/03/17 07:39 SRE (Rec: 10/03/17 07:40 SRE [id number]) Pain Reassessment Is this a pain reassessment? Yes Sleep Is patient sleeping during reassessment? No Presence of Pain Presence of Pain Yes Pain Scale Used Pain Scale Used Numeric Location Pain Location Body Site Abdomen Description Description Intermittent IVP Administration Document 10/03/17 07:39 SRE (Rec: 10/03/17 07:40 SRE [id number]) Charges for Administration # of IVP Administrations 1 Re-Assess: [facility] Pain Assessment Document 10/03/17 08:39 SRE (Rec: 10/03/17 09:39 SRE [id number]) Pain Reassessment Is this a pain reassessment? Yes Sleep Is patient sleeping during reassessment? No Presence of Pain Presence of Pain Yes Pain Scale Used Pain Scale Used Numeric Location Pain Location Body Site Abdomen Morphine Sulfate (Morphine) 2 mg IVP STAT STA Stop: 10/03/17 09:27 Last Admin: 10/03/17 09:38 Dose: 2 mg [facility] Pain Assessment Document 10/03/17 09:38 SRE (Rec: 10/03/17 09:38 SRE [id number]) Pain Reassessment Is this a pain reassessment? Yes Sleep Is patient sleeping during reassessment? No Presence of Pain Presence of Pain Yes Pain Scale Used Pain Scale Used Numeric Location Pain Location Body Site Abdomen Description Description Intermittent Intensity of Pain at present 6 IVP Administration Document 10/03/17 09:38 SRE (Rec: 10/03/17 09:38 SRE [id number]) Charges for Administration # of IVP Administrations 1 Re-Assess: [facility] Pain Assessment Document 10/03/17 10:38 SRE (Rec: 10/03/17 12:26 SRE [id number]) Pain Reassessment Is this a pain reassessment? Yes Sleep Is patient sleeping during reassessment? No Presence of Pain Presence of Pain No Ondansetron HCl (Zofran Inj) 4 mg IVP ONCE ONE Stop: 10/03/17 07:40 Last Admin: 10/03/17 07:44 Dose: 4 mg IVP Administration Document 10/03/17 07:44 SRE (Rec: 10/03/17 07:45 SRE [id number]) Charges for Administration # of IVP Administrations 1 - Scribe Statement The provider has reviewed the documentation as recorded by the Scribe Ankush Cosme All medical record entries made by the Scribe were at my direction and personally dictated by me. I have reviewed the chart and agree that the record accurately reflects my personal performance of the history, physical exam, medical decision making, and the department course for this patient. I have also personally directed, reviewed, and agree with the discharge instructions and disposition. Disposition/Present on Arrival - Present on Arrival Any Indicators Present on Arrival: No History of DVT/PE: No History of Uncontrolled Diabetes: No Urinary Catheter: No History of Decub. Ulcer: No History Surgical Site Infection Following: None - Disposition Have Diagnosis and Disposition been Completed?: Yes Diagnosis: Abdominal pain, Anemia Disposition: HOME/ ROUTINE Disposition Time: 14:00 Patient Plan: Discharge Condition: GOOD Discharge Instructions (ExitCare): Acute Abdomen (Belly Pain), Adult (DC) Additional Instructions: Risks of improper diet or alcohol or drug use have been reviewed with you. For any fever, any shortness of breath, any chest pain, any return of abdominal pain, any bloody urine or stool, any dark stools, any dizziness, any unsteadiness, any shaking, any persistent or worsening of symptoms, get rechecked. Follow-up as directed by your previous discharge instructions and take medication as directed. Referrals: Zana Veloz MD [Primary Care Provider] - Follow up with primary Forms: [employer] ([place]ian)
[2017-10-03 07:49] VITALS: RESP 18
[2017-10-03 07:58] LABS: URINE APPEARANCE CLEAR (CLEAR); URINE COLOR YELLOW (YELLOW)
[2017-10-03 07:59] LABS: URINE BILIRUBIN NEGATIVE (NEGATIVE); URINE BLOOD TRACE (NEGATIVE); URINE GLUCOSE (UA) NEGATIVE (NEGATIVE); URINE PROTEIN 30 mg/dL (<30 mg/dL)
[2017-10-03 08:00] LABS: URINE LEUKOCYTE ESTERASE MOD Leu/uL (NEGATIVE); URINE UROBILINOGEN 0.2 E.U./dL (<1 E.U./dL)
[2017-10-03 08:01] LABS: BASO # 0.01 K/mm3 (0.0-2.0); BASO % 0.2 % (0.0-3.0); EOS % 0.3 % (1.5-5.0); GRAN # 3.54 (1.4-6.5); GRAN % 60.7 % (50.0-68.0); HEMOGLOBIN 9.9 g/dL (12.0-16.0); LYMPH # 1.7 (1.2-3.4); MEAN CELL VOLUME 88.4 fl (80.0-105.0); MEAN CORPUSCULAR HEMOGLOBIN 30.3 pg (25.0-35.0); MEAN CORPUSCULAR HGB CONC 34.3 g/dl (31.0-37.0); MEAN PLATELET VOLUME 10.8 fl (7.0-11.0); MONO # 0.6 (0.1-0.6); MONO % 9.8 % (1.0-6.0); RBC 3.27 10^6/uL (3.5-6.1); WHITE BLOOD COUNT 5.8 10^3/ul (4.5-11.0)
[2017-10-03 08:06] LABS: INR 0.97; PARTIAL THROMBOPLASTIN TIME 26.8 Seconds (25.1-36.5); PROTHROMBIN TIME 11.1 SECONDS (9.4-12.5)
[2017-10-03 08:07] LABS: URINE BACTERIA MANY (NEG); URINE WBC 20 - 25 /hpf (0-6)
[2017-10-03 08:08] LABS: URINE FINE GRANULAR CAST 0 - 2 /hpf (0-2)
[2017-10-03 08:31] LABS: ALB/GLOB RATIO 1.3 (1.1-1.8); ALBUMIN 4.3 g/dL (3.0-4.8); ALT/SGPT 66 U/L (7-56); AMYLASE 83 U/L (35-125); AST/SGOT 77 U/L (14-36); BLOOD UREA NITROGEN 17 mg/dL (7-21); CALCIUM 9.6 mg/dL (8.4-10.5); GFR AFRICAN-AMERICAN > 60; GFR NON-AFRICAN AMERICAN 56; LIPASE 198 U/L (23-300)
[2017-10-03 08:41] LABS: OPIATES, UR NEGATIVE (NEGATIVE)
[2017-10-03 08:55] LABS: TROPONIN I 0.01 ng/mL
[2017-10-03 09:02] LABS: BARBITURATES, UR NEGATIVE (NEGATIVE); BENZODIAZEPINES, UR NEGATIVE (NEGATIVE); PHENCYCLIDINE, UR NEGATIVE (NEGATIVE)
[2017-10-03 09:48] LABS: VENOUS BLOOD GAS PO2 228 mm/Hg (30-55); VENOUS BLOOD PH 7.45 (7.32-7.43)
--- NOTE | 2017-10-03 10:17 | RAD ---
Date of service: 10/03/2017 HISTORY: upper abdominal pain COMPARISON: 10/01/2017 FINDINGS: LUNGS: No active pulmonary disease. PLEURA: No significant pleural effusion identified, no pneumothorax apparent. CARDIOVASCULAR: Normal. OSSEOUS STRUCTURES: No significant abnormalities. VISUALIZED UPPER ABDOMEN: Normal. OTHER FINDINGS: None. IMPRESSION: No active disease.
--- NOTE | 2017-10-03 11:51 | CARD ---
APPROVED REPORT Date of service: 10/03/2017 EKG Measurement Heart [id number] <Conclusion> Normal sinus rhythm Possible Left atrial enlargement Left ventricular hypertrophy Nonspecific ST and T wave abnormality Prolonged QT Abnormal ECG
[2017-10-03] MEDS ORDERED: Sodium Chloride 0.9% 500 ML IV STA (12:18)
[2017-10-03 14:16] VITALS: BP 146/79; PULSE 74; TEMP 98; O2SAT 97
== END 2017-10-03 14:16 | disposition home or self-care (01) ==
LOC: ED 06:13
DX: D64.9 Anemia, unspecified (principal); R10.9 Unspecified abdominal pain; F17.210 Nicotine dependence, cigarettes, uncomplicated; I50.9 Heart failure, unspecified; I10 Essential (primary) hypertension
CPT/HCPCS: 71045; 80053; 80320; 80324; 80329; 80345; 80346; 80349; 80353; 80358; 80361; 81001; 82150; 82550; 82803; 83615; 83690; 83735; 83992; 84484; 85025; 85610; 85730; 87086; 93005; 96361; 96374; 96375; 96376; 99284; J2270; J2405; J7030; J7040

== ENCOUNTER 2017-11-03 13:54 | Emergency (ER) | payer OTHER ==
[2017-11-03 14:06] VITALS: BMI 19.1
[2017-11-03 14:07] VITALS: BP 117/70; TEMP 97.9; O2SAT 99
--- NOTE | 2017-11-03 14:17 | ED PDOC ---
Arrival/HPI - General Chief Complaint: Alcohol Ingestion Time Seen by Provider: 11/03/17 14:13 Historian: Family - History of Present Illness Narrative History of Present Illness (Text): 62yo female, brought to Emergency room by her adult children after they noted she was intoxicated. Patient admits to drinking 1 bottle of rum today. Otherwise , she has no medical complaints. Past Medical History - Provider Review Nursing Documentation Reviewed: Yes - Infectious Disease Hx of Infectious Diseases: None - Tetanus Immunization Tetanus Immunization: Unknown - Cardiac Hx Cardiac Disorders: Yes Hx Congestive Heart Failure: Yes Hx Hypertension: Yes - Pulmonary Hx Respiratory Disorders: Yes Hx Asthma: Yes Hx Bronchitis: Yes - Neurological Hx Neurological Disorder: No - HEENT Hx HEENT Disorder: No - Renal Hx Renal Disorder: No - Endocrine/Metabolic Hx Endocrine Disorders: No - Hematological/Oncological Hx Blood Disorders: No - Integumentary Hx Dermatological Disorder: No - Musculoskeletal/Rheumatological Hx Musculoskeletal Disorders: No - Gastrointestinal Hx Gastrointestinal Disorders: Yes Hx Pancreatitis: Yes (age 55) - Genitourinary/Gynecological Hx Genitourinary Disorders: No - Psychiatric Hx Psychophysiologic Disorder: No Hx Substance Use: Yes - Surgical History Hx Cardiac Catheterization: No Hx Coronary Stent: No Family/Social History - Physician Review Nursing Documentation Reviewed: Yes Family/Social History: No Known Family HX Smoking Status: Light Smoker < 10 Cigarettes Daily Hx Alcohol Use: Yes (social) Hx Substance Use: Yes Substance used: hx marijuana Allergies/Home Meds Allergies/Adverse Reactions: Allergies No Known Allergies Allergy (Verified 11/03/17 14:02) Home Medications: Home Meds Medication Instructions Recorded Confirmed Unobtainable 11/03/17 11/03/17 Review of Systems - Physician Review All systems were reviewed & negative as marked: Yes - Review of Systems Constitutional: Normal Eyes: Normal ENT: Normal Respiratory: Normal. absent: SOB Cardiovascular: Normal. absent: Chest Pain Gastrointestinal: Normal Genitourinary Female: Normal Musculoskeletal: Normal Skin: Normal Neurological: Normal Endocrine: Normal Hemo/Lymphatic: Normal Psychiatric: absent: Suicidal Ideation Physical Exam Vital Signs Temp Pulse Resp BP Pulse Ox 11/03/17 14:43 97.9 F 80 18 99 11/03/17 14:06 97.9 F 90 20 117/70 99 Temperature: Afebrile Blood Pressure: Normal Pulse: Regular Respiratory Rate: Normal Appearance: Positive for: Well-Appearing, Non-Toxic, Comfortable Pain Distress: None Mental Status: Positive for: Alert and Oriented X 3 - Systems Exam Head: Present: Atraumatic, Normocephalic Pupils: Present: PERRL Extroacular Muscles: Present: EOMI Conjunctiva: Present: Normal Mouth: Present: Moist Mucous Membranes, Other (alcohol on breath) Neck: Present: Normal Range of Motion Respiratory/Chest: Present: Clear to Auscultation, Good Air Exchange. No: Respiratory Distress, Accessory Muscle Use Cardiovascular: Present: Regular Rate and Rhythm, Normal S1, S2. No: Murmurs Abdomen: No: Tenderness, Distention, Peritoneal Signs Back: Present: Normal Inspection Upper Extremity: Present: Normal Inspection. No: Cyanosis, Edema Lower Extremity: Present: Normal Inspection. No: Edema Neurological: Present: GCS=15, CN II-XII Intact, Speech Normal Skin: Present: Warm, Dry, Normal Color. No: Rashes Psychiatric: Present: Alert, Oriented x 3, Normal Insight, Normal Concentration , Intoxicated (minimally unsteady gait) Medical Decision Making ED Course and Treatment: Impression: 62yo female, brought to Emergency room for evaluation due to alcohol intoxication Plan: -- Observe in Emergency room pending clinical sobriety. Prior Visits: Notes and results from previous visits were reviewed. Patient was last seen in the Emergency department on 10/03/17 for abdominal pain and was discharged home. Progress Notes: 11/03/17 14:24 FS:[id number] 11/03/17 14:31 Adult son now at bedside. Patient ambulating around without issue. She has no complaints and is requesting discharge. - Scribe Statement The provider has reviewed the documentation as recorded by the Alexus Barr Provider Scribe Attestation: All medical record entries made by the Scribmelina were at my direction and personally dictated by me. I have reviewed the chart and agree that the record accurately reflects my personal performance of the history, physical exam, medical decision making, and the department course for this patient. I have also personally directed, reviewed, and agree with the discharge instructions and disposition. Disposition/Present on Arrival - Present on Arrival Any Indicators Present on Arrival: No History of DVT/PE: No History of Uncontrolled Diabetes: No Urinary Catheter: No History of Decub. Ulcer: No History Surgical Site Infection Following: None - Disposition Have Diagnosis and Disposition been Completed?: Yes Diagnosis: Alcohol abuse Disposition: HOME/ ROUTINE Disposition Time: 14:32 Patient Plan: Discharge Condition: GOOD Additional Instructions: Follow-up with PMD within 2 days. Decrease alcohol use. Return immediately with any worsening symptoms. Forms: [employer] (Kinyarwanda)
[2017-11-03 14:43] VITALS: PULSE 80; RESP 18
== END 2017-11-03 14:45 | disposition home or self-care (01) ==
LOC: ED 13:54
DX: F10.129 Alcohol abuse with intoxication, unspecified (principal); F17.210 Nicotine dependence, cigarettes, uncomplicated; I50.9 Heart failure, unspecified; I10 Essential (primary) hypertension

== ENCOUNTER 2018-04-11 09:55 | Inpatient (IN) | payer OTHER ==
--- NOTE | 2018-04-11 10:35 | ED PDOC ---
Arrival/HPI - General Chief Complaint: Abdominal Pain Time Seen by Provider: 04/11/18 10:26 Historian: Patient - History of Present Illness Narrative History of Present Illness (Text): 04/11/18 10:35 62 year old female, smoker, whose past medical history that includes substance abuse, alcoholism, depression, COPD, CHF, hypertension, and pancreatitis, who presents to the emergency department complaining of abdominal pain since yesterday. Patient states the pain is intermittent and worsens with ambulation. She notes associated vomit and that her bowels are soft and unusual. She admits to using marijuana and cocaine 2 days ago. Last alcohol use was yesterday; patient states she had three drinks. Patient denies fevers, chills, headache, dizziness, chest pain, shortness of breath, dyspnea on exertion, cough, nausea, diarrhea, back pain, neck pain, or any other complaint. Time/Duration: 24 hours Symptom Onset: Gradual Symptom Course: Unchanged Activities at Onset: Light Context: Home Past Medical History - Provider Review Nursing Documentation Reviewed: Yes - Infectious Disease Hx of Infectious Diseases: None - Tetanus Immunization Tetanus Immunization: Unknown - Cardiac Hx Cardiac Disorders: Yes Hx Congestive Heart Failure: Yes Hx Hypertension: Yes - Pulmonary Hx Respiratory Disorders: Yes Hx Asthma: Yes Hx Bronchitis: Yes - Neurological Hx Neurological Disorder: No - HEENT Hx HEENT Disorder: No - Renal Hx Renal Disorder: No - Endocrine/Metabolic Hx Endocrine Disorders: No - Hematological/Oncological Hx Blood Disorders: No - Integumentary Hx Dermatological Disorder: No - Musculoskeletal/Rheumatological Hx Musculoskeletal Disorders: No - Gastrointestinal Hx Gastrointestinal Disorders: Yes Hx Pancreatitis: Yes (age 55) - Genitourinary/Gynecological Hx Genitourinary Disorders: No - Psychiatric Hx Psychophysiologic Disorder: No Hx Substance Use: Yes - Surgical History Hx Cardiac Catheterization: No Hx Coronary Stent: No Family/Social History - Physician Review Nursing Documentation Reviewed: Yes Family/Social History: No Known Family HX Smoking Status: Light Smoker < 10 Cigarettes Daily Hx Alcohol Use: Yes (social) Frequency of alcohol use: Daily Hx Substance Use: Yes Substance used: hx marijuana Allergies/Home Meds Allergies/Adverse Reactions: Allergies No Known Allergies Allergy (Verified 11/03/17 14:02) Home Medications: Home Meds Medication Instructions Recorded Confirmed Aspirin [Lo-Dose Aspirin EC] 81 mg PO DAILY 04/11/18 04/11/18 Carvedilol [Coreg] 3.125 mg PO BID 04/11/18 04/11/18 Furosemide [Lasix] 40 mg PO DAILY 04/11/18 04/11/18 Lisinopril [Zestril] 10 mg PO DAILY 04/11/18 04/11/18 Pantoprazole Sodium [Protonix] 40 mg PO DAILY 04/11/18 04/11/18 RX: Folic Acid 1 mg PO DAILY 04/11/18 04/11/18 RX: Spironolactone [Aldactone] 25 mg PO DAILY 04/11/18 04/11/18 Review of Systems - Physician Review All systems were reviewed & negative as marked: Yes - Review of Systems Constitutional: absent: Fevers Respiratory: absent: SOB, Cough Cardiovascular: absent: Chest Pain Gastrointestinal: Abdominal Pain, Diarrhea, Vomiting. absent: Nausea Musculoskeletal: absent: Back Pain, Neck Pain Skin: absent: Rash Neurological: absent: Headache, Dizziness Physical Exam Vital Signs Reviewed: Yes Vital Signs Temp Pulse Resp BP Pulse Ox 04/11/18 10:14 97.8 F 96 H 18 122/88 96 Temperature: Afebrile Blood Pressure: Normal Pulse: Tachycardic Respiratory Rate: Normal Appearance: Positive for: Well-Appearing, Non-Toxic, Comfortable Pain Distress: None Mental Status: Positive for: Alert and Oriented X 3 - Systems Exam Head: Present: Atraumatic, Normocephalic Pupils: Present: PERRL Extroacular Muscles: Present: EOMI Conjunctiva: Present: Normal Mouth: Present: Moist Mucous Membranes Neck: Present: Normal Range of Motion Respiratory/Chest: Present: Clear to Auscultation, Good Air Exchange. No: Respiratory Distress, Accessory Muscle Use Cardiovascular: Present: Regular Rate and Rhythm, Normal S1, S2. No: Murmurs Abdomen: Present: Tenderness (tenderness to the epigastrum and the right upper quadrant ), Other (soft). No: Distention, Normal Bowel Sounds (hyperactive bowel sounds ), Peritoneal Signs, Rebound, Guarding Back: Present: Normal Inspection Upper Extremity: Present: Normal Inspection. No: Cyanosis, Edema Lower Extremity: Present: Normal Inspection. No: Edema Neurological: Present: GCS=15, CN II-XII Intact, Speech Normal Skin: Present: Warm, Dry, Normal Color. No: Rashes Psychiatric: Present: Alert, Oriented x 3, Normal Insight, Normal Concentration Medical Decision Making ED Course and Treatment: 04/11/18 10:38 Impression: 62 year old female who presents to the emergency department complaining of abdominal pain. Plan: -- EKG -- Labs -- Chest X-ray -- Urine culture -- Urinalysis -- Urinalysis w/ micro Prior Visits: Notes and results from previous visits were reviewed. Progress Notes: 04/11/18 14:15 On reassessment patient states she is now in pain. 04/11/18 14:[address] Delgado who accepts patient into her service. - RAD Interpretation Narrative RAD Interpretations (Text): 04/11/18 11:02 Chest X-ray reviewed, shows: IMPRESSION: No active pulmonary disease. COPD. 04/11/18 14:22 Abdominal ultrasound reviewed, shows: Impression: Diffuse increased echogenicity in the liver and diffuse echogenic foci in the liver nonspecific but could be related to nonspecific infectious/inflammatory hepatitis. clinical and laboratory correlation is advised. No cholelithiasis or billiary dilaion. Radiology Orders: 04/11/18 10:30 CHEST PORTABLE [RAD] Stat Bin Operator: Radiologist - EKG Interpretation EKG Interpretation (Text): 04/11/18 10:43 EKG reviewed by me, shows: Sinus tachycardia at 107bpm with normal interval, normal axis, LVH with repolarization abnormalities. Interpreted by ED Physician: Yes Type: 12 lead EKG - Scribe Statement The provider has reviewed the documentation as recorded by the Alexus Terrazas Provider Scribe Attestation: All medical record entries made by the Scribe were at my direction and personally dictated by me. I have reviewed the chart and agree that the record accurately reflects my personal performance of the history, physical exam, medical decision making, and the department course for this patient. I have also personally directed, reviewed, and agree with the discharge instructions and disposition. Disposition/Present on Arrival - Present on Arrival Any Indicators Present on Arrival: No History of DVT/PE: No History of Uncontrolled Diabetes: No Urinary Catheter: No History of Decub. Ulcer: No History Surgical Site Infection Following: None - Disposition Have Diagnosis and Disposition been Completed?: Yes Diagnosis: Abdominal pain, Polysubstance abuse, Hepatitis Disposition: HOSPITALIZED Disposition Time: 14:20 Patient Plan: Admission Condition: STABLE
--- NOTE | 2018-04-11 10:59 | RAD ---
Date of service: 04/11/2018 HISTORY: Abdominal pain COMPARISON: 10/03/2017. FINDINGS: LUNGS: The lungs are hyperinflated and there is peribronchial thickening with chronic changes in both lungs. PLEURA: No pleural effusions or pneumothorax. CARDIOVASCULAR: The heart is normal in size. No aortic atherosclerotic calcifications present. OSSEOUS STRUCTURES: Within normal limits for the patient's age. VISUALIZED UPPER ABDOMEN: Normal. OTHER FINDINGS: None. IMPRESSION: No active pulmonary disease. COPD.
[2018-04-11 11:10] LABS: BASO # 0.01 K/mm3 (0.0-2.0); BASO % 0.2 % (0.0-3.0); EOS % 0.7 % (1.5-5.0); HEMOGLOBIN 12.1 g/dL (12.0-16.0); LYMPH # 1.7 (1.2-3.4); LYMPH % 29.6 % (22.0-35.0); MEAN CELL VOLUME 92.5 fl (80.0-105.0); MEAN CORPUSCULAR HEMOGLOBIN 31.1 pg (25.0-35.0); MEAN CORPUSCULAR HGB CONC 33.6 g/dl (31.0-37.0); MEAN PLATELET VOLUME 10.8 fl (7.0-11.0); MONO # 0.5 (0.1-0.6); MONO % 7.8 % (1.0-6.0); RBC 3.89 10^6/uL (3.5-6.1); RED CELL DISTRIBUTION WIDTH 13.5 % (11.5-14.5); WHITE BLOOD COUNT 5.8 10^3/uL (4.5-11.0)
[2018-04-11 11:20] LABS: INR 1.07; PROTHROMBIN TIME 12.1 SECONDS (9.4-12.5)
[2018-04-11 11:42] LABS: URINE APPEARANCE CLEAR (CLEAR); URINE BILIRUBIN NEGATIVE (NEGATIVE); URINE BLOOD NEGATIVE (NEGATIVE); URINE COLOR YELLOW (YELLOW); URINE GLUCOSE (UA) NEGATIVE (NEGATIVE); URINE LEUKOCYTE ESTERASE SMALL Leu/uL (NEGATIVE); URINE PROTEIN NEGATIVE mg/dL (<30 mg/dL); URINE UROBILINOGEN 0.2 E.U./dL (<1 E.U./dL)
[2018-04-11 11:48] LABS: ALB/GLOB RATIO 1.2 (1.1-1.8); ALBUMIN 4.2 g/dL (3.0-4.8); ALT/SGPT 299 U/L (7-56); AST/SGOT 675 U/L (14-36); BLOOD UREA NITROGEN 22 mg/dL (7-21); CALCIUM 9.3 mg/dL (8.4-10.5); GFR NON-AFRICAN AMERICAN 45; LIPASE 151 U/L (23-300)
[2018-04-11 11:50] LABS: URINE BACTERIA FEW /hpf; URINE RBC 0 - 2 /hpf (0-2)
[2018-04-11 12:00] LABS: B-TYPE NATRIURETIC PEPTIDE 402 pg/mL (0-450); TROPONIN I < 0.01 ng/mL
[2018-04-11 12:05] LABS: BARBITURATES, UR NEGATIVE (NEGATIVE); BENZODIAZEPINES, UR NEGATIVE (NEGATIVE); OPIATES, UR NEGATIVE (NEGATIVE); PHENCYCLIDINE, UR NEGATIVE (NEGATIVE)
[2018-04-11] MEDS ORDERED: Magnesium Sulfate 1 gm in D5W 1 GM/100 ML BAG IVPB ONE (12:14)
--- NOTE | 2018-04-11 13:36 | US ---
Date of service: 04/11/2018 HISTORY: RUQ pain COMPARISON: 10/02/2017. TECHNIQUE: Grayscale imaging was performed. FINDINGS: LIVER: Measures 16.9 cm. There is diffuse increased echogenicity of the liver parenchyma. Are small echogenic foci throughout the liver. No mass. No intrahepatic bile duct dilatation. GALLBLADDER: Unremarkable. No gallstones. COMMON BILE DUCT: Measures 5.3 mm. No stones. No dilatation. PANCREAS: Unremarkable as visualized. No mass. No ductal dilatation. RIGHT KIDNEY: Measures 9.9cm. Normal echogenicity. No calculus, mass, or hydronephrosis. There is a 1.7 x 1.2 x 1.6 cm simple cyst in the lower pole. LEFT KIDNEY: Measures 9.6cm. Normal echogenicity. No calculus, mass, or hydronephrosis. SPLEEN: Normal in size and contour. No mass. AORTA: No aneurysmal dilatation. IVC: Unremarkable. OTHER FINDINGS: None. IMPRESSION: Diffuse increased echogenicity in the liver and diffuse echogenic foci in the liver nonspecific but could be related to nonspecific infectious/inflammatory hepatitis. Clinical and laboratory correlation is advised. No cholelithiasis or biliary dilatation.
[2018-04-11] MEDS ORDERED: Multivitamin (MVI) 10 ML, Thiamine 100 MG, Folic Acid 1 MG in Sodium Chloride 0.9% 1,00... IV ONE (14:17)
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
[2018-04-11 23:22] VITALS: BMI 19.3
[2018-04-11] MEDS ORDERED: Influenza Vaccine 60 mcg/0.5 mL SYR (4YR UP) IM ONE (23:23)
[2018-04-11] MEDS ORDERED: Pneumococcal 23-Valent Vaccine IM ONE (23:23)
[2018-04-12] MEDS ORDERED: Pantoprazole 40 mg EC Tab PO SCH (06:00)
[2018-04-12 07:42] LABS: BASO # 0.01 K/mm3 (0.0-2.0); BASO % 0.1 % (0.0-3.0); EOS # 0.1 (0.0-0.7); EOS % 0.7 % (1.5-5.0); HEMOGLOBIN 10.8 g/dL (12.0-16.0); LYMPH % 24.5 % (22.0-35.0); MEAN CELL VOLUME 92.9 fl (80.0-105.0); MEAN CORPUSCULAR HEMOGLOBIN 30.9 pg (25.0-35.0); MEAN CORPUSCULAR HGB CONC 33.2 g/dl (31.0-37.0); MEAN PLATELET VOLUME 10.7 fl (7.0-11.0); MONO # 0.5 (0.1-0.6); MONO % 6.2 % (1.0-6.0); RBC 3.5 10^6/uL (3.5-6.1); RED CELL DISTRIBUTION WIDTH 13.5 % (11.5-14.5); WHITE BLOOD COUNT 8.3 10^3/uL (4.5-11.0)
[2018-04-12 07:59] LABS: ALB/GLOB RATIO 1.1 (1.1-1.8); ALBUMIN 3.7 g/dL (3.0-4.8); CALCIUM 9.1 mg/dL (8.4-10.5)
--- NOTE | 2018-04-12 08:18 | CARD ---
APPROVED REPORT Date of service: 04/11/2018 EKG Measurement Heart [id number] <Conclusion> Poor data quality, interpretation may be adversely affected Sinus tachycardia Right atrial enlargement Left ventricular hypertrophy with repolarization abnormality Abnormal ECG
[2018-04-12 08:35] VITALS: O2SAT 98
--- NOTE | 2018-04-12 13:06 | CON ---
DATE OF CONSULTATION: 04/12/2018 CARDIOLOGY CONSULTATION REASON FOR CONSULTATION: Abdominal pain. HISTORY OF PRESENT ILLNESS: The patient is a 62-year-old female, who has a history of cardiomyopathy, cocaine abuse and cardiac arrest. The patient is also a heavy EtOH abuser, who presented because of abdominal pain following drinking. The patient also states is positive for both cocaine and cannabinoids. The patient denies any retrosternal chest pain at this time. SOCIAL HISTORY: Smoker, drinker, cocaine and cannabinoid abuser. MEDICATIONS: Aldactone 25 mg once a day, aspirin 81 mg once a day, Lasix 40 mg once a day, Zestril 10 mg once a day. REVIEW OF SYSTEMS: No fever or chills. No dizziness or syncope. PHYSICAL EXAMINATION: GENERAL: The patient is a middle-aged female, who does not appear to be in acute distress. VITAL SIGNS: Blood pressure 125/77, heart rate 73, temperature 98.1, respirations 18. HEENT: Pale conjunctivae. CHEST: Bilateral rhonchi. HEART: S1, S2 are regular. EXTREMITIES: No edema. LABORATORY DATA: Today's hemoglobin and hematocrit are 10.8 and 32.5, white count and platelet count are within normal limits. PT/PTT, INR are within normal limits. Today's SMA-7 is within normal limits except for an anion gap of 8. AST and ALT are elevated. Triglycerides are elevated to 148. Urine drug screen is positive for cocaine and cannabinoids. EKG revealed sinus tachycardia at a rate of 107, right atrial enlargement, LVH with repolarization changes. Three sets of troponins are negative. ASSESSMENT: 1. Status post recurrent cocaine abuse. 2. Cardiomyopathy with history of cardiac arrest. 3. EtOH abuse. RECOMMENDATIONS: The case was discussed at length with the medical team. I would review the echocardiograph study performed today. I did review the abdominal ultrasound, which revealed increased liver echogenicity, which can be nonspecific, infectious/inflammatory. I also reviewed the chest x-ray, which was consistent with COPD and otherwise unremarkable. I discussed the case at length with the medical team. No invasive cardiac workup is justified given the patient's continued drug abuse, especially cocaine and her extreme noncompliance. Continue current conservative medical approach. The patient is insisting on going home today. Jerome Mtz MD [facility] # [id number]
--- NOTE | 2018-04-12 13:09 | CARD ---
APPROVED REPORT Date of service: 04/12/2018 EXAM: Two-dimensional and M-mode echocardiogram with Doppler and color Doppler. INDICATION SEVERE SYSTOLIC CHF 2D DIMENSIONS Left Atrium (2D)3.9 (1.6-4.0cm)IVSd1.4 (0.7-1.1cm) LVDd4.2 (3.9-5.9cm)PWd1.3 (0.7-1.1cm) LVDs3.5 (2.5-4.0cm)FS (%) 16.5 % LVEF (%)35.0 (>50%) M-Mode DIMENSIONS Aortic Root3.40 (2.2-3.7cm)Aortic Cusp Exc.2.40 (1.5-2.0cm) Aortic Valve AoV Peak Cxcijzhd447.0cm/Benita Peak GR.4mmHg Mitral Valve E/A ratio0.0 TDI E/Lateral E'0.0E/Medial E'0.0 Tricuspid Valve TR Peak [id number] [id number] Peak Gr.24mmHg [id number] LEFT VENTRICLE The left ventricle is normal size. There is mild concentric left ventricular hypertrophy. The ejection fraction is severely impaired. There is global hypokinesis of the left ventricle. RIGHT VENTRICLE The right ventricle is normal size. ATRIA The left atrium size is normal. The right atrium size is normal. The interatrial septum is intact with no evidence for an atrial septal defect. AORTIC VALVE The aortic valve is normal in structure. No aortic regurgitation is present. There is no aortic valvular stenosis. MITRAL VALVE The mitral valve is mildly thickened. The reduced mitral leaflet separation suggests decreased flow through the mitral valve and poor cardiac output. Mitral regurgitation is severe. TRICUSPID VALVE The tricuspid valve is normal in structure. There is severe tricuspid regurgitation. There is mild pulmonary hypertension. PULMONIC VALVE The pulmonic valve is not well visualized. GREAT VESSELS The aortic root is normal in size. The IVC is normal in size and collapses >50% with inspiration. PERICARDIAL EFFUSION There is no pleural effusion. There is no pericardial effusion. <Conclusion> Normal chamber size, Mild concentric LVH. Severe LV systolic dysfunction with global hypokinesis. Severe MR. Severe TR.
--- NOTE | 2018-04-12 15:18 | CP.PCM.DIS ---
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 Comment: abd pain Physician Instructions: Reason For Exam: eval Respiratory Therapy Referral Routine Comment: smoker Physician Instructions: Reason For Exam: eval Transition In Care/Readmission Reduction Routine Comment: abd pain Physician Instructions: Reason For Exam: assess Time Spent in preparation of Discharge (in minutes): 40 Diagnosis - Discharge Diagnosis (1) Abdominal pain Status: Resolved (2) Intractable nausea and vomiting Status: Resolved Hospital Course - Lab Results Lab Results: Micro Results 04/11/18 11:30 Urine,Clean Catch Urine Culture - Final Gram Positive Cocci Most Recent Lab Values WBC 8.3 10^3/uL (4.5-11.0) D 04/12/18 07:30 RBC 3.50 10^6/uL (3.5-6.1) 04/12/18 07:30 Hgb 10.8 g/dL (12.0-16.0) L 04/12/18 07:30 Hct 32.5 % (36.0-48.0) L 04/12/18 07:30 MCV 92.9 fl (80.0-105.0) 04/12/18 07:30 MCH 30.9 pg (25.0-35.0) 04/12/18 07:30 MCHC 33.2 g/dl (31.0-37.0) 04/12/18 07:30 RDW 13.5 % (11.5-14.5) 04/12/18 07:30 Plt Count 154 10^3/uL (120.0-450.0) 04/12/18 07:30 MPV 10.7 fl (7.0-11.0) 04/12/18 07:30 Neut % (Auto) 68.5 % (50.0-68.0) H 04/12/18 07:30 Lymph % (Auto) 24.5 % (22.0-35.0) 04/12/18 07:30 [place] % (Auto) 6.2 % (1.0-6.0) H 04/12/18 07:30 Eos % (Auto) 0.7 % (1.5-5.0) L 04/12/18 07:30 Baso % (Auto) 0.1 % (0.0-3.0) 04/12/18 07:30 Lymph # (Auto) 2.0 (1.2-3.4) 04/12/18 07:30 [place] # (Auto) 0.5 (0.1-0.6) 04/12/18 07:30 Eos # (Auto) 0.1 (0.0-0.7) 04/12/18 07:30 Baso # (Auto) 0.01 K/mm3 (0.0-2.0) 04/12/18 07:30 Absolute Neuts (auto) 5.66 (1.4-6.5) 04/12/18 07:30 PT 12.1 SECONDS (9.4-12.5) 04/11/18 11:05 INR 1.07 04/11/18 11:05 APTT 29.0 Seconds (26.9-38.3) 04/11/18 11:05 Sodium 134 mmol/L (132-148) 04/12/18 07:30 Potassium 3.6 mmol/L (3.6-5.0) 04/12/18 07:30 Chloride 105 mmol/L (98-107) 04/12/18 07:30 Carbon Dioxide 24 mmol/L (21-33) 04/12/18 07:30 Anion Gap 8 (10-20) L 04/12/18 07:30 BUN 21 mg/dL (7-21) 04/12/18 07:30 Creatinine 1.2 mg/dl (0.7-1.2) 04/12/18 07:30 Est GFR ( Amer) 55 04/12/18 07:30 Est GFR (Non-Af Amer) 45 04/12/18 07:30 Random Glucose 93 mg/dL (70-110) 04/12/18 07:30 Hemoglobin A1c 4.9 % (4.2-6.5) 04/12/18 07:30 Calcium 9.1 mg/dL (8.4-10.5) 04/12/18 07:30 Phosphorus 3.6 mg/dL (2.5-4.5) 04/12/18 07:30 Magnesium 1.8 mg/dL (1.7-2.2) 04/12/18 07:30 Total Bilirubin 1.4 mg/dL (0.2-1.3) H 04/12/18 07:30 AST 300 U/L (14-36) H D 04/12/18 07:30 ALT 194 U/L (7-56) H 04/12/18 07:30 Alkaline Phosphatase 80 U/L (38-126) 04/12/18 07:30 Troponin I < 0.01 ng/mL D 04/12/18 00:14 NT-Pro-B Natriuret Pep 402 pg/mL (0-450) 04/11/18 11:22 Total Protein 7.0 g/dL (5.8-8.3) 04/12/18 07:30 Albumin 3.7 g/dL (3.0-4.8) 04/12/18 07:30 Globulin 3.3 gm/dL 04/12/18 07:30 Albumin/Globulin Ratio 1.1 (1.1-1.8) 04/12/18 07:30 Triglycerides 246 mg/dL (35-160) H 04/12/18 07:30 Cholesterol 162 mg/dL (130-200) 04/12/18 07:30 LDL Cholesterol Direct 79 mg/dL (0-129) 04/12/18 07:30 HDL Cholesterol 38 mg/dL (29-60) 04/12/18 07:30 Lipase 151 U/L (23-300) 04/11/18 11:22 Urine Color Yellow (YELLOW) 04/11/18 11:30 Urine Appearance Clear (CLEAR) 04/11/18 11:30 Urine pH 6.0 (4.7-8.0) 04/11/18 11:30 Ur Specific [place] 1.025 (1.005-1.035) 04/11/18 11:30 Urine Protein Negative mg/dL (<30 mg/dL) 04/11/18 11:30 Urine Glucose (UA) Negative mg/dL (NEGATIVE) 04/11/18 11:30 Urine Ketones Negative mg/dL (NEGATIVE) 04/11/18 11:30 Urine Blood Negative (NEGATIVE) 04/11/18 11:30 Urine Nitrate Negative (NEGATIVE) 04/11/18 11:30 Urine Bilirubin Negative (NEGATIVE) 04/11/18 11:30 Urine Urobilinogen 0.2 E.U./dL (<1 E.U./dL) 04/11/18 11:30 Ur Leukocyte Esterase Small Alejandra/uL (NEGATIVE) H 04/11/18 11:30 Urine RBC 0 - 2 /hpf (0-2) 04/11/18 11:30 Urine WBC 2 - 5 /hpf (0-6) 04/11/18 11:30 Ur Epithelial Cells 1 - 3 /hpf (0-5) 04/11/18 11:30 Urine Bacteria Few /hpf (NONE) 04/11/18 11:30 Urine Opiates Screen Negative (NEGATIVE) 04/11/18 11:30 Urine Methadone Screen Negative (NEGATIVE) 04/11/18 11:30 Ur Barbiturates Screen Negative (NEGATIVE) 04/11/18 11:30 Ur Phencyclidine Scrn Negative (NEGATIVE) 04/11/18 11:30 Ur Amphetamines Screen Negative (NEGATIVE) 04/11/18 11:30 U Benzodiazepines Scrn Negative (NEGATIVE) 04/11/18 11:30 U Oth Cocaine Metabols Positive (NEGATIVE) H 04/11/18 11:30 U Cannabinoids Screen Positive (NEGATIVE) H 04/11/18 11:30 Alcohol, Quantitative < 10 mg/dL (0-10) 04/11/18 11:05 - Hospital Course Hospital Course: Hamzah Walton DO, PGY-1 Hospitalist Discharge Summary for Dr. Fannie Delgado Prior to admission: Loren is a 62 year old female with PMH of systolic CHF (2/2 cocaine abuse, s/p episode of VFib arrest in 04/2017, last EF of 17%), COPD, HTN, and polysubstance abuse presents with a complaint of epigastric abdominal pain worsening over the past day. She described the pain as a burning, aching type pain that did not radiate. She admitted to using cocaine last Monday and daily drinking about 3-6 large beers per day. She admitted to some intermittent nausea associated with the pain but denied vomiting, fever/chills, CP, SOB, dyspnea on exertion, cough, sensory changes, DIAZ, blurred vision, or urinary complaints. Hospitalization: While in the hospital, patient completed ACS rule out with serial troponins given the concern for possibility of atypical chest pain. Troponin x 3 were negative. Throughout her hospitalization, her abdominal pain, nausea/vomiting continued to improve. She had a repeat TTE, given her cardiac history of systolic CHF with severely reduced EF. TTE completed this admission showed no significant changes from prior. Per Dr. Mtz, patient has a long- standing history of non-compliance with medications and has continued to use cocaine. Prior to discharge this AM, patient was educated and encouraged to stop cocaine and alcohol entirely. She was advised that continued cocaine use is especially dangerous for her, given that she is supposed to be taking coreg for her heart failure. Cardiology cleared her for discharge this AM and to continue her same home meds. Discharge plan was discussed with patient. All questions were answered. Hamzah Walton DO, PGY-1 Hospitalist Discharge Summary for Dr. Fannie Walton D.O. IM Resident PGY-1 Discharge Exam - Head Exam Head Exam: ATRAUMATIC, NORMOCEPHALIC - Eye Exam Eye Exam: EOMI, PERRL - ENT Exam ENT Exam: Mucous Membranes Moist - Neck Exam Neck exam: Full Rom, Normal Inspection - Respiratory Exam Respiratory Exam: Clear to PA & Lateral, NORMAL BREATHING PATTERN, UNREMARKABLE. absent: Rales, Rhonchi, Wheezes - Cardiovascular Exam Cardiovascular Exam: REGULAR RHYTHM, RRR, +S1, +S2. absent: Gallop, Rubs, Systolic Murmur - GI/Abdominal Exam GI & Abdominal Exam: Normal Bowel Sounds, Soft, Unremarkable. absent: Guarding, Rebound, Tenderness - Extremities Exam Extremities exam: full ROM, normal capillary refill - Back Exam Back exam: FULL ROM, NORMAL INSPECTION - Neurological Exam Neurological exam: Alert, Oriented x3 - Psychiatric Exam Psychiatric exam: Normal Affect, Normal Mood - Skin Skin Exam: Dry, Intact, Warm Discharge Plan - Discharge Medications Prescriptions: Aspirin [Lo-Dose Aspirin EC] 81 mg PO DAILY #14 tablet. Carvedilol [Coreg] 3.125 mg PO BID #28 tab Folic Acid 1 mg PO DAILY #14 tab Furosemide [Lasix] 40 mg PO DAILY #14 tablet Pantoprazole Sodium [Protonix] 40 mg PO DAILY #14 tablet. Spironolactone [Aldactone] 25 mg PO DAILY #14 tab - Follow Up Plan Condition: STABLE Disposition: HOME/ ROUTINE Instructions: Flu, Preventing Falls, Toxic Hepatitis (DC), Polysubstance Abuse, Acute Abdominal Pain (DC), Reactive Airways Disease (DC) Additional Instructions: Please follow up with your primary medical doctor within 3-5 days of your discharge. You will need repeat blood work to make sure your elevated liver numbers have completely resolved. Please follow up with your jazz singer within one week of discharge. It is very important that you abstain from alcohol and cocaine. These are damaging your heart, which is already weak. Using cocaine with one of your medicines, coreg (carvedilol), is also very dangerous. Please abstain from all cocaine use. Please continue all of your home medications. If your symptoms return, please present to nearest ED. Referrals: Cecile Adrian MD [Primary Care Provider] -
[2018-04-12 16:25] VITALS: BP 136/83; PULSE 81; RESP 17; TEMP 98.2
== END 2018-04-12 17:49 | disposition home or self-care (01) | DRG 557 ==
LOC: ED 09:55 → ERH 14:20 → 5RSO 20:00
PROVIDERS: ADMIT Hospitalist; ATTEND Hospitalist
DX: K70.10 Alcoholic hepatitis without ascites (principal); I50.22 Chronic systolic (congestive) heart failure; I11.0 Hypertensive heart disease with heart failure; J44.9 Chronic obstructive pulmonary disease, unspecified; F14.90 Cocaine use, unspecified, uncomplicated; I42.9 Cardiomyopathy, unspecified; R10.9 Unspecified abdominal pain; R11.2 Nausea with vomiting, unspecified; E83.42 Hypomagnesemia; F10.10 Alcohol abuse, uncomplicated; F12.90 Cannabis use, unspecified, uncomplicated; F17.200 Nicotine dependence, unspecified, uncomplicated; Z79.82 Long term (current) use of aspirin; Z79.899 Other long term (current) drug therapy; Z80.3 Family history of malignant neoplasm of breast; Z82.5 Family history of asthma and other chronic lower respiratory diseases; Z86.74 Personal history of sudden cardiac arrest; Z91.14 Patient's other noncompliance with medication regimen

== ENCOUNTER 2018-06-24 01:13 | Inpatient (IN) | payer OTHER ==
[2018-06-24 01:13] VITALS: BMI 19.3
[2018-06-24] MEDS ORDERED: Sodium Chloride 0.9% 1,000 ML IV SCH ×2 (01:30)
--- NOTE | 2018-06-24 01:39 | ED PDOC ---
Arrival/HPI - General Chief Complaint: Abdominal Pain Time Seen by Provider: 06/24/18 01:15 Historian: Patient - History of Present Illness Narrative History of Present Illness (Text): 63 year old female, whose past medical history includes GERD, Hep. C, systolic CHF (2/2 cocaine abuse, s/p episode of VFib arrest in 04/2017, last EF of 17%), COPD, HTN, and polysubstance abuse, presents to the emergency department complaining of epigastric abdominal pain that began 3 days ago associated with 1 episode of non-bloody non-dark diarrhea. Patient describes the pain as a burning sensation, but no radiation. Patient denies any recent antibiotics. Patient also denies taking any medication for the pain. Notes that the pain only began after drinking alcohol. Patient denies any fever, chills, chest pain, shortness of breath, nausea, vomiting, diarrhea, urinary symptoms, back pain, neck pain, headache, dizziness, or any other complaints. PMD: Dr. Cecile Adrian Time/Duration: Other (3 days) Symptom Onset: Gradual Symptom Course: Unchanged Activities at Onset: Light Context: Home Past Medical History - Provider Review Nursing Documentation Reviewed: Yes - Infectious Disease Hx of Infectious Diseases: None - Tetanus Immunization Tetanus Immunization: Unknown - Cardiac Hx Hypertension: Yes - Pulmonary Hx Chronic Obstructive Pulmonary Disease (COPD): Yes - Neurological Hx Neurological Disorder: No - HEENT Hx HEENT Disorder: No - Renal Hx Renal Disorder: No - Endocrine/Metabolic Hx Endocrine Disorders: No - Hematological/Oncological Hx Blood Disorders: No - Integumentary Hx Dermatological Disorder: Yes Other/Comment: thick dry toenails - Musculoskeletal/Rheumatological Hx Falls: No - Gastrointestinal Hx Gastrointestinal Disorders: Yes Hx Pancreatitis: Yes (age 55) Other/Comment: colitis - Genitourinary/Gynecological Hx Genitourinary Disorders: No - Psychiatric Hx Psychophysiologic Disorder: No Hx Substance Use: Yes (marijuana/cocaine) Other/Comment: etoh/substance abuse/smoker - Surgical History Hx Cardiac Catheterization: Yes Hx Coronary Stent: No Family/Social History - Physician Review Nursing Documentation Reviewed: Yes Family/Social History: No Known Family HX Smoking Status: Heavy Smoker > 10 Cigarettes Daily Hx Alcohol Use: Yes (last drink yesterday) Hx Substance Use: Yes (marijuana/cocaine) Substance used: hx marijuana Allergies/Home Meds Allergies/Adverse Reactions: Allergies No Known Allergies Allergy (Verified 11/03/17 14:02) Home Medications: Home Meds Medication Instructions Recorded Confirmed Lisinopril [Zestril] 10 mg PO DAILY 06/24/18 06/24/18 Review of Systems - Physician Review All systems were reviewed & negative as marked: Yes - Review of Systems Constitutional: absent: Fatigue, Weight Change, Fevers, Other (chills) Eyes: absent: Vision Changes ENT: absent: Hearing Changes, Tinnitus Respiratory: absent: SOB Cardiovascular: absent: Chest Pain Gastrointestinal: Abdominal Pain, Diarrhea. absent: Stool Changes, Constipation, Nausea, Vomiting, Hematochezia Genitourinary Female: absent: Dysuria, Frequency, Hematuria Musculoskeletal: absent: Arthralgias, Back Pain, Neck Pain Skin: absent: Rash, Pruritis Neurological: absent: Headache, Dizziness Endocrine: absent: Diaphoresis Physical Exam Vital Signs Reviewed: Yes Vital Signs Temp Pulse Resp BP Pulse Ox 06/24/18 01:21 97.6 F 81 17 144/89 100 Temperature: Afebrile Blood Pressure: Normal Pulse: Regular Respiratory Rate: Normal Appearance: Positive for: Well-Appearing, Non-Toxic, Comfortable Pain Distress: None Mental Status: Positive for: Alert and Oriented X 3 - Systems Exam Head: Present: Atraumatic, Normocephalic Pupils: Present: PERRL Extroacular Muscles: Present: EOMI Conjunctiva: Present: Normal Ears: Present: Normal, NORMAL TM Mouth: Present: Moist Mucous Membranes Pharnyx: Present: Normal. No: ERYTHEMA, EXUDATE Neck: Present: Normal Range of Motion. No: Meningeal Signs, MIDLINE TENDERNESS Respiratory/Chest: Present: Clear to Auscultation, Good Air Exchange. No: Respiratory Distress, Accessory Muscle Use Cardiovascular: Present: Regular Rate and Rhythm, Normal S1, S2. No: Murmurs Abdomen: Present: Tenderness (epigastric ), Normal Bowel Sounds. No: Distention, Peritoneal Signs, Rebound, Guarding, McBurney's Point Tender, Rovsing's Sign Present Back: Present: Normal Inspection. No: CVA Tenderness, Midline Tenderness Upper Extremity: Present: Normal Inspection, NORMAL PULSES. No: Cyanosis, Edema Lower Extremity: Present: Normal Inspection, NORMAL PULSES. No: Edema Neurological: Present: GCS=15, CN II-XII Intact, Speech Normal Skin: Present: Warm, Dry, Normal Color. No: Rashes Psychiatric: Present: Alert, Oriented x 3, Normal Insight, Normal Concentration Medical Decision Making ED Course and Treatment: 06/24/18 01:44 Impression: 63 year old female presents complaining of epigastic abdominal pain for the past 3 days associated with 1 episode of diarrhea after drinking alcohol. epigasrtic pain on exam, no RUQ pain or RLQ pain. No LLQ pain. Likely alcoholic gastritis vs pancreatitis. Differential Diagnosis included but are not limited to: alcoholic gastritis vs pancreatitis Plan: -- EKG -- Labs -- Pepcid, IV Fluids -- Urinalysis -- Reassess and disposition Prior Visits: Notes and results from previous visits were reviewed. Progress Notes: EKG shows NSR at 83 BPM with no STEMI. Interpreted by me. 06/24/18 02:56 Lipase 1100: Pancreatitis: pt in NAD, fluids running. labs otherwise largely unremarkable 06/24/18 03:35 appreciate consult w/ huang: to admit to hospitalist service pt in NAD, NPO, agreeable to plan. - Lab Interpretations I have reviewed the lab results: Yes - EKG Interpretation Interpreted by ED Physician: Yes Type: 12 lead EKG - Medication Orders Current Medication Orders: Sodium Chloride (Sodium Chloride 0.9%) 1,000 mls @ 75 mls/hr IV .[id number] Discontinued Medications Famotidine (Pepcid) 20 mg IVP STAT STA Stop: 06/24/18 01:29 - Scribe Statement The provider has reviewed the documentation as recorded by the Alexus Toro Provider Scribe Attestation: All medical record entries made by the Scribe were at my direction and personally dictated by me. I have reviewed the chart and agree that the record accurately reflects my personal performance of the history, physical exam, medical decision making, and the department course for this patient. I have also personally directed, reviewed, and agree with the discharge instructions and disposition. Disposition/Present on Arrival - Present on Arrival Any Indicators Present on Arrival: No History of DVT/PE: No History of Uncontrolled Diabetes: No Urinary Catheter: No History of Decub. Ulcer: No History Surgical Site Infection Following: None - Disposition Have Diagnosis and Disposition been Completed?: Yes Diagnosis: Pancreatitis Disposition: HOSPITALIZED Disposition Time: 03:11 Patient Problems: Current Active Problems Problem Status Onset Pancreatitis Acute Condition: STABLE
[2018-06-24 02:03] LABS: BASO # 0.01 K/mm3 (0.0-2.0); BASO % 0.2 % (0.0-3.0); EOS % 0.4 % (1.5-5.0); HEMOGLOBIN 12.7 g/dL (12.0-16.0); LYMPH # 1.1 (1.2-3.4); LYMPH % 21.7 % (22.0-35.0); MEAN CELL VOLUME 94.5 fl (80.0-105.0); MEAN CORPUSCULAR HEMOGLOBIN 31.6 pg (25.0-35.0); MEAN CORPUSCULAR HGB CONC 33.4 g/dl (31.0-37.0); MEAN PLATELET VOLUME 10.5 fl (7.0-11.0); MONO # 0.4 (0.1-0.6); MONO % 7.8 % (1.0-6.0); RBC 4.02 10^6/uL (3.5-6.1); RED CELL DISTRIBUTION WIDTH 14.8 % (11.5-14.5); WHITE BLOOD COUNT 5.2 10^3/uL (4.5-11.0)
[2018-06-24 02:38] LABS: ALB/GLOB RATIO 1.2 (1.1-1.8); ALBUMIN 4.6 g/dL (3.0-4.8); ALT/SGPT 28 U/L (7-56); AST/SGOT 63 U/L (14-36); BLOOD UREA NITROGEN 6 mg/dL (7-21); CALCIUM 9.3 mg/dL (8.4-10.5); GFR NON-AFRICAN AMERICAN > 60; LIPASE 1148 U/L (23-300)
[2018-06-24] MEDS ORDERED: Alum-Mag Hydrox-Simethicone Susp (30 mL) PO STA (02:49)
[2018-06-24] MEDS ORDERED: Potassium Chloride 20 mEq ER Tab PO ONE (04:01)
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
[2018-06-24] MEDS: Sodium Chloride 0.9% 1,000 ML IV SCH ×3 (04:43→23:45)
[2018-06-24] MEDS ORDERED: Magnesium Sulfate 2 gm/50 ml 2 GM/50 ML BAG IVPB ONE (04:45)
[2018-06-24 07:06] LABS: TROPONIN I 0.01 ng/mL
[2018-06-24] MEDS: Pantoprazole 40 mg EC Tab PO SCH (07:42)
--- NOTE | 2018-06-24 10:10 | CARD ---
APPROVED REPORT Date of service: 06/24/2018 EKG Measurement Heart [id number] <Conclusion> Normal sinus rhythm Biatrial enlargement Left ventricular hypertrophy ST & T wave abnormality, consider inferolateral ischemia Prolonged QT Abnormal ECG
[2018-06-24] MEDS: Enoxaparin 40 mg Syringe SC SCH (10:20)
[2018-06-24] MEDS: Multivitamin Therapeutic Tab PO SCH (10:21)
[2018-06-24 14:07] LABS: BLOOD UREA NITROGEN 4 mg/dL (7-21); CALCIUM 9.1 mg/dL (8.4-10.5); GFR NON-AFRICAN AMERICAN > 60
[2018-06-24] MEDS ORDERED: Potassium Chloride 40 mEq/30 ml LIQ UD PO ONE (15:08)
[2018-06-24 19:55] LABS: URINE APPEARANCE CLEAR (CLEAR); URINE BILIRUBIN NEGATIVE (NEGATIVE); URINE BLOOD NEGATIVE (NEGATIVE); URINE COLOR LIGHT YELLOW (YELLOW); URINE GLUCOSE (UA) NEGATIVE (NEGATIVE); URINE LEUKOCYTE ESTERASE NEGATIVE Leu/uL (NEGATIVE); URINE PROTEIN TRACE mg/dL (<30 mg/dL); URINE UROBILINOGEN 0.2 E.U./dL (<1 E.U./dL)
[2018-06-24 20:07] LABS: URINE EPITHELIAL CELLS 0 - 2 /hpf (0-5); URINE RBC 0 - 2 /hpf (0-2); URINE WBC 0 - 2 /hpf (0-6)
[2018-06-25] MEDS: Morphine 2 mg/ml ISec IVP PRN ×3 (05:27→17:50)
[2018-06-25] MEDS: Pantoprazole 40 mg EC Tab PO SCH (05:27)
[2018-06-25 07:25] LABS: ALB/GLOB RATIO 1.1 (1.1-1.8); ALT/SGPT 24 U/L (7-56); AST/SGOT 62 U/L (14-36); BLOOD UREA NITROGEN 7 mg/dL (7-21); CALCIUM 9.1 mg/dL (8.4-10.5); GFR NON-AFRICAN AMERICAN > 60
[2018-06-25 08:17] LABS: BASO # 0.01 K/mm3 (0.0-2.0); BASO % 0.2 % (0.0-3.0); EOS % 0.6 % (1.5-5.0); HEMOGLOBIN 12.5 g/dL (12.0-16.0); LYMPH # 1.7 (1.2-3.4); LYMPH % 25.9 % (22.0-35.0); MEAN CELL VOLUME 94.5 fl (80.0-105.0); MEAN CORPUSCULAR HEMOGLOBIN 31.2 pg (25.0-35.0); MEAN PLATELET VOLUME 11.3 fl (7.0-11.0); MONO # 0.6 (0.1-0.6); RBC 4.01 10^6/uL (3.5-6.1); RED CELL DISTRIBUTION WIDTH 14.8 % (11.5-14.5); WHITE BLOOD COUNT 6.6 10^3/uL (4.5-11.0)
[2018-06-25 09:20] LABS: BARBITURATES, UR NEGATIVE (NEGATIVE); BENZODIAZEPINES, UR NEGATIVE (NEGATIVE); OPIATES, UR NEGATIVE (NEGATIVE); PHENCYCLIDINE, UR NEGATIVE (NEGATIVE)
[2018-06-25] MEDS: Enoxaparin 40 mg Syringe SC SCH (10:19)
[2018-06-25] MEDS: Multivitamin Therapeutic Tab PO SCH (10:21)
--- NOTE | 2018-06-25 14:59 | CP.PCM.PN ---
<Alok Dove - Last Filed: 06/25/18 15:08> Subjective - Date & Time of Evaluation Date of Evaluation: 06/25/18 Time of Evaluation: 08:00 - Subjective Subjective: Alok Dove PGY1 Medicine Progress Note for Dr. Torrez Patient seen at bedside this morning. No adverse overnight events. She endorses she drinks 6 pints of liquor and knows that she needs to stop. She also endorses to the team about drug use. She says she has appetite and denies cp, sob, fever, n/v/d at this time. A full 12 point ROS was conducted and unremarkable except as stated above. Objective - Vital Signs/Intake and Output Vital Signs (last 24 hours): Temp Pulse Resp BP Pulse Ox 97.8 F 86 18 145/75 99 06/25/18 13:53 06/25/18 13:53 06/25/18 13:53 06/25/18 13:53 06/25/18 13:53 - Medications Medications: Current Medications Acetaminophen (Tylenol 325mg Tab) 650 mg PO Q6H PRN PRN Reason: Pain, Mild (1-3) Aspirin (Ecotrin) 81 mg PO DAILY [facility] Last Admin: 06/25/18 10:21 Dose: 81 mg Enoxaparin Sodium (Lovenox) 40 mg SC DAILY [facility]; Protocol Last Admin: 06/25/18 10:19 Dose: 40 mg Folic Acid (Folic Acid) 1 mg PO DAILY [facility] Last Admin: 06/25/18 10:21 Dose: 1 mg Furosemide (Lasix) 40 mg PO DAILY [facility] Last Admin: 06/25/18 10:22 Dose: 40 mg Sodium Chloride (Sodium Chloride 0.9%) 1,000 mls @ 100 mls/hr IV .Q10H [facility] Last Admin: 06/24/18 23:45 Dose: 100 mls/hr Ketorolac Tromethamine (Toradol) 15 mg IVP Q6H PRN PRN Reason: Pain, moderate (4-7) Last Admin: 06/24/18 06:58 Dose: 15 mg Lisinopril (Zestril) 10 mg PO DAILY [facility] Last Admin: 06/25/18 10:21 Dose: 10 mg Lorazepam (Ativan) 1 mg IVP Q4H PRN; Protocol PRN Reason: Symptoms of alcohol withdrawl Morphine Sulfate (Morphine) 1 mg IVP Q6H PRN PRN Reason: Pain, severe (8-10) Last Admin: 06/25/18 10:20 Dose: 1 mg Multivitamins (Thera Tab) 1 tab PO DAILY [facility] Last Admin: 06/25/18 10:21 Dose: 1 tab Ondansetron HCl (Zofran Inj) 4 mg IVP Q4H PRN PRN Reason: Nausea/Vomiting Last Admin: 06/24/18 13:42 Dose: 4 mg Pantoprazole Sodium (Protonix Ec Tab) 40 mg PO 0600 [facility] Last Admin: 06/25/18 05:27 Dose: 40 mg Spironolactone (Aldactone) 25 mg PO DAILY [facility] Last Admin: 06/25/18 10:21 Dose: 25 mg Thiamine HCl (Vitamin B1 Tab) 100 mg PO DAILY [facility] Last Admin: 06/25/18 10:21 Dose: 100 mg - Labs Labs: 06/25/18 06:20 06/25/18 06:20 - Constitutional Appears: No Acute Distress - Head Exam Head Exam: ATRAUMATIC, NORMAL INSPECTION - Eye Exam Eye Exam: EOMI, Normal appearance Pupil Exam: NORMAL ACCOMODATION Additional comments: Scleral icterus noted - ENT Exam ENT Exam: Mucous Membranes Dry - Neck Exam Neck exam: Positive for: Normal Inspection - Respiratory Exam Respiratory Exam: Clear to Auscultation Bilateral, NORMAL BREATHING PATTERN. absent: Rales, Rhonchi, Wheezes, Respiratory Distress - Cardiovascular Exam Cardiovascular Exam: REGULAR RHYTHM, +S1, +S2. absent: Bradycardia, Tachycardia, Gallop, Rubs, Systolic Murmur - GI/Abdominal Exam GI & Abdominal Exam: Normal Bowel Sounds, Soft, Tenderness ( Mild Tender to palpation in epigastric region) - Extremities Exam Extremities exam: Positive for: normal inspection. Negative for: calf tenderness, pedal edema - Back Exam Back exam: NORMAL INSPECTION. absent: CVA tenderness (L), CVA tenderness (R), paraspinal tenderness, tenderness, vertebral tenderness - Neurological Exam Neurological exam: Alert, CN II-XII Intact, Oriented x3 - Psychiatric Exam Psychiatric exam: Normal Affect, Normal Mood - Skin Skin Exam: Dry, Intact, Normal Color, Warm Assessment and Plan - Assessment and Plan (Free Text) Assessment: Patient is a 62 year old female with a past medical history of systolic CHF (2/2 cocaine abuse, EF of 35%), COPD, HTN, and polysubstance abuse presenting with epigastric abdominal pain. Patient admitted for acute pancreatitis. Plan: Abdominal Pain 2/2 Acute Pancreatitis - Advanced diet to clear liquid - c/w IVF NS @ 100 cc/hr - Lipase on admission 1148 - Triglycerides levels wnl - c/w Zofran 4 mg IVP Q6h PRN - c/w Tylenol PRN, Toradol 15mg IV Q6 PRN, Morphine 1mg IV Q6 PRN Transaminitis 2/2 Chronic EtOH Abuse vs Alcoholic Hepatitis - Continue to monitor - stable at this time Hypomagnesemia, hypokalemia - improving - Replete as needed - Continue to monitor Systolic CHF - Echo (03/2018): EF of 35% with severe reduced LV wall function and severe MR/TR - Will hold Coreg as patient admits to recent cocaine use - Continue home Lasix, ASA, Aldactone - Previous records show that patient was on Lisinopril 10mg daily, unsure why patient stopped taking it Polysubstance abuse - trops negative x3 - EKG: NSR at 83 BPM, LVH - UDS: +cocaine, +cannabinoids - [facility] protocol - Ativan 1 mg q4h PRN for withdrawal symptoms - educated on cessation provided Hypertension - Hold home Coreg due to cocaine use - c/w home Lasix 40mg PO QD - Continue to monitor Prophylaxis: - DVT: Lovenox 40mg SC QD - GI: Protonix 40mg PO QD Diet: Clear Liquid Dispo: Continue to monitor patient on med/surg. Advance diet as tolerated. If improving, anticipate discharge tomorrow. Case was discussed and reviewed with Attending Physician, Dr. Torrez <Alba Torrez - Last Filed: 06/27/18 15:51> Objective - Vital Signs/Intake and Output Vital Signs (last 24 hours): Temp Pulse Resp BP Pulse Ox 98 F 94 H 19 146/88 99 06/26/18 13:26 06/26/18 13:26 06/26/18 13:26 06/26/18 13:26 06/26/18 13:26 - Labs Labs: 06/26/18 06:00 06/26/18 06:00 Attending/Attestation - Attestation I have personally seen and examined this patient.: Yes I have fully participated in the care of the patient.: Yes I have reviewed all pertinent clinical information, including history, physical exam and plan: Yes Notes (Text): 06/27/18 15:51 Medical record note made by the resident after discussion with my direction and input after the patient was personally seen and examined by me. I have reviewed the chart and agree that the record accurately reflects by personal performance of the history, physical exam, data review, and medical decision-making, in the course for the patient. I have also personally directed the plan of care.
[2018-06-25] MEDS ORDERED: Magnesium Sulfate 2 gm/50 ml 2 GM/50 ML BAG IVPB ONE (15:14)
[2018-06-25] MEDS: Sodium Chloride 0.9% 1,000 ML IV SCH ×2 (16:37→19:41)
[2018-06-26] MEDS: Morphine 2 mg/ml ISec IVP PRN (01:34)
[2018-06-26] MEDS: Pantoprazole 40 mg EC Tab PO SCH (05:15)
[2018-06-26] MEDS: Sodium Chloride 0.9% 1,000 ML IV SCH (05:15)
[2018-06-26 06:21] LABS: BASO # 0.01 K/mm3 (0.0-2.0); BASO % 0.2 % (0.0-3.0); EOS # 0.1 (0.0-0.7); EOS % 1.4 % (1.5-5.0); HEMOGLOBIN 11.3 g/dL (12.0-16.0); LYMPH # 2.2 (1.2-3.4); LYMPH % 33.7 % (22.0-35.0); MEAN CELL VOLUME 93.9 fl (80.0-105.0); MEAN CORPUSCULAR HEMOGLOBIN 31.1 pg (25.0-35.0); MEAN CORPUSCULAR HGB CONC 33.1 g/dl (31.0-37.0); MEAN PLATELET VOLUME 11.2 fl (7.0-11.0); MONO # 0.6 (0.1-0.6); MONO % 8.6 % (1.0-6.0); RBC 3.63 10^6/uL (3.5-6.1); RED CELL DISTRIBUTION WIDTH 14.6 % (11.5-14.5); WHITE BLOOD COUNT 6.7 10^3/uL (4.5-11.0)
[2018-06-26 07:26] LABS: ALB/GLOB RATIO 1.1 (1.1-1.8); ALBUMIN 3.6 g/dL (3.0-4.8); ALT/SGPT 24 U/L (7-56); AST/SGOT 49 U/L (14-36); BLOOD UREA NITROGEN 6 mg/dL (7-21); CALCIUM 8.9 mg/dL (8.4-10.5); GFR NON-AFRICAN AMERICAN > 60
[2018-06-26] MEDS ORDERED: Potassium Chloride 40 mEq/30 ml LIQ UD PO ONE (08:23)
[2018-06-26] MEDS: Multivitamin Therapeutic Tab PO SCH (10:30)
[2018-06-26] MEDS: Enoxaparin 40 mg Syringe SC SCH (10:30)
[2018-06-26 13:26] VITALS: BP 146/88; PULSE 94; RESP 19; TEMP 98; O2SAT 99
--- NOTE | 2018-06-26 13:54 | CP.PCM.DIS ---
<Douglas Clark - Last Filed: 06/26/18 13:42> Provider - Provider Date of Admission: 06/24/18 03:51 Attending physician: Lyndon Ordonez MD Consults: 06/24/18 06:17 Social Work Referral Routine Comment: protocol Physician Instructions: Reason For Exam: protocol Time Spent in preparation of Discharge (in minutes): 40 Diagnosis - Discharge Diagnosis (1) Acute pancreatitis Status: Resolved (2) HFrEF (heart failure with reduced ejection fraction) Status: Chronic (3) Polysubstance abuse Status: Chronic (4) Transaminitis Status: Acute Priority: Medium (5) HTN (hypertension) Status: Chronic Priority: Medium Hospital Course - Lab Results Lab Results: Most Recent Lab Values WBC 6.7 10^3/uL (4.5-11.0) 06/26/18 06:00 RBC 3.63 10^6/uL (3.5-6.1) 06/26/18 06:00 Hgb 11.3 g/dL (12.0-16.0) L 06/26/18 06:00 Hct 34.1 % (36.0-48.0) L 06/26/18 06:00 MCV 93.9 fl (80.0-105.0) 06/26/18 06:00 MCH 31.1 pg (25.0-35.0) 06/26/18 06:00 MCHC 33.1 g/dl (31.0-37.0) 06/26/18 06:00 RDW 14.6 % (11.5-14.5) H 06/26/18 06:00 Plt Count 189 10^3/uL (120.0-450.0) 06/26/18 06:00 MPV 11.2 fl (7.0-11.0) H 06/26/18 06:00 Neut % (Auto) 56.1 % (50.0-68.0) 06/26/18 06:00 Lymph % (Auto) 33.7 % (22.0-35.0) 06/26/18 06:00 Frontier % (Auto) 8.6 % (1.0-6.0) H 06/26/18 06:00 Eos % (Auto) 1.4 % (1.5-5.0) L 06/26/18 06:00 Baso % (Auto) 0.2 % (0.0-3.0) 06/26/18 06:00 Lymph # (Auto) 2.2 (1.2-3.4) 06/26/18 06:00 Frontier # (Auto) 0.6 (0.1-0.6) 06/26/18 06:00 Eos # (Auto) 0.1 (0.0-0.7) 06/26/18 06:00 Baso # (Auto) 0.01 K/mm3 (0.0-2.0) 06/26/18 06:00 Absolute Neuts (auto) 3.74 (1.4-6.5) 06/26/18 06:00 Sodium 135 mmol/L (132-148) 06/26/18 06:00 Potassium 3.4 mmol/L (3.6-5.0) L 06/26/18 06:00 Chloride 103 mmol/L (98-107) 06/26/18 06:00 Carbon Dioxide 24 mmol/L (21-33) 06/26/18 06:00 Anion Gap 11 (10-20) 06/26/18 06:00 BUN 6 mg/dL (7-21) L 06/26/18 06:00 Creatinine 0.7 mg/dl (0.7-1.2) 06/26/18 06:00 Est GFR ( Amer) > 60 06/26/18 06:00 Est GFR (Non-Af Amer) > 60 06/26/18 06:00 Random Glucose 94 mg/dL (70-110) 06/26/18 06:00 Calcium 8.9 mg/dL (8.4-10.5) 06/26/18 06:00 Magnesium 1.7 mg/dL (1.7-2.2) 06/26/18 06:00 Total Bilirubin 0.6 mg/dL (0.2-1.3) 06/26/18 06:00 AST 49 U/L (14-36) H D 06/26/18 06:00 ALT 24 U/L (7-56) 06/26/18 06:00 Alkaline Phosphatase 57 U/L (38-126) 06/26/18 06:00 Troponin I 0.02 ng/mL 06/24/18 17:00 Total Protein 6.8 g/dL (5.8-8.3) 06/26/18 06:00 Albumin 3.6 g/dL (3.0-4.8) 06/26/18 06:00 Globulin 3.2 gm/dL 06/26/18 06:00 Albumin/Globulin Ratio 1.1 (1.1-1.8) 06/26/18 06:00 Triglycerides 71 mg/dL (35-160) 06/24/18 06:20 Cholesterol 298 mg/dL (130-200) H 06/24/18 06:20 LDL Cholesterol Direct 124 mg/dL (0-129) 06/24/18 06:20 HDL Cholesterol 137 mg/dL (29-60) H 06/24/18 06:20 Lipase 1148 U/L (23-300) H 06/24/18 01:40 Urine Color Light yellow (YELLOW) 06/24/18 19:40 Urine Appearance Clear (CLEAR) 06/24/18 19:40 Urine pH 6.0 (4.7-8.0) 06/24/18 19:40 Ur Specific [place] 1.015 (1.005-1.035) 06/24/18 19:40 Urine Protein Trace mg/dL (<30 mg/dL) H 06/24/18 19:40 Urine Glucose (UA) Negative mg/dL (NEGATIVE) 06/24/18 19:40 Urine Ketones Negative mg/dL (NEGATIVE) 06/24/18 19:40 Urine Blood Negative (NEGATIVE) 06/24/18 19:40 Urine Nitrate Negative (NEGATIVE) 06/24/18 19:40 Urine Bilirubin Negative (NEGATIVE) 06/24/18 19:40 Urine Urobilinogen 0.2 E.U./dL (<1 E.U./dL) 06/24/18 19:40 Ur Leukocyte Esterase Negative Alejandra/uL (NEGATIVE) 06/24/18 19:40 Urine RBC 0 - 2 /hpf (0-2) 06/24/18 19:40 Urine WBC 0 - 2 /hpf (0-6) 06/24/18 19:40 Ur Epithelial Cells 0 - 2 /hpf (0-5) 06/24/18 19:40 Urine Opiates Screen Negative (NEGATIVE) 06/25/18 07:35 Urine Methadone Screen Negative (NEGATIVE) 06/25/18 07:35 Ur Barbiturates Screen Negative (NEGATIVE) 06/25/18 07:35 Ur Phencyclidine Scrn Negative (NEGATIVE) 06/25/18 07:35 Ur Amphetamines Screen Negative (NEGATIVE) 06/25/18 07:35 U Benzodiazepines Scrn Negative (NEGATIVE) 06/25/18 07:35 U Oth Cocaine Metabols Positive (NEGATIVE) H 06/25/18 07:35 U Cannabinoids Screen Positive (NEGATIVE) H 06/25/18 07:35 Alcohol, Quantitative < 10 mg/dL (0-10) 06/24/18 11:00 - Hospital Course Hospital Course: Patient is a 62 year old female with a past medical history of systolic CHF (2/2 cocaine abuse, EF of 35%), COPD, HTN, and polysubstance abuse presented with epigastric abdominal pain that radiated to the back, nausea, and vomiting. Patient admits to binge drinking prior to onset of abdominal pain. Patient reports similar episodes in the past and was diagnosed then with acute pancreatitis. Lipase was greater than 3 times the normal limit. LFT's were mildly elevated, consistent with EtOH abuse. Patient was admitted for evaluation and treatment for acute pancreatitis 2/2 EtOH abuse. Patient was started on IVF resuscitation and had diet increased as tolerated. Electrolytes were monitored and repleted as necessary. Patient's pain was controlled and eventually her nausea, vomiting, and pain resolved. Coreg was held due to cocaine use. As patient's symptoms resolved and was medically stable, she was discharged. Patient was counselled on the risks of polysubstance and EtOH use and was advised complete cessation. Patient will follow up with her PMD and coffee farmer on discharge and instructed to hold her Coreg until advised otherwise. All other home medications were resumed. Discharge Exam - Head Exam Head Exam: ATRAUMATIC, NORMAL INSPECTION - Eye Exam Eye Exam: Normal appearance Pupil Exam: NORMAL ACCOMODATION - ENT Exam ENT Exam: Normal Exam - Neck Exam Neck exam: Normal Inspection - Respiratory Exam Respiratory Exam: Clear to PA & Lateral. absent: Rales, Rhonchi, Wheezes - Cardiovascular Exam Cardiovascular Exam: RRR, +S1, +S2. absent: Diastolic murmur, Gallop, Rubs, Systolic Murmur - GI/Abdominal Exam GI & Abdominal Exam: Soft. absent: Distended, Guarding, Rebound, Tenderness - Extremities Exam Extremities exam: normal inspection - Back Exam Back exam: NORMAL INSPECTION - Neurological Exam Neurological exam: Alert, Normal Gait, Oriented x3 - Psychiatric Exam Psychiatric exam: Normal Affect, Normal Mood - Skin Skin Exam: Dry, Intact, Normal Color, Warm Discharge Plan - Discharge Medications Prescriptions: Aspirin [Lo-Dose Aspirin EC] 81 mg PO DAILY #30 tablet. Folic Acid 1 mg PO DAILY #30 tab Furosemide [Lasix] 40 mg PO DAILY #30 tablet Lisinopril [Zestril] 10 mg PO DAILY #30 tab Multivitamin Therapeutic Tab [Thera Tab] 1 tab PO DAILY #30 tab Spironolactone [Aldactone] 25 mg PO DAILY #30 tab Thiamine [Vitamin B1 Tab] 100 mg PO DAILY #30 tab - Follow Up Plan Condition: STABLE Disposition: HOME/ ROUTINE Instructions: Pancreatitis (DC), Pancreatitis (DC) Additional Instructions: - Follow up with PMD within 3-5 valentine - Do not take Coreg (carvedilol) for now as it interacts with cocaine - Refer to PMD for further instructions regarding Coreg - Recommend cessation of all illicit drug and alcohol use - Take new medications as prescribed - Resume all other home medications as prescribed except for Coreg - Return to ED if symptoms return <Alba Torrez - Last Filed: 06/27/18 15:51> Provider - Provider Date of Admission: 06/24/18 03:51 Attending physician: Lyndon Ordonez MD Consults: 06/24/18 06:17 Social Work Referral Routine Comment: protocol Physician Instructions: Reason For Exam: protocol Hospital Course - Lab Results Lab Results: Most Recent Lab Values WBC 6.7 10^3/uL (4.5-11.0) 06/26/18 06:00 RBC 3.63 10^6/uL (3.5-6.1) 06/26/18 06:00 Hgb 11.3 g/dL (12.0-16.0) L 06/26/18 06:00 Hct 34.1 % (36.0-48.0) L 06/26/18 06:00 MCV 93.9 fl (80.0-105.0) 06/26/18 06:00 MCH 31.1 pg (25.0-35.0) 06/26/18 06:00 MCHC 33.1 g/dl (31.0-37.0) 06/26/18 06:00 RDW 14.6 % (11.5-14.5) H 06/26/18 06:00 Plt Count 189 10^3/uL (120.0-450.0) 06/26/18 06:00 MPV 11.2 fl (7.0-11.0) H 06/26/18 06:00 Neut % (Auto) 56.1 % (50.0-68.0) 06/26/18 06:00 Lymph % (Auto) 33.7 % (22.0-35.0) 06/26/18 06:00 Frontier % (Auto) 8.6 % (1.0-6.0) H 06/26/18 06:00 Eos % (Auto) 1.4 % (1.5-5.0) L 06/26/18 06:00 Baso % (Auto) 0.2 % (0.0-3.0) 06/26/18 06:00 Lymph # (Auto) 2.2 (1.2-3.4) 06/26/18 06:00 Frontier # (Auto) 0.6 (0.1-0.6) 06/26/18 06:00 Eos # (Auto) 0.1 (0.0-0.7) 06/26/18 06:00 Baso # (Auto) 0.01 K/mm3 (0.0-2.0) 06/26/18 06:00 Absolute Neuts (auto) 3.74 (1.4-6.5) 06/26/18 06:00 Sodium 135 mmol/L (132-148) 06/26/18 06:00 Potassium 3.4 mmol/L (3.6-5.0) L 06/26/18 06:00 Chloride 103 mmol/L (98-107) 06/26/18 06:00 Carbon Dioxide 24 mmol/L (21-33) 06/26/18 06:00 Anion Gap 11 (10-20) 06/26/18 06:00 BUN 6 mg/dL (7-21) L 06/26/18 06:00 Creatinine 0.7 mg/dl (0.7-1.2) 06/26/18 06:00 Est GFR ( Amer) > 60 06/26/18 06:00 Est GFR (Non-Af Amer) > 60 06/26/18 06:00 Random Glucose 94 mg/dL (70-110) 06/26/18 06:00 Calcium 8.9 mg/dL (8.4-10.5) 06/26/18 06:00 Magnesium 1.7 mg/dL (1.7-2.2) 06/26/18 06:00 Total Bilirubin 0.6 mg/dL (0.2-1.3) 06/26/18 06:00 AST 49 U/L (14-36) H D 06/26/18 06:00 ALT 24 U/L (7-56) 06/26/18 06:00 Alkaline Phosphatase 57 U/L (38-126) 06/26/18 06:00 Troponin I 0.02 ng/mL 06/24/18 17:00 Total Protein 6.8 g/dL (5.8-8.3) 06/26/18 06:00 Albumin 3.6 g/dL (3.0-4.8) 06/26/18 06:00 Globulin 3.2 gm/dL 06/26/18 06:00 Albumin/Globulin Ratio 1.1 (1.1-1.8) 06/26/18 06:00 Triglycerides 71 mg/dL (35-160) 06/24/18 06:20 Cholesterol 298 mg/dL (130-200) H 06/24/18 06:20 LDL Cholesterol Direct 124 mg/dL (0-129) 06/24/18 06:20 HDL Cholesterol 137 mg/dL (29-60) H 06/24/18 06:20 Lipase 1148 U/L (23-300) H 06/24/18 01:40 Urine Color Light yellow (YELLOW) 06/24/18 19:40 Urine Appearance Clear (CLEAR) 06/24/18 19:40 Urine pH 6.0 (4.7-8.0) 06/24/18 19:40 Ur Specific [place] 1.015 (1.005-1.035) 06/24/18 19:40 Urine Protein Trace mg/dL (<30 mg/dL) H 06/24/18 19:40 Urine Glucose (UA) Negative mg/dL (NEGATIVE) 06/24/18 19:40 Urine Ketones Negative mg/dL (NEGATIVE) 06/24/18 19:40 Urine Blood Negative (NEGATIVE) 06/24/18 19:40 Urine Nitrate Negative (NEGATIVE) 06/24/18 19:40 Urine Bilirubin Negative (NEGATIVE) 06/24/18 19:40 Urine Urobilinogen 0.2 E.U./dL (<1 E.U./dL) 06/24/18 19:40 Ur Leukocyte Esterase Negative Alejandra/uL (NEGATIVE) 06/24/18 19:40 Urine RBC 0 - 2 /hpf (0-2) 06/24/18 19:40 Urine WBC 0 - 2 /hpf (0-6) 06/24/18 19:40 Ur Epithelial Cells 0 - 2 /hpf (0-5) 06/24/18 19:40 Urine Opiates Screen Negative (NEGATIVE) 06/25/18 07:35 Urine Methadone Screen Negative (NEGATIVE) 06/25/18 07:35 Ur Barbiturates Screen Negative (NEGATIVE) 06/25/18 07:35 Ur Phencyclidine Scrn Negative (NEGATIVE) 06/25/18 07:35 Ur Amphetamines Screen Negative (NEGATIVE) 06/25/18 07:35 U Benzodiazepines Scrn Negative (NEGATIVE) 06/25/18 07:35 U Oth Cocaine Metabols Positive (NEGATIVE) H 06/25/18 07:35 U Cannabinoids Screen Positive (NEGATIVE) H 06/25/18 07:35 Alcohol, Quantitative < 10 mg/dL (0-10) 06/24/18 11:00 Attending/Attestation - Attestation I have personally seen and examined this patient.: Yes I have fully participated in the care of the patient.: Yes I have reviewed all pertinent clinical information, including history, physical exam and plan: Yes Notes (Text): 06/27/18 15:47 Medical record note made by the resident after discussion with my direction and input after the patient was personally seen and examined by me. I have reviewed the chart and agree that the record accurately reflects by personal performance of the history, physical exam, data review, and medical decision-making, in the course for the patient. I have also personally directed the plan of care. 62 year old female with a past medical history of systolic CHF (2/2 cocaine abuse, EF of 35%), COPD, HTN, and polysubstance abuse presenting with epigastric abdominal pain found to have elevated lipase suggestive of acute Pancreatitis. Patient abdominal pain has improved. She is tolerating diet with out any issu.She is on room air and is ambulatory.There is no sign of fluid overload at the time of discharge. Issue of ongoing alcohol,smoking and drug abuse was discussed in detail with her. Prognosis is guarded due to ongoing substance abuse and non compliance. She will be discharged home and will follow up with PCP Management plan was discussed in detail with patient. Education was provided.
== END 2018-06-26 13:54 | disposition home or self-care (01) | DRG 557 ==
LOC: ED 01:13 → ERH 03:51 → 5RNO 05:50
PROVIDERS: ADMIT Hospitalist; ATTEND Internal Medicine
DX: K85.20 Alcohol induced acute pancreatitis without necrosis or infection (principal); I50.22 Chronic systolic (congestive) heart failure; I11.0 Hypertensive heart disease with heart failure; J44.9 Chronic obstructive pulmonary disease, unspecified; F14.10 Cocaine abuse, uncomplicated; E87.6 Hypokalemia; F10.10 Alcohol abuse, uncomplicated; F12.90 Cannabis use, unspecified, uncomplicated; K21.9 Gastro-esophageal reflux disease without esophagitis; E83.42 Hypomagnesemia; R74.0 Nonspecific elevation of levels of transaminase and lactic acid dehydrogenase [LDH]; F17.210 Nicotine dependence, cigarettes, uncomplicated; Z91.19 Patient's noncompliance with other medical treatment and regimen; Z82.5 Family history of asthma and other chronic lower respiratory diseases; Z80.3 Family history of malignant neoplasm of breast

== ENCOUNTER 2018-07-09 09:39 | Emergency (ER) | payer MEDICAID, OTHER ==
[2018-07-09 09:39] VITALS: BMI 19.3
[2018-07-09 09:51] VITALS: TEMP 97.3
[2018-07-09] MEDS ORDERED: Sodium Chloride 0.9% 500 ML IV STA (10:03)
[2018-07-09 10:23] LABS: VENOUS BLOOD GAS BASE EXCESS 1.5 mmol/L (0.0-2.0); VENOUS BLOOD GAS PO2 164 mm/Hg (30-55); VENOUS BLOOD PH 7.47 (7.32-7.43)
[2018-07-09 10:26] LABS: BASO # 0.02 K/mm3 (0.0-2.0); BASO % 0.2 % (0.0-3.0); EOS % 0.1 % (1.5-5.0); LYMPH # 1.8 (1.2-3.4); LYMPH % 21.2 % (22.0-35.0); MEAN CORPUSCULAR HEMOGLOBIN 30.9 pg (25.0-35.0); MEAN PLATELET VOLUME 9.9 fl (7.0-11.0); MONO # 0.6 (0.1-0.6); MONO % 6.7 % (1.0-6.0); RBC 3.88 10^6/uL (3.5-6.1); RED CELL DISTRIBUTION WIDTH 14.1 % (11.5-14.5); URINE BILIRUBIN NEGATIVE (NEGATIVE); URINE BLOOD NEGATIVE (NEGATIVE); URINE GLUCOSE (UA) NEGATIVE (NEGATIVE); URINE LEUKOCYTE ESTERASE NEGATIVE Leu/uL (NEGATIVE); URINE PROTEIN 30 mg/dL (<30 mg/dL); URINE UROBILINOGEN 0.2 E.U./dL (<1 E.U./dL); WHITE BLOOD COUNT 8.5 10^3/uL (4.5-11.0)
[2018-07-09 10:27] LABS: URINE APPEARANCE CLEAR (CLEAR); URINE COLOR YELLOW (YELLOW)
[2018-07-09] MEDS ORDERED: Morphine 4 mg/ml ISec IVP STA (10:35)
--- NOTE | 2018-07-09 10:35 | RAD ---
Date of service: 07/09/2018 HISTORY: abd pain COMPARISON: 04/11/2018 TECHNIQUE: 1 view obtained. FINDINGS: LUNGS: No active pulmonary disease. PLEURA: No significant pleural effusion identified, no pneumothorax apparent. CARDIOVASCULAR: No aortic atherosclerotic calcification present. Normal cardiac size. No pulmonary vascular congestion. OSSEOUS STRUCTURES: No significant abnormalities. VISUALIZED UPPER ABDOMEN: Normal. OTHER FINDINGS: None. IMPRESSION: No active disease.
[2018-07-09 10:39] LABS: ALB/GLOB RATIO 1.2 (1.1-1.8); ALBUMIN 4.8 g/dL (3.0-4.8); ALT/SGPT 22 U/L (7-56); AST/SGOT 58 U/L (14-36); BLOOD UREA NITROGEN 23 mg/dL (7-21); GFR NON-AFRICAN AMERICAN 56; LIPASE 185 U/L (23-300)
--- NOTE | 2018-07-09 10:43 | ED PDOC ---
Arrival/HPI - General Chief Complaint: Abdominal Pain Time Seen by Provider: 07/09/18 09:40 Historian: Patient - History of Present Illness Narrative History of Present Illness (Text): 07/09/18 10:38 63-year-old female with a history of alcohol abuse and cocaine abuse with a history of recurrent pancreatitis presents today with left upper quadrant abdominal pain that is radiating to the back. Patient states this is the same p ain that she has had when she has had a flare of pancreatitis in the past. Patient is complaining of nausea and vomiting. No chest pain or shortness of breath. She denies urinary symptoms. No fevers or chills. Patient states she used cocaine 5 days ago. Past Medical History - Provider Review Nursing Documentation Reviewed: Yes - Travel History Have you recently traveled outside [place] w/in the past 3 mons?: No - Infectious Disease Hx of Infectious Diseases: None - Tetanus Immunization Tetanus Immunization: Unknown - Cardiac Hx Cardiac Disorders: Yes Hx Congestive Heart Failure: Yes Hx Hypertension: Yes - Pulmonary Hx Respiratory Disorders: Yes Hx Chronic Obstructive Pulmonary Disease (COPD): Yes - Neurological Hx Neurological Disorder: No - HEENT Hx HEENT Disorder: No - Renal Hx Renal Disorder: No - Endocrine/Metabolic Hx Endocrine Disorders: No - Hematological/Oncological Hx Blood Disorders: No - Integumentary Hx Dermatological Disorder: Yes Other/Comment: thick dry toenails - Musculoskeletal/Rheumatological Hx Falls: No - Gastrointestinal Hx Gastrointestinal Disorders: Yes Hx Pancreatitis: Yes (age 55) Other/Comment: colitis - Genitourinary/Gynecological Hx Genitourinary Disorders: No - Psychiatric Hx Psychophysiologic Disorder: No Hx Substance Use: Yes (marijuana/cocaine) Other/Comment: etoh/substance abuse/smoker - Surgical History Hx Cardiac Catheterization: Yes Hx Coronary Stent: No Family/Social History - Physician Review Nursing Documentation Reviewed: Yes Family/Social History: Unknown Family HX Smoking Status: Heavy Smoker > 10 Cigarettes Daily Hx Alcohol Use: Yes (last drink yesterday) Frequency of alcohol use: Few days per week Hx Substance Use: Yes (marijuana/cocaine) Substance used: hx marijuana Allergies/Home Meds Allergies/Adverse Reactions: Allergies No Known Allergies Allergy (Verified 07/09/18 09:52) Review of Systems - Review of Systems Constitutional: Fatigue. absent: Fevers Respiratory: absent: SOB, Cough Cardiovascular: absent: Chest Pain, Palpitations Gastrointestinal: Abdominal Pain, Nausea, Vomiting. absent: Constipation, Diarrhea Genitourinary Female: absent: Dysuria, Frequency Musculoskeletal: absent: Arthralgias, Back Pain, Neck Pain Skin: absent: Rash, Pruritis Neurological: absent: Headache, Dizziness Psychiatric: absent: Anxiety, Depression, Suicidal Ideation Physical Exam Vital Signs Reviewed: Yes Vital Signs Temp Pulse Resp BP Pulse Ox 07/09/18 10:29 178/110 H 07/09/18 10:24 112 H 20 186/116 H 100 07/09/18 09:47 97.3 F L 128 H 18 170/110 H 99 Temperature: Afebrile Blood Pressure: Hypertensive Pulse: Tachycardic Respiratory Rate: Normal Appearance: Positive for: Well-Appearing, Non-Toxic, Comfortable Pain Distress: None Mental Status: Positive for: Alert and Oriented X 3 - Systems Exam Head: Present: Atraumatic Mouth: Present: Moist Mucous Membranes Neck: Present: Normal Range of Motion Respiratory/Chest: Present: Clear to Auscultation, Good Air Exchange. No: Respiratory Distress, Accessory Muscle Use Cardiovascular: Present: Normal S1, S2, Tachycardic. No: Murmurs Abdomen: Present: Tenderness (LUQ tenderness), Normal Bowel Sounds. No: Distention, Peritoneal Signs, Rebound, Guarding Back: Present: Normal Inspection. No: CVA Tenderness, Midline Tenderness, Paraspinal Tenderness Upper Extremity: Present: Normal ROM Lower Extremity: Present: Normal ROM Neurological: Present: GCS=15, Speech Normal Skin: Present: Warm, Dry, Normal Color. No: Rashes Psychiatric: Present: Alert, Oriented x 3 Medical Decision Making ED Course and Treatment: 07/09/18 10:41 Patient presenting with LUQ abd pain radiating to the back. hx of pancreatitis CBC wnl CMP: ast 58 Lipase wnl trop; 0.02 unchanged bnp: 1910 Urinalysis wnl CAT scan: FINDINGS: CT ANGIOGRAPHY OF THE CHEST WITH & WITHOUT CONTRAST: AORTA (CHEST AND ABDOMEN): The thoracic and abdominal aorta are unremarkable, without aneurysm, dissection or rupture. No intramural thrombus identified in the thoracic aorta on the non-contrast ct of the chest. The celiac axis, superior mesenteric artery, inferior mesenteric artery and the renal arteries are widely patent. The pelvic arteries are unremarkable. LUNGS: Clear. No nodule, mass or consolidation. MEDIASTINUM: Unremarkable. Normal caliber aorta and pulmonary arterial trunk. No aortic dissection. Normal size heart. LYMPH NODES: Unremarkable. PLEURA: Unremarkable. No pneumothorax. No pleural fluid. BONES: Unremarkable. OTHER FINDINGS: None. CT ANGIOGRAPHY OF THE ABDOMEN AND PELVIS WITH CONTRAST: LIVER: Unremarkable. No gross lesion or ductal dilatation. GALLBLADDER AND BILE DUCTS: Gallbladder mildly distended. PANCREAS: Unremarkable. No gross lesion or ductal dilatation. SPLEEN: Unremarkable. ADRENALS: Unremarkable. No mass. KIDNEYS AND URETERS: Unremarkable. No hydronephrosis. No solid mass. VASCULATURE: Unremarkable. No aortic aneurysm. No aortic atherosclerotic calcification or mural plaque present. STOMACH AND BOWEL: Unremarkable. No obstruction. No gross mural thickening. APPENDIX: Unremarkable PERITONEUM: Unremarkable. No free fluid. No free air. LYMPH NODES: Unremarkable. No enlarged lymph nodes. BLADDER: Unremarkable. REPRODUCTIVE: Unremarkable. BONES: No acute fracture. OTHER FINDINGS: None. IMPRESSION: Negative study. No evidence of aortic dissection or aneurysm Patient reassessment: Pt feeling much better after medications. vitals stable. Discussed all results with patient in depth pt was advised to continue to take medications as prescribed and f/u with the pmd, Gi and Cardilogist. pt was advised immediate return if symptoms worsen, persist or if new symptoms develop. case discussed with dr. pretty in depth. Impression: Abdominal pain Protonix one tablet daily Follow up with the GI doctor within the next 2 days. Follow up with the cash applications clerk within the next 2 days. Follow up with primary care physician within the next 2 days Return immediately if symptoms worsen persist or if new symptoms develop: High fevers, increasing pain, vomiting, diarrhea or any other concerning symptoms develop - Lab Interpretations Lab Results: pO2 164 mm/Hg (30-55) H 07/09/18 10:11 VBG pH 7.47 (7.32-7.43) H 07/09/18 10:11 VBG pCO2 34.0 (40-60) L 07/09/18 10:11 VBG HCO3 24.7 mmol/l (21-28) 07/09/18 10:11 VBG Total CO2 25.7 mmol.L (22-28) 07/09/18 10:11 VBG O2 Sat (Calc) 99.8 % (40-65) H 07/09/18 10:11 VBG Base Excess 1.5 mmol/L (0.0-2.0) 07/09/18 10:11 VBG Potassium 4.2 mmol/L (3.6-5.2) 07/09/18 10:11 Sodium 135.0 mmol/L (132-148) 07/09/18 10:11 Chloride 100.0 mmol/L (98-107) 07/09/18 10:11 Glucose 89 mg/dl (65-105) 07/09/18 10:11 Lactate 1.4 mmol/L (0.7-2.1) 07/09/18 10:11 FiO2 21.0 % 07/09/18 10:11 Urine Color Yellow (YELLOW) 07/09/18 10:11 Urine Appearance Clear (CLEAR) 07/09/18 10:11 Urine pH 7.0 (4.7-8.0) 07/09/18 10:11 Ur Specific [place] 1.015 (1.005-1.035) 07/09/18 10:11 Urine Protein 30 mg/dL (<30 mg/dL) H 07/09/18 10:11 Urine Glucose (UA) Negative mg/dL (NEGATIVE) 07/09/18 10:11 Urine Ketones 15 mg/dL (NEGATIVE) H 07/09/18 10:11 Urine Blood Negative (NEGATIVE) 07/09/18 10:11 Urine Nitrate Negative (NEGATIVE) 07/09/18 10:11 Urine Bilirubin Negative (NEGATIVE) 07/09/18 10:11 Urine Urobilinogen 0.2 E.U./dL (<1 E.U./dL) 07/09/18 10:11 Ur Leukocyte Esterase Negative Alejandra/uL (NEGATIVE) 07/09/18 10:11 - RAD Interpretation Radiology Orders: 07/09/18 10:08 CHEST PORTABLE [RAD] Stat - Medication Orders Current Medication Orders: Discontinued Medications Sodium Chloride (Sodium Chloride 0.9%) 500 mls @ 999 mls/hr IV .Q31M STA Stop: 07/09/18 10:33 Last Admin: 07/09/18 10:21 Dose: 999 mls/hr eMAR Start Stop Document 07/09/18 10:21 [email or web address] (Rec: 07/09/18 10:21 [email or web address] [id number] Intravenous Solution Start Date 07/09/18 Start Time 10:21 Morphine Sulfate (Morphine) 4 mg IVP STAT STA Stop: 07/09/18 10:36 Ondansetron HCl (Zofran Inj) 4 mg IVP STAT STA Stop: 07/09/18 10:36 Disposition/Present on Arrival - Present on Arrival Any Indicators Present on Arrival: No History of DVT/PE: No History of Uncontrolled Diabetes: No Urinary Catheter: No History of Decub. Ulcer: No History Surgical Site Infection Following: None - Disposition Have Diagnosis and Disposition been Completed?: Yes Diagnosis: Abdominal pain Disposition: HOME/ ROUTINE Disposition Time: 12:43 Patient Plan: Discharge Condition: GOOD Discharge Instructions (ExitCare): Acute Abdomen (Belly Pain), Adult (DC), Nausea and Vomiting, Adult Additional Instructions: Protonix one tablet daily Follow up with the GI doctor within the next 2 days. Follow up with the cash applications clerk within the next 2 days. Follow up with primary care physician within the next 2 days Return immediately if symptoms worsen persist or if new symptoms develop: High fevers, increasing pain, vomiting, diarrhea or any other concerning symptoms develop Prescriptions: Pantoprazole [Protonix] 40 mg PO DAILY #20 tab Referrals: Cecile Adrian MD [Primary Care Provider] - Follow up with primary Alba Zhao MD [Staff Provider] - Follow up with primary Ramses Hallman MD [Staff Provider] - Follow up with primary Forms: [employer] ([place]), WORK NOTE
[2018-07-09 10:44] LABS: URINE WBC 0 - 2 /hpf (0-6)
[2018-07-09 10:45] LABS: URINE BACTERIA SMALL /hpf
[2018-07-09 10:46] LABS: BARBITURATES, UR NEGATIVE (NEGATIVE); BENZODIAZEPINES, UR NEGATIVE (NEGATIVE); OPIATES, UR NEGATIVE (NEGATIVE); PHENCYCLIDINE, UR NEGATIVE (NEGATIVE)
[2018-07-09 11:14] LABS: TROPONIN I 0.02 ng/mL
--- NOTE | 2018-07-09 12:17 | CT ---
PROCEDURE: CT Angiography Chest, Abdomen and Pelvis with and without intravenous contrast HISTORY: abd pain radiating to back COMPARISON: None. TECHNIQUE: Contiguous axial images of the chest, abdomen and pelvis were obtained in the phase of aortic enhancement. A noncontrast enhanced CT of the chest was also obtained to evaluate for possible intramural thrombus. Coronal and sagittal reformats were generated. IV dose administered: 147 cc of Omni 350 Radiation dose: Total exam DLP = 377.16 mGy-cm. This CT exam was performed using one or more of the following dose reduction techniques: Automated exposure control, adjustment of the mA and/or kV according to patient size, and/or use of iterative reconstruction technique. FINDINGS: CT ANGIOGRAPHY OF THE CHEST WITH & WITHOUT CONTRAST: AORTA (CHEST AND ABDOMEN): The thoracic and abdominal aorta are unremarkable, without aneurysm, dissection or rupture. No intramural thrombus identified in the thoracic aorta on the non-contrast ct of the chest. The celiac axis, superior mesenteric artery, inferior mesenteric artery and the renal arteries are widely patent. The pelvic arteries are unremarkable. LUNGS: Clear. No nodule, mass or consolidation. MEDIASTINUM: Unremarkable. Normal caliber aorta and pulmonary arterial trunk. No aortic dissection. Normal size heart. LYMPH NODES: Unremarkable. PLEURA: Unremarkable. No pneumothorax. No pleural fluid. BONES: Unremarkable. OTHER FINDINGS: None. CT ANGIOGRAPHY OF THE ABDOMEN AND PELVIS WITH CONTRAST: LIVER: Unremarkable. No gross lesion or ductal dilatation. GALLBLADDER AND BILE DUCTS: Gallbladder mildly distended. PANCREAS: Unremarkable. No gross lesion or ductal dilatation. SPLEEN: Unremarkable. ADRENALS: Unremarkable. No mass. KIDNEYS AND URETERS: Unremarkable. No hydronephrosis. No solid mass. VASCULATURE: Unremarkable. No aortic aneurysm. No aortic atherosclerotic calcification or mural plaque present. STOMACH AND BOWEL: Unremarkable. No obstruction. No gross mural thickening. APPENDIX: Unremarkable PERITONEUM: Unremarkable. No free fluid. No free air. LYMPH NODES: Unremarkable. No enlarged lymph nodes. BLADDER: Unremarkable. REPRODUCTIVE: Unremarkable. BONES: No acute fracture. OTHER FINDINGS: None. IMPRESSION: Negative study. No evidence of aortic dissection or aneurysm
[2018-07-09 12:40] VITALS: BP 150/88
[2018-07-09 13:10] VITALS: PULSE 98; RESP 18; O2SAT 99
--- NOTE | 2018-07-09 19:36 | CARD ---
APPROVED REPORT Date of service: 07/09/2018 EKG Measurement Heart [id number] <Conclusion> Sinus tachycardia Biatrial enlargement Left ventricular hypertrophy Nonspecific ST and T wave abnormality Abnormal ECG
== END 2018-07-09 13:10 | disposition home or self-care (01) ==
LOC: ED 09:39
DX: R10.9 Unspecified abdominal pain (principal); I11.0 Hypertensive heart disease with heart failure; I50.9 Heart failure, unspecified; J44.9 Chronic obstructive pulmonary disease, unspecified; F14.10 Cocaine abuse, uncomplicated; F17.210 Nicotine dependence, cigarettes, uncomplicated
CPT/HCPCS: 71045; 71275; 74175; 80053; 81001; 82550; 82803; 83615; 83690; 83880; 84484; 85025; 87040; 87086; 93005; 96374; 96375; 99284; C9113; G0480; J2270; J2405; J7040; Q9967